=== PATIENT | female | born 1960 | race Caucasian/White ===

== ENCOUNTER 2020-10-13 15:15 | Outpatient (REF) | payer MEDICAID, SELFPAY | END 2020-10-13 15:16 | disposition home or self-care (01) | LOC: HO.LAB 15:15 | PROVIDERS: PCP Student in an Organized Health Care Education/Training Program; Visit Provider Internal Medicine | DX: Z20.828 Contact with and (suspected) exposure to other viral communicable diseases (principal) | CPT/HCPCS: C9803; U0003 ==

== ENCOUNTER → 2020-10-25 08:00 | Outpatient (BNV) | payer MEDICAID, SELFPAY | PROVIDERS: PCP Student in an Organized Health Care Education/Training Program; Visit Provider Internal Medicine Medical Oncology | DX: D05.12 Intraductal carcinoma in situ of left breast (principal); Z79.810 Long term (current) use of selective estrogen receptor modulators (SERMs) | CPT/HCPCS: 99213; 99214 ==

== ENCOUNTER 2020-12-20 11:02 | Outpatient (REF) | payer MEDICAID, SELFPAY | END 2020-12-20 11:03 | disposition home or self-care (01) | LOC: HO.LAB 11:02 | PROVIDERS: Visit Provider Internal Medicine | DX: Z20.822 Contact with and (suspected) exposure to COVID-19 (principal) | CPT/HCPCS: 36415; C9803; U0003; U0005 ==

== ENCOUNTER → 2020-12-21 12:39 | Outpatient (BNVA) | payer MEDICAID, SELFPAY | PROVIDERS: PCP Student in an Organized Health Care Education/Training Program; Visit Provider Surgery | DX: D05.12 Intraductal carcinoma in situ of left breast (principal) | CPT/HCPCS: 99212 ==

== ENCOUNTER 2020-12-23 11:20 | Outpatient (REF) | payer MEDICAID, SELFPAY ==
--- NOTE | ~2020-12-23 | MM_ITS ---
EXAMINATION: MM DIAGNOSTIC DIGITAL BREAST TOMOSYNTHESIS, BILATERAL CLINICAL INFORMATION: Status post left breast lumpectomy. COMPARISON: Mammography: 11/24/2019 and studies dating back to 11/20/2018. TECHNIQUE: Digital breast tomosynthesis is performed in both the craniocaudal and mediolateral oblique views along with computer-aided detection (CAD). Synthesized 2D images are generated from the tomosynthesis. Spot magnification views of the left breast in craniocaudal and 90 degree mediolateral view performed. FINDINGS: There are scattered areas of fibroglandular density (ACR BI-RADS breast composition Category b). There is a stable parenchymal pattern within the right breast without new abnormal dominant mass or suspicious grouping of microcalcifications. Within the left breast there is stable postsurgical change with no new abnormal dominant mass or suspicious grouping of microcalcifications. Results are provided to the patient at time of visit by the technologist. MM/MM tomosynthesis diagnostic BI IMPRESSION: There are no significant changes from prior study. ASSESSMENT: BI-RADS 2: Benign. RECOMMENDATION: Diagnostic mammography at time of next annual exam, due in 12 months. This patient's information was entered into a reminder system with a target due date for their next mammogram.
== END 2020-12-23 11:21 | disposition home or self-care (01) ==
LOC: HO.MAMMO 11:20
PROVIDERS: Visit Provider Student in an Organized Health Care Education/Training Program
DX: Z86.000 Personal history of in-situ neoplasm of breast (principal)
CPT/HCPCS: 77062; 77066

== ENCOUNTER 2021-01-17 14:25 | Outpatient (REF) | payer MEDICAID, SELFPAY | END 2021-01-17 14:26 | disposition home or self-care (01) | LOC: HO.LAB 14:25 | PROVIDERS: Visit Provider Internal Medicine | DX: Z20.822 Contact with and (suspected) exposure to COVID-19 (principal) | CPT/HCPCS: 36415; C9803; U0003; U0005 ==

== ENCOUNTER 2021-04-06 10:00 | Outpatient (REF) | payer MEDICAID, SELFPAY | END 2021-04-06 10:01 | disposition home or self-care (01) | LOC: HO.LAB 10:00 | PROVIDERS: Visit Provider Internal Medicine | DX: Z20.822 Contact with and (suspected) exposure to COVID-19 (principal) | CPT/HCPCS: C9803; U0003; U0005 ==

== ENCOUNTER → 2021-04-20 08:21 | Outpatient (BNVA) | payer MEDICAID, SELFPAY | PROVIDERS: PCP Student in an Organized Health Care Education/Training Program; Visit Provider Nurse Practitioner Family ==

== ENCOUNTER → 2021-09-15 10:03 | Outpatient (BNVA) | payer MEDICAID, SELFPAY | PROVIDERS: Visit Provider Surgery | DX: D05.12 Intraductal carcinoma in situ of left breast (principal) | CPT/HCPCS: 99212 ==

== ENCOUNTER 2021-09-23 07:32 | Outpatient (REF) | payer MEDICAID, SELFPAY ==
--- NOTE | ~2021-09-23 | XR_ITS ---
EXAMINATION: XR KNEE, RIGHT XR KNEE, LEFT XR KNEE BILATERAL STANDING CLINICAL INFORMATION: Bilateral knee pain COMPARISON: 05/28/2019 TECHNIQUE: AP standing view of both knees [place] and lateral views of the left knee [place] and lateral views of the right knee FINDINGS: AP standing view both knees Chronic osteochondritis of the medial and lateral tibiofemoral compartments of both knees. The joint degeneration is, overall, similar in appearance compared to 05/28/2019, although there appears to be slight worsening of joint space loss at the medial tibiofemoral compartment of the right knee. There is chronic zxgsulda-bd-hiuobs loss of the medial tibiofemoral joint space of the left knee. There is 2 degrees of genu varus deformity. Right knee: No fracture, subluxation or joint effusion. Patella is well-positioned in the trochlear groove. Moderate osteoarthritic deformity at the patellofemoral compartment. Left knee: No fracture, subluxation or joint effusion. The patella is well-positioned within the trochlear groove. Chronic moderate osteoarthritis of the patellofemoral compartment. XR/XR knee RT 2V IMPRESSION: Chronic tricompartmental osteoarthritis of knees. At the left knee, the joint space loss is worst ([id number]) at the medial tibiofemoral compartment and there is mild genu varus deformity. At the right knee, the tricompartmental osteochondritis is generally moderate at all compartments.
--- NOTE | ~2021-09-23 | XR_ITS ---
EXAMINATION: XR KNEE, RIGHT XR KNEE, LEFT XR KNEE BILATERAL STANDING CLINICAL INFORMATION: Bilateral knee pain COMPARISON: 05/28/2019 TECHNIQUE: AP standing view of both knees [place] and lateral views of the left knee [place] and lateral views of the right knee FINDINGS: AP standing view both knees Chronic osteochondritis of the medial and lateral tibiofemoral compartments of both knees. The joint degeneration is, overall, similar in appearance compared to 05/28/2019, although there appears to be slight worsening of joint space loss at the medial tibiofemoral compartment of the right knee. There is chronic nqckparq-ji-hldlet loss of the medial tibiofemoral joint space of the left knee. There is 2 degrees of genu varus deformity. Right knee: No fracture, subluxation or joint effusion. Patella is well-positioned in the trochlear groove. Moderate osteoarthritic deformity at the patellofemoral compartment. Left knee: No fracture, subluxation or joint effusion. The patella is well-positioned within the trochlear groove. Chronic moderate osteoarthritis of the patellofemoral compartment. XR/XR knee LT 2V IMPRESSION: Chronic tricompartmental osteoarthritis of knees. At the left knee, the joint space loss is worst (oytsnemr-he-yhgunb) at the medial tibiofemoral compartment and there is mild genu varus deformity. At the right knee, the tricompartmental osteochondritis is generally moderate at all compartments.
--- NOTE | ~2021-09-23 | XR_ITS ---
EXAMINATION: XR KNEE, RIGHT XR KNEE, LEFT XR KNEE BILATERAL STANDING CLINICAL INFORMATION: Bilateral knee pain COMPARISON: 05/28/2019 TECHNIQUE: AP standing view of both knees [place] and lateral views of the left knee [place] and lateral views of the right knee FINDINGS: AP standing view both knees Chronic osteochondritis of the medial and lateral tibiofemoral compartments of both knees. The joint degeneration is, overall, similar in appearance compared to 05/28/2019, although there appears to be slight worsening of joint space loss at the medial tibiofemoral compartment of the right knee. There is chronic opbqaiih-pv-nhrdgh loss of the medial tibiofemoral joint space of the left knee. There is 2 degrees of genu varus deformity. Right knee: No fracture, subluxation or joint effusion. Patella is well-positioned in the trochlear groove. Moderate osteoarthritic deformity at the patellofemoral compartment. Left knee: No fracture, subluxation or joint effusion. The patella is well-positioned within the trochlear groove. Chronic moderate osteoarthritis of the patellofemoral compartment. XR/XR knee standing BI IMPRESSION: Chronic tricompartmental osteoarthritis of knees. At the left knee, the joint space loss is worst (cskgzjzn-ya-hyammp) at the medial tibiofemoral compartment and there is mild genu varus deformity. At the right knee, the tricompartmental osteochondritis is generally moderate at all compartments.
== END 2021-09-23 07:33 | disposition home or self-care (01) ==
LOC: HO.HOSX 07:32
PROVIDERS: Visit Provider Physician Assistant
DX: M17.0 Bilateral primary osteoarthritis of knee (principal)
CPT/HCPCS: 73560; 73565; 99212

== ENCOUNTER → 2021-09-26 08:34 | Outpatient (BNVA) | payer MEDICAID, SELFPAY | PROVIDERS: Visit Provider Nurse Practitioner Family | DX: Z12.11 Encounter for screening for malignant neoplasm of colon (principal); K59.04 Chronic idiopathic constipation; K21.9 Gastro-esophageal reflux disease without esophagitis; M17.0 Bilateral primary osteoarthritis of knee | CPT/HCPCS: 99212 ==

== ENCOUNTER → 2021-09-27 14:08 | Outpatient (BNVA) | payer MEDICAID, SELFPAY | PROVIDERS: Visit Provider Dietitian, Registered ==

== ENCOUNTER 2021-12-24 09:40 | Outpatient (REF) | payer MEDICAID, SELFPAY | END 2021-12-24 09:41 | disposition home or self-care (01) | LOC: HO.MAMMO 09:40 | PROVIDERS: PCP Student in an Organized Health Care Education/Training Program; Visit Provider Student in an Organized Health Care Education/Training Program | DX: Z13.89 Encounter for screening for other disorder (principal) ==

== ENCOUNTER 2022-03-02 11:36 | Outpatient (REF) | payer MEDICAID, SELFPAY ==
--- NOTE | ~2022-03-02 | MM_ITS ---
EXAMINATION: MM DIAGNOSTIC DIGITAL BREAST TOMOSYNTHESIS, BILATERAL CLINICAL INFORMATION: Left lumpectomy for DCIS 02/19/2019. Radiation completed September,. Due for yearly. COMPARISON: Mammography: 12/23/2020, 11/24/2019, 02/19/2019, 01/03/2019, 11/29/2018, 11/20/2018 TECHNIQUE: Digital breast tomosynthesis is performed in both the craniocaudal and mediolateral oblique views along with computer-aided detection (CAD). Synthesized 2D images are generated from the tomosynthesis. FINDINGS: There are scattered areas of fibroglandular density (ACR BI-RADS breast composition Category b). Parenchymal pattern is similar to prior studies. There is no interval mass or architectural abnormality or abnormal calcifications. The axilla are unremarkable. Left breast post therapy changes are again seen with mild reduced breast size and scarring and surgical clips. There are no significant changes from prior studies. Results are provided to the patient at time of visit by the technologist. MM/MM tomosynthesis diagnostic BI IMPRESSION: No mammographic evidence of malignancy. Post therapy changes left breast. ASSESSMENT: BI-RADS 2: Benign RECOMMENDATION: Annual bilateral mammography. This patient's information was entered into a reminder system with a target due date for their next mammogram.
== END 2022-03-02 11:37 | disposition home or self-care (01) ==
LOC: HO.MAMMO 11:36
PROVIDERS: PCP Student in an Organized Health Care Education/Training Program; Visit Provider Student in an Organized Health Care Education/Training Program
DX: R92.2 Inconclusive mammogram (principal); Z85.3 Personal history of malignant neoplasm of breast
CPT/HCPCS: 77062; 77066

== ENCOUNTER 2022-03-14 11:01 | Outpatient (REF) | payer MEDICAID, SELFPAY ==
--- NOTE | ~2022-03-14 | XR_ITS ---
EXAMINATION: LEFT SHOULDER AND CERVICAL SPINE. CLINICAL INFORMATION: Left shoulder and cervical spine pain. No injury COMPARISON: None TECHNIQUE: Left shoulder 4 views. Cervical spine 6 views. FINDINGS: Left shoulder: There is mild loss of glenohumeral and AC joint space with periarticular spurring left glenohumeral joint.. No visible acute fracture, dislocation or subluxation seen. There are no loose bodies or joint effusion. XR/XR cervical spine min 6V IMPRESSION: Degenerative arthritic changes left AC and glenohumeral joint space with periapical spurring of the glenohumeral joint. No acute fracture or dislocation.
--- NOTE | ~2022-03-14 | XR_ITS ---
EXAMINATION: LEFT SHOULDER AND CERVICAL SPINE. CLINICAL INFORMATION: Left shoulder and cervical spine pain. No injury COMPARISON: None TECHNIQUE: Left shoulder 4 views. Cervical spine 6 views. FINDINGS: Left shoulder: There is mild loss of glenohumeral and AC joint space with periarticular spurring left glenohumeral joint.. No visible acute fracture, dislocation or subluxation seen. There are no loose bodies or joint effusion. XR/XR shoulder LT min 2V IMPRESSION: Degenerative arthritic changes left AC and glenohumeral joint space with periapical spurring of the glenohumeral joint. No acute fracture or dislocation.
== END 2022-03-14 11:02 | disposition home or self-care (01) ==
LOC: HO.XRAY 11:01
PROVIDERS: Absent Provider Student in an Organized Health Care Education/Training Program; PCP Student in an Organized Health Care Education/Training Program; Visit Provider Nurse Practitioner
DX: M25.512 Pain in left shoulder (principal); M54.2 Cervicalgia
CPT/HCPCS: 72052; 73030

== ENCOUNTER → 2022-03-21 10:22 | Outpatient (BNVA) | payer MEDICAID, SELFPAY | PROVIDERS: PCP Student in an Organized Health Care Education/Training Program; Visit Provider Surgery | DX: Z13.89 Encounter for screening for other disorder (principal) ==

== ENCOUNTER 2022-04-06 10:11 | Emergency (ER) | payer MEDICAID, SELFPAY ==
[2022-04-06 10:30] VITALS: BP 113/67; PULSE 73; RESP 18; TEMP 36.9; O2SAT 99; BMI 27.1
[2022-04-06 10:52] LABS: COVID-19 Test Positive (Negative); IDNOW Serial# 16C4AD1C
[2022-04-06 10:59] LABS: Strep A Nucleic Acid Positive (Negative)
[2022-04-06 11:02] LABS: IDNOW Serial# 08D9AD1C; Influenza A Negative (Negative); Influenza B2 Negative (Negative)
--- NOTE | 2022-04-06 11:48 | ED_ITS ---
HPI - URI/Sore Throat General Chief Complaint: Upper Respiratory Symptoms Stated Complaint: sore throat , ear ache, headache, fever Time Seen by Provider: 04/06/22 11:48 Source: patient Mode of arrival: ambulatory Limitations: no limitations History of Present Illness HPI Narrative: 62 y/o female with history of arthritis, constipation, GERD, breast cancer on tamoxifen who presents to the ER for evaluation of 3 days of sore throat, painful swallowing, left ear pain and headaches. She also reports fatigue abd body aches. She reports decreased PO intake with the sore throat. No fever, chills, cough, SOB or chest pain. No known sick contacts. She is vaccinated and boosted for COVID. MD elicited complaint: sore throat and other (ear pain) Onset (ago): day(s) (3) Severity: moderate Description of mucous: clear Able to tolerate fluids by mouth: Yes Exacerbating factors: swallowing Relieving factors: nothing Associated symptoms: myalgias, headache, nasal congestion, sore throat and ear pain Treatments prior to arrival: none Related Data Home Medications Medication Instructions Recorded Confirmed ibuprofen 800 mg tablet 800 mg PO Q8H 09/26/21 10/10/21 bisacodyl 5 mg tablet,delayed 10 mg PO ONCE PRN 10/10/21 10/10/21 release (Dulcolax (bisacodyl)) ferrous sulfate 325 mg (65 mg 1 tab PO DAILY 10/10/21 10/10/21 iron) tablet (FeroSul) naproxen 250 mg tablet 250 mg PO BID PRN 10/10/21 10/10/21 Previous Rx's Medication Instructions Recorded omeprazole 20 mg capsule,delayed 20 mg PO DAILY #30 cap 09/26/21 release sennosides 8.6 mg tablet (Natural 8.6 mg PO BEDTIME PRN #30 tab 09/27/21 Senna Laxative) diclofenac sodium 1 % topical gel 4 g TOPICAL QID 30 Days #100 g 10/10/21 miconazole nitrate 2 % vaginal 1 appful VAGINAL BEDTIME #7 g 10/10/21 cream (Monistat 7) tamoxifen 20 mg tablet 20 mg PO DAILY #90 tab 10/10/21 leg brace (Knee Support Brace) #1 ea 12/14/21 azithromycin 250 mg tablet See Rx Instructions .ROUTE 04/06/22 (Zithromax Z-Lamine) .COMPLEX #6 tab ibuprofen 600 mg tablet 600 mg PO Q8H PRN #20 tab 04/06/22 Allergies Allergy/AdvReac Type Severity Reaction Status Date / Time latex [LATEX] Allergy Intermediate RASH Verified 04/06/22 10:30 Review of Systems Review of Systems: Constitutional: No Fever, No Chills ENT/Mouth: + sore throat, No Rhinorrhea, + Swallowing Difficulty, +ear pain Eyes: No Eye Pain, No Swelling, No Redness Cardiovascular: No Chest Pain, No SOB Respiratory: No Cough, No Sputum, No Wheezing, No dyspnea Gastrointestinal: No Nausea, No Vomiting, No Diarrhea, No abdominal Pain Musculoskeletal: No joint pain, +Myalgias Skin: No Skin Lesions, No rash Heme/Lymph: No Bruising, No Lymphadenopathy PMFSH Past Medical History Medical History Ductal carcinoma in situ (DCIS) of left breast Heart murmur Hypoglycemia Surgical History History of left breast biopsy (12/2018) History of left knee surgery (2016) History of lumpectomy of left breast (02/19/19) History of tubal ligation (1999) Family History Family History Maternal Grandfather History of bone cancer Maternal Aunt History of uterine cancer Social History Social History Alcohol intake: former Patient Tobacco Use Status: Never used Tobacco Current occupation: rt handed Physical Exam Vital Signs: Vital Signs: Last Vital Signs Temp 98.5 F 04/06/22 10:30 Pulse 73 04/06/22 10:30 Resp 18 04/06/22 10:30 BP 113/67 04/06/22 10:30 Pulse Ox 99 04/06/22 10:30 BMI result Body Mass Index 27.1 Appearance: Alert. Oriented X3. No acute distress. Eyes: Pupils equal, round and reactive to light. ENT: Pharynx with bilateral tonsillar swelling, erythema and exudate. Normal TM's bilaterally. Neck: Normal inspection. Neck supple. CVS: Normal heart rate and rhythm. Pulses normal. Respiratory: No respiratory distress. Breath sounds normal. Skin: Skin warm and dry. Normal skin color. Normal skin turgor. No rashes. Extremities: No lower extremity edema. No calf tenderness Neuro: Oriented X 3. Grossly normal, nonfocal Course Course Course Narrative: 62-year-old female presents to the ER for evaluation of sore throat, left ear pain, body aches and fatigue for the last 3 days. She is fully vaccinated and boosted for COVID. VS are normal on arrival. Tonsils are swollen and red concerning for Strep. Will also check COVID and Flu swabs. Reevaluation(s) Reevaluation #1: patient found to be positive for strep throat and COVID-19. Will plan to prescribe azithromycin as this may have some benefit for COVID. She is fully vaccinated with minimal respiratory symptoms. At this time she is stable for discharge home with p.o. antibiotics, supportive care and outpatient follow-up. Patient agrees with plan. 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 MDM - URI/Sore Throat Lab Data Labs: Lab Results 04/06/22 04/06/22 04/06/22 Range/Units 10:35 10:35 10:35 COVID-19 (LINDSEY) Positive A (Negative) COVID-19 Clin Com See Note Influenza Type A (JOSÉ ANTONIO) Negative (Negative) Influenza Type B (JOSÉ ANTONIO) Negative (Negative) Influenza A & B Note See Note S. pyogenes GrpA JOSÉ ANTONIO Positive A (Negative) Critical Care Time Critical Care Time Critical Care Time: No Discharge Plan Discharge Clinical Impression: Acute streptococcal pharyngitis, COVID-19 Patient Disposition: Home, Self-Care Instructions: Covid-19 Viral Syndrome and Novel Coronavirus (ED) Hey/Ath, Strep Throat (DC) Additional Instructions: You were found to be COVID-19 POSITIVE today. You are also positive for Strep throat - take the prescribed antibiotics to treat this. Rest. Drink plenty of fluids. Do not go out in public while you are not feelign well. Recommend over the counter Cloraseptic spray or Cepacol lozenges for sore throat. Take over the counter cold/flu medications as needed for your symptoms. Take Tylenol and/or Motrin as needed for fevers and body aches. Follow up with your doctor this week. If you shortness of breath worsens , if you develop difficulty breathing or any other concerning symptom come back to the ER for further evaluation. Se encontr? que usted es COVID-19 POSITIVO hoy. Tambi?n es positivo para la faringitis estreptoc?cica: tome los antibi?ticos recetados para tratar esto. [place]. Beber mucho l?quido. No salga en p?blico mientras no se sienta stephenie. Recomiende el spray Cloraseptic de venta roberta o las pastillas Cepacol para el dolor de garganta. [place] medicamentos de venta roberta para el resfriado o la gripe seg?n sea necesario para nathan s?ntomas. [place] Tylenol y/o Motrin seg?n sea necesario para la fiebre y los bree corporales. Eleonora un seguimiento con isabel m?dico esta semana. Si isabel dificultad para respirar empeora, si desarrolla dificultad para respirar o cualquier otro s?ntoma preocupante, regrese a la randee de emergencias para annmarie evaluaci?n adicional. Prescriptions: New azithromycin [Zithromax Z-Lamine] 250 mg tablet See Rx Instructions .ROUTE .COMPLEX Qty: 6 0RF Rx Instructions: take 500 mg today (day 1), then 250 mg for 4 days (days 2-5) ibuprofen 600 mg tablet 600 mg PO Q8H PRN (Reason: fever or pain) Qty: 20 0RF No Action sennosides [Natural Senna Laxative] 8.6 mg tablet 8.6 mg PO BEDTIME PRN (Reason: constipation) Qty: 30 1RF Rx Instructions: Annmarie tableta cada noche diclofenac sodium 1 % gel 4 g topical QID 30 Days Qty: 100 6RF Rx Instructions: apply 4grams to affected area four times a day as needed (DME) Knee Support Brace Misc See Rx Instructions .MEDSUPPLY Qty: 1 0RF Rx Instructions: Patella Stabilizing knee brace naproxen 250 mg Tablet 250 mg PO BID PRN (Reason: Pain) 0RF ferrous sulfate [FeroSul] 325 mg (65 mg iron) tablet 1 tab PO DAILY 0RF bisacodyl [Dulcolax (bisacodyl)] 5 mg tablet,delayed release (DR/EC) 10 mg PO ONCE PRN (Reason: Constipation) 0RF Rx Instructions: take 2 tabs at noon the day before your colonoscopy miconazole nitrate [Monistat 7] 2 % Cream 1 appful VAGINAL BEDTIME Qty: 7 6RF tamoxifen 20 mg Tablet 20 mg PO DAILY Qty: 90 4RF omeprazole 20 mg capsule,delayed release(DR/EC) 20 mg PO DAILY Qty: 30 3RF Rx Instructions: stephani 1 comprimido media hora antes del desayuno Referrals: Teri Owens MD [Primary Care Provider] - (COVID & Strep follow up) Print Language: Vietnamese
[2022-04-06] MEDS: Ibuprofen 600 MG TABLET PO (12:21)
[2022-04-06] MEDS: Lidocaine HCl Viscous 2 % 15 ML SOLUTION MUCOUS MEM (12:21)
== END 2022-04-06 12:28 | disposition home or self-care (01) ==
LOC: HO.ED 12:15
PROVIDERS: Emergency Provider Emergency Medicine; PCP Student in an Organized Health Care Education/Training Program
DX: U07.1 COVID-19 (principal); J02.0 Streptococcal pharyngitis; D05.12 Intraductal carcinoma in situ of left breast
CPT/HCPCS: 87502; 87635; 87651; 99282; 99283

== ENCOUNTER → 2022-04-21 09:55 | Outpatient (BNVA) | payer MEDICAID, SELFPAY | PROVIDERS: PCP Student in an Organized Health Care Education/Training Program; Visit Provider Surgery | DX: Z86.000 Personal history of in-situ neoplasm of breast (principal) | CPT/HCPCS: 99212 ==

== ENCOUNTER 2022-06-01 16:26 | Outpatient (REF) | payer MEDICAID, SELFPAY ==
--- NOTE | ~2022-06-01 | XR_ITS ---
EXAMINATION: XR KNEE, RIGHT CLINICAL INFORMATION: Right knee pain COMPARISON: Right knee x-rays of 09/23/2021 TECHNIQUE: Four views of the right knee. FINDINGS: There is moderate to severe narrowing of the medial knee joint space and mild to moderate narrowing of the lateral knee joint space. Moderate joint space narrowing at the patellofemoral articulation. There is tricompartmental subarticular sclerosis with mild irregularity of the articular surfaces. Small marginal tricompartmental osteophytes are noted. No evidence of acute fracture or dislocation. Osseous mineralization is normal. No suprapatellar joint effusion. No dystrophic soft tissue calcifications. XR/XR knee RT 4V IMPRESSION: Tricompartmental osteoarthritic changes in the right knee. No acute osseous abnormality.
== END 2022-06-01 16:27 | disposition home or self-care (01) ==
LOC: HO.XRAY 16:26
PROVIDERS: PCP Student in an Organized Health Care Education/Training Program; Visit Provider Internal Medicine
DX: M25.561 Pain in right knee (principal)
CPT/HCPCS: 73564

== ENCOUNTER → 2022-06-07 08:51 | Outpatient (BNVA) | payer MEDICAID, SELFPAY | PROVIDERS: PCP Student in an Organized Health Care Education/Training Program; Visit Provider Physician Assistant | DX: M17.11 Unilateral primary osteoarthritis, right knee (principal) | CPT/HCPCS: 20610; 99212; J1040 ==

== ENCOUNTER 2022-06-26 13:22 | Emergency (ER) | payer MEDICAID, SELFPAY ==
--- NOTE | ~2022-06-26 | XR_ITS ---
EXAMINATION: XR KNEE, RIGHT CLINICAL INFORMATION: Pain COMPARISON: 06/01/2022 TECHNIQUE: 5 views of the right knee. FINDINGS: Moderate to severe medial compartment, mild to moderate lateral compartment arthritis with joint space loss, osteophytes. No acute fracture or dislocation is seen. Patellofemoral arthritis with marginal osteophytes seen. Small effusion. XR/XR knee RT 4V IMPRESSION: Tricompartment osteoarthritis right knee. No acute osseous abnormality seen. Small effusion.
[2022-06-26 13:37] VITALS: BP 121/69; PULSE 71; RESP 17; TEMP 36.6; O2SAT 98; BMI 27.1
--- NOTE | 2022-06-26 17:35 | ED_ITS ---
HPI - General Adult General Chief complaint: Extremity Injury, Lower Stated complaint: R knee swollen Time Seen by Provider: 06/26/22 17:31 History of Present Illness HPI narrative: Patient complains of right knee pain and swelling similar to prior arthritis flares She has seen orthopedist several times and had a steroid injection several weeks ago at [facility] She denies any injury, there is no fever Related Data Home Medications Medication Instructions Recorded Confirmed ibuprofen 800 mg tablet 800 mg PO Q8H 09/26/21 04/21/22 bisacodyl 5 mg tablet,delayed 10 mg PO ONCE PRN Constipation 10/10/21 04/21/22 release (Dulcolax (bisacodyl)) ferrous sulfate 325 mg (65 mg 1 tab PO DAILY 10/10/21 04/21/22 iron) tablet (FeroSul) naproxen 250 mg tablet 250 mg PO BID PRN Pain 10/10/21 04/21/22 Previous Rx's Medication Instructions Recorded omeprazole 20 mg capsule,delayed 20 mg PO DAILY #30 caps 09/26/21 release sennosides 8.6 mg tablet (Natural 8.6 mg PO BEDTIME PRN constipation 09/27/21 Senna Laxative) #30 tabs diclofenac sodium 1 % topical gel 4 g topical QID 30 days #100 grams 10/10/21 miconazole nitrate 2 % vaginal 1 appful vaginal BEDTIME #7 grams 10/10/21 cream (Monistat 7) tamoxifen 20 mg tablet 20 mg PO DAILY #90 tabs 10/10/21 leg brace (Knee Support Brace) #1 ea 12/14/21 ibuprofen 600 mg tablet 600 mg PO Q8H PRN fever or pain 04/06/22 #20 tabs cholecalciferol (vitamin D3) 50 50 mcg PO DAILY #90 tabs 04/21/22 mcg (2,000 unit) tablet (Vitamin D3) acetaminophen 500 mg tablet 1,000 mg PO QID PRN pain #30 tabs 06/26/22 oxycodone 5 mg tablet 5 mg PO Q6H PRN pain #20 tabs 06/26/22 walker #1 ea 06/26/22 Allergies Allergy/AdvReac Type Severity Reaction Status Date / Time latex [LATEX] Allergy Intermediate RASH Verified 04/21/22 10:45 Review of Systems Review of Systems: Positive for right knee pain and swelling Negatives are no fever no chills no dizziness weakness no headache no neck pain no back pain no redness no warmth, no skin rash Yes all other systems are r eviewed and are negative [facility] Past Medical History Source: nursing notes reviewed Medical History Ductal carcinoma in situ (DCIS) of left breast Heart murmur Hypoglycemia Surgical History History of left breast biopsy (12/2018) History of left knee surgery (2016) History of lumpectomy of left breast (02/19/19) History of tubal ligation (1999) Family History Family History Maternal Grandfather History of bone cancer Maternal Aunt History of uterine cancer Social History Social History Household Members: None Housing: Apartment Are you a primary primary care provider to a significant other at home: Yes Do you presently have visiting nurse or other home services: No Alcohol intake: former Patient Tobacco Use Status: Never used Tobacco Advance Directives: No Advance Directives Information Provided: No service: No Current occupational status: disabled Current occupation: rt handed Physical Exam ED Vital Signs: Vital Signs - 24 hr 06/26/22 13:37 Temperature 98 F Pulse Rate 71 Respiratory Rate 17 Blood Pressure 121/69 Pulse Oximetry 98 Oxygen Delivery Method Room Air BMI result Body Mass Index 27.1 General appearance no distress Head is normocephalic atraumatic Neck is supple Respiratory no distress Extremities the right knee is mildly swollen it flexes to about 90 extends to 180, it is not red or warm, patient can do a straight leg raise but uncomfortable, neurovascular intact distal Other extremities normal Skin no rash Course Course Course Narrative: X-ray today again shows arthritis in the knee with a small effusion On exam the patient extends to 180 flexes to 90 there is no redness or warmth no concern for septic arthritis Patient is given an Fer bandage and a prescription for a walker and pain medicine Discharge Plan Discharge Clinical Impression: Osteoarthritis of right knee Patient Disposition: Home, Self-Care Additional Instructions: X-ray showed arthritis in the knee, there is no sign of any infection As Motrin is not sufficient I added Tylenol and if needed narcotic oxycodone for pain medicine Follow closely with orthopedist for further evaluation Return any time if worse Prescriptions: New acetaminophen 500 mg tablet 1,000 mg PO QID PRN (Reason: pain) Qty: 30 0RF oxycodone 5 mg tablet 5 mg PO Q6H PRN (Reason: pain) Qty: 20 0RF Rx Instructions: Partial Fill upon patient request. Narcotic, no driving for 6 hours after taking (DME) walker Misc See Rx Instructions .Route Qty: 1 0RF Rx Instructions: As directed No Action sennosides [Natural Senna Laxative] 8.6 mg tablet 8.6 mg PO BEDTIME PRN (Reason: constipation) Qty: 30 1RF Rx Instructions: Jaimee tableta cada noche diclofenac sodium 1 % gel 4 g topical QID 30 Days Qty: 100 6RF Rx Instructions: apply 4grams to affected area four times a day as needed (DME) Knee Support Brace [facility] See Rx Instructions .MEDSUPPLY Qty: 1 0RF Rx Instructions: Patella Stabilizing knee brace naproxen 250 mg Tablet 250 mg PO BID PRN (Reason: Pain) ferrous sulfate [FeroSul] 325 mg (65 mg iron) tablet 1 tab PO DAILY bisacodyl [Dulcolax (bisacodyl)] 5 mg tablet,delayed release (DR/EC) 10 mg PO ONCE PRN (Reason: Constipation) Rx Instructions: take 2 tabs at noon the day before your colonoscopy miconazole nitrate [Monistat 7] 2 % Cream 1 appful VAGINAL BEDTIME Qty: 7 6RF tamoxifen 20 mg Tablet 20 mg PO DAILY Qty: 90 4RF cholecalciferol (vitamin D3) [Vitamin D3] 50 mcg (2,000 unit) Tablet 50 mcg PO DAILY Qty: 90 3RF ibuprofen 600 mg tablet 600 mg PO Q8H PRN (Reason: fever or pain) Qty: 20 0RF ibuprofen 800 mg tablet 800 mg PO Q8H omeprazole 20 mg capsule,delayed release(DR/EC) 20 mg PO DAILY Qty: 30 3RF Rx Instructions: stephani 1 comprimido media hora antes del desayuno
== END 2022-06-26 17:52 | disposition home or self-care (01) ==
PROVIDERS: Emergency Provider Emergency Medicine; PCP Student in an Organized Health Care Education/Training Program
DX: M17.11 Unilateral primary osteoarthritis, right knee (principal); M25.461 Effusion, right knee; M25.561 Pain in right knee
CPT/HCPCS: 73564; 99282; 99283

== ENCOUNTER → 2022-10-17 08:43 | Outpatient (BNVA) | payer MEDICAID, SELFPAY | PROVIDERS: PCP Student in an Organized Health Care Education/Training Program; Referring Provider Student in an Organized Health Care Education/Training Program; Visit Provider Surgery | DX: Z86.000 Personal history of in-situ neoplasm of breast (principal) | CPT/HCPCS: 99212 ==

== ENCOUNTER 2023-04-11 08:57 | Outpatient (REF) | payer MEDICAID, SELFPAY ==
--- NOTE | ~2023-04-11 | MM_ITS ---
EXAMINATION: MM SCREENING DIGITAL BREAST TOMOSYNTHESIS, BILATERAL CLINICAL INFORMATION: Screening. Asymptomatic. 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 Radiation completed 09/2019. COMPARISON: Prior mammography exams including most recent 03/02/2022. TECHNIQUE: Digital breast tomosynthesis is performed in both the craniocaudal and mediolateral oblique views along with computer-aided detection (CAD). Synthesized 2D images are generated from the tomosynthesis. Additional exaggerated left CC view is provided. FINDINGS: There are scattered areas of fibroglandular density (ACR BI-RADS breast composition Category b). There are post therapy changes left breast similar to prior exam with reduced breast size and mild scarring and surgical clips. Neither breast shows interval mass or architectural abnormality or abnormal calcifications. The axilla are unremarkable. No significant changes. MM/MM tomosynthesis screening BI IMPRESSION: -No mammographic evidence of malignancy. -Post therapy changes left breast. ASSESSMENT: BI-RADS 2: Benign RECOMMENDATION: Routine annual mammography screening. This patient's information was entered into a reminder system with a target due date for their next mammogram.
== END 2023-04-11 08:58 | disposition home or self-care (01) ==
LOC: HO.MAMMO 08:57
PROVIDERS: PCP Student in an Organized Health Care Education/Training Program; Visit Provider Student in an Organized Health Care Education/Training Program
DX: Z12.31 Encounter for screening mammogram for malignant neoplasm of breast (principal)
CPT/HCPCS: 77063; 77067; 99212

== ENCOUNTER → 2023-04-17 09:34 | Outpatient (BNVA) | payer MEDICAID, SELFPAY | PROVIDERS: PCP Student in an Organized Health Care Education/Training Program; Visit Provider Surgery | DX: Z86.000 Personal history of in-situ neoplasm of breast (principal) | CPT/HCPCS: 99212 ==

== ENCOUNTER 2023-10-16 09:39 | Outpatient (AMB) | payer MEDICAID, SELFPAY ==
--- NOTE | 2023-10-16 09:43 | A.OFFVIS_ITS ---
Intake Intake Visit Reasons: 6 month breast exam Intake Note: que is seen in office for 6 month follow up visit, breast exam. Patient c/o: no concerns regarding the breast mm: 04/11/23 Medicare Compliance Auditor Required: Yes Medicare Compliance Auditor Language: Sales Planning Analyst Name: Edna COPELAND Information Interpreted: non-clinical & clinical Fur Buyer: Fur Buyer Present Accompanied by: Self / Same As Patient Allergies latex [LATEX] Allergy (Intermediate, Verified 10/16/23 09:49) RASH Medication List - Last Reconciled 10/16/23 by Laz Hauser MD acetaminophen 1,000 mg (2 x 500 mg) PO QID PRN bisacodyl (Dulcolax (bisacodyl)) 10 mg PO ONCE PRN celecoxib (Celebrex) 200 mg PO BID 30 days cholecalciferol (vitamin D3) (Vitamin D3) 50 mcg PO DAILY diclofenac sodium 1% 4 grams topical QID 30 days ferrous sulfate (FeroSul) 1 tab PO DAILY ibuprofen 600 mg PO Q8H PRN ibuprofen 800 mg PO Q8H leg brace (Knee Support Brace) Patella Stabilizing knee brace naproxen 250 mg PO BID PRN omeprazole 20 mg PO DAILY oxycodone 5 mg PO Q6H PRN sennosides (Natural Senna Laxative) 8.6 mg PO BEDTIME PRN tamoxifen 20 mg PO DAILY walker As directed HPI HPI Comments 2 History of Present Illness0 Details 63-year-old female patient returning for a follow-up breast examination. She is a former patient of Dr. Max presenting with a previous history of a left breast ductal carcinoma in situ. She underwent a left breast needle localized lumpectomy on 02/19/2019. 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 She required 2 re-excisions to obtain clear margins on 04/02/2019 and 05/07/2019. She was evaluated at [facility] and underwent radiation therapy, completed on July 2019. She was subsequently started on tamoxifen 20 mg p[address] daily by Dr. Garner. She is generally tolerating this well but does report hair loss as result of the medication. Her latest mammogram dated 04/11/2023 revealed no mammographic evidence of malignancy with post therapy changes in the left breast. Annual screening is recommended (BI- RADS 2). She denies any new problems in either breast. [facility] Medical History History of COVID-19 Heart murmur Hypoglycemia Ductal carcinoma in situ (DCIS) of left breast Surgical History History of lumpectomy of left breast (02/19/19) History of left breast biopsy (12/2018) History of tubal ligation (1999) History of left knee surgery (2016) Family History Maternal Grandfather History of bone cancer Maternal Aunt History of uterine cancer Social History Household Members: None Housing: Apartment Are you a primary care transitions manager to a significant other at home: Yes Do you presently have visiting nurse or other home services: No Alcohol intake: former Patient Tobacco Use Status: Never used Tobacco service: No Current occupational status: disabled Current occupation: rt handed Review of Systems Const All systems reviewed & are unremarkable except as noted in HPI and below Denies body aches, Denies difficulty sleeping, Denies night sweats and Denies poor appetite Card Reports no additional complaints Resp Reports no additional complaints Denies nipple discharge Skin/Breast Denies breast skin changes, Denies breast pain, Denies breast mass, Denies change in breast shape, Denies new lesions, Denies nipple discharge and Denies rash Physical Exam Const General: cooperative, healthy appearing, comfortable, no acute distress and well developed Chest Other: Left breast: No skin change, no nipple retraction, no nipple discharge, no palpable mass, no enlarged lymph nodes. Breast tissue is much softer and the incisions have faded nicely. No suspicious masses appreciated. Mild tenderness noted in the chris-incisional region. Right breast: No skin change, no nipple retraction, no nipple discharge, no palpable mass, no enlarged lymph nodes Chest/axillae images: 2 1. Incision left breast periareolar Resp Effort & Inspection: normal respiratory effort, no audible wheezes, no cough and no respiratory distress GI Inspection: Yes normal to inspection Skin General skin exam: no rashes or lesions noted Extrem Other: No edema in the upper extremities General: Yes no clubbing, cyanosis or edema Assessment & Plan Assessment & Plan (1) Ductal carcinoma in situ (DCIS) of left breast: Code(s): D05.12 - Intraductal carcinoma in situ of left breast Plan: 63-year-old female patient returning for follow-up breast examination after left breast lumpectomy on for ductal carcinoma in-situ on 02/19/2019, 04/02/2019 and 05/07/2019. Examination today reveals no evidence of recurrence disease. Follow-up mammogram of 04/11/2023 revealed no evidence of malignancy, post therapy changes of the left breast (BI-RADS 2). Annual mammography is recommended in 1 year. She should return for follow-up breast examination in 6 months. She is welcome to call sooner for problems. Coding Level of Care Code Est Pt Level 3 (69033) Diagnoses Ductal carcinoma in situ (DCIS) of left breast D05.12
== END 2023-10-16 10:02 | disposition home or self-care (01) ==
PROVIDERS: PCP Student in an Organized Health Care Education/Training Program; Visit Provider Surgery
DX: D05.12 Intraductal carcinoma in situ of left breast (principal)
CPT/HCPCS: 99213

== ENCOUNTER → 2023-10-16 09:39 | Outpatient (BNVA) | payer MEDICAID, SELFPAY | PROVIDERS: PCP Student in an Organized Health Care Education/Training Program; Visit Provider Surgery | DX: D05.12 Intraductal carcinoma in situ of left breast (principal) | CPT/HCPCS: 99212 ==

== ENCOUNTER 2023-10-19 09:36 | Outpatient (AMB) | payer MEDICAID, SELFPAY ==
--- NOTE | 2023-10-19 09:40 | MHC.OFFVIS ---
Intake Vital Signs 10/19/23 09:42 Height 6 ft Weight 225 lb 4.999 oz BMI 30.6 BP 106/75 Blood Pressure Location Rt brachial Position Sitting Pulse 70 Pulse Source Pulse Oximeter Intake Visit Reasons: Constipation, Pt hasn't been seen in 2 years Intake Note: Pt presents to the office today for constipation. Pt states she is having constipations a few times a week. Pt states she gets stomach pain in the middle of her stomach. Pt denies any nausea or vomiting. Allergies latex [LATEX] Allergy (Intermediate, Verified 10/19/23 09:43) RASH HPI Constipation, Pt hasn't been seen in 2 years HPI Details LAST VISIT: GERD (gastroesophageal reflux disease) Occasional postprandial acid reflux. Patient was encouraged to avoid dietary triggers and late night snacking. I will have patient continue omeprazole. She will be sent for upper endoscopy to rule out gastritis, esophagitis or Casillas's. Constipation Patient reports that she has been moving her bowels better now that she is taking Senokot. Patient reports that she take Senokot every other day. She was encouraged to take it every night so she can move her bowels better. Screen for colon cancer Patient denies any cardiac or respiratory symptoms.? Symptoms of constipation treated with Senokot daily, acid reflux feeling better after starting omeprazole. Patient will go for upper endoscopy to rule out esophagitis, gastritis, Casillas's. Patient denies any issues with anesthesia in the past.? Denies any history of sleep apnea.? No history infectious diseases in the past or present.? Not on any anticoagulation therapy.? No family or personal history of colon cancer. ? Patient denies melena, hematochezia, unintentional weight loss or ribbon like stools.? Discussed at length the pre-procedure,? prep, diet & medications as well as what to expect prior, during and after the procedure.?? Stressed the importance of good bowel prep. ?Patient verbalizes understanding and agrees to plan of care.? She was given the opportunity to ask questions and all questions answered.? We will see her after the procedure Plan Medications New bisacodyl (Dulcolax (bisacodyl)) take 2 tabs at noon the day before your colonoscopy 10 mg (2 x 5 mg) PO ONCE 1 day 2 tabs 0RF Z12.11 polyethylene glycol 3350 (Miralax) As directed by gastroenterology department at [facility] 238 grams PO ONCE 238 grams 0RF Z12.11 Refilled omeprazole stephani 1 comprimido media hora antes del desayuno 20 mg PO DAILY 30 caps 3RF K21.9 sennosides (Natural Senna Laxative) Jaimee tableta cada noche 8.6 mg PO BEDTIME PRN 30 tabs 1RF constipation K59.00 TODAY'S VISIT Patient is here today for follow-up and to discuss going for colonoscopy and upper endoscopy. Patient was seen 2 years ago and has never gone for colonoscopy. Patient continues to feel constipated. Sometimes no bowel movements for 2-3 days. Needs to use [id number] medication and wants a refill. Her symptoms of acid reflux continues despite taking omeprazole. He feels like omeprazole is not working. Patient denies any melena, hematochezia, unintentional weight loss or ribbon like stools. Patient denies any dyspepsia, dysphagia or odynophagia. Denies any cardiac or respiratory symptoms. No trouble with anesthesia in the past. No history of sleep apnea. Not on any anticoagulation medication. [facility] Medical History History of COVID-19 Heart murmur Hypoglycemia Ductal carcinoma in situ (DCIS) of left breast Surgical History History of lumpectomy of left breast (02/19/19) History of left breast biopsy (12/2018) History of tubal ligation (1999) History of left knee surgery (2016) Family History Maternal Grandfather History of bone cancer Maternal Aunt History of uterine cancer Social History Household Members: None Housing: Apartment Are you a primary patient care technician to a significant other at home: Yes Do you presently have visiting nurse or other home services: No Alcohol intake: former Patient Tobacco Use Status: Never used Tobacco service: No Current occupational status: disabled Current occupation: rt handed Review of Systems Const Denies weight gain and Denies weight loss ENT Reports no additional complaints, Denies dysphagia and Denies odynophagia Card Reports no additional complaints Resp Reports no additional complaints GI Denies abdominal pain, Denies belching, Denies melena, Denies bloating, Denies change in bowel habits, Reports constipation, Denies dysphagia, Denies excessive flatus, Reports dyspepsia, Reports heartburn, Denies diarrhea, Denies loose stools, Denies nausea, Denies odynophagia and Denies vomiting Reports no additional complaints Musc Reports no additional complaints Neuro Reports no additional complaints Psych Reports no additional complaints Endo Reports no additional complaints Physical Exam Vital Signs: Last Vital Signs Pulse 70 10/19/23 09:42 BP 106/75 10/19/23 09:42 BMI result Body Mass Index 30.6 Const General: healthy appearing, no acute distress and well developed Nutritional Appearance: obese Orientation/consciousness: patient oriented x3 HEENT Head: Yes normal to inspection, Yes normocephalic and Yes atraumatic Face and sinus: Yes normal facial exam Mouth: Normal oral and palatal mucosa present Throat: Yes posterior oropharynx normal, Yes tonsils normal and Yes uvula midline Eyes General: appearance normal, both eyes and all related structures Neck Neck: Yes normal visual inspection, Yes full ROM and Yes trachea midline Thyroid: Thyroid normal Resp Effort & Inspection: normal respiratory effort, able to speak in complete sentences, no tracheal deviation and symmetric chest movement Auscultation: clear to auscultation bilaterally Cardio Rate: regular rate GI Inspection: Yes normal to inspection, No distended and Yes obesity Palpation (GI): Soft to palpation, not firm, nontender and No hepatosplenomegaly present Auscultation: normal bowel sounds General: Yes no CVA tenderness Back/Spine/Pelvis Back: no CVA tenderness Skin General skin exam: elasticity normal, turgor normal and dry skin Neuro General: patient oriented x3 Psych Appearance: grossly normal Mental Status: mental status grossly normal Affect: normal affect Assessment & Plan Assessment & Plan (1) GERD (gastroesophageal reflux disease): Code(s): K21.9 - Gastro-esophageal reflux disease without esophagitis Qualifiers: Esophagitis presence: esophagitis presence not specified Qualified Code(s): K21.9 - Gastro-esophageal reflux disease without esophagitis (2) Constipation: Code(s): K59.00 - Constipation, unspecified Qualifiers: Constipation type: slow transit constipation Qualified Code(s): K59.01 - Slow transit constipation (3) Screen for colon cancer: Code(s): Z12.11 - Encounter for screening for malignant neoplasm of colon Plan Will book upper endoscopy and colonoscopy for patient. Patient will start taking pantoprazole 40 mg half an hour before breakfast. Discussed with patient avoiding dietary triggers and late night snacking. Staying upright for minimum 3 hours after meals discussed with patient. Patient will go for upper endoscopy to rule out esophagitis, gastritis, duodenitis, peptic or gastric ulcers, Casillas's, H pylori. Patient will continue taking 1-2 Senokot every night to help her move her bowels better. Colonoscopy will be scheduled as well. What to expect before during and after the procedure discussed with patient. Discussed with patient the importance of good bowel prep as well as clear liquid diet day before the procedure. I will see her after the procedure, sooner on as needed basis. Patient is agreeable to plan of care and verbalizes understanding of instructions. She was given the opportunity to ask questions and all questions answered. Thank you for allowing me to participate in her care Medications: New pantoprazole take one tablet half an hour before breakfast 40 mg PO DAILY 90 tabs 2RF K21.9 - Gastro-esophageal reflux disease without esophagitis bisacodyl (Dulcolax (bisacodyl)) take 4 tabs at noon the day before your colonoscopy 20 mg (4 x 5 mg) PO ONCE 4 tabs 0RF 1 day Z12.11 - Encounter for screening for malignant neoplasm of colon polyethylene glycol 3350 (Miralax) As directed by gastroenterology department at [facility] 238 grams PO ONCE 238 grams 0RF Z12.11 - Encounter for screening for malignant neoplasm of colon Changed From sennosides Jaimee tableta cada noche 8.6 mg PO BEDTIME PRN 30 tabs 1RF constipation K59.00 - Constipation, unspecified To sennosides (Natural Senna Laxative) Jaimee tableta cada noche 8.6 mg PO BEDTIME 90 tabs 2RF constipation K59.00 - Constipation, unspecified Discontinued omeprazole stephani 1 comprimido media hora antes del desayuno Discontinued Reason: Doctor's Order 20 mg PO DAILY 30 caps 3RF K21.9 - Gastro-esophageal reflux disease without esophagitis Coding Level of Care Code Est Pt Level 3 (73499) Diagnoses Gastroesophageal reflux disease, unspecified whether esophagitis present K21.9 Esophagitis presence: esophagitis presence not specified Slow transit constipation K59.01 Constipation type: slow transit constipation Screen for colon cancer Z12.11 Time Spent (min) 35 Comment 25 minutes spent with patient and additional 10 minutes spent reviewing her records
[2023-10-19 09:42] VITALS: BP 106/75; PULSE 70; BMI 30.6
== END 2023-10-19 11:04 | disposition home or self-care (01) ==
PROVIDERS: PCP Student in an Organized Health Care Education/Training Program; Visit Provider Nurse Practitioner Family
DX: K21.9 Gastro-esophageal reflux disease without esophagitis (principal); K59.01 Slow transit constipation; Z12.11 Encounter for screening for malignant neoplasm of colon
CPT/HCPCS: 99213

== ENCOUNTER → 2023-10-19 09:36 | Outpatient (BNVA) | payer MEDICAID, SELFPAY | PROVIDERS: PCP Student in an Organized Health Care Education/Training Program; Visit Provider Nurse Practitioner Family | DX: Z12.11 Encounter for screening for malignant neoplasm of colon (principal); K21.9 Gastro-esophageal reflux disease without esophagitis; K59.01 Slow transit constipation | CPT/HCPCS: 99212 ==

== ENCOUNTER 2024-03-21 12:37 | Outpatient (AMB) | payer MEDICAID, SELFPAY ==
--- NOTE | 2024-03-21 12:45 | A.OFFVIS_ITS ---
Vital Signs 03/21/24 12:50 Height 6 ft Weight 225 lb BMI 30.5 Intake Visit Reasons: OV-B/L knee brace-fitting new braces Intake Note: Mary a 64 year old female who presents today for a follow up of bilateral knee. Patient reports last injection provided her with some relief for 3-4 months however she finds good relief with compound cream and celebrex. She is requesting a refill on medication as well as new braces due to previous braces falling down and not provided her with support. Allergies latex [LATEX] Allergy (Intermediate, Verified 03/21/24 12:59) RASH HPI HPI OV-B/L knee brace-fitting new braces: Details: 64-year-old female who returns to the office today for a follow-up of bilateral knee pain. She was fitted for a Genumed knee brace on 09/26/21 for bilateral knees however the brace has got loose. She reports her last injection provided her relief for 3-4 months. She finds good relief with compound cream and Celebrex. She is requesting a refill on medication as well as new braces due to previous braces falling down and not provided her with support. [facility] Medical History History of COVID-19 Heart murmur Hypoglycemia Ductal carcinoma in situ (DCIS) of left breast Surgical History (Updated 03/21/24 @ 12:49 by MIN Cordoba) History of ear surgery History of lumpectomy of left breast (02/19/19) History of left breast biopsy (12/2018) History of tubal ligation (1999) History of left knee surgery (2016) Family History Maternal Grandfather History of bone cancer Maternal Aunt History of uterine cancer Social History Household Members: None Housing: Apartment Are you a primary acute care clinical nurse specialist to a significant other at home: Yes Do you presently have visiting nurse or other home services: No Alcohol intake: former Patient Tobacco Use Status: Never used Tobacco service: No Current occupational status: disabled Current occupation: rt handed Review of Systems Const All systems reviewed & are unremarkable except as noted in HPI and below Physical Exam Vital Signs: BMI result Body Mass Index 30.5 Extrem Other: Bilat knee skin intact. Tenderness along the medial aspect of the joint and retropatellar tenderness laterally. She has full ROM with crepitus. Calf supple non tender. NVI. Assessment & Plan Assessment & Plan (1) Tricompartment osteoarthritis of both knees: Code(s): M17.0 - Bilateral primary osteoarthritis of knee Category: Medical Plan She fit for bilateral knee brace and prescription for Celebrex sent to pharmacy along with compound pain cream. She is content with this plan. Medications: Refilled celecoxib (Celebrex) 200 mg PO BID 60 caps 6RF 30 days Patient Instructions: Scribed for Bob Daniels PA-C, by Eliazar Soriano medical sociologist, on 03/21/2024 at 12:45 PM FLYNN. Bob Penaloza PA-C, have personally reviewed and agree with the information entered by the scribe. Coding Level of Care Code Est Pt Level 3 (72535) Diagnoses Tricompartment osteoarthritis of both knees M17.0
[2024-03-21 12:50] VITALS: BMI 30.5
== END 2024-03-21 13:55 | disposition home or self-care (01) ==
PROVIDERS: PCP Student in an Organized Health Care Education/Training Program; Visit Provider Physician Assistant
DX: M17.0 Bilateral primary osteoarthritis of knee (principal)
CPT/HCPCS: 99214

== ENCOUNTER → 2024-03-21 12:37 | Outpatient (BNVA) | payer MEDICAID, SELFPAY | PROVIDERS: PCP Student in an Organized Health Care Education/Training Program; Visit Provider Physician Assistant | DX: M17.0 Bilateral primary osteoarthritis of knee (principal) | CPT/HCPCS: 99212 ==

== ENCOUNTER 2024-04-16 08:58 | Outpatient (REF) | payer MEDICAID, SELFPAY ==
--- NOTE | ~2024-04-16 | MM_ITS ---
EXAMINATION: MM SCREENING DIGITAL BREAST TOMOSYNTHESIS, BILATERAL CLINICAL INFORMATION: Screening. Asymptomatic. The patient has a history of prior left breast surgery for DCIS in 2019. COMPARISON: Mammography: This study is compared with prior exams dating back to 2019. TECHNIQUE: Digital breast tomosynthesis is performed in both the craniocaudal and mediolateral oblique views along with computer-aided detection (CAD). Synthesized 2D images are generated from the tomosynthesis. FINDINGS: There are scattered areas of fibroglandular density (ACR BI-RADS breast composition Category b). There are no significant masses, abnormal calcifications, or other abnormalities. There are postsurgical changes in the upper outer quadrant of the left breast from prior breast cancer treatment. MM/MM tomosynthesis screening BI IMPRESSION: No mammographic evidence of malignancy. ASSESSMENT: BI-RADS BI-RADS 2 - Benign Findings RECOMMENDATION: Routine annual mammography screening. 1 year F/U This examination should not preclude the clinical evaluation of a suspicious palpable abnormality. This patient's information was entered into a reminder system with a target due date for their next mammogram.
--- NOTE | ~2024-04-16 | MM_ITS ---
EXAMINATION: BONE DENSITOMETRY CLINICAL INDICATION: Osteopenia. COMPARISON: Baseline BD dated 06/11/2019. TECHNIQUE: Using a [employer]nehta DXA System (software version: 13.1) manufactured by [facility], dual-energy x-ray absorptiometry was performed of the lumbar spine and left hip. The images are of good technical quality. Summary results are attached. FINDINGS: LEFT FEMUR, NECK: Current: BMD 0.969 g/cm2, Z-score 0.3, T-score -0.5, normal. Baseline: BMD 1.052 g/cm2. LEFT FEMUR, TOTAL: Current: BMD 0.940 g/cm2, Z-score -0.1, T-score -0.5, normal, 13.1% decrease from baseline (<5% change is not significant). Baseline: BMD 1.082 g/cm2. AP SPINE L1-L4: Current: BMD 1.288 g/cm2, Z-score 1.4, T-score 0.9, normal, 5.2% decrease from baseline (<5% change is not significant). Baseline: BMD 1.359 g/cm2. IDENTIFIED RISK FACTORS: Menopause, rheumatoid arthritis, parental hip fracture. HISTORY OF FRACTURE: None listed. MEDICATIONS: Vitamin D, ERT/SERMS. MM/XR DEXA axial skeleton IMPRESSION: 1. DIAGNOSIS: Normal bone density based on the lowest T-score value of -0.5 in the femoral neck and total femur applying World Health Organization criteria. 2. 10-YEAR FRACTURE RISK PREDICTION, FRAX: According to the guidelines, FRAX calculation should only be performed on patients in the osteopenia bone density category. Therefore, FRAX was not performed on this patient. 3. Treatment Recommendations: NOF guidelines recommend consideration for treatment in postmenopausal women and men age 50 and older presenting with the following: -A hip or vertebral (clinical or morphometric) fracture. -T-score less than or equal to -2.5 at the femoral neck or spine after appropriate evaluation to exclude secondary causes. -Low bone mass at the hip or spine and a 10-year fracture probability by FRAX of greater than or equal to 3% for hip fracture or greater than or equal to 20% for major osteoporotic fracture based on the [place] adapted WHO algorithm. 4. Other Recommendations: All treatment decisions require clinical judgment and consideration of individual patient factors, including patient preferences, comorbidities, previous drug use, risk factors not captured in the FRAX model (e.g. frailty, falls, vitamin D deficiency, increased bone turnover, interval significant decline in bone density) and possible under or overestimation of fracture risk by FRAX. FUTURE SCAN RECOMMENDATION: People with diagnosed cases of osteoporosis or at high risk for fracture should have regular bone mineral density tests. For patients eligible for Medicare, routine testing is allowed once every 2 years. The testing frequency can be increased to one year for patients who have rapidly progressing disease, those who are receiving or discontinuing medical therapy to restore bone mass, or have additional risk factors.
== END 2024-04-16 08:59 | disposition home or self-care (01) ==
LOC: HO.MAMMO 08:58
PROVIDERS: Absent Provider Surgery; PCP Student in an Organized Health Care Education/Training Program; Visit Provider Internal Medicine Medical Oncology
DX: Z12.31 Encounter for screening mammogram for malignant neoplasm of breast (principal); Z13.820 Encounter for screening for osteoporosis; Z78.0 Asymptomatic menopausal state; Z85.3 Personal history of malignant neoplasm of breast
CPT/HCPCS: 77063; 77067; 77080

== ENCOUNTER → 2024-04-16 09:45 | Outpatient (BNV) | payer MEDICAID, SELFPAY | PROVIDERS: Absent Provider Surgery; PCP Student in an Organized Health Care Education/Training Program; Visit Provider Radiology Diagnostic Radiology | DX: Z12.31 Encounter for screening mammogram for malignant neoplasm of breast (principal) | CPT/HCPCS: 77063; 77067 ==

== ENCOUNTER 2024-04-24 09:01 | Outpatient (AMB) | payer MEDICAID, SELFPAY ==
--- NOTE | 2024-04-24 09:17 | A.OFFVIS_ITS ---
Vital Signs 3 04/24/24 09:21 Height 6 ft Weight 228 lb BMI 30.9 BP 122/72 Blood Pressure Location Lt brachial Position Sitting Intake Visit Reasons: 6 month breast exam Intake Note: Patient is seen in office for 6 month follow up visit, breast exam. Pt c/o: denies any concerns at the time of visit Tailman Required: Yes Tailman Language: Cable Splicer Helper Name: Edna COPELAND Information Interpreted: non-clinical & clinical Cyber Transport Systems Specialist: Cyber Transport Systems Specialist Present Accompanied by: Self / Same As Patient Allergies latex [LATEX] Allergy (Intermediate, Verified 04/24/24 09:22) RASH Medication List - Last Reconciled 04/24/24 by Laz Hauser MD acetaminophen 1,000 mg (2 x 500 mg) PO QID PRN bisacodyl (Dulcolax (bisacodyl)) 20 mg (4 x 5 mg) PO ONCE 1 day celecoxib (Celebrex) 200 mg PO BID 30 days cholecalciferol (vitamin D3) (Vitamin D3) 50 mcg PO DAILY clotrimazole-betamethasone 1-0.05 % 1 appl topical BID diclofenac sodium 1% 4 grams topical QID 30 days ferrous sulfate (FeroSul) 1 tab PO DAILY ibuprofen 800 mg PO Q8H leg brace (Knee Support Brace) Patella Stabilizing knee brace pantoprazole 40 mg PO DAILY polyethylene glycol 3350 (Miralax) 238 grams PO ONCE sennosides (Natural Senna Laxative) 8.6 mg PO BEDTIME tamoxifen 20 mg PO DAILY walker As directed HPI Comments Details: 64-year-old female patient returning for a follow-up breast examination. She is a former patient of Dr. Max presenting with a previous history of a left breast ductal carcinoma in situ. She underwent a left breast needle localized lumpectomy on 02/19/2019. 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 She required 2 re-excisions to obtain clear margins on 04/02/2019 and 05/07/2019. She was evaluated at [facility] and underwent radiation therapy, completed on July 2019. She was subsequently started on tamoxifen 20 mg p[address] daily by Dr. Garner. She is generally tolerating this well but does report hair loss as result of the medication. Her latest mammogram dated 04/11/2023 revealed no mammographic evidence of malignancy with post therapy changes in the left breast. She underwent mammogram evaluation on 04/16/2024 although the results are not available to time of this dictation. She denies any new problems in either breast. [facility] Medical History History of COVID-19 Heart murmur Hypoglycemia Ductal carcinoma in situ (DCIS) of left breast Surgical History History of ear surgery History of lumpectomy of left breast (02/19/19) History of left breast biopsy (12/2018) History of tubal ligation (1999) History of left knee surgery (2016) Family History Maternal Grandfather History of bone cancer Maternal Aunt History of uterine cancer Social History Household Members: None Housing: Apartment Are you a primary date night caregiver to a significant other at home: Yes Do you presently have visiting nurse or other home services: No Alcohol intake: former Patient Tobacco Use Status: Never used Tobacco service: No Current occupational status: disabled Current occupation: rt handed Review of Systems Const All systems reviewed & are unremarkable except as noted in HPI and below Denies body aches, Denies difficulty sleeping, Denies night sweats and Denies poor appetite Card Reports no additional complaints Resp Reports no additional complaints Denies nipple discharge Skin/Breast Denies breast skin changes, Denies breast pain, Denies breast mass, Denies change in breast shape, Denies new lesions, Denies nipple discharge and Denies rash Physical Exam Const General: cooperative, healthy appearing, comfortable, no acute distress and well developed Chest Other: Left breast: No skin change, no nipple retraction, no nipple discharge, no palpable mass, no enlarged lymph nodes, no tenderness. Right breast: No skin change, no nipple retraction, no nipple discharge, no palpable mass, no enlarged lymph nodes, no tenderness. Chest/axillae images: 2 1. Incision upper outer quadrant left breast Resp Effort & Inspection: normal respiratory effort, no audible wheezes, no cough and no respiratory distress GI Inspection: Yes normal to inspection Skin General skin exam: no rashes or lesions noted Extrem Other: No edema in the upper extremities General: Yes no clubbing, cyanosis or edema Assessment & Plan Assessment & Plan (1) Ductal carcinoma in situ (DCIS) of left breast: Code(s): D05.12 - Intraductal carcinoma in situ of left breast Category: Medical Plan: 64-year-old female patient returning for follow-up breast examination after left breast lumpectomy on for ductal carcinoma in-situ on 02/19/2019, 04/02/2019 and 05/07/2019. Examination today reveals no evidence of recurrence disease. Follow-up mammogram of 04/11/2023 revealed no evidence of malignancy, post therapy changes of the left breast (BI-RADS 2). Annual mammography performed on 04/16/2024 has not been read at the time of this examination. Patient will return in 1 year for follow-up breast examination. Coding Level of Care Code Est Pt Level 3 (09815) Diagnoses Ductal carcinoma in situ (DCIS) of left breast D05.12
[2024-04-24 09:21] VITALS: BP 122/72; BMI 30.9
== END 2024-04-24 09:30 | disposition home or self-care (01) ==
PROVIDERS: PCP Student in an Organized Health Care Education/Training Program; Visit Provider Surgery
DX: D05.12 Intraductal carcinoma in situ of left breast (principal)
CPT/HCPCS: 99213

== ENCOUNTER → 2024-04-24 09:01 | Outpatient (BNVA) | payer MEDICAID, SELFPAY | PROVIDERS: PCP Student in an Organized Health Care Education/Training Program; Visit Provider Surgery | DX: D05.12 Intraductal carcinoma in situ of left breast (principal); Z17.0 Estrogen receptor positive status [ER+]; Z79.810 Long term (current) use of selective estrogen receptor modulators (SERMs) | CPT/HCPCS: 99212 ==

== ENCOUNTER 2024-05-22 07:51 | Emergency (ER) | payer MEDICAID, SELFPAY ==
--- NOTE | ~2024-05-22 | US_ITS ---
EXAMINATION: US ABDOMEN LIMITED CLINICAL INFORMATION: Right upper quadrant pain. COMPARISON: Ultrasound exam from 07/22/2019 TECHNIQUE: Real-time imaging of the right upper quadrant abdominal viscera. FINDINGS: PANCREAS: Normal. LIVER: Liver has normal size and contour. The majority of the liver is hyperechoic; findings consistent with steatosis. No sonographic evidence of liver mass or intrahepatic ductal dilatation. No perihepatic fluid. GALLBLADDER: The gallbladder contains multiple distally shadowing stones. No gallbladder wall edema or pericholecystic fluid. COMMON BILE DUCT: Normal in caliber measuring 0.3 cm in diameter. RIGHT KIDNEY: Normal. No hydronephrosis. No renal calculi or focal parenchymal lesions. The kidney measures 11.8 cm in maximum dimension. FREE FLUID: None. US/US abdomen limited IMPRESSION: * Cholelithiasis without evidence of acute cholecystitis or biliary tract obstruction. * Hepatic steatosis.
[2024-05-22 08:02] VITALS: BP 202/84; PULSE 76; RESP 16; TEMP 36.2; O2SAT 98; BMI 28.5
[2024-05-22 08:14] VITALS: BP 142/81; PULSE 94; RESP 22; TEMP 36.7; O2SAT 96
--- OUTSIDE RECORDS SUMMARY | 2024-05-22 08:27 | XMS_ITS | Continuity of Care Document ---
Author Organization [facility] Address [address] [place] [id number]- Care Team Providers Care Case Investigator Name Role Phone Teri Owens MD Primary Care Physician [phone] Encounter [facility] Date(s): 01/30/23 - 03/01/[address] [address]- Attending Physician: AdmBrody vidales Admitting Physician: Admtr, Ar8 Referring Physician: Admtr, Ar8 Allergies, Adverse Reactions, Alerts No Known Allergies Medications omeprazole 20 mg oral enteric coated capsule 1 capsule = 20 mg, By Mouth, Daily, take 1 cap daily while on Dexamethasone, # 30 capsule, 1 Refills, Maintenance, 11/27/19 16:22:00 EST, CR Capsule, [facility] #[id number], 183, cm, 09/24/19 13:32:00 EST, Height, 96.8, kg, 09/24/19 13:32:00 EST,... Start Date: 11/27/19 Status: Ordered tamoxifen 20 mg oral tablet 1 tablet = 20 mg, By Mouth, Daily, # 30 tablet, 0 Refills, Maintenance, 06/17/19 13:36:02 EDT, Tablet Start Date: 06/17/19 Status: Ordered Social History Social History Type Response Smoking Status Never (less than 100 in lifetime) entered on: 12/18/19 Sex Patient Care team information Care Team Personnel Name: Teri Owens MD Position: S Outreach Member Role: PCP Address: Address: [address] [place] [address]- Care Team Related Persons Name: KLAUS BRASWELL Address: home [address] [place] [id number]
--- OUTSIDE RECORDS SUMMARY | 2024-05-22 08:27 | XMS_ITS | Continuity of Care Document ---
Author Organization [facility] Address [address] [place] [address]- Care Team Providers Care Button Puncher Name Role Phone Teri Owens MD Primary Care Physician [id number] Date(s): 11/27/19 - 12/07/19 [facility] [address] [place] [address]- [facility] Attending Physician: Admtr, [id number] Admitting Physician: Admtr, Gabriel8 Referring Physician: Admtr, Ar8 Allergies, Adverse Reactions, Alerts Substance Reaction Severity Status NKA Active Medications dexamethasone 4 mg oral tablet 1 tablet = 4 mg, By Mouth, 2 times a day, for 21 days, with food, # 42 tablet, 0 Refills, Acute 12/18/19 16:21:00 EST, 11/27/19 16:21:00 EST, Tablet, [facility] #[id number], 183, cm, 09/24/19 13:32:00 EST, Height, 96.8, kg, 09/24/19 13:32:00 EST,... Start Date: 11/27/19 Stop Date: 12/18/19 Status: Ordered omeprazole 20 mg oral enteric coated capsule 1 capsule = 20 mg, By Mouth, Daily, take 1 cap daily while on Dexamethasone, # 30 capsule, 1 Refills, Maintenance, 11/27/19 16:22:00 EST, CR Capsule, [facility] #[id number], 183, cm, 09/24/19 13:32:00 EST, Height, 96.8, kg, 09/24/19 13:32:00 EST,... Start Date: 11/27/19 Status: Ordered tamoxifen 20 mg oral tablet 1 tablet = 20 mg, By Mouth, Daily, # 30 tablet, 0 Refills, Maintenance, 06/17/19 13:36:02 EDT, Tablet Start Date: 06/17/19 Status: Ordered
--- OUTSIDE RECORDS SUMMARY | 2024-05-22 08:27 | XMS_ITS | Continuity of Care Document ---
Author Organization [facility] Address [address] [place] [phone]- Care Team Providers Care Certified Flex Endoscope Reprocessor Name Role Phone Teri Owens MD Primary Care Physician [phone] [id number] Date(s): 11/27/19 - 02/17/20 [facility] [address] [place] [address]- [facility] Discharge Disposition: A-D/C Home Attending Physician: Andra Corbett MD Admitting Physician: Andra Corbett MD Referring Physician: Teri Owens MD Allergies, Adverse Reactions, Alerts Substance Reaction Severity Status NKA Active Medications omeprazole 20 mg oral enteric coated capsule 1 capsule = 20 mg, By Mouth, Daily, take 1 cap daily while on Dexamethasone, # 30 capsule, 1 Refills, Maintenance, 11/27/19 16:22:00 EST, CR Capsule, [facility] #[id number], 183, cm, 09/24/19 13:32:00 EST, Height, 96.8, kg, 09/24/19 13:32:00 EST,... Start Date: 11/27/19 Status: Ordered tamoxifen 20 mg oral tablet 1 tablet = 20 mg, By Mouth, Daily, # 30 tablet, 0 Refills, Maintenance, 06/17/19 13:36:02 EDT, Tablet Start Date: 06/17/19 Status: Ordered Vital Signs Most recent to oldest [Reference Range]: 1 Height 183 cm (12/18/19 3:12 PM) Weight 94.8 kg (12/18/19 3:12 PM) Pulse Rate [55-90 bpm] 70 bpm (12/18/19 3:12 PM) Body Mass Index [18.5-24.99] 28.31 *H* (12/18/19 3:12 PM) Blood Pressure [90-138/55-84 mm Hg] 124/ 62mm Hg (12/18/19 3:12 PM) Temperature [96.8-100.4 DegF] 98.8 DegF (12/18/19 3:12 PM) Blood pressure sites Arm, left (12/18/19 3:12 PM) Temperature Route Tympanic (12/18/19 3:12 PM) Dry Weight 94.8 kg (12/18/19 3:12 PM) Weight Obtained Via Standing scale (12/18/19 3:12 PM) Dry Weight Obtained Via Standing scale (12/18/19 3:12 PM) Social History Social History Type Response Smoking Status Never (less than 100 in lifetime) entered on: 12/18/19 Sex
--- OUTSIDE RECORDS SUMMARY | 2024-05-22 08:27 | XMS_ITS | Continuity of Care Document ---
Author Organization [facility] Address [address] [place] [address]- Care Team Providers Care Filter Bed Placer Name Role Phone Teri Owens MD Primary Care Physician Encounter [facility] Date(s): 05/21/19 - 11/24/19 [facility] [address] [place] [address]- [facility] Discharge Disposition: A-D/C Home Attending Physician: Andra Corbett MD Admitting Physician: Andra Corbett MD Referring Physician: Mariam Max MD Allergies, Adverse Reactions, Alerts Substance Reaction Severity Status NKA Active Medications tamoxifen 20 mg oral tablet 1 tablet = 20 mg, By Mouth, Daily, # 30 tablet, 0 Refills, Maintenance, 06/17/19 13:36:02 EDT, Tablet Start Date: 06/17/19 Status: Ordered Vital Signs Most recent to oldest [Reference Range]: 1 2 Height 183 cm (09/24/19 1:32 PM) 183 cm (06/17/19 1:34 PM) Weight 96.8 kg (09/24/19 1:32 PM) 94.3 kg (06/17/19 1:34 PM) Pulse Rate [55-90 bpm] 75 bpm (09/24/19 1:32 PM) 82 bpm (06/17/19 1:34 PM) Body Mass Index [18.5-24.99] 28.91 *H* (09/24/19 1:32 PM) 28.16 *H* (06/17/19 1:34 PM) Blood Pressure [90-138/55-84 mm Hg] 117/ 67mm Hg (09/24/19 1:32 PM) 125/76mm Hg (06/17/19 1:34 PM) Temperature [96.8-100.4 DegF] 98.1 DegF (09/24/19 1:32 PM) 97.8 DegF (06/17/19 1:34 PM) Blood pressure sites Arm, right (09/24/19 1:32 PM) Arm, right (06/17/19 1:34 PM) Temperature Route Temporal (09/24/19 1:32 PM) Oral (06/17/19 1:34 PM) Dry Weight 96.8 kg (09/24/19 1:32 PM) 94.3 kg (06/17/19 1:34 PM) Weight Obtained Via Standing scale (09/24/19 1:32 PM) Standing scale (06/17/19 1:34 PM) Dry Weight Obtained Via Standing scale (09/24/19 1:32 PM) Standing scale (06/17/19 1:34 PM)
[2024-05-22 08:31] LABS: MANUAL DIFF FLAG NO
[2024-05-22 08:32] LABS: Appearance Urine Clear; Color Urine Yellow; Glucose Urine UA Negative (Negative); Leukocyte Esterase Urine Trace (Negative); Nitrite Urine Negative (Negative); PH 6.5 (5.0-9.0); Specific Gravity - Urine 1.025 (1.005-1.025); UMIC TRIGGER UACC YES; Urine Blood Trace (Negative); Urine Ketones Negative (Negative); Urine Protein Trace mg/dL (Neg-Trace)
[2024-05-22 08:33] LABS: Basophils Absolute Auto 0.1 X10*3/uL (0.0-0.2); Basophils Percent Auto 0.7 % (0-2); Eosinophils Absolute Auto 0.1 X10*3/uL (0.0-0.4); Eosinophils Percent Auto 0.8 % (0-4); Hematocrit 39.3 % (37.0-47.0); Imm Gran Abs Auto 0.04 X10*3/uL (0.00-0.03); Imm Gran Pct Auto 0.3 % (0.0-0.4); Lymphocytes Absolute Auto 1.5 X10*3/uL (1.2-4.9); Lymphocytes Percent Auto 12.6 % (20-40); Mean Corpuscular HGB Conc 33.1 g/dl (31.0-35.0); Mean Corpuscular Hemoglobin 27.7 pg (27.0-33.0); Mean Corpuscular Volume 83.8 fL (80.0-98.0); Monocytes Absolute Auto 0.6 X10*3/uL (0.1-1.2); Monocytes Percent Auto 4.7 % (2-11); Neutrophils Absolute Auto 9.4 x10*3/uL (2.0-8.3); Neutrophils Percent Auto 80.9 % (45-73); Platelet Count 191 X10*3/uL (160-400); Red Blood Count 4.69 X10*6/uL (4.20-5.50); Red Cell Distribution Width 13.1 % (11.0-16.0); White Blood Count 11.6 X10*3/uL (4.8-10.8)
[2024-05-22 08:35] LABS: Bacteria Urine None Seen (None Seen); Hyaline Casts Urine 0-2 /LPF (0-2); WBC Urine 0-5 /HPF (0-5)
[2024-05-22 08:49] LABS: Alanine Aminotransferase 18 U/L (0-31); Alkaline Phosphatase 84 U/L (39-117); Anion Gap 13 (12-20); Aspartate Amino Transferase 16 U/L (5-31); Bilirubin Direct 0.1 mg/dL (0.0-0.5); Bilirubin Total 0.4 mg/dL (0.0-1.0); Blood Urea Nitrogen 11 mg/dL (9-16); Calcium 9.3 mg/dL (8.4-10.2); Carbon Dioxide 23 mmol/L (22-29); Chloride 106 mmol/L (96-108); Estimated Glomerular Filt Rate > 60; Glucose Random 97 mg/dL (60-115); Potassium 4.2 mmol/L (3.3-5.1); Sodium 138 mmol/L (135-145); Total Protein 7.6 g/dL (6.5-8.0)
[2024-05-22] MEDS: 0.9 % Sodium Chloride 1,000 ML 999 ML IV (08:58)
[2024-05-22 08:59] VITALS: RESP 16
[2024-05-22] MEDS: Morphine Sulfate 4 MG/ML CARTRIDGE IVPUSH (08:59)
[2024-05-22] MEDS: ondansetron HCL 4 MG/2 ML VIAL IVPUSH (09:00)
--- NOTE | 2024-05-22 09:08 | ED_ITS ---
HPI - Abdominal Pain General Chief Complaint: Abdominal Pain Stated Complaint: r side pain and vomiting Time Seen by Provider: 05/22/24 08:23 Source: patient and old records reviewed Mode of arrival: ambulatory Limitations: no limitations History of Present Illness ED Provider: DIANN HERMOSILLO narrative: 64 yo female with hx of DCIS doing well on Tamoxifen, arthritis, anemia here with c/o having RUQ pain starting last night then developing n/v no fevers. Denies prior abdominal surgeries. Has not tolerated PO this AM MD elicited complaint: abdominal pain Pertinent past history: none Onset (ago): day(s) (last night) Pain Consistency: constant Location: RUQ Severity: severe Quality: stabbing Radiation: none Exacerbating factors: eating and movement Relieving factors: nothing Associated symptoms: nausea and vomiting Related Data Home Medications ?Medication ?Instructions ?Recorded ?Confirmed ibuprofen 800 mg tablet 800 mg PO Q8H 09/26/21 04/15/24 ferrous sulfate 325 mg (65 mg 1 tab PO DAILY 10/10/21 04/15/24 iron) tablet (FeroSul) Previous Rx's ?Medication ?Instructions ?Recorded leg brace (Knee Support Brace) #1 ea 12/14/21 acetaminophen 500 mg tablet 1,000 mg (2 x 500 mg) PO QID PRN 06/26/22 pain #30 tabs walker #1 ea 06/26/22 diclofenac sodium 1 % topical gel 4 g topical QID 30 days #100 grams 04/11/23 tamoxifen 20 mg tablet 20 mg PO DAILY #90 tabs 10/15/23 bisacodyl 5 mg tablet,delayed 20 mg (4 x 5 mg) PO ONCE 1 day #4 10/19/23 release (Dulcolax (bisacodyl)) tabs polyethylene glycol 3350 17 238 g PO ONCE #238 grams 10/19/23 gram/dose oral powder (Miralax) sennosides 8.6 mg tablet (Natural 8.6 mg PO BEDTIME constipation #90 10/19/23 Senna Laxative) tabs pantoprazole 40 mg tablet,delayed 40 mg PO DAILY #90 tabs 02/26/24 release celecoxib 200 mg capsule (Celebrex) 200 mg PO BID 30 days #60 caps 03/21/24 cholecalciferol (vitamin D3) 50 50 mcg PO DAILY #90 tabs 04/15/24 mcg (2,000 unit) tablet (Vitamin D3) clotrimazole-betamethasone 1 1 appl topical BID #45 grams 04/15/24 %-0.05 % topical cream hydrocodone 5 mg-acetaminophen 325 1 tab PO Q6H PRN pain #10 tabs 05/22/24 mg tablet ondansetron 4 mg disintegrating 4 mg PO Q8H PRN nausea and 05/22/24 tablet vomiting #20 tabs Allergies Allergy/AdvReac Type Severity Reaction Status Date / Time latex [LATEX] Allergy Intermediate RASH Verified 05/22/24 08:06 Review of Systems Review of Systems Constitutional : No Weight loss, No Fever, No Chills ENT/Mouth : No sore throat, No Rhinorrhea Eyes: No Swelling, No Redness Cardiovascular : No Chest Pain, No SOB, NoEdema Respiratory : No Cough, No Sputum, No Wheezing Gastrointestinal : Positive Nausea, Positive Vomiting, no Diarrhea, positive abdominal Pain, No Hematochezia, No Melena Genitourinary : No Dysuria, No Urinary Frequency, No Hematuria, No Urgency Musculoskeletal : No joint pain, No Myalgias, No Joint Swelling Skin : No Skin Lesions, No rash Neuro : No Weakness, No Numbness, No Dizziness, No Headache Psych : No Anxiety/Panic, No Depression All other systems reviewed and are negative. [facility] Past Medical History Attestation statement: The following information was validated with the patient. Source: old records reviewed Medical History History of COVID-19 Heart murmur Hypoglycemia Ductal carcinoma in situ (DCIS) of left breast Surgical History History of ear surgery History of lumpectomy of left breast (02/19/19) History of left breast biopsy (12/2018) History of tubal ligation (1999) History of left knee surgery (2016) Family History Family History Maternal Grandfather History of bone cancer Maternal Aunt History of uterine cancer Social History Social History Household Members: None Housing: Apartment Are you a primary patient care representative to a significant other at home: Yes Do you presently have visiting nurse or other home services: No Alcohol intake: former Patient Tobacco Use Status: Never used Tobacco service: No Current occupational status: disabled Current occupation: rt handed Physical Exam ED Vital Signs: Vital Signs - 24 hr 05/22/24 08:02 05/22/24 08:14 05/22/24 08:59 Temperature 97.1 F 98.1 F Pulse Rate 76 94 Respiratory Rate 16 22 H 16 Blood Pressure 202/84 H 142/81 H Pulse Oximetry 98 96 Oxygen Delivery Method Room Air Room Air 05/22/24 11:22 05/22/24 12:20 05/22/24 12:24 Temperature 97.9 F 97.9 F Pulse Rate 95 67 67 Respiratory Rate 20 16 16 Blood Pressure 131/70 135/65 135/65 Pulse Oximetry 99 98 98 Oxygen Delivery Method Room Air Room Air Room Air BMI result Body Mass Index 28.5 Appearance: Alert. Oriented X3. No acute distress. Eyes: Pupils equal, round and reactive to light. ENT: Pharynx normal. Neck: Normal inspection. Neck supple. CVS: Normal heart rate and rhythm. Pulses normal. Respiratory: No respiratory distress. Breath sounds normal. Abdomen: Soft and moderate RUQ pain with + bass's sign no rebound Skin: Skin warm and dry. Normal skin color. Normal skin turgor. Extremities: No lower extremity edema. No calf ttp Neuro: Oriented X 3. No motor deficit. No sensory deficit. Medical Decision Making Medical Decision Making [facility] Narrative: 64 yo female with hx of DCIS doing well on Tamoxifen, arthritis, anemia here with c/o RUQ pain n/v at this time + bass's sign as well will obtain labs, IV morphine for pain, US for biliary pathology Differential Diagnosis Differential Diagnoses: The differential diagnosis associated with the presentation includes pancreatitis, biliary colic, PUD Admission/Observation Consideration of admission/observation: Escalation of care including admission/observation considered labs reassuring pain improved no cholecystitis stable for DC Lab Data [facility] Lab Attestation statement: I reviewed the patient's lab results. 05/22/24 08:24 05/22/24 08:24 Labs: Lab Results 05/22/24 Range/Units 08:24 WBC 11.6 H (4.8-10.8) X10*3/uL RBC 4.69 (4.20-5.50) X10*6/uL Hgb 13.0 (12.0-16.0) g/dl Hct 39.3 (37.0-47.0) % MCV 83.8 (80.0-98.0) fL MCH 27.7 (27.0-33.0) pg MCHC 33.1 (31.0-35.0) g/dl RDW 13.1 (11.0-16.0) % Plt Count 191 (160-400) X10*3/uL MPV 12.0 (9.4-12.3) fL Immature Gran % (Auto) 0.3 (0.0-0.4) % Neut % (Auto) 80.9 H (45-73) % Lymph % (Auto) 12.6 L (20-40) % [place] % (Auto) 4.7 (2-11) % Eos % (Auto) 0.8 (0-4) % Baso % (Auto) 0.7 (0-2) % Lymph # (Auto) 1.5 (1.2-4.9) X10*3/uL [place] # (Auto) 0.6 (0.1-1.2) X10*3/uL Eos # (Auto) 0.1 (0.0-0.4) X10*3/uL Baso # (Auto) 0.1 (0.0-0.2) X10*3/uL Abs Immat Gran (auto) 0.04 H (0.00-0.03) X10*3/uL Absolute Neuts (auto) 9.4 H (2.0-8.3) x10*3/uL Absolute Nucleated RBC 0.000 (0.0-0.012) X10*3/uL Nucleated RBC % (auto) 0.0 (0.0-0.2) /100WBC Sodium 138 (135-145) mmol/L Potassium 4.2 (3.3-5.1) mmol/L Chloride 106 (96-108) mmol/L Carbon Dioxide 23 (22-29) mmol/L Anion Gap 13 (12-20) BUN 11 (9-16) mg/dL Creatinine 0.75 (0.5-1.4) mg/dL Estim Creat Clear Calc 98.0 Estimated GFR > 60 Random Glucose 97 (60-115) mg/dL Calcium 9.3 (8.4-10.2) mg/dL Total Bilirubin 0.4 (0.0-1.0) mg/dL Direct Bilirubin 0.1 (0.0-0.5) mg/dL AST 16 (5-31) U/L ALT 18 (0-31) U/L Alkaline Phosphatase 84 (39-117) U/L Total Protein 7.6 (6.5-8.0) g/dL Albumin 4.0 (3.5-5.0) g/dL Lipase 17 (8-78) U/L Urine Color Yellow Urine Appearance Clear Urine pH 6.5 (5.0-9.0) Ur Specific [place] 1.025 (1.005-1.025) Urine Protein Trace (Neg-Trace) mg/dL Urine Glucose (UA) Negative (Negative) mg/dL Urine Ketones Negative (Negative) mg/dL Urine Blood Trace H (Negative) Urine Nitrite Negative (Negative) Ur Leukocyte Esterase Trace H (Negative) Urine RBC 3-5 H (0-2) /HPF Urine WBC 0-5 (0-5) /HPF Ur Squamous Epith Cells 3-5 (0-2) /HPF Urine Bacteria None Seen (None Seen) Hyaline Casts 0-2 (0-2) /LPF Independent Interpretation I performed an independent interpretation of an: Ultrasound (biliary colic) Radiology Impression Discussion of test interpretation with radiology: I have reviewed the radiologist's reading. Independent Historian Clinical information obtained from an independent historian. History obtained from or confirmed by: Other (daughter) External Record Review External record reviewed: Inpatient record and Office record Prescription Management I considered prescription management with: Pain Medication and Other Medications Administered Discontinued Medications Generic Name Dose Route Start Last Admin Trade Name Freq PRN Reason Stop Dose Admin Sodium Chloride 1,000 mls @ 999 mls/hr 05/22/24 08:40 05/22/24 10:38 Ns IV 05/22/24 09:40 Infused .Q1H1M ONE Infusion Morphine Sulfate 4 mg 05/22/24 08:40 05/22/24 08:59 Morphine Sulfate 4 Mg/Ml Cartridge IVPUSH 05/22/24 08:41 4 mg ONCE ONE Administration Protocol Ondansetron HCl 4 mg 05/22/24 08:40 05/22/24 09:00 Ondansetron Hcl 4 Mg/2 Ml Vial IVPUSH 05/22/24 08:41 4 mg ONCE ONE Administration Critical Care Time Critical Care Time Critical Care Time: Yes Total Critical Care Time: 35 Attestation: review of records, discussion with family and medical insurance coder, pain improved with IV morphine. I attest to this time spent taking care of the patient Discharge Plan Discharge Clinical Impression: Biliary colic Patient Disposition: Home, Self-Care Instructions: Biliary Colic (ED), Low Fat Diet (ED) Additional Instructions: low fat diet return for fevers, pain, vomiting or any other concerns follow up with surgeon Prescriptions: New hydrocodone-acetaminophen 5-325 mg tablet 1 tab PO Q6H PRN (Reason: pain) Qty: 10 0RF Rx Instructions: partial fill okay; Partial Fill upon patient request. ondansetron 4 mg tablet,disintegrating 4 mg PO Q8H PRN (Reason: nausea and vomiting) Qty: 20 0RF No Action (DME) Knee Support Brace Misc See Rx Instructions .MEDSUPPLY Qty: 1 0RF Rx Instructions: Patella Stabilizing knee brace pantoprazole 40 mg tablet,delayed release (DR/EC) 40 mg PO DAILY Qty: 90 2RF Rx Instructions: take one tablet half an hour before breakfast ferrous sulfate [FeroSul] 325 mg (65 mg iron) tablet 1 tab PO DAILY tamoxifen 20 mg Tablet 20 mg PO DAILY Qty: 90 4RF clotrimazole-betamethasone 1-0.05 % Cream 1 appl TOPICAL BID Qty: 45 3RF cholecalciferol (vitamin D3) [Vitamin D3] 50 mcg (2,000 unit) Tablet 50 mcg PO DAILY Qty: 90 3RF acetaminophen 500 mg tablet 1,000 mg PO QID PRN (Reason: pain) Qty: 30 0RF (DME) walker Misc See Rx Instructions .Route Qty: 1 0RF Rx Instructions: As directed ibuprofen 800 mg tablet 800 mg PO Q8H diclofenac sodium 1 % gel 4 g topical QID 30 Days Qty: 100 6RF Rx Instructions: apply 4grams to affected area four times a day as needed bisacodyl [Dulcolax (bisacodyl)] 5 mg tablet,delayed release (DR/EC) 20 mg PO ONCE 1 Days Qty: 4 0RF Rx Instructions: take 4 tabs at noon the day before your colonoscopy polyethylene glycol 3350 [Miralax] 17 gram/dose powder 238 g PO ONCE Qty: 238 0RF Rx Instructions: As directed by gastroenterology department at [facility] sennosides [Natural Senna Laxative] 8.6 mg tablet 8.6 mg PO BEDTIME Qty: 90 2RF Rx Instructions: Jaimee tableta cada noche celecoxib [Celebrex] 200 mg capsule 200 mg PO BID 30 Days Qty: 60 6RF Referrals: Laz Hauser MD [Physician] - Interventions: ED Discharge Assessment Last Done: 05/22/24 12:24 Discharge Date/Time: 05/22/24 12:25 Print Language: Congolese
[2024-05-22 09:16] LABS: Lipase 17 U/L (8-78)
[2024-05-22 11:22] VITALS: BP 131/70; PULSE 95; RESP 20; TEMP 36.6; O2SAT 99
[2024-05-22 12:20] VITALS: BP 135/65; PULSE 67; RESP 16; O2SAT 98
[2024-05-22 12:24] VITALS: BP 135/65; PULSE 67; RESP 16; TEMP 36.6; O2SAT 98
== END 2024-05-22 12:25 | disposition home or self-care (01) ==
PROVIDERS: Emergency Provider Emergency Medicine; PCP Student in an Organized Health Care Education/Training Program
DX: K80.50 Calculus of bile duct without cholangitis or cholecystitis without obstruction (principal); R11.2 Nausea with vomiting, unspecified; Z79.899 Other long term (current) drug therapy
CPT/HCPCS: 36415; 76705; 80048; 80076; 81001; 83690; 85025; 96361; 96374; 96375; 99284; J2270; J2405

== ENCOUNTER 2024-06-03 11:00 | Outpatient (AMB) | payer MEDICAID, SELFPAY ==
--- NOTE | 2024-06-03 11:12 | MHC.OFFVIS ---
Vital Signs 06/03/24 11:29 Height 6 ft Weight 232 lb BMI 31.5 BP 146/65 H Blood Pressure Location Lt brachial Position Sitting Pulse 62 Intake Visit Reasons: e/r follow up biliary colic Intake Note: Patient is seen in office for ER follow up visit, following biliary colic. 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 Present Accompanied by: Self / Same As Patient Allergies latex [LATEX] Allergy (Intermediate, Verified 06/03/24 11:29) RASH Medication List - Last Reconciled 06/03/24 by Laz Hauser MD acetaminophen 1,000 mg (2 x 500 mg) PO QID PRN bisacodyl (Dulcolax (bisacodyl)) 20 mg (4 x 5 mg) PO ONCE 1 day celecoxib (Celebrex) 200 mg PO BID 30 days cholecalciferol (vitamin D3) (Vitamin D3) 50 mcg PO DAILY clotrimazole-betamethasone 1-0.05 % 1 appl topical BID diclofenac sodium 1% 4 grams topical QID 30 days ferrous sulfate (FeroSul) 1 tab PO DAILY hydrocodone-acetaminophen 5-325 mg 1 tab PO Q6H PRN ibuprofen 800 mg PO Q8H leg brace (Knee Support Brace) Patella Stabilizing knee brace ondansetron 4 mg PO Q8H PRN pantoprazole 40 mg PO DAILY polyethylene glycol 3350 (Miralax) 238 grams PO ONCE sennosides (Natural Senna Laxative) 8.6 mg PO BEDTIME tamoxifen 20 mg PO DAILY walker As directed HPI Comments Details: 64-year-old female patient returning to the office with complaints of abdominal pain in the right upper quadrant associated with nausea and vomiting. This is been progressing over the past several weeks and becoming more severe. An ultrasound of the abdomen performed on 05/22/2024 revealed multiple gallstones within the gallbladder but with no wall thickening or pericholecystic fluid. Patient continues to report abdominal pain today with fatty food intolerance. She denies fever or chills. She presents today to discuss further management of the gallstones. 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 Do you presently have visiting nurse or other home services: No Alcohol intake: former Patient Tobacco Use Status: Never used Tobacco service: No Current occupational status: disabled Current occupation: rt handed Review of Systems Const All systems reviewed & are unremarkable except as noted in HPI and below GI Reports abdominal pain, Reports heartburn, Reports nausea and Reports vomiting Physical Exam Const General: cooperative and no acute distress Nutritional Appearance: well nourished Orientation/consciousness: patient oriented x3 Limitations: no limitations HEENT Head: Yes normocephalic and Yes atraumatic Ears: hearing grossly normal bilaterally Resp Effort & Inspection: normal respiratory effort, no audible wheezes, no cough and no respiratory distress Cardio Jugular venous distension: no JVD GI Inspection: Yes normal to inspection Palpation (GI): Soft to palpation, Tenderness to palpation present (GI) in the RUQ and Potts's sign positive, no guarding and not rigid Percussion: Yes normal to percussion Auscultation: normal bowel sounds Rectal Exam - Female: deferred Skin Other: Warm, dry, no rash Neuro General: patient oriented x3 Extrem General: Yes no clubbing, cyanosis or edema Assessment & Plan Assessment & Plan (1) Recurrent biliary colic: Code(s): K80.50 - Calculus of bile duct without cholangitis or cholecystitis without obstruction Category: Medical Plan 64-year-old female patient presenting with complaints of recurrent right upper quadrant abdominal pain associated with nausea and vomiting consistent with biliary colic. We discussed laparoscopic or possible open cholecystectomy as an option and after discussion of the procedure, risks, and alternatives, she consents to the procedure. She will be scheduled as a short-stay surgery. Coding Level of Care Code Est Pt Level 4 (84618) Diagnoses Recurrent biliary colic K80.50
[2024-06-03 11:29] VITALS: BP 146/65; PULSE 62; BMI 31.5
== END 2024-06-03 11:58 | disposition home or self-care (01) ==
PROVIDERS: PCP Student in an Organized Health Care Education/Training Program; Visit Provider Surgery
DX: K80.50 Calculus of bile duct without cholangitis or cholecystitis without obstruction (principal)
CPT/HCPCS: 99214

== ENCOUNTER → 2024-06-03 11:00 | Outpatient (BNVA) | payer MEDICAID, SELFPAY | PROVIDERS: PCP Student in an Organized Health Care Education/Training Program; Visit Provider Surgery | DX: K80.50 Calculus of bile duct without cholangitis or cholecystitis without obstruction (principal) | CPT/HCPCS: 99212 ==

== ENCOUNTER → 2024-06-18 10:16 | Outpatient (BNV) | payer MEDICAID, SELFPAY | PROVIDERS: PCP Student in an Organized Health Care Education/Training Program; Visit Provider Internal Medicine Cardiovascular Disease | DX: R94.31 Abnormal electrocardiogram [ECG] [EKG] (principal) | CPT/HCPCS: 93010 ==

== ENCOUNTER 2024-06-20 10:04 | Outpatient (REF) | payer MEDICAID, SELFPAY ==
[2024-06-20 14:00] LABS: MANUAL DIFF FLAG NO
[2024-06-20 14:02] LABS: Appearance Urine Clear; Color Urine Yellow; Glucose Urine UA Negative (Negative); Leukocyte Esterase Urine Moderate (2+) (Negative); Nitrite Urine Negative (Negative); PH 5.5 (5.0-9.0); UMIC TRIGGER UACC YES; Urine Blood Negative (Negative); Urine Ketones Negative (Negative); Urine Protein Negative (Neg-Trace)
[2024-06-20 14:05] LABS: Bacteria Urine Trace (None Seen); Hyaline Casts Urine 0-2 /LPF (0-2); RBC Urine 0-2 /HPF (0-2); UACC Culture Trigger YES
[2024-06-20 14:07] LABS: Basophils Absolute Auto 0.1 X10*3/uL (0.0-0.2); Basophils Percent Auto 0.9 % (0-2); Eosinophils Absolute Auto 0.1 X10*3/uL (0.0-0.4); Eosinophils Percent Auto 1.4 % (0-4); Hematocrit 39.1 % (37.0-47.0); Hemoglobin 12.4 g/dl (12.0-16.0); Imm Gran Abs Auto 0.03 X10*3/uL (0.00-0.03); Imm Gran Pct Auto 0.4 % (0.0-0.4); Lymphocytes Absolute Auto 1.4 X10*3/uL (1.2-4.9); Lymphocytes Percent Auto 20.4 % (20-40); Mean Corpuscular HGB Conc 31.7 g/dl (31.0-35.0); Mean Corpuscular Hemoglobin 27.3 pg (27.0-33.0); Mean Corpuscular Volume 85.9 fL (80.0-98.0); Mean Platelet Volume 13.2 fL (9.4-12.3); Monocytes Absolute Auto 0.6 X10*3/uL (0.1-1.2); Monocytes Percent Auto 8.1 % (2-11); Neutrophils Absolute Auto 4.9 x10*3/uL (2.0-8.3); Neutrophils Percent Auto 68.8 % (45-73); Platelet Count 178 X10*3/uL (160-400); Red Blood Count 4.55 X10*6/uL (4.20-5.50); Red Cell Distribution Width 13.4 % (11.0-16.0); White Blood Count 7.1 X10*3/uL (4.8-10.8)
[2024-06-20 14:22] LABS: Alanine Aminotransferase 20 U/L (0-31); Albumin Level 4.1 g/dL (3.5-5.0); Alkaline Phosphatase 83 U/L (39-117); Anion Gap 9 (12-20); Aspartate Amino Transferase 18 U/L (5-31); Bilirubin Direct 0.1 mg/dL (0.0-0.5); Bilirubin Total 0.5 mg/dL (0.0-1.0); Blood Urea Nitrogen 11 mg/dL (9-16); Calcium 9.4 mg/dL (8.4-10.2); Carbon Dioxide 27 mmol/L (22-29); Chloride 108 mmol/L (96-108); Estimated Glomerular Filt Rate > 60; Glucose Random 72 mg/dL (60-115); Potassium 4.1 mmol/L (3.3-5.1); Sodium 140 mmol/L (135-145); Total Protein 7.7 g/dL (6.5-8.0)
[2024-06-20 14:23] LABS: INTERNATIONAL NORM RATIO 0.9 (0.9-1.1); Prothrombin Time 11.5 SEC (11.1-13.3)
== END 2024-06-20 10:05 | disposition home or self-care (01) ==
LOC: HO.CHCLDS 10:04
PROVIDERS: Visit Provider Pediatrics
DX: Z01.818 Encounter for other preprocedural examination (principal)
CPT/HCPCS: 36415; 80048; 80076; 81001; 81003; 85025; 85610; 87086

== ENCOUNTER → 2024-07-07 08:38 | Day surgery (SDC) | payer MEDICAID, SELFPAY ==
--- NOTE | 2024-06-18 | ECG_ITS ---
Test Reason : pre op Blood Pressure : / mmHG Vent. Rate : 063 BPM Atrial Rate : 063 BPM P-R Int : 170 ms QRS Dur : 106 ms QT Int : 394 ms P-R-T Axes : 013 -40 021 degrees QTc Int : 403 ms Normal sinus rhythm Left axis deviation Moderate voltage criteria for LVH, may be normal variant ( R in aVL , [place] product ) Abnormal ECG No previous ECGs available Referred By: Mckenna Cordova Electronically Signed By:CRISSY RAMÍREZ MD
[2024-06-18 09:26] VITALS: BMI 30.9
[2024-06-18 09:40] VITALS: BP 113/76; PULSE 72; RESP 16; O2SAT 99
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
== END ==
LOC: HO.SSS 08:38
PROVIDERS: PCP Student in an Organized Health Care Education/Training Program; Visit Provider Surgery
DX: K80.50 Calculus of bile duct without cholangitis or cholecystitis without obstruction (principal); Z53.20 Procedure and treatment not carried out because of patient's decision for unspecified reasons
CPT/HCPCS: 93005

== ENCOUNTER 2024-07-15 07:21 | Day surgery (SDC) | payer MEDICAID, SELFPAY ==
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
[2024-07-15] VITALS (12 sets, daily range): BP systolic 121–182; BP diastolic 68–91; PULSE 61–71; RESP 16–18; TEMP 36.4–37.1; O2SAT 97–100; BMI 30.5
[2024-07-15] MEDS: Lactated Ringers 1,000 ML 100 ML IVCONT (09:28)
--- NOTE | 2024-07-15 09:50 | MHC.SHP ---
Pre-Procedural Eval Section A - 24 Hr Update-Section A only Date of Service: 07/15/24 Section B - Complete if H&P > 30 days Chief Complaint: Calculus of bile duct without cholangitis or valorie Details of Present Illness: Reports only mild discomfort in the abdomen especially in the right upper quadrant Relevant Family History (Specify if Yes): No Relevant Social History: None Present Medications: see Short Stay Collaborative assessment Medical History: No relevant PMH History of Previous Operations: No relevant previous surgery Allergies: Allergies Allergy/AdvReac Type Severity Reaction Status Date / Time latex [LATEX] Allergy Intermediate RASH Verified 07/15/24 08:47 Review of Systems Sugical H&P ROS: Negative: Constitution and Respiratory and Yes, Specify: Gastrointestinal (Abdominal discomfort) Exam Surgical H&P Exam: Normal: Extremities and Normal: Abdomen Plan Diagnosis/Plan: Unchanged I have reviewed the history and physical and performed a pertinent physical examination on my patient. No changes have occurred unless specified. Time Spent With Patient Time: Total time managing care of this patient today ____ minutes.
--- NOTE | 2024-07-15 11:22 | W.PM.OPN ---
Operative Note Operative Note Date of Service: 07/15/24 Narrative: Preoperative diagnosis: Biliary colic Postoperative diagnosis: Same Procedure: Laparoscopic cholecystectomy Surgeon: Laz Hauser MD Walnut Dehydrator Operator: RUPAL Celis Anesthesia: General endotracheal Indications for procedure: 64-year-old female patient presenting with complaints of abdominal pain in the right upper quadrant intermittently found to have multiple gallstones within her gallbladder. She presents today for an elective laparoscopic cholecystectomy. Operative findings: Dense adhesions to the undersurface of the liver from the omentum covering the gallbladder, with evidence of chronic cholecystitis and multiple small gallstones within the gallbladder. Specimen: gallbladder Estimated blood loss: 5 mL Complications: None Procedure details: Patient was brought to the OR and placed in a supine position. After administering general anesthesia the patient's abdomen was prepped with ChloraPrep and draped in a sterile fashion. A surgical time-out was called the consent confirmed. Patient received preoperative antibiotics and Venodyne boots were in place. Local anesthesia consisting of 0.5% Sensorcaine without epinephrine was infiltrated in a periumbilical region. A 5 mm incision was made above the umbilicus in a transverse fashion. The Veress needle was then inserted while elevating abdominal cavity with towel clips. After positive drop test the abdomen was insufflated to a pressure of 15 mm of mercury. The Veress needle was then removed and a 5 mm trocar inserted. The camera was inserted in the abdomen explored. A 12 mm trocar was then placed in the epigastrium. Two 5 mm trocars placed in the right upper quadrant by the sales assistant displays. The patient was placed in reverse Trendelenburg positioning and rotated to the left. Dense adhesions were noted to the undersurface of the liver and gallbladder from the omentum. These were divided using the LigaSure. The adhesions to the gallbladder were dissected using a [place] and [place] dissector. The gallbladder was grasped with the fundus and retracted cephalad by the sales assistant displays. The infundibulum was then grasped and retracted away from the liver bed, also by the sales assistant displays. The Dolphin dissector was then used by the surgeon to dissect the peritoneum off the infundibulum to reveal the junction with the cystic duct. Cystic artery was noted slightly medial and posterior to the cystic duct. After obtaining a critical view the cystic duct was doubly clipped and divided. The cystic artery was then doubly clipped and divided. The gallbladder was then dissected off the liver bed using electrocautery with an L hook. Hemostasis was assured all times using the electrocautery. When the gallbladder is completely dissected off the liver bed it was then placed in an Endo-Catch bag and brought out through the epigastric incision. The gallbladder was sent to pathology for further examination. The abdomen was then re-examined. The liver bed was irrigated and suctioned dry. No bleeding or bile leak could be identified. CO2 was then evacuated and all trocars removed. Fascia was closed at the epigastric incision using a [id number] 0 Polysorb suture. Skin was closed in all incisions using a subcuticular 4 0 Polysorb suture by both the surgeon and sales assistant displays. Sterile dressings consisting of Steri-Strips, 2 x 2 gauze, and Tegaderm were then applied. The patient tolerated the procedure well. Sponge instrument and needle counts reported as correct. The patient was transferred to PACU in stable condition.
[2024-07-15] MEDS: ondansetron HCL 4 MG/2 ML VIAL IVPUSH (12:10)
[2024-07-15] MEDS: HYDROmorphone HCl 0.5 MG/0.5 ML SYRINGE 0.25 MG IVPUSH ×2 (12:10→12:19)
== END 2024-07-15 13:49 | disposition home or self-care (01) ==
PROVIDERS: PCP Student in an Organized Health Care Education/Training Program; Visit Provider Surgery
PROC: 0FT44ZZ Resection of Gallbladder, Percutaneous Endoscopic Approach (ICD-10-PCS; CPT 47562; principal; 2024-07-15 10:00)
DX: K80.10 Calculus of gallbladder with chronic cholecystitis without obstruction (principal); K82.8 Other specified diseases of gallbladder; E16.2 Hypoglycemia, unspecified; D05.12 Intraductal carcinoma in situ of left breast; Z79.810 Long term (current) use of selective estrogen receptor modulators (SERMs); Z79.899 Other long term (current) drug therapy; Z79.1 Long term (current) use of non-steroidal anti-inflammatories (NSAID); Z91.040 Latex allergy status; Z98.890 Other specified postprocedural states
CPT/HCPCS: 47562; 88304; J1100; J1170; J2250; J2405; J2704; J2795; J3010

== ENCOUNTER → 2024-07-15 07:21 | Outpatient (BNV) | payer MEDICAID, SELFPAY | PROVIDERS: PCP Student in an Organized Health Care Education/Training Program; Visit Provider Surgery | DX: K80.50 Calculus of bile duct without cholangitis or cholecystitis without obstruction (principal) | CPT/HCPCS: 47562 ==

== ENCOUNTER 2024-07-28 12:07 | Outpatient (AMB) | payer MEDICAID, SELFPAY ==
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
== END 2024-07-28 13:09 | disposition home or self-care (01) ==
PROVIDERS: PCP Student in an Organized Health Care Education/Training Program; Visit Provider Surgery
DX: Z90.49 Acquired absence of other specified parts of digestive tract (principal)
CPT/HCPCS: 99024

== ENCOUNTER → 2024-07-28 12:07 | Outpatient (BNVA) | payer MEDICAID, SELFPAY | PROVIDERS: PCP Student in an Organized Health Care Education/Training Program; Visit Provider Surgery | DX: Z90.49 Acquired absence of other specified parts of digestive tract (principal) | CPT/HCPCS: 99212 ==

== ENCOUNTER 2024-12-10 11:51 | Outpatient (REF) | payer MEDICAID, SELFPAY ==
--- OUTSIDE RECORDS SUMMARY | 2024-12-10 14:19 | XMS_ITS | Encounter Summary ---
Author Organization [facility] Address [address] 7t [place] [address] Care Team Providers Care Store Assistant Name Role Phone Teri Owens MD Primary Care Provider [phone] Reason for Visit * Reason Onset Date Comments PT1 01/17/2023 Encounter Details Date Type Department Care Team ([facility] Contact Info) Description 01/17/2023 Telephone [facility]S [address] [place] [address] Teri Owens MD [address] [place] [address] PT1 Social History Tobacco Use Types Packs/Day Years Used Date Smoking Tobacco: Never Smokeless Tobacco: Never Alcohol Use Standard Drinks/Week Comments Never 0 (1 standard drink = 0.6 oz pur e alcohol) Comments Unknown Sex and Gender Information Value Date Recorded Sex Assigned at Female 09/11/2022 10:34 AM EDT Legal Sex Female 10:34 AM EDT Gender Identity Choose not to disclose 10:34 AM EDT Sexual Orientation Choose not to disclose 2021 10:34 AM EDT COVID-19 Exposure Response Date Recorded In the last 10 days, have chico youssef been in contact with someone who was confirmed or suspected to have Coronavirus/COVID-19? No / Unsure 12/29/2022 1:31 PM EST documented as of this encounter Miscellaneous Notes * Telephone Encounter - Teri Owens MD - 01/19/2023 9:34 AM EST Yes please * Telephone Encounter - Teri Owens MD - 01/18/2023 11:49 AM EST Ok to send PT1 * Telephone Encounter - Luisito Holliday - 01/17/2023 12:46 PM EST Tc from [facility] with M requesting a PT1 for pt PT1 Name of facility: [facility]. Integration Assistant Specialty: Feet or foot Location: [address] [place] [address] Date: 01/24/2023 Time: 9:30 am fax: n/a Phone: n/a wheelchair: n/a Mixer Operator Tablets: n/a documented in this encounter Plan of Treatment Upcoming Encounters Date Type Department Care Team (Late st Contact Info) Description 01/08/2025 10:30 AM EST Procedure Visit [facility] MED & PEDS [address] [place] [address] Teressa Gomez CNM [address] [place] [address] documented as of this encounter Visit Diagnoses Diagnosis Constipation, unspecified constipation type documented in this encounter Care Teams Store Assistant Relationship Specialty Start Date End Date Teri Owens MD [address] [place] [address] PCP - General Family Medicine 10/21/18 Dolores Danielle Automotive Airconditioning MechanicMajor Donor Coordinator 09/27/23 documented as of this encounter
--- OUTSIDE RECORDS SUMMARY | 2024-12-10 14:19 | XMS_ITS | Encounter Summary ---
Author Organization [facility] Address [address] 7t [place] [address] Care Team Providers Care Orthopedic Cast Specialist Name Role Phone Teri Owens MD Primary Care Provider [phone] Reason for Visit * Reason Onset Date Comments Med Refill 11/27/2024 Encounter Details Date Type Department Care Team (Late st Contact Info) Description 11/27/2024 Refill [facility] MEDICINE [address] [place] [address] Teri Owens MD [address] [place] [address] Social History Tobacco Use Types Packs/Day Years Used Date Smoking Tobacco: Never Passive Smoke Exposure: Never Smokeless Tobacco: Never Alcohol Use Standard Drinks/Week Comments Never 0 (1 standard drink = 0.6 oz pur e alcohol) Housing Stability Answer Date Recorded What is your housing situation today? I have mundomikael ordoñez 10/02/[address] you li ve. Do you have problems with any of the following? None of the above 10/02/2024 Food Insecurity Answer Date Recorded Within the past 12 months, y ou worried that your food would run out before you got money to buy more: Never True 10/02/2024 Within the past 12 months,th e food you bought just didn't last and you didn't have enough money to get more: Never True Transportation Answer Date Recorded In the past 12 months, has l ack of transportation kept you from medical appts, meetings, work or from getting things needed for daily living? No 10/02/2024 Utilities Answer Date Recorded In the past 12 months, has t he electric, gas, oil or water company threatened to shut off services in your home? No 10/02/2024 Internet Access Answer Date Recorded Internet Access Q1 Yes 10/02/2024 Internet Access Q2 Not on file 10/02/2024 Comments Unknown Sex and Gender Information Value Date Recorded Sex Assigned at Female 09/11/2022 10:34 AM EDT Legal Sex Female 10:34 AM EDT Gender Identity Choose not to disclose 10:34 AM EDT Sexual Orientation Choose not to disclose 2021 10:34 AM EDT documented as of this encounter Miscellaneous Notes * Telephone Encounter - Juan Carlos Cuevas - 11/27/2024 3:44 PM EST TC from pt requesting medication refill. Medications needing refill : ibuprofen 800 MG tablet To be sent to: [id number] [place], [place] - [address] [facility] [address] [facility] [facility] [address] documented in this encounter Plan of Treatment Upcoming Encounters Date Type Department Care Team (Late st Contact Info) Description 01/08/2025 10:30 AM EST Procedure Visit [facility] MED & PEDS [address] [place] [address] Teressa Gomez CNM [address] [place] [address] documented as of this encounter Visit Diagnoses Not on filedocumented in this encounter Care Teams Orthopedic Cast Specialist Relationship Specialty Start Date End Date eTri Owens MD [address] [place] [address] PCP - General Family Medicine 10/21/18 Dolores Danielle Java J2Ee Technical LeadStarter Mechanic 09/27/23 documented as of this encounter
--- OUTSIDE RECORDS SUMMARY | 2024-12-10 14:19 | XMS_ITS | Encounter Summary ---
Author Organization [facility] Address [address] 7t [place] [address] Care Team Providers Care Reservationist Name Role Phone Teri Owens MD Primary Care Provider [phone] Reason for Visit * Reason Onset Date Comments Med Refill 02/15/2024 Encounter Details Date Type Department Care Team ([facility] Contact Info) Description 02/15/2024 Telephone [facility] MEDICINE [address] [place] [address] Teri Owens MD [address] [place] [address] Med Refill Social History Tobacco Use Types Packs/Day Years [...] t he electric, gas, oil or water [employer] threatened to shut off services in your [...] encounter Miscellaneous Notes * Telephone Encounter - Sesar Ríos - 02/15/2024 2:43 PM EDT Tc from pt requesting a refill for omeprazole (PriLOSEC) [address] capsule documented in this encounter Plan of Treatment Upcoming Encounters Date Type Department Care Team (Late st Contact Info) Description 01/08/2025 10:30 AM EST Procedure Visit [facility] MED & PEDS [address] [place] [address] Teressa Gomez CNM [address] [place] [address] documented as of this encounter Visit Diagnoses Not on filedocumented in this encounter Care Teams Reservationist Relationship Specialty Start Date End Date Teri Owens MD [address] [place] [address] PCP - General Family Medicine 10/21/18 Dolores Danielle Men'S Golf CoachForensic Psychiatrist 09/27/23 documented as of this encounter
--- OUTSIDE RECORDS SUMMARY | 2024-12-10 14:19 | XMS_ITS | Encounter Summary ---
Author Organization [facility] Address [address] 7t [place] [address] Care Team Providers Care Welding Machine Operator Helper Arc Name Role Phone Teri Owens MD Primary Care Provider [phone] Reason for Visit * Reason Comments Med Refill Encounter Details Date Type Department Care Team ([facility] st Contact Info) Description 11/19/2024 Refill [facility] MED & PEDS [address] [place] [address] Teri Owens MD [address] [place] [address] Muscle spasms of neck Social History Tobacco Use Types Packs/Day Years [...] AM EDT documented as of this encounter Plan of Treatment Upcoming Encounters Date Type Department Care Team (Late st Contact Info) Description 01/08/2025 10:30 AM EST Procedure Visit [facility] MED & PEDS [address] [place] [address] Teressa Gomez CNM [address] [place] [address] documented as of this encounter Visit Diagnoses Diagnosis Muscle spasms of neck documented in this encounter Care Teams Welding Machine Operator Helper Arc Relationship Specialty Start Date End Date Teri Owens MD [address] [place] [address] PCP - General Family Medicine 10/21/18 Dolores Danielle Learning And Development SpecialistElectrician Constructor Supervisor 09/27/23 documented as of this encounter
--- OUTSIDE RECORDS SUMMARY | 2024-12-10 14:19 | XMS_ITS | Encounter Summary ---
Author Organization [facility] Address [address] 7t [place] [address] Care Team Providers Care Regional Sales Executive Name Role Phone Teri Owens MD Primary Care Provider Reason for Visit * Reason Onset Date Comments Nurse Triage 11/14/2024 Encounter Details Date Type Department Care Team ([facility] st Contact Info) Description 11/14/2024 Telephone [facility] MEDICINE [address] [place] [address] Teri Owens MD [address] [place] [address] Nurse Triage Social History Tobacco Use Types Packs/Day Years [...] t he electric, gas, oil or water [employer] threatened to shut off services in your [...] encounter Miscellaneous Notes * Telephone Encounter - Tamy García RN - 11/14/2024 2:52 PM EST Called pt. Via [employer] branch operations specialist [phone] [address]. Pt. States that she has been having stomach pain, diarrhea, and nausea. Pain is above belly button. Pt. Has been drinking sprite and Angélica water. Yesterday pt. Had fever but not today. Pt. Does have a sore throat and pain when speaking. Pt. Is looking for someone to prescribe her medicine. I advised that I cannot prescribe medications but, she can come to [facility] walk in tomorrow am on 11/15/24 between 9am-12pm to get checked and throat checked. I advised that pt. Can buy some OTC imodium to see if that helps her diarrhea and she states she already purchased that with no relief and water is coming out instead of poop . Pt. States I am not going anywhere and hung up phone. Protocol Used: Diarrhea (Adult) Protocol-Based Disposition: See in Office or Video Visit Today Video visit not offered Positive Triage Questions: * Moderate diarrhea (e.g., 4-6 times / day more than normal) and present > 48 hours (2 days) * Abdominal pain (Exceptions: Pain clears completely with each passage of diarrhea stool, or symptoms similar to previously diagnosed irritable bowel syndrome.) * All higher-acuity triage questions were negative * Telephone Encounter - Arash Iggy - 11/14/2024 1:01 PM EST Symptom: Diarrhea Outcome: Schedule an urgent appointment (within 1 hour) or talk to a nurse or provider soon Reason: Vomiting The caller accepted this outcome. documented in this encounter Plan of Treatment Upcoming Encounters Date Type Department Care Team ([facility] st Contact Info) Description 01/08/2025 10:30 AM EST Procedure Visit [facility] MED & PEDS [address] [place] [address] Teressa Gomez CNM [address] [place] [address] documented as of this encounter Visit Diagnoses Not on filedocumented in this encounter Care Teams Regional Sales Executive Relationship Specialty Start Date End Date Teri Owens MD [address] [place] [address] PCP - General Family Medicine 10/21/18 Dolores Danielle Printed Forms ProofreaderNovelty Printing Machine Operator 09/27/23 documented as of this encounter
--- OUTSIDE RECORDS SUMMARY | 2024-12-10 14:19 | XMS_ITS | Encounter Summary ---
Author Organization [employer] Address [address] 7t [place] [address] Care Team Providers Care Field Servicer Name Role Phone Teri Owens MD Primary Care Provider [phone] Reason for Visit * Reason Comments Med Refill Encounter Details Date Type Department Care Team ([facility] st Contact Info) Description 11/11/2024 Refill [facility] MEDICINE [address] [place] [address] Teri Owens MD [address] [place], [place] [id number] Social History Tobacco Use Types Packs/Day Years [...] t he electric, gas, oil or water [employer] threatened to shut off services in your [...] Description 01/08/2025 10:30 AM EST Procedure Visit [facility] MED & PEDS [address] [place] [address] Teressa Gomez CNM [address] [place] [address] documented as of this encounter Visit Diagnoses Not on filedocumented in this encounter Care Teams Field Servicer Relationship Specialty Start Date End Date Teri Owens MD [address] [place] [address] PCP - General Family Medicine 10/21/18 Dolores Danielle Barrel DrainerSleeve Setter Lockstitch 09/27/23 documented as of this encounter
--- OUTSIDE RECORDS SUMMARY | 2024-12-10 14:19 | XMS_ITS | Encounter Summary ---
Author Organization [facility] Address [address] 7t [place] [address] Care Team Providers Care Software Intern Name Role Phone Teri Owens MD Primary Care Provider [phone] Reason for Visit * Reason Onset Date Comments Med Refill 01/17/2023 Encounter Details Date Type Department Care Team ([facility] st Contact Info) Description 01/17/[address] [facility] MEDICINE [address] [place] [address] Teri Owens MD [address] [place] [address] Med Refill Social History Tobacco Use Types [...] encounter Miscellaneous Notes * Telephone Encounter - Epifanio Jesus - 01/17/2023 12:45 PM EST Tc from pt requesting med refill Docusate sodium Diclofenac gel Lidoderm 5 % patch documented in this encounter Plan of Treatment Upcoming Encounters Date Type Department Care Team (Late st Contact Info) Description 01/08/2025 10:30 AM EST Procedure Visit [facility] MED & PEDS [address] [place] [address] Teressa Gomez CNM [address] [place], [place] [id number] documented as of this encounter Visit Diagnoses Not on filedocumented in this encounter Care Teams Software Intern Relationship Specialty Start Date End Date Teri Owens MD [address] [place], [place] [id number] PCP - General Family Medicine 10/21/18 Dolores Danielle CertifierAutomobile Detailer 09/27/23 documented as of this encounter
--- OUTSIDE RECORDS SUMMARY | 2024-12-10 14:19 | XMS_ITS | Encounter Summary ---
Author Organization [facility] Address [address] [place] [address] 7t [place] [address] Care Team Providers Care Director Of Optimization Name Role Phone Teri Owens MD Primary Care Provider [phone] Encounter Details Date Type Department Care Team ([facility] Contact Info) Description 03/12/2024 Orders Only [facility] MED & PEDS [address] [place] [address] Teri Owens MD [address] [place] [address] Social History Tobacco Use Types Packs/Day Years [...] Encounters Date Type Department Care Team (Late Contact Info) Description 01/08/2025 10:30 AM EST Procedure Visit [facility] MED & PEDS [address] [place], [place] [id number] Teressa Gomez CNM [address] [place] [address] documented as of this encounter Visit Diagnoses Not on filedocumented in this encounter Care Teams Director Of Optimization Relationship Specialty Start Date End Date Teri Owens MD [address] [place] [address] PCP - General Family Medicine 10/21/18 Dolores Danielle Car AttendantAerospace Physiological Technician 09/27/23 documented as of this encounter
--- OUTSIDE RECORDS SUMMARY | 2024-12-10 14:19 | XMS_ITS | Encounter Summary ---
Author Organization [employer] Address [address] [place] [address] 7t [place] [address] Care Team Providers Care Silhouette Artist Name Role Phone Teri Owens MD Primary Care Provider [phone] Reason for Visit * Reason Onset Date Comments Durable Medical Equipment 03/07/2024 Encounter Details Date Type Department Care Team ([facility] st Contact Info) Description 03/07/2024 Telephone [facility] MED & PEDS [address] [place] [address] Teri Owens MD [address] [place] [address] Durable Medical Equipment Social History Tobacco Use Types Packs/Day Years [...] Telephone Encounter - Teri Owens MD - 03/13/2024 11:26 AM EDT Pt has not been seen more than 6months.Pt needs appt before script * Telephone Encounter - Leah Pearce - 03/07/2024 9:46 AM EDT Tc from pt requesting a knee brace. Please contact pt at [phone] (Swedish) documented in this encounter Plan of Treatment Upcoming Encounters Date Type Department Care Team ([facility] st Contact Info) Description 01/08/2025 10:30 AM EST Procedure Visit [facility] MED & PEDS [address] [place], [place] [phone] Teressa Gomez CNM [address] [place] [address] documented as of this encounter Visit Diagnoses Not on filedocumented in this encounter Care Teams Silhouette Artist Relationship Specialty Start Date End Date Teri Owens MD [address] [place] [address] PCP - General Family Medicine 10/21/18 Dolores Danielle Hydro Sprayer OperatorBunch Breaker 09/27/23 documented as of this encounter
--- OUTSIDE RECORDS SUMMARY | 2024-12-10 14:19 | XMS_ITS | Encounter Summary ---
Author Organization [employer] [facility] Address [address] [place] [address] Care Team Providers Care Durable Medical Equipment Repairer Name Role Phone Teri Owens MD Primary Care Provider [phone] Encounter Details Date Type Department Care Team (Latest Contact Info) Description 12/05/2024 Travel Social History Tobacco Use Types Packs/Day Years [...] Access Q2 Not on file 10/02/2024 Comments No Sex and Gender Information Value Date Recorded [...] Description 01/08/2025 10:30 AM EST Procedure Visit [facility] MED & PEDS [address] [place] [address] Teressa Gomez, JAYDEN [address] [place] [address] documented as of this encounter Visit Diagnoses Not on filedocumented in this encounter Care Teams Durable Medical Equipment Repairer Relationship Specialty Start Date End Date Teri Owens MD [address] [place] [address] PCP - General Family Medicine 10/21/18 Dolores Danielle Blanker OperatorWeed Science Research Technician 09/27/23 documented as of this encounter
--- OUTSIDE RECORDS SUMMARY | 2024-12-10 14:19 | XMS_ITS | Encounter Summary ---
Author Organization [employer] Address [address] [place] [address] Care Team Providers Care Senior Portfolio Manager Name Role Phone Teri Owens MD Primary Care Provider [phone] Reason for Visit * Reason Comments Med Refill Encounter Details Date Type Department Care Team ([facility] st Contact Info) Description 11/18/2024 Refill [facility] MEDICINE [address] [place] [address] Teri Owens MD [address] [place], [place] [id number] Social History Tobacco Use Types Packs/Day Years [...] t he electric, gas, oil or water [employer] threatened to shut off services in your [...] Description 01/08/2025 10:30 AM EST Procedure Visit [facility] MED & PEDS [address] [place] [address] Teressa Gomez CNM [address] [place] [address] documented as of this encounter Visit Diagnoses Not on filedocumented in this encounter Care Teams Senior Portfolio Manager Relationship Specialty Start Date End Date Teri Owens MD [address] [place] [address] PCP - General Family Medicine 10/21/18 Dolores Danielle Spent Grain DryerHealth Assessment And Treatment Teacher 09/27/23 documented as of this encounter
--- OUTSIDE RECORDS SUMMARY | 2024-12-10 14:19 | XMS_ITS | Encounter Summary ---
Author Organization [facility] [facility] Address [address] 7t [place] [address] Care Team Providers Care Property Clerk Name Role Phone Teri Owens MD Primary Care Provider [phone] Reason for Visit * Reason Onset Date Comments Pre-op Visit 06/18/2024 Encounter Details Date Type Department Care Team (Late st Contact Info) Description 06/18/2024 Telephone [facility] MEDICINE [address] [place] [address] Teri Owens MD [address] [place] [address] Pre-op Visit Social History Tobacco Use Types Packs/Day Years [...] encounter Miscellaneous Notes * Telephone Encounter - Elly Hare - 06/18/2024 3:33 PM EDT Pt agreed to come in on 06/20/24 at 9:15AM with Braulio * Telephone Encounter - Arpita Patrick - 06/18/2024 2:50 PM EDT Date of Surgery: 06/25 Surgical procedure being done: Gallbladder Type of anesthesia: General Lab needed: Yes EKG: Yes Surgeon's name: Dr Laz Hauser Facility name: [facility] Surgeon's office number: [phone] Surgeon's office fax number: [phone] Contact name; Micky Last office note from surgeon requested: Yes documented in this encounter Plan of Treatment Upcoming Encounters Date Type Department Care Team (Late st Contact Info) Description 01/08/2025 10:30 AM EST Procedure Visit [facility] MED & PEDS [address] [place] [address] Teressa Gmoez CNM [address] [place] [address] documented as of this encounter Visit Diagnoses Not on filedocumented in this encounter Care Teams Property Clerk Relationship Specialty Start Date End Date Teri Owens MD [address] [place], [place] [phone] PCP - General Family Medicine 10/21/18 Dolores Danielle Line TesterBuilding Tech 09/27/23 documented as of this encounter
--- OUTSIDE RECORDS SUMMARY | 2024-12-10 14:19 | XMS_ITS | Encounter Summary ---
Author Organization [facility] Address [address] [place] [address] Care Team Providers Care Bag Loader Machine Operator Name Role Phone Teri Owens MD Primary Care Provider [phone] Encounter Details Date Type Department Care Team ([facility] st Contact Info) Description 12/10/2024 Telephone [facility] MED & PEDS [address] [place] [address] Teri Owens MD [address] [place] [address] Social History Tobacco Use Types Packs/Day Years [...] encounter Miscellaneous Notes * Telephone Encounter - Alaina Cross RN - 12/10/2024 11:02 AM EST Pt walked in requesting refill on Pantoprazole. Pt states this was discussed during last visit but no refill was sent. Pt informed that it was placed as a historical med and PCP will not be in officeuntil next week. Pt informed message will be sent to PCP and will be informed of PCP response when PCP returns. Pt agrees with plan. documented in this encounter Plan of Treatment Upcoming Encounters Date Type Department Care Team (Late st Contact Info) Description 01/08/2025 10:30 AM EST Procedure Visit [facility] MED [facility] PEDS [address] [place] [address] Teressa Gomez, JAYDEN [address] [place] [address] documented as of this encounter Visit Diagnoses Not on filedocumented in this encounter Care Teams Bag Loader Machine Operator Relationship Specialty Start Date End Date Teri Owens MD [address] [place] [address] PCP - General Family Medicine 10/21/18 Dolores Danielle Loading Machine OperatorBase Engineer 09/27/23 documented as of this encounter
--- OUTSIDE RECORDS SUMMARY | 2024-12-10 14:19 | XMS_ITS | Encounter Summary ---
Author Organization [facility] Address [address] [place] [address] [address] [place] [address] Care Team Providers Care Medical Driver Name Role Phone Teri Owens MD Primary Care Provider [phone] Encounter Details Date Type Department Care Team ([facility] Contact Info) Description 06/23/2024 Orders Only [facility] MED & PEDS [address] [place] [address] Provider, MD Porsche Social History Tobacco Use Types Packs/Day Years [...] 10:30 AM EST Procedure Visit [facility] [address] [place], [place] [phone] Teressa Gomez CNM [address] [place] [address] documented as of this encounter Procedures Procedure Name Priority Date/Time Associated Diagnosis Comments ECG 12-LEAD Routine 06/18/2024 10:23 AM EDT documented in this encounter Results * ECG 12 lead (06/18/2024 10:23 AM EDT) us Historical Provider ECG ORDERABLES Final Res ult documented in this encounter Visit Diagnoses Not on filedocumented in this encounter Care Teams Medical Driver Relationship Specialty Start Date End Date Teri Owens MD [address] [place] [address] PCP - General Family Medicine 10/21/18 Dolores Danielle Clay Pigeon LoaderCardiology Nurse 09/27/23 documented as of this encounter
--- OUTSIDE RECORDS SUMMARY | 2024-12-10 14:19 | XMS_ITS | Encounter Summary ---
Author Organization [employer] [facility] Address [address] [place] [address] Care Team Providers Care Brick Baker Name Role Phone Teri Owens MD Primary Care Provider [phone] Encounter Details Date Type Department Care Team ([facility] Contact Info) Description 10/27/2022 Orders Only [facility] MEDICINE [address] [place], [place] [phone] Teri Owens MD [address] [place], [place] [phone] GERD without esophagitis (Primary Dx) Social History Tobacco Use Types Packs/Day Years Used Date Smoking Tobacco: Never Smokeless Tobacco: Never Alcohol Use Standard Drinks/Week Comments Never 0 (1 standard drink = 0.6 oz pur e alcohol) Comments Unknown Sex and Gender Information Value Date Recorded Sex Assigned at Female 09/11/2022 10:34 AM EDT Legal Sex Female 10:34 AM EDT Gender Identity Choose not to disclose 2 10:34 AM EDT Sexual Orientation Choose not to disclose 2021 10:34 AM EDT COVID-19 Exposure Response Date Recorded In the last 10 days, have chico youssef been in contact with someone who was confirmed or suspected to have Coronavirus/COVID-19? No / Unsure 10/27/2022 10:25 AM EST documented as of this encounter Plan of Treatment Upcoming Encounters Date Type Department Care Team ([facility] Contact Info) Description 01/08/2025 10:30 AM EST Procedure Visit [facility] MED & PEDS [address] [place], [place] [phone] Teressa Gomez CNM [address] [place] [address] documented as of this encounter Visit Diagnoses Diagnosis GERD without esophagitis- Primary Esophageal reflux documented in this encounter Care Teams Brick Baker Relationship Specialty Start Date End Date Teri Owens MD [address] [place] [address] PCP - General Family Medicine 10/21/18 Dolores Danielle International Student CounselorShort Story Writer 09/27/23 documented as of this encounter
--- OUTSIDE RECORDS SUMMARY | 2024-12-10 14:19 | XMS_ITS | Encounter Summary ---
Author Organization [facility] Address [address] [place] [address] [address] [place] [address] Care Team Providers Care Infrastructure Engineer Name Role Phone Teri Owens MD Primary Care Provider [phone] Encounter Details Date Type Department Care Team (Latest Contact Info) Description 09/14/2021 Abstract [facility] CONVERSIONS Dental, Provider, DDS Social History Tobacco Use Types Packs/Day Years Used Date Smoking Tobacco: Never Assessed Comments Unknown Sex and Gender Information Value [...] Description 01/08/2025 10:30 AM EST Procedure Visit [facility] MED & PEDS [address] [place] [address] Teressa Gomez CNM [address] [place] [address] documented as of this encounter Visit Diagnoses Not on filedocumented in this encounter Care Teams Infrastructure Engineer Relationship Specialty Start Date End Date Teri Owens MD [address] [place] [address] PCP - General Family Medicine 10/21/18 Dolores Danielle Domestic Violence CounselorNursing Technician 09/27/23 documented as of this encounter
--- OUTSIDE RECORDS SUMMARY | 2024-12-10 14:19 | XMS_ITS | Clinical Summary ---
Author Organization [facility] Address [address] [place] [address] [address] [place] [address] Care Team Providers Care Cellophaner Name Role Phone Teri Owens MD Primary Care Provider [phone] Allergies Active Allergy Reactions Criticality Noted Date Comments Latex 09/14/2021 Medications * This document contains information received from the source organization and may not represent a complete record from that organization. Acetaminophen Extra Strength 500 MG tablet Take 2 tablets by mouth if needed in the morning, at noon, in the evening, and at bedtime. 022 Active acetaminophen (Tylenol Extra Strength) 500 MG tabletIndications: Viral gastroenteritis Take 1-2 tablets every 8 hours as needed for pain or fever 100 tablet 1 023 Active docusate sodium (Colace) 100 MG capsuleIndications :Constipation, unspecified constipation type Take 1 capsule (100 mg) by mouth 2 times daily. 180 capsule 1 023 Active cholecalciferol (Vitamin D-3) 50 MCG (1999) tabletIndications: Type 2 diabetes mellitus without complication, without long-term current use of insulin ([facility]) TAKE 1 TABLET BY MOUTH IN THE MORNING 90 tablet 3 024 Active cetirizine (ZyrTEC) 10 MG tabletIndications: Viral upper respiratory tract infection Take 1 tablet (10 mg) by mouth Once per day. 90 tablet 3 024 2024 Active traZODone (Desyrel) 100 MG tablet TAKE 1 TABLET(100 MG) BY MOUTH AT BEDTIME 90 tablet 3 024 Active sucralfate (Carafate) 1 g tabletIndications: Chronic GERD TAKE 1 TABLET(1 GRAM) BY MOUTH EVERY 12 HOURS 180 tablet 024 Active miconazole (Micotin) 2 % cream APPLY 1 APPILICATION VAGINALLY AT BEDTIME 45 g 1 024 Active Diclofenac Sodium 1 % gelIndications:Mus monica spasms of neck APPLY 2 GRAMS TOPICALLY TO THE AFFECTED AREA IN THE MORNING AND AT BEDTIME NEEDED FOR MUSCLE PAIN 100 g 3 025 Active fluticasone (Flonase Allergy Relief) 50 MCG/ACT nasal sprayIndications:T ype 2 diabetes mellitus without complication, without long-term current use of insulin ([facility]) SPRAY 2 SPRAYS INTO EACH NOSTRIL TWICE A DAY 48 g Active ibuprofen 800 MG tablet TAKE 1 TABLET BY MOUTH THREE TIMES DAILY 90 tablet 2 Active pantoprazole (ProtoNix) 20 MG EC tablet Take 20 mg by mouth before breakfast. Do not crush, chew, or split. Active celecoxib (CeleBREX) 200 MG capsule Take 1 capsule (200 mg) by mouth 2 times daily. 60 capsule 3 Active cetirizine (ZyrTEC) 10 MG tablet Take 1 tablet (10 mg) by mouth Once per day. 30 tablet 5 025 2024 Active zolpidem (Ambien) 5 MG tablet Take 5 mg by mouth if needed at bedtime for sleep. Prescribed by psych Active melatonin 5 MG tablet Take 5 mg by mouth at bedtime. Prescribed by psych Active escitalopram (Lexapro) 20 MG tablet Take 20 mg by mouth Once per day. Prescribed by psych Active busPIRone (Buspar) 15 MG tablet Take 15 mg by mouth 2 times daily. Prescribed by psych Active omeprazole OTC (PriLOSEC OTC) 20 MG EC tabletIndications: GERD without esophagitis Take 1 tablet (20 mg) by mouth before breakfast. Do not crush, chew, or split. 30 tablet 11 022 2024 Discontinued ketotifen (Zaditor) 0.025 % ophthalmic solution Administer 1 drop into affected eye(s) every 12 (twelve) hours. 022 2024 Discontinued tamoxifen (Nolvadex) 10 MG chemo tablet Take 1 tablet by mouth every 12 (twelve) hours. 2024 Discontinued hydrocortisone 1 % creamIndications:R eligio Apply topically in the morning and at bedtime. 56 g 022 2024 Discontinued lidocaine-prilocai ne (Emla) 2.5-2.5 % creamIndications:P aresthesias APPLY TOPICALLY TO THE AFFECTED AREA 1 TIME FOR 1 DOSE 30 g 023 2024 Discontinued triamcinolone (Nasacort) 55 MCG/ACT nasal inhaler SPRAY 2 SPRAYS INTO EACH NOSTRIL TWICE A DAY 16.5 g 1 023 2024 Discontinued diclofenac (Cataflam) 50 MG tablet TAKE 1 TABLET BY MOUTH TWICE DAILY NEEDED 30 tablet 023 2024 Discontinued ibuprofen 800 MG tablet TAKE 1 TABLET BY MOUTH THREE TIMES DAILY 90 tablet 11 023 2024 Discontinued Diclofenac Sodium (Voltaren) 1 % gelIndications:Mus monica spasms of neck Apply 2 g topically if needed in the morning and at bedtime (muscle pain). 100 g 3 024 2024 Discontinued cyclobenzaprine (Flexeril) 10 MG tablet TAKE 1 TABLET(10 MG) BY MOUTH THREE TIMES DAILY FOR 10 DAYS 30 tablet 024 2024 Discontinued lidocaine (Lidoderm) 5 % patchIndications:T ype 2 diabetes mellitus without complication, without long-term current use of insulin (CMS/HCC) APPLY 1 PATCH TOPICALLY TO THE SKIN EVERY DAY. MAY WEAR UP TO 12 HOURS 30 patch 3 024 2024 Discontinued omeprazole (PriLOSEC) [address] capsuleIndications :GERD without esophagitis Take 1 capsule by mouth every day before a meal 90 capsule 3 024 2024 Discontinued loratadine (Claritin) 10 MG tablet Take 1 tablet (10 mg) by mouth in the morning. 30 tablet 024 2024 Discontinued fluticasone (Flonase) 50 MCG/ACT nasal sprayIndications:T ype 2 diabetes mellitus without complication, without long-term current use of insulin (CMS/HCC) SHAKE LIQUID AND USE 2 SPRAYS IN EACH NOSTRIL TWICE DAILY 16 g 3 024 2024 Discontinued(D uplicate order (will not trigger notification to Pharmacy)) FreeStyle lancetsIndications :Type 2 diabetes mellitus without complication, without long-term current use of insulin ([facility]) 1 each by Other route 2 times daily. 100 each 11 024 2024 Discontinued glucose blood (FREESTYLE LITE) test stripIndications:T ype 2 diabetes mellitus without complication, without long-term current use of insulin ([facility]) 1 each by Other route every 12 (twelve) hours. 100 each 11 024 2024 Discontinued fluticasone (Flonase) 50 MCG/ACT nasal sprayIndications:V iral gastroenteritis INSTILL 1 TO 2 SPRAYS IN EACH NOSTRIL IN THE MORNING.SHAKE GENTLY.BEFORE FIRST USE,PRIME PUMP 48 g 1 024 2024 Discontinued(D uplicate order (will not trigger notification to Pharmacy)) baclofen (Lioresal) 10 MG tabletIndications: Muscle spasm Take 1 tablet (10 mg) by mouth 3 times daily. 90 tablet 024 2024 Discontinued lidocaine (Xylocaine) 5 % ointment APPLY TOPICALLY IF NEEDED FOR MILD PAIN 35.44 g 3 024 2024 Discontinued senna (Senokot) 8.6 MG tabletIndications: Constipation, unspecified constipation type Take 1 tablet (8.6 mg) by mouth every 12 (twelve) hours. 180 tablet 024 2024 Discontinued Blood Glucose Monitoring Suppl (FreeStyle [place] Lite) w/Device kit Check sugars BID 1 kit 1 024 2024 Discontinued celecoxib (CeleBREX) 200 MG capsule Take 1 capsule (200 mg) by mouth 2 times daily. 60 capsule 3 024 2024 Discontinued(R eorder (will not trigger notification to Pharmacy)) fluticasone (Flonase Allergy Relief) 50 MCG/ACT nasal sprayIndications:T ype 2 diabetes mellitus without complication, without long-term current use of insulin ([facility]) SPRAY 2 SPRAYS INTO EACH NOSTRIL TWICE A DAY 48 g 024 2024 Discontinued(R eorder (will not trigger notification to Pharmacy)) naproxen (Naprosyn) 500 MG tablet Take 1 tablet (500 mg) by mouth 2 times daily. 60 tablet 024 2023 Discontinued naproxen (Naprosyn) 500 MG tablet TAKE 1 TABLET(500 MG) BY MOUTH TWICE DAILY 60 tablet 024 2024 Discontinued ibuprofen 800 MG tablet TAKE 1 TABLET BY MOUTH THREE TIMES DAILY 90 tablet 2 025 2024 Discontinued(R eorder (will not trigger notification to Pharmacy)) cyclobenzaprine (Flexeril) 10 MG tablet TAKE 1 TABLET(10 MG) BY MOUTH THREE TIMES DAILY FOR 10 DAYS 30 tablet 025 2024 Discontinued Active Problems Problem Noted Date Diagnosed Date Ductal carcinoma in situ (DCIS) of left breast 0 06/20/2024 Acute pain of right knee 10/27/2022 Encounters Date Type Department Care Team Description 12/10/2024 Telephone [facility] [address] [place] [address] Teri Owens MD 12/08/2024 Telephone [facility] [address] [place] [address] Teri Owens MD Prior Authorization 12/05/2024 9:15 AM EST Office Visit [facility] [address] [place] [address] Teri Owens MD Ductal carcinoma in situ (DCIS) of left breast (Primary Dx); Type 2 diabetes mellitus without complication, without long-term current use of insulin ([facility]); Unsteady gait; Encounter for immunization 12/05/2024 Telephone [facility] [address] [place] [address] Teri Owens MD Medication Question 12/05/2024 Telephone [facility] [address] [place] [id number] Teri Owens MD FYI 12/05/2024 Travel 11/29/2024 Refill [facility] [address] [facility] [place] [address] Teri Owens MD 11/27/2024 Refill [facility] [address] [facility] [place] [address] Teri Owens MD 11/21/2024 Refill [facility] [address] [facility] [place] [address] Teri Owens MD Type 2 diabetes mellitus without complication, without long-term current use of insulin ([facility]) 11/19/2024 Refill [facility] [address] [place] [address] Teri Owens MD Muscle spasms of neck 11/18/2024 Refill [facility] [address] [facility] [place] [address] Teri Owens MD 11/14/2024 Telephone [facility] [place] [address] Teri Owens MD Nurse Triage 11/11/2024 Refill [facility] [address] [facility] [place] [address] Teri Owens MD 10/14/2024 Refill [facility] [address] [facility] [place] [address] Teri Owens MD Type 2 diabetes mellitus without complication, without long-term current use of insulin ([facility]) 10/02/2024 Patient Outreach [facility] [address] [place] [address] Teri Owens MD Pre-visit Planning (SDOH negative, Tobacco screening negative. ) 09/13/2024 Refill [facility] [address] [facility] [place] [address] Teri Owens MD from Last 3 Months Immunizations Name Administration Dates Next Due Influenza injectable quadriv alent preservative free 08/09/2023,09/01/2021,10/21/2018 Influenza, seasonal, injecta ble, preservative free 12/05/2024 Moderna Covid-19 Vaccine 12+ 04/21/2022,05/02/20 21,04/06/2021 Moderna Covid-19 Vaccine 6+ Bivalent 10/24/2022 Tdap 07/18/2019 Zoster, Recombinant 05/23/2022,03/13/2022 Social History Tobacco Use Types Packs/Day Years Used Date Smoking Tobacco: Never Passive Smoke Exposure: Never Smokeless Tobacco: Never Tobacco Cessation:Counseling Given: Not Answered Alcohol Use Standard Drinks/Week Comments Never 0 [...] not to disclose 2021 10:34 AM EDT Last Filed Vital Signs Vital Sign Reading Time Taken Comments Blood Pressure 127/82 12/05/2024 9:24 AM EST Pulse 81 12/05/2024 9:24 AM EST Temperature 36.7 ??C (98 ??F) 12/05/2024 9:24 AM EST Respiratory Rate 20 12/05/2024 9:24 AM EST Oxygen Saturation 99% 05/26/2024 2:27 PM EDT Inhaled Oxygen Concentration - - Weight 100 kg (221 lb) 12/05/2024 9:24 AM EST Height 182.9 cm (6') 12/05/2024 9:24 AM EST Body Mass Index 29.97 12/05/2024 9:24 AM EST Plan of Treatment Upcoming Encounters Date Type Department Care Team (Late st Contact Info) Description 01/08/2025 10:30 AM EST Procedure Visit [facility] [address] [place] [address] Teressa Gomez, JAYDEN [address] [place] [address] Health Maintenance Due Date Last Done Comments CT Colonography 1960 Colonoscopy 1960 Colorectal Cancer Screening 1960 Depression Screening 1960 FIT DNA/Cologuard 1960 FIT 1960 FOBT 1960 HIV Screening 1960 Sigmoidoscopy 1960 Diabetes: Foot Exam 01/30/1970 Eye Exam 01/30/1970 Alcohol/Substance Use Screening 1972 Hepatitis C Screening 01/30/1978 Diabetes: Urine Protein Screening 01/30/1979 Pneumococcal Vaccine: 50+ Years (1 of 2 - PCV) 01/30/1979 Pap Smear 01/30/1981 Cervical Cancer Screening 01/30/1990 HPV/Cotest 01/30/1990 Dental Oral Exam 03/15/2022 09/14/2021, 04/29/2019 Dental X-Ray: Full Mouth 04/30/2022 04/29/2019 Dental Prophylaxis 08/27/2022 02/24/2022, 1 11/14/2020, 12/08/2019, Additional history exists Dental X-Ray: Bitewings 09/15/2022 09/14/2021, 04/29 Lipid Panel 04/04/2023 04/04/2022 Diabetes: Hemoglobin A1C 07/02/2023 01/02/2023, 03/13 COVID-19 Vaccine ( season) 2024 10/24/2022, 04/21/2022, 05/02/2021, Additional history exists Mammogram 04/16/2025 04/16/2024, 03/14, 03/02/2022, Additional history exists SDOH Screening 10/02/2025 10/02/2024 Tobacco Screening 12/05/2025 12/05/2024 DTaP/Tdap/Td Vaccines (2 - Td or Tdap) 07/18/2029 07/18/2019 RSV Patients and Patients Aged 60 years or older (1 - 1-dose 75+ series) 01/30/2035 Zoster Vaccines Completed 05/23/2022, 03/13/2022 Influenza Vaccine Completed 12/05/2024, , 09/01/2021, Additional history exists HIB Vaccines Aged Out No longer eligi ble based on patient's age to complete this topic HPV Vaccines Aged Out No longer eligi ble based on patient's age to complete this topic Hepatitis A Vaccines Aged Out No long er eligible based on patient's age to complete this topic Hepatitis B Vaccines Aged Out No long er eligible based on patient's age to complete this topic IPV Vaccines Aged Out No longer eligi ble based on patient's age to complete this topic Meningococcal Vaccine Aged Out No mouna elham eligible based on patient's age to complete this topic RSV under 20 months Aged Out No longe r eligible based on patient's age to complete this topic Rotavirus Vaccines Aged Out No longer eligible based on patient's age to complete this topic Procedures Procedure Name Priority Date/Time Associated Diagnosis Comments BI MAMMOGRAM SCREENING TOMOSYNTHESIS BILATERAL Routine 04/16/2024 9:25 AM EDT HEMOGLOBIN A1C Routine 01/02/2023 9:22 AM EST Paresthesias LIPID PANEL, STANDARD Routine 04/04/2022 9:49 AM EDT PROPHYLAXIS - ADULT Routine 02/24/2022 1 2:00 AM EDT BITEWINGS - 4 RADIOGRAPHIC IMAGES Routine 09/14/2021 12:00 AM EDT PERIODIC ORAL EVALUATION - ESTABLISHED PATIENT Routine 09/14/2021 12:00 AM EDT DIAGNOSTIC - DIAGNOSTIC IMAGING - INTRAORAL - COMPREHENSIVE SERIES OF RADIOGRAPHIC IMAGES Routine 04/29/2019 12:00 AM EDT from Last 3 Months or Most Recently Relevant to Health Maintenance Results * BI Mammogram Screening Tomosynthesis Bilateral (04/16/2024 9:25 AM EDT) Anatomical Region Laterality Modality Breast Bilateral Mammography 04/16/2024 9:25 AM EDT Narrative 05/13/2024 8:10 AM EDT ? [facility] ? [address] ?[place] [address] ? Mammography Report ? Signed ? Patient: Jose Johnston,Mary ?MR#: ?? [id number] ? : 1960 ?Acct:[id number] ? Age/Sex: 64 / F ?ADM Date: 04/16/24 ? Loc: HO.MAMMO ? Attending Dr: Nichol Garner MD ? Ordering Physician: Nichol Garner MD ?Results: 2Benig ?? n Findings ? Date of Service: 04/16/24 ?Follow Up: 1 Year From Orig ?? inal Mammogram ? Procedure(s): MM tomosynthesis screening BI ?? Accession Number(s): [id number] ? cc: Nichol Garner MD; Laz Hauser MD; Teri Owens MD ? EXAMINATION: ?? MM SCREENING DIGITAL BREAST TOMOSYNTHESIS, BILATERAL ? CLINICAL INFORMATION: ? Screening. Asymptomatic. ? The patient has a history of prior left breast surgery for DCIS in ?? 2019. ? COMPARISON: ?? Mammography: This study is compared with prior exams dating back to ?? 2019. ? TECHNIQUE: ?? Digital breast tomosynthesis is performed in both the craniocaudal and ?? mediolateral oblique views along with computer-aided detection (CAD). ?? Synthesized 2D images are generated from the tomosynthesis. ? FINDINGS: ?? There are scattered areas of fibroglandular density (ACR BI-RADS breast ?? composition Category b). ? There are no significant masses, abnormal calcifications, or other ?? abnormalities. ? There are postsurgical changes in the upper outer quadrant of the left ?? breast from prior breast cancer treatment. ? MM/MM tomosynthesis screening BI ?? IMPRESSION: ?? No mammographic evidence of malignancy. ? ASSESSMENT: ? BI-RADS BI-RADS 2 - Benign Findings ? RECOMMENDATION: ?? Routine annual mammography screening. ? 1 year F/U ? This examination should not preclude the clinical evaluation of a ?? suspicious palpable abnormality. ? This patient's information was entered into a reminder system with a ?? target due date for their next mammogram. ? Dictated By: ?Sary Limon MD ? Signed By: ?<Electronically signed by Sary Limon MD in OV> ? 05/13/24 0806 ? DD/ 09 ? TD/TT: ? Gas [employer]: ? Procedure Note Donolesyaestefanypepe, Image - 05/13/2024 [facility] [address] [place] [address] Mammography Report Signed Patient: Chandler June#: [id number] : 1960Acct:[id number] Age/Sex: 64 / FADM Date: 04/16/24 Loc: HO.MAMMO Attending Dr: Nichol Garner MD Ordering Physician: Nichol Garneresults: 2Benig n Findings Date of Service: 04/16/24Follow Up: 1 Year From Orig inal Mammogram Procedure(s): MM tomosynthesis screening BI Accession Number(s): [id number] cc: Nichol Garenr MD; Laz Hauser MD; Teri Owens MD EXAMINATION: MM SCREENING DIGITAL BREAST TOMOSYNTHESIS, BILATERAL CLINICAL INFORMATION: Screening. Asymptomatic. The patient has a history of prior left breast surgery for DCIS in 2019. COMPARISON: Mammography: This study is compared with prior exams dating back to 2019. TECHNIQUE: Digital breast tomosynthesis is performed in both the craniocaudal and mediolateral oblique views along with computer-aided detection (CAD). Synthesized 2D images are generated from the tomosynthesis. FINDINGS: There are scattered areas of fibroglandular density (ACR BI-RADS breast composition Category b). There are no significant masses, abnormal calcifications, or other abnormalities. There are postsurgical changes in the upper outer quadrant of the left breast from prior breast cancer treatment. MM/MM tomosynthesis screening BI IMPRESSION: No mammographic evidence of malignancy. ASSESSMENT: BI-RADS BI-RADS 2 - Benign Findings RECOMMENDATION: Routine annual mammography screening. 1 year F/U This examination should not preclude the clinical evaluation of a suspicious palpable abnormality. This patient's information was entered into a reminder system with a target due date for their next mammogram. Dictated By: Sary Limon MD Signed By: <Electronically signed by Sary Limon MD in OV> 05/13/24805 DD/ 4 TD/TT: [employer]: [facility] External Provider IMG BI PROCEDURES Edited Result - Final * Hemoglobin A1c (01/02/2023 9:22 AM EST) Hemoglobin A1c 5.3 <5.7 % of total Hgb [facility] Comment: For the purpose of screening for the presence of diabetes: <5.7% ? Consistent with the absence of diabetes 5.7-6.4% ?Consistent with increased risk for diabetes ?(prediabetes) > or =6.5% ??Consistent with diabetes This assay result is consistent with a decreased risk of diabetes. Currently, no consensus exists regarding use of hemoglobin A1c for diagnosis of diabetes in children. According to [place] Diabetes Association (ADA) guidelines, hemoglobin A1c <7.0% represents optimal control in non- diabetic patients. Different metrics may apply to specific patient populations. Standards of Medical Care in Diabetes(ADA). ?? Blood Venous blood specimen / Unknown 01/02/2023 9:22 AM EST 01/02/2023 9:23 AM EST us Yared Wells MD LAB BLOOD ORDERABLES Final Result [employer] [address] [facility], [facility], [place] [address] [facility] [address] [facility], ([address]) [place] [address] * (ABNORMAL) LIPID PANEL, STANDARD (04/04/2022 9:49 AM EDT) Chol/HDLC Ratio 3.9 <5.0 (calc) [facility] Cholesterol, Total 215(H) <200 mg/dL [facility] HDL Cholesterol 55 > OR = 50 mg/dL [facility] LDL Cholesterol 139(H) mg/dL (calc) [facility] Comment: Reference range: <100 ?? Desirable range <100 mg/dL for primary prevention; ?? <70 mg/dL for patients with CHD or diabetic patients ?? with > or = 2 CHD risk factors. ?? LDL-C is now calculated using the Garry ?? calculation, which is a validated novel method providing ?? better accuracy than the Friedewald equation in the ?? estimation of LDL-C. ?? Abe CALLAHAN et al. COLLEEN. 2013;310(19): 9580-7704 ?? (http://education.ooma/faq/RNW411) Non-HDL Cholesterol 160(H) <130 mg/dL (calc) [facility] Comment: For patients with diabetes plus 1 major ASCVD risk ?? factor, treating to a non-HDL-C goal of <100 mg/dL ?? (LDL-C of <70 mg/dL) is considered a therapeutic ?? option. Triglycerides 97 <150 mg/dL [facility] 04/04/2022 9:49 AM EDT us Teri Owens MD LAB BLOOD ORDERABLES Final Resul t [facility] [address] from Last 3 Months or Most Recently Relevant to Health Maintenance Insurance [facility] C3 DENTAL-[facility] MEDICAID STAND ADULT Care Teams Cellophaner Relationship Specialty Start Date End Date Teri Owens MD [address] [place] [id number] PCP - General Family Medicine 10/21/18 Dolores Danielle Cat Scan TechnologistFranchise Broker 09/27/23
--- OUTSIDE RECORDS SUMMARY | 2024-12-10 14:19 | XMS_ITS | Clinical Summary ---
Author Organization [facility] ity Address [address] [place] [address] Care Team Providers Care Light Cleaner Name Role Phone Unavailable Primary Care Provider Unavailabl e Social History Tobacco Use Types Packs/Day Years Used Date Smoking Tobacco: Never Assessed Sex and Gender Information Value Date Recorded Sex Assigned at Not on file Gender Identity Not on file Sexual Orientation Not on file Plan of Treatment Health Maintenance Due Date Last Done Comments Breast Cancer Screening 1960 DTaP,Tdap,and Td Vaccines (1 - Tdap) 01/30/1979 Cervical Cancer Screening: P ap Smear 01/30/1981 Zoster Vaccines (1 of 2) 01/30/2010 COVID-19 Vaccine ( - 2023-2 5 season) 2024 Influenza Vaccine (#1) 2024 RSV Immunization Patients 60 + Years Old (1 - 1-dose 75+ series) 01/30/2035 HIB Vaccines Aged Out No longer eligi [...] on patient's age to complete this topic MMR Vaccines Aged Out No longer eligi ble based on patient's age to complete this topic Meningococcal ACWY Vaccine Aged Out N o longer eligible based on patient's age to complete this topic Pneumococcal Vaccine: Pediat rics (0 to 5 Years) and At-Risk Patients (6 to 64 Years) Aged Out No longer eligible b ased on patient's age to complete this topic RSV Immunization Patients Un carina 20 months Aged Out No longer eligible b ased on patient's age to complete this topic Varicella Vaccines Aged Out No longer eligible based on patient's age to complete this topic
--- OUTSIDE RECORDS SUMMARY | 2024-12-10 14:19 | XMS_ITS | Encounter Summary ---
Author Organization [employer] Address [address] [facility] 7t [place] [address] Care Team Providers Care Registered Dietetic Technician Name Role Phone Teri Owens MD Primary Care Provider [phone] Reason for Visit * Reason Comments chronic conditions Encounter Details Date Type Department Care Team ([facility] Contact Info) Description 12/05/2024 9:15 AM EST Office Visit [facility] MED & PEDS [address] [place] [address] Teri Owens MD [address] [place] [address] Ductal carcinoma in situ (DCIS) of left breast (Primary Dx); Type 2 diabetes mellitus without complication, without long-term current use of insulin (CMS/HCC); Unsteady gait; Encounter for immunization Social History Tobacco Use Types Packs/Day Years [...] AM EDT documented as of this encounter Last Filed Vital Signs Vital Sign Reading Time Taken Comments Blood Pressure 127/82 12/05/2024 9:24 AM EST Pulse 81 12/05/2024 9:24 AM EST Temperature 36.7 ??C (98 ??F) 12/05/2024 9:24 AM EST Respiratory Rate 20 12/05/2024 9:24 AM EST Oxygen Saturation - - Inhaled Oxygen Concentration - - Weight 100 kg (221 lb) 12/05/2024 9:24 AM EST Height 182.9 cm (6') 12/05/2024 9:24 AM EST Body Mass Index 29.97 12/05/2024 9:24 AM EST documented in this encounter Progress Notes * Teri Owens MD - 12/05/2024 9:15 AM EST Subjective Patient ID: Mary Johnston is a 64 y.o. adult who presents for chronic conditions. Knee Pain The pain is present in the left knee and right knee. The pain is at a severity of 5/10. The pain ismoderate. The pain has been Constant since onset. Associated symptoms include an inability to bear weight. The symptoms are aggravated by movement and weight bearing. Mary has tried rest and acetaminophen for the symptoms. The treatment provided mild relief. Review of Systems Constitutional: Negative. Respiratory: Negative. Negative for shortness of breath. Cardiovascular: Negative for chest pain and palpitations. Gastrointestinal: Negative. Genitourinary: Negative. Musculoskeletal: Negative for neck pain. Neurological: Negative for headaches. Objective Physical Exam Constitutional: Appearance: Normal appearance. Cardiovascular: Rate and Rhythm: Normal rate and regular rhythm. Pulses: Normal pulses. Heart sounds: Normal heart sounds. Pulmonary: Effort: Pulmonary effort is normal. Abdominal: General: Abdomen is flat. Neurological: Mental Status: Mary is alert. Assessment/Plan Diagnoses and all orders for this visit: Ductal carcinoma in situ (DCIS) of left breast Comments: Follows closely with [facility] Awaiting next Chemo Type 2 diabetes mellitus without complication, without long-term current use of insulin (CMS/HCC) Comments: Diet controlled Labs ordered today Advised Low sugar and Low carb diet. Counseled regarding self-monitoring of blood glucose. Counseled re: potential co-morbidities including cardiovascular disease. Counseled re: potential co-morbidities include neuropathy and retinopathy. Counseled re: potential co-morbidities include nephropathy. Orders: - Hemoglobin A1c; Future - Basic Metabolic Panel; Future - Lipid Panel, Standard; Future - Hepatic Function Panel; Future Unsteady gait Comments: Script for walker with seat to be seant pt will benefit from walker with seat for better ADLS and avoid falls Encounter for immunization - FLU VACCINE TRIVALENT (Fluarix) 6 mo + Other orders - celecoxib (CeleBREX) 200 MG capsule; Take 1 capsule (200 mg) by mouth 2 times daily. - cetirizine (ZyrTEC) 10 MG tablet; Take 1 tablet (10 mg) by mouth Once per day. documented in this encounter Plan of Treatment Upcoming Encounters Date Type Department Care Team (Late st Contact Info) Description 01/08/2025 10:30 AM EST Procedure Visit [facility] MED & PEDS [address] [place] [address] Teressa Gomez CNM [address] [place] [address] Scheduled Orders Name Type Priority Associated Diagnoses Orde r Schedule Hemoglobin A1c Lab Routine Type 2 diabetes mellitus without complication, without long-term current use of insulin (CMS/HCC) Expected: 12/05/2024 (Approximate), Expires: 12/05/2025 Basic Metabolic Panel Lab Routine Type 2 diabetes mellitus without complication, without long-term current use of insulin (CMS/HCC) Expected: 12/05/2024 (Approximate), Expires: 12/05/2025 Lipid Panel, Standard Lab Routine Type 2 diabetes mellitus without complication, without long-term current use of insulin (CMS/HCC) Expected: 12/05/2024 (Approximate), Expires: 12/05/2025 Hepatic Function Panel Lab Routine Type 2 diabetes mellitus without complication, without long-term current use of insulin (CMS/HCC) Expected: 12/05/2024 (Approximate), Expires: 12/05/2025 documented as of this encounter Visit Diagnoses Diagnosis Ductal carcinoma in situ (DCIS) of left breast- Primary Type 2 diabetes mellitus without complication, without long-term current use of insulin (CMS/HCC) Unsteady gait Abnormality of gait Encounter for immunization documented in this encounter Care Teams Registered Dietetic Technician Relationship Specialty Start Date End Date Teri Owens MD [address] [place] [address] PCP - General Family Medicine 10/21/18 Dolores Danielle SoubretteCommercial Real Estate Underwriter 09/27/23 documented as of this encounter
--- OUTSIDE RECORDS SUMMARY | 2024-12-10 14:19 | XMS_ITS | Encounter Summary ---
Author Organization [employer] Address [address] [facility] [address] [place] [address] Care Team Providers Care Diesel Engine Operator Name Role Phone Teri Owens MD Primary Care Provider [phone] Reason for Visit * Reason Comments Med Refill Encounter Details Date Type Department Care Team ([facility] st Contact Info) Description 11/29/2024 Refill [facility] [address] [place] [address] Teri Owens MD [address] [place], [place] [phone] Social History Tobacco Use Types Packs/Day Years Used Date Smoking Tobacco: Never Passive Smoke Exposure: Never Smokeless Tobacco: Never Alcohol Use Standard Drinks/Week Comments Never 0 (1 standard drink = 0.6 oz pur e alcohol) Housing Stability Answer Date Recorded What is your housing situation today? I have mundo ordoñez 10/02/[address] you [...] 01/08/2025 10:30 AM EST Procedure Visit [facility] MED & PEDS [address] [place] [address] Teressa Gomez CNM [address] [place] [address] documented as of this encounter Visit Diagnoses Not on filedocumented in this encounter Care Teams Diesel Engine Operator Relationship Specialty Start Date End Date Teri Owens MD [address] [place], [place] [phone] PCP - General Family Medicine 10/21/18 Dolores Danielle Bakery DecoratorHead Golf Coach 09/27/23 documented as of this encounter
--- OUTSIDE RECORDS SUMMARY | 2024-12-10 14:19 | XMS_ITS | Encounter Summary ---
Author Organization [employer] Address [address] [facility] 7t [place] [address] Care Team Providers Care Field Pipelines Supervisor Name Role Phone Teri Owens MD Primary Care Provider [phone] Reason for Visit * Reason Onset Date Comments Referral 12/11/2023 Encounter Details Date Type Department Care Team (Late st Contact Info) Description 12/11/2023 Telephone [facility] MEDICINE [address] [place] [address] Teri Owens MD [address] [place] [address] Referral Social History Tobacco Use Types Packs/Day Years [...] * Telephone Encounter - Sesar Ríos - 12/20/2023 12:32 PM EST Tc from pt requesting status on referral for podiatry, Printing Sales Representative sees current status shows pending. Please contact at [phone] Citizen Of [place] * Telephone Encounter - Leslie Alonzo RN - 12/11/2023 11:51 AM EST Call to Mary Johnston, reports having pain and itching of right great bit toe. Per pt has been seen by manager statistics in past for fungus on toe nails. Per pt denies any redness of skin or pus under nail or cuticle. Pt looking for referral to Dr. Jhony Patten at [facility] [place], [place] [phone] Will send to team nurses to follow up on Referral for patient. Protocol Used: Toenail - Ingrown (Adult) Protocol-Based Disposition: See in Office or Video Visit within 2 Weeks Override (Final) Disposition: Refer to Specialist Override Reason: Desired specific provider Video visit offer not recorded Positive Triage Question: * Thickened, ugly-appearing toenail * All higher-acuity triage questions were negative Care Advice Discussed: * Nail Trimming * Wear Shoes That Fit * Reasons To Call Back - You have more questions * Telephone Encounter - Arpita Patrick - 12/11/2023 10:39 AM EST Symptom: Toenail Symptoms Outcome: Schedule an urgent appointment (within 1 hour) or talk to a nurse or provider soon Reason: Severe pain now The caller accepted this outcome Pt is requesting a referral for manager statistics. Citizen Of [place] speaker documented in this encounter Plan of Treatment Upcoming Encounters Date Type Department Care Team (Late st Contact Info) Description 01/08/2025 10:30 AM EST Procedure Visit [facility] MED & PEDS [address] [place] [address] Teressa Gomez CNM [address] [place], [place] [phone] documented as of this encounter Visit Diagnoses Not on filedocumented in this encounter Care Teams Field Pipelines Supervisor Relationship Specialty Start Date End Date Teri Owens MD [address] [place], [place] [phone] PCP - General Family Medicine 10/21/18 Dolores Danielle ScalderDance Studio Manager 09/27/23 documented as of this encounter
--- OUTSIDE RECORDS SUMMARY | 2024-12-10 14:19 | XMS_ITS | Encounter Summary ---
Author Organization [facility] Address [address] [place] [address] 7t [place] [address] Care Team Providers Care Metal Sash Setter Name Role Phone Teri Owens MD Primary Care Provider [phone] Encounter Details Date Type Department Care Team (Latest Contact Info) Description 06/10/2019 Abstract [facility] CONVERSIONS Dental, Provider, DDS Social History Tobacco [...] Description 01/08/2025 10:30 AM EST Procedure Visit [facility] MED & PEDS [address] [place] [address] Teressa Gomez CNM [address] [place] [address] documented as of this encounter Visit Diagnoses Not on filedocumented in this encounter Care Teams Metal Sash Setter Relationship Specialty Start Date End Date Teri Owens MD [address] [place] [address] PCP - General Family Medicine 10/21/18 Dolores Danielle Plan NurseWire Straightener 09/27/23 documented as of this encounter
--- OUTSIDE RECORDS SUMMARY | 2024-12-10 14:19 | XMS_ITS | Encounter Summary ---
Author Organization [facility] Address [address] [facility] 7t [place] [address] Care Team Providers Care Caramel Cutter Hand Name Role Phone Teri Owens MD Primary Care Provider [phone] Reason for Visit * Reason Onset Date Comments Medication Question 12/05/2024 Encounter Details Date Type Department Care Team ([facility] Contact Info) Description 12/05/2024 Telephone [facility] MED & PEDS [address] [place] [address] Teri Owens MD [address] [place] [address] Medication Question Social History Tobacco Use Types Packs/Day Years [...] encounter Miscellaneous Notes * Telephone Encounter - Jana Weiner RN - 12/05/2024 1:36 PM EST TC to patient regarding clarification of medication reaction. Left message via spanish moss picker. * Telephone Encounter - Gabriela Napier - 12/05/2024 12:45 PM EST Tc from pt calling to inform had a reaction to medication cetirizine (ZyrTEC) 10 MG tablet last time it was prescribe. Pt would like to know if pcp can send a different medication. documented in this encounter Plan of Treatment Upcoming Encounters Date Type Department Care Team (Late st Contact Info) Description 01/08/2025 10:30 AM EST Procedure Visit [facility] MED & PEDS [address] [place] [address] Teressa Gomez CNM [address] [place] [address] documented as of this encounter Visit Diagnoses Not on filedocumented in this encounter Care Teams Caramel Cutter Hand Relationship Specialty Start Date End Date Teri Owens MD [address] [place] [address] PCP - General Family Medicine 10/21/18 Dolores Danielle Bridge WelderOcular Care Aide 09/27/23 documented as of this encounter
--- OUTSIDE RECORDS SUMMARY | 2024-12-10 14:19 | XMS_ITS | Encounter Summary ---
Author Organization [employer] [facility] Address [address] [place] [address] 7t [place] [address] Care Team Providers Care Cocoa Roaster Name Role Phone Teri Owens MD Primary Care Provider [phone] Reason for Visit * Reason Comments Med Refill Encounter Details Date Type Department Care Team ([facility] Contact Info) Description 04/11/2024 Refill [facility] MED & PEDS [address] [place] [address] Teri Owens MD [address] [place] [address] GERD without esophagitis Social History Tobacco Use Types Packs/Day Years [...] Description 01/08/2025 10:30 AM EST Procedure Visit [facility] MED & PEDS [address] [place] [address] Teressa Gomez, JAYDEN [address] [place] [address] documented as of this encounter Visit Diagnoses Diagnosis GERD without esophagitis Esophageal reflux documented in this encounter Care Teams Cocoa Roaster Relationship Specialty Start Date End Date Teri Owens MD [address] [place] [address] PCP - General Family Medicine 10/21/18 Dolores Danielle Bolt CutterBail Agent 09/27/23 documented as of this encounter
--- OUTSIDE RECORDS SUMMARY | 2024-12-10 14:19 | XMS_ITS | Encounter Summary ---
Author Organization [employer] [facility] Address [address] [facility] [address] 7t [place] [address] Care Team Providers Care Electric Pile Driver Operator Name Role Phone Teri Owens MD Primary Care Provider [phone] Reason for Visit * Reason Onset Date Comments FYI 12/05/2024 Encounter Details Date Type Department Care Team ([facility] st Contact Info) Description 12/05/2024 Telephone [facility] MEDICINE [address] [place] [address] Teri Owens MD [address] [place] [address] FYI Social History Tobacco Use Types Packs/Day Years [...] encounter Miscellaneous Notes * Telephone Encounter - Beverly Vasquez RN - 12/05/2024 1:43 PM EST Updated med list * Telephone Encounter - Stacey Johnston - 12/05/2024 12:44 PM EST Tc from pt to report nurses medications prescribed by Psychiatrist. - Zolpidem 5MG - Melatonin 5MG - Escitalopram 20MG - Buspirone 15 MG documented in this encounter Plan of Treatment Upcoming Encounters Date Type Department Care Team (Late st Contact Info) Description 01/08/2025 10:30 AM EST Procedure Visit [facility] MED & PEDS [address] [place] [address] Teressa Gomez CNM [address] [place] [address] documented as of this encounter Visit Diagnoses Not on filedocumented in this encounter Care Teams Electric Pile Driver Operator Relationship Specialty Start Date End Date Teri Owens MD [address] [place] [address] PCP - General Family Medicine 10/21/18 Dolores Danielle Door To Door SalesmanBath Steward 09/27/23 documented as of this encounter
--- OUTSIDE RECORDS SUMMARY | 2024-12-10 14:19 | XMS_ITS | Encounter Summary ---
Author Organization [employer] Address [address] [facility] 7t [place] [address] Care Team Providers Care Licensed Psychologist Manager Name Role Phone Teri Owens MD Primary Care Provider [phone] Reason for Visit * Reason Onset Date Comments Prior Authorization 12/08/2024 Encounter Details Date Type Department Care Team ([facility] Contact Info) Description 12/08/2024 Telephone [facility] CH[facility] MED & PEDS [address] [place] [address] Teri Owens MD [address] [place] [address] Prior Authorization Social History Tobacco Use Types Packs/Day Years [...] encounter Miscellaneous Notes * Telephone Encounter - Majo Manzanares LPN - 12/08/2024 9:59 AM EST Rx generated and faxed to [facility] ----- Message from Teri Owens MD sent at 12/05/2024 9:39 AM EST ----- Needs walker with seat * Telephone Encounter - Majo Manzanares LPN - 12/08/2024 9:59 AM EST ----- Message from Teri Owens MD sent at 12/05/2024 9:39 AM EST ----- Needs walker with seat documented in this encounter Plan of Treatment Upcoming Encounters Date Type Department Care Team (Late st Contact Info) Description 01/08/2025 10:30 AM EST Procedure Visit [facility] MED & PEDS [address] [place] [address] Teressa Gomez CNM [address] [place] [address] documented as of this encounter Visit Diagnoses Not on filedocumented in this encounter Care Teams Licensed Psychologist Manager Relationship Specialty Start Date End Date Teri Owens MD 230 [place] [address] PCP - General Family Medicine 10/21/18 Dolores Danielle Professional Development DirectorRepair Clerk 09/27/23 documented as of this encounter
--- OUTSIDE RECORDS SUMMARY | 2024-12-10 14:19 | XMS_ITS | Encounter Summary ---
Author Organization [employer] [facility] Address [address] [facility] 7t [place] [address] Care Team Providers Care Firestopper Installer Name Role Phone Teri Owens MD Primary Care Provider [phone] Encounter Details Date Type Department Care Team ([facility] Contact Info) Description 08/23/2023 Orders Only [facility] MED & PEDS [address] [place] [address] Teri Owens MD [address] [place] [address] Social History Tobacco Use Types Packs/Day Years [...] Description 01/08/2025 10:30 AM EST Procedure Visit [facility] MED & PEDS [address] [place], [place] [phone] Teressa Gomez CNM [address] [place] [address] documented as of this encounter Visit Diagnoses Not on filedocumented in this encounter Care Teams Firestopper Installer Relationship Specialty Start Date End Date Teri Owens MD [address] [place] [address] PCP - General Family Medicine 10/21/18 Dolores Danielle Manager Massage DepartmentAirline Counter Agent 09/27/23 documented as of this encounter
--- OUTSIDE RECORDS SUMMARY | 2024-12-10 14:19 | XMS_ITS | Encounter Summary ---
Author Organization [employer] Address [address] [facility] 7t [place] [address] Care Team Providers Care Restrictive Preparation Operator Name Role Phone Teri Owens MD Primary Care Provider [phone] Reason for Visit * Reason Onset Date Comments Med Refill 11/21/2024 Encounter Details Date Type Department Care Team (Late st Contact Info) Description 11/21/2024 Refill [facility] MEDICINE [address] [place] [address] Teri Owens MD [address] [place] [address] Type 2 diabetes mellitus without complication, without long-term current use of insulin ([facility]) Social History Tobacco Use Types Packs/Day Years [...] encounter Miscellaneous Notes * Telephone Encounter - Stacey Johnston - 11/21/2024 10:56 AM EST TC from pt requesting medication refill. Medications needing refill : fluticasone (Flonase) 50 MCG/ACT nasal spray To be sent to: [id number] - [place], [place] - [address] [facility] [address] [facility] [address] documented in this encounter Plan of Treatment Upcoming Encounters Date Type Department Care Team (Late st Contact Info) Description 01/08/2025 10:30 AM EST Procedure Visit [facility] MED & PEDS [address] [place] [address] Teressa Gomez CNM [address] [place] [address] documented as of this encounter Visit Diagnoses Diagnosis Type 2 diabetes mellitus without complication, without long-term current use of insulin ([facility]) documented in this encounter Care Teams Restrictive Preparation Operator Relationship Specialty Start Date End Date Teri Owens MD [address] [place], [place] [phone] PCP - General Family Medicine 10/21/18 Dolores Danielle Casino Floor SupervisorOn Awake Counselor 09/27/23 documented as of this encounter
[2024-12-10 15:05] LABS: Estimated Average Glucose 108 mg/dL; Hemoglobin A1C 128.5523 umol/L; Hemoglobin A1c % 5.4 % (<6.0); Total Hemoglobin (HGBA1C) 3590.6523 umol/L
[2024-12-10 15:09] LABS: Alanine Aminotransferase 25 U/L (0-31); Albumin Level 4.2 g/dL (3.5-5.0); Alkaline Phosphatase 120 U/L (39-117); Anion Gap 9 (12-20); Aspartate Amino Transferase 26 U/L (5-31); Bilirubin Direct 0.2 mg/dL (0.0-0.5); Bilirubin Total 0.5 mg/dL (0.0-1.0); Blood Urea Nitrogen 9 mg/dL (9-16); Calcium 9.4 mg/dL (8.4-10.2); Carbon Dioxide 26 mmol/L (22-29); Chloride 105 mmol/L (96-108); Cholesterol 249 mg/dL (<200); Estimated Glomerular Filt Rate > 60; Glucose Random 88 mg/dL (60-115); HDL Cholesterol 53 mg/dL (>40); LDL Cholesterol Calculated 177 mg/dL (<100); Potassium 4.2 mmol/L (3.3-5.1); Sodium 136 mmol/L (135-145); Total Protein 8.4 g/dL (6.5-8.0); Triglycerides 96 mg/dL (<150)
== END 2024-12-10 11:52 | disposition home or self-care (01) ==
LOC: HO.CHCLDS 11:51
PROVIDERS: Visit Provider Student in an Organized Health Care Education/Training Program
DX: E11.9 Type 2 diabetes mellitus without complications (principal)
CPT/HCPCS: 36415; 80048; 80061; 80076; 83036

== ENCOUNTER 2025-01-13 16:46 | Outpatient (REF) | payer MEDICARE, MEDICAID, SELFPAY ==
--- OUTSIDE RECORDS SUMMARY | 2025-01-13 20:21 | XMS_ITS | Encounter Summary ---
Author Organization [employer] Address [address] [facility] 7t [place] [address] Care Team Providers Care Parquetry Layer Name Role Phone Teri Owens MD Primary Care Provider [phone] Reason for Visit * Reason Onset Date Comments Referral 12/11/2023 Encounter Details Date Type Department Care Team (Late st Contact Info) Description 12/11/2023 Telephone [facility] MEDICINE [address] [place] [address] Teri Owens MD [address] [place] [address] Referral Social History Tobacco Use Types Packs/Day [...] pt requesting status on referral for podiatry, Activity Therapy Specialist sees current status shows pending. Please contact at [phone] Albanian * Telephone Encounter - Leslie Alonzo RN - 12/11/2023 11:51 AM EST Call to Mary Johnston, reports having pain and itching of right great bit toe. Per pt has been seen by cane cutter in past for fungus on toe nails. Per pt denies any redness of skin or pus under nail or cuticle. Pt looking for referral to Dr. Jhony Patten at [facility] [place], [place] [phone] Will send to team nurses to follow [...] outcome Pt is requesting a referral for cane cutter. Albanian speaker documented in this encounter Plan of Treatment Upcoming Encounters Date Type Department Care Team (Late st Contact Info) Description 04/07/2025 11:00 AM EDT Office Visit [facility]C MED & PEDS [address] [place] [address] Teri Owens MD [address] [place] [address] documented as of this encounter Visit Diagnoses Not on filedocumented in this encounter Care Teams Parquetry Layer Relationship Specialty Start Date End Date Teri Owens MD [address] [place] [address] PCP - General Family Medicine 10/21/18 Dolores Danielle Draw String KnotterCaseworker Protective Services 09/27/23 documented as of this encounter
--- OUTSIDE RECORDS SUMMARY | 2025-01-13 20:21 | XMS_ITS | Encounter Summary ---
Author Organization [employer] Address [address] 7t [place] [address] Care Team Providers Care Dipper Fish Name Role Phone Teri Owens MD Primary Care Provider [phone] Reason for Visit * Reason Onset Date Comments Durable Medical Equipment 12/24/2024 Encounter Details Date Type Department Care Team ([facility] Contact Info) Description 12/24/2024 Telephone [facility] MEDICINE [address] [place] [address] Teri Owens MD [address] [place] [address] Durable Medical Equipment Social History Tobacco Use [...] t he electric, gas, oil or water [employer] threatened to shut off services in your [...] * Telephone Encounter - Stacey Johnston - 01/02/2025 9:53 AM EST Tc from pt returning phone call. Kyrgyz * Telephone Encounter - Kizzy Bergman RN - 12/25/2024 10:17 AM EST Nurse placed called to L&C to clarify what the pt will qualify for later this year. judicial reporter States that in June of 2025 pt will be able to obtain wheelchair with wheels. TC to pt via BLS toinform pt of this information. No answer, LVM to return call to office and ask for nurses. * Telephone Encounter - Majo Manzanares LPN - 12/24/2024 11:31 AM EST Lap Cutter spoke with L&C regarding message L&C stated pt received a walk without wheels back in 2021 with will be able to receive an upgrade in jun of this year 2024 check writer call pt however no answer Lvm. Tc from pt stating that she received a call from L&C stating that Pt insurance can Cover a Electric Scooter but Not the walker. IF any questions contact pt at [phone] * Telephone Encounter - Juan Carlos Cuevas - 12/24/2024 10:51 AM EST Tc from pt stating that she received a call from L&C stating that Pt insurance can Cover a Electric Scooter but Not the walker. IF any questions contact pt at [phone] documented in this encounter Plan of Treatment Upcoming Encounters Date Type Department Care Team (Late st Contact Info) Description 04/07/2025 11:00 AM EDT Office Visit [facility] MED & PEDS [address] [place], [place] [phone] Teri Owens MD [address] [place] [address] documented as of this encounter Visit Diagnoses Not on filedocumented in this encounter Care Teams Dipper Fish Relationship Specialty Start Date End Date Teri Owens MD [address] [place] [address] PCP - General Family Medicine 10/21/18 Dolores Danielle Feed AdviserPassenger Solicitor 09/27/23 documented as of this encounter
--- OUTSIDE RECORDS SUMMARY | 2025-01-13 20:21 | XMS_ITS | Encounter Summary ---
Author Organization [facility] Address [address] [place] [address] 7t [place] [address] Care Team Providers Care Boat Hoist Operator Name Role Phone Teri Owens MD Primary Care Provider [phone] Encounter Details Date Type Department Care Team ([facility] Contact Info) Description 08/23/2023 Orders Only [facility] MED & PEDS [address] [place] [address] Teri Owens MD [address] [place] [address] Social History Tobacco Use Types Packs/Day Years [...] Department Care Team (Late Contact Info) Description 04/07/2025 11:00 AM EDT Office Visit [facility] MED & PEDS [address] [place] [address] Teri Owens MD [address] [place] [address] documented as of this encounter Visit Diagnoses Not on filedocumented in this encounter Care Teams Boat Hoist Operator Relationship Specialty Start Date End Date Teri Owens MD [address] [place] [address] PCP - General Family Medicine 10/21/18 Dolores Danielle Casting Machine Service OperatorSenior Information Systems Architect 09/27/23 documented as of this encounter
--- OUTSIDE RECORDS SUMMARY | 2025-01-13 20:21 | XMS_ITS | Encounter Summary ---
Author Organization [facility] Address [address] 7t [place] [address] Care Team Providers Care Wheat Cleaner Name Role Phone Teri Owens MD Primary Care Provider [phone] Encounter Details Date Type Department Care Team (Latest Contact Info) Description 01/06/2025 Travel Social History Tobacco Use Types Packs/Day Years Used Date Smoking Tobacco: Never Passive Smoke Exposure: Never Smokeless Tobacco: Never Alcohol Use Standard Drinks/Week Comments Never 0 (1 standard drink = 0.6 oz pur e alcohol) Depression Answer Date Recorded Patient Health Questionnaire-9 Score 0 01/06/2025 Patient Health Questionnaire-9 Score 0 01/06/2025 Last PHQ-9: Questionnaire Data Not on file 0 01/06/2025 Housing Stability Answer Date Recorded What is [...] off services in your home? No 10/02/2024 Depression Answer Date Recorded Patient Health Questionnaire-2 Score 0 01/06/2025 Internet Access Answer Date Recorded Internet Access [...] Upcoming Encounters Date Type Department Care Team ([facility] st Contact Info) Description 04/07/2025 11:00 AM EDT Office Visit [facility] CHC MED & PEDS [address] [place] [address] Teri Owens MD [address] [place] [address] documented as of this encounter Visit Diagnoses Not on filedocumented in this encounter Additional Health Concerns Assessment Noted Time PHQ-9 Depression Total Score: 0 01/06/20 25 9:22 AM EST documented as of this encounter Care Teams Wheat Cleaner Relationship Specialty Start Date End Date Teri Owens MD [address] [place] [address] PCP - General Family Medicine 10/21/18 Dolores Danielle Patent LawyerSynthetic Filament Extruder 09/27/23 documented as of this encounter
--- OUTSIDE RECORDS SUMMARY | 2025-01-13 20:21 | XMS_ITS | Encounter Summary ---
Author Organization [facility] Address [address] 7t [place] [address] Care Team Providers Care Group Exercise Manager Name Role Phone Teri Owens MD Primary Care Provider [phone] Reason for Visit * Reason Onset Date Comments Pre-op Visit 06/18/2024 Encounter Details Date Type Department Care Team (Late st Contact Info) Description 06/18/2024 Telephone [facility] MEDICINE [address] [place] [address] Teri Owens MD [address] [place] [address] Pre-op Visit Social History Tobacco Use Types [...] Surgeon's name: Dr Laz Hauser Facility name: [facility] Surgeon's office number: [phone] Surgeon's office fax number: [phone] Contact name; Micky Last office note from surgeon requested: Yes documented in this encounter Plan of Treatment Upcoming Encounters Date Type Department Care Team (Late st Contact Info) Description 04/07/2025 11:00 AM EDT Office Visit [facility] MED & PEDS [address] [place], [place] [phone] Teri Owens MD [address] [place] [address] documented as of this encounter Visit Diagnoses Not on filedocumented in this encounter Care Teams Group Exercise Manager Relationship Specialty Start Date End Date Teri Owens MD [address] [place] [address] PCP - General Family Medicine 10/21/18 Dolores Danielle Chemical Process OperatorChemistry Quality Control Analyst 09/27/23 documented as of this encounter
--- OUTSIDE RECORDS SUMMARY | 2025-01-13 20:21 | XMS_ITS | Encounter Summary ---
Author Organization [employer] [facility] Address [address] [facility] 7t [place] [address] Care Team Providers Care Director Medical Writing Name Role Phone Teri Owens MD Primary Care Provider Reason for Referral * Consultation (Urgent) - Pending Review Specialty Diagnoses / Procedures Referred By Kolton frankel Referred To Contact Pain Medicine Diagnoses TMJ (temporomandibular joint syndrome) Teri Owens MD [address] [place] [address] Phone: tel: fax: [facility] [address] [place] [address] Phone: tel: fax: Referral ID Status Reason Start Date Expiration Date Visits Requested Visits Authorized [id number] Pending Review Specialty Services Required 01/06/2025 01/06/2026 1 1 Encounter Details Date Type Department Care Team ([facility] st Contact Info) Description 01/06/2025 9:15 AM EST Office Visit [facility] CHC MED & PEDS [address] [place] [address] Teri Owens MD [address] [place] [address] TMJ (temporomandibular joint syndrome) (Primary Dx); Arthropathy; Hypercholesteremia Social History Tobacco Use Types Packs/Day Years [...] Sign Reading Time Taken Comments Blood Pressure 130/72 01/06/2025 9:21 AM EST Pulse 82 01/06/2025 9:21 AM EST Temperature 36.1 ??C (97 ??F) 01/06/2025 9:21 AM EST Respiratory Rate 20 01/06/2025 9:21 AM EST Oxygen Saturation 98% 01/06/2025 9:21 AM EST Inhaled Oxygen Concentration - - Weight 103 kg (226 lb 6.4 oz) 01/06/2025 9:21 AM EST Height 175.3 cm (5' 9 ) 01/06/2025 9:21 AM EST Body Mass Index 33.43 01/06/2025 9:21 AM EST documented in this encounter Progress Notes * Teri Owens MD - 01/06/2025 9:15 AM EST Subjective Patient ID: Mary Johnston is a 64 y.o. adult who presents for No chief complaint on file.. Arthritis Presents for follow-up visit. Mary complains of pain and stiffness. The symptoms have been worsening. Affected location: multiple joints and TMJ. Mary's pain is at a severity of 6/10. Associated symptoms include pain while resting. Review of Systems Constitutional: Negative. Respiratory: Negative. Cardiovascular: Negative. Gastrointestinal: Negative. Genitourinary: Negative. Musculoskeletal: Positive for arthralgias, arthritis, myalgias and stiffness. Objective Physical Exam Constitutional: Appearance: Normal appearance. Cardiovascular: Rate and Rhythm: Normal rate and regular rhythm. Pulses: Normal pulses. Heart sounds: Normal heart sounds. Pulmonary: Effort: Pulmonary effort is normal. Abdominal: General: Abdomen is flat. Neurological: Mental Status: Mary is alert. Assessment/Plan Diagnoses and all orders for this visit: TMJ (temporomandibular joint syndrome) Comments: Advised to do facial exercise Referred to Pain management She is awaiting appt with oral surgeon Orders: - Referral to Pain Medicine; Future Arthropathy Comments: D/C celebrex Started on Meloxicam BID Hypercholesteremia Comments: D//c statin due to side effects Pt to take Fish oil BID Orders: - Lipid Panel, Standard; Future - Hepatic Function Panel; Future - Basic Metabolic Panel; Future Other orders - meloxicam (Mobic) 7.5 MG tablet; Take 1 tablet (7.5 mg) by mouth 2 times daily. documented in this encounter Plan of Treatment Upcoming Encounters Date Type Department Care Team (Late st Contact Info) Description 04/07/2025 11:00 AM EDT Office Visit [facility] MED & PEDS [address] [place] [address] Teri Owens MD [address] [place] [address] Scheduled Orders Name Type Priority Associated Diagnoses Orde r Schedule Lipid Panel, Standard Lab Routine Hypercholesteremia Expected: 01/06/2025 (Approximate), Expires: 01/06/2026 Hepatic Function Panel Lab Routine Hypercholesteremia Expected: 01/06/2025 (Approximate), Expires: 01/06/2026 Basic Metabolic Panel Lab Routine Hypercholesteremia Expected: 01/06/2025 (Approximate), Expires: 01/06/2026 Scheduled Referrals Name Type Priority Associated Diagnoses Orde r Schedule Referral to Pain Medicine Outpatient Referral Urgent TMJ (temporomandibular joint syndrome) Expected: 01/06/2025 (Approximate), Expires: 01/06/2026 documented as of this encounter Visit Diagnoses Diagnosis TMJ (temporomandibular joint syndrome)- Primary Unspecified temporomandibular joint disorders Arthropathy Unspecified arthropathy, site unspecified Hypercholesteremia Pure hypercholesterolemia documented in this encounter Additional Health Concerns Assessment Noted Time PHQ-9 Depression Total Score: 0 01/06/20 25 9:22 AM EST documented as of this encounter Care Teams Director Medical Writing Relationship Specialty Start Date End Date Teri Owens MD [address] [place] [address] PCP - General Family Medicine 10/21/18 Dolores Danielle Teletypesetter OperatorRhythmic Gymnastics Coach 09/27/23 documented as of this encounter
--- OUTSIDE RECORDS SUMMARY | 2025-01-13 20:21 | XMS_ITS | Clinical Summary ---
Author Organization [employer] [employer] [facility] Address [address] [place] [address] Care Team Providers Care Director Geophysical Laboratory Name Role Phone Unavailable Primary Care Provider Unavailabl e Social History Tobacco Use Types Packs/Day Years Used Date Smoking Tobacco: Never Assessed Comments Unknown Sex and Gender Information Value Date Recorded Sex Assigned at Not on file Legal Sex Female 5:02 AM EST Gender Identity Not on file Sexual Orientation Not on file Plan of Treatment Health Maintenance Due Date Last Done Comments Breast Cancer Screening 1960 DTaP,Tdap,and Td Vaccines (1 - Tdap) 01/30/1979 Cervical Cancer Screening: P ap Smear 01/30/1981 Pneumococcal Vaccine: 50+ Ye ars (1 of 1 - PCV) 01/30/2010 Zoster Vaccines (1 of 2) 01/30/2010 COVID-19 [...] patient's age to complete this topic Meningococcal B Vacine Aged Out No lo nger eligible based on patient's age to complete [...]
--- OUTSIDE RECORDS SUMMARY | 2025-01-13 20:21 | XMS_ITS | Encounter Summary ---
Author Organization [employer] [facility] Address [address] [place] [address] 7t [place] [address] Care Team Providers Care Business Leader Name Role Phone Teri Owens MD Primary Care Provider [phone] Encounter Details Date Type Department Care Team ([facility] Contact Info) Description 03/12/2024 Orders Only [facility] MED & PEDS [address] [place] [address] Teri Owens MD [address] [place] [address] Social History Tobacco Use Types Packs/Day Years [...] Description 04/07/2025 11:00 AM EDT Office Visit [facility] MED & PEDS [address] [place] [address] Teri Owens MD [address] [place] [address] documented as of this encounter Visit Diagnoses Not on filedocumented in this encounter Care Teams Business Leader Relationship Specialty Start Date End Date Teri Owens MD [address] [place] [address] PCP - General Family Medicine 10/21/18 Dolores Danielle Sausage GrinderPublic Works Manager 09/27/23 documented as of this encounter
--- OUTSIDE RECORDS SUMMARY | 2025-01-13 20:21 | XMS_ITS | Encounter Summary ---
Author Organization [employer] Address [address] [facility] 7t [place] [address] Care Team Providers Care Bottom Turning Lathe Turner Name Role Phone Teri Owens MD Primary Care Provider [phone] Reason for Visit * Reason Onset Date Comments No Show 01/08/2025 Encounter Details Date Type Department Care Team ([facility] st Contact Info) Description 01/08/2025 Telephone [facility] MED & PEDS [address] [place] [address] Teressa Gomez, CN [address] [place] [address] No Show Social History Tobacco Use Types Packs/Day Years [...] encounter Miscellaneous Notes * Telephone Encounter - Anayeli Cross - 01/08/2025 12:51 PM EST No Show 01/08/25 for pap documented in this encounter Plan of Treatment Upcoming Encounters Date Type Department Care Team (Late st Contact Info) Description 04/07/2025 11:00 AM EDT Office Visit [facility] MED & PEDS [address] [place] [address] Teri Owens MD [address] [place] [address] documented as of this encounter Visit Diagnoses Not on filedocumented in this encounter Additional Health Concerns Assessment Noted Time PHQ-9 Depression Total Score: 0 01/06/20 25 9:22 AM EST documented as of this encounter Care Teams Bottom Turning Lathe Turner Relationship Specialty Start Date End Date Teri Owens MD [address] [place] [address] PCP - General Family Medicine 10/21/18 Dolores Danielle Senior Director Of Global Commercial Technology SolutionsStrip Feeder 09/27/23 documented as of this encounter
--- OUTSIDE RECORDS SUMMARY | 2025-01-13 20:21 | XMS_ITS | Encounter Summary ---
Author Organization [facility] Address [address] [facility] 7t [place] [address] Care Team Providers Care Human Resources Generalist Name Role Phone Teri Owens MD Primary Care Provider [phone] Reason for Visit * Reason Comments yeast distiller Encounter Details Date Type Department Care Team (Latest Contact Info) Description 01/13/2025 11:15 AM EST Procedure Visit [facility] MEDICINE [address] [place], [place] [phone] Teressa Gomez CNM [address] [place] [address] Cervical cancer screening (Primary Dx); Tinea cruris Social History Tobacco Use Types Packs/Day Years [...] Sign Reading Time Taken Comments Blood Pressure 127/72 01/13/2025 11:05 AM EST Pulse 72 01/13/2025 11:05 AM EST Temperature 36.5 ??C (97.7 ??F) 01/13/2025 11:[address] Respiratory Rate 16 01/13/2025 11:05 AM EST Oxygen Saturation 98% 01/13/2025 11:05 AM EST Inhaled Oxygen Concentration - - Weight 105 kg (230 lb 6.4 oz) 01/13/2025 11:05 A M EST Height 182.9 cm (6') 01/13/2025 11:05 AM EST Body Mass Index 31.25 01/13/2025 11:05 AM EST documented in this encounter Progress Notes * Teressa Gomez CNM - 01/13/2025 11:15 AM EST Subjective Patient ID: Mary Johnston is a 64 y.o. adult who presents for pap Last pap around 3y ago, no prior abnormal. Penitentiary AMAB partner in [place], no safety concerns. Menopausal in late 50s, no bleeding since then. Notes itchy rash on inner thighs, no other vaginal/urinary symptoms. Mild vasomotor symptoms, manageable. No personal fracture, no parental hip fracture. Normal BMD 04/2024. Mammogram BIRADS 2, cat b, normal BMD 04/2024. 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 Follow[address] Dr Hauser and Dr Garner. Review of Systems Genitourinary: Negative for dyspareunia, dysuria, frequency, genital sores, hematuria, menstrual problem, pelvic pain, urgency, vaginal bleeding, vaginal discharge and vaginal pain. No abnormal pap, no abnormal bleeding, no breast pain, no breast mass, no nipple discharge Skin: Positive for rash. Objective BP 127/72 (BP Location: Left arm, Patient Position: Sitting, BP Cuff Size: Large adult long) Pulse 72 Temp 97.7 ??F (36.5 ??C) (Temporal) Resp 16 Ht 6' (1.829 m) Wt 230 lb 6.4 oz (105 kg) SpO2 98% BMI 31.25 kg/m?? Physical Exam Constitutional: Appearance: Normal appearance. Chest: Breasts: Right: Normal. No swelling, bleeding, inverted nipple, mass, nipple discharge, skin change or tenderness. Left: Normal. No swelling, bleeding, inverted nipple, mass, nipple discharge, skin change or tenderness. Comments: Well healed periareolar scar left breast. Radiation tattoo between breasts Genitourinary: General: Normal vulva. Labia: Right: No rash, tenderness, lesion or injury. Left: No rash, tenderness, lesion or injury. Vagina: Normal. No signs of injury and foreign body. No vaginal discharge, erythema, tenderness, bleeding or lesions. Cervix: No cervical motion tenderness, discharge, friability, lesion, erythema, cervical bleeding or eversion. Uterus: Normal. Not enlarged and not tender. Adnexa: Right adnexa normal and left adnexa normal. Right: No mass, tenderness or fullness. Left: No mass, tenderness or fullness. Comments: Faint scaly rash bilateral inner thighs, c/w tinea Lymphadenopathy: Upper Body: Right upper body: No supraclavicular or axillary adenopathy. Left upper body: No supraclavicular or axillary adenopathy. Neurological: Mental Status: Mary is alert. Psychiatric: Mood and Affect: Mood normal. Behavior: Behavior normal. Assessment/Plan Diagnoses and all orders for this visit: Cervical cancer screening - Pap Smear Cotest 5 years if normal. Will contact with results. Mammogram 04/2025. Report bleeding. Normal BMD 04/2024, followed by oncology. Tinea cruris For Lotrimin as prescribed. Report if symptoms persist after 4 weeks. Other orders - clotrimazole (Lotrimin) 1 % cream; Apply twice daily x 14 days, continue for a total of 28 d if improved but not resolved. documented in this encounter Plan of Treatment Upcoming Encounters Date Type Department Care Team (Late st Contact Info) Description 04/07/2025 11:00 AM EDT Office Visit [facility] MED & PEDS [address] [place] [address] Teri Owens MD [address] [place] [address] Scheduled Orders Name Type Priority Associated Diagnoses Orde r Schedule Pap Smear Pathology and Cytology Routine Cervical cancer screening Ordered: 01/13/2025 documented as of this encounter Visit Diagnoses Diagnosis Cervical cancer screening- Primary Screening for malignant neoplasm of the cervix Tinea cruris Dermatophytosis of groin and perianal area documented in this encounter Additional Health Concerns Assessment Noted Time PHQ-9 Depression Total Score: 0 01/06/20 25 9:22 AM EST documented as of this encounter Care Teams Human Resources Generalist Relationship Specialty Start Date End Date Teri Owens MD [address] [place] [address] PCP - General Family Medicine 10/21/18 Dolores Danielle Coding Support SpecialistRadio Station Audio Engineer 09/27/23 documented as of this encounter
--- OUTSIDE RECORDS SUMMARY | 2025-01-13 20:21 | XMS_ITS | Encounter Summary ---
Author Organization [facility] Address [address] [place] [address] 7t [place] [address] Care Team Providers Care Retail Banker Name Role Phone Teri Owens MD Primary Care Provider [phone] Reason for Visit * Reason Comments Med Refill Encounter Details Date Type Department Care Team ([facility] Contact Info) Description 04/11/2024 Refill [facility] MED & PEDS [address] [place] [address] Teri Owens MD [address] [place] [address] GERD without esophagitis Social History Tobacco Use [...] Upcoming Encounters Date Type Department Care Team ([facility] Contact Info) Description 04/07/2025 11:00 AM EDT Office Visit [facility] MED & PEDS [address] [place] [address] Teri Owens MD [address] [place] [address] documented as of this encounter Visit Diagnoses Diagnosis GERD without esophagitis Esophageal reflux documented in this encounter Care Teams Retail Banker Relationship Specialty Start Date End Date Teri Owens MD [address] [place] [address] PCP - General Family Medicine 10/21/18 Dolores Danielle Bead Machine OperatorBridal Consultant 09/27/23 documented as of this encounter
--- OUTSIDE RECORDS SUMMARY | 2025-01-13 20:21 | XMS_ITS | Encounter Summary ---
Author Organization [facility] Address [address] [place] [address] [address]t [place] [address] Care Team Providers Care Apple Thinner Name Role Phone Teri Owens MD Primary Care Provider [phone] Encounter Details Date Type Department Care Team (Latest Contact Info) Description 06/10/2019 Abstract [facility] CONVERSIONS Dental, Provider, DDS Social History Tobacco [...] Description 04/07/2025 11:00 AM EDT Office Visit [facility] MED & PEDS [address] [place] [address] Teri Owens MD [address] [place] [address] documented as of this encounter Visit Diagnoses Not on filedocumented in this encounter Care Teams Apple Thinner Relationship Specialty Start Date End Date Teri Owens MD [address] [place] [address] PCP - General Family Medicine 10/21/18 Dolores Danielle Documentation EngineerLaundry Tub Maker 09/27/23 documented as of this encounter
--- OUTSIDE RECORDS SUMMARY | 2025-01-13 20:21 | XMS_ITS | Encounter Summary ---
Author Organization [employer] Address [address] [place] [address] 7t [place] [address] Care Team Providers Care Reel Worker Name Role Phone Teri Owens MD Primary Care Provider [phone] Reason for Visit * Reason Onset Date Comments Durable Medical Equipment 03/07/2024 Encounter Details Date Type Department Care Team ([facility] st Contact Info) Description 03/07/2024 Telephone [facility] [address] [place] [address] Teri Owens MD [address] [place] [address] Durable Medical Equipment Social History Tobacco Use [...] a knee brace. Please contact pt at [phone] (Malay) documented in this encounter Plan of Treatment Upcoming Encounters Date Type Department Care Team ([facility] st Contact Info) Description 04/07/2025 11:00 AM EDT Office Visit [facility] MED & PEDS [address] [place] [address] Teri Owens MD [address] [place] [address] documented as of this encounter Visit Diagnoses Not on filedocumented in this encounter Care Teams Reel Worker Relationship Specialty Start Date End Date Teri Owens MD [address] [place] [id number] PCP - General Family Medicine 10/21/18 Dolores Danielle Retail Marketing SpecialistPhysicist [employer] 09/27/23 documented as of this encounter
--- OUTSIDE RECORDS SUMMARY | 2025-01-13 20:21 | XMS_ITS | Encounter Summary ---
Author Organization [employer] [facility] Address [address] [facility] 7t [place] [address] Care Team Providers Care Stone Setter Name Role Phone Teri Owens MD Primary Care Provider Reason for Visit * Reason Onset Date Comments Med Refill 01/17/2023 Encounter Details Date Type Department Care Team ([facility] st Contact Info) Description 01/17/2023 Telephone [facility] MEDICINE [address] [place] [address] Teri Owens MD [address] [place] [address] Med Refill Social History Tobacco Use Types [...] Description 04/07/2025 11:00 AM EDT Office Visit [facility] MED & PEDS [address] [place] [address] Teri Owens MD [address] [place] [address] documented as of this encounter Visit Diagnoses Not on filedocumented in this encounter Care Teams Stone Setter Relationship Specialty Start Date End Date Teri Owens MD [address] [place] [address] PCP - General Family Medicine 10/21/18 Dolores Danielle Gum Rolling Machine OperatorIndependent Driver 09/27/23 documented as of this encounter
--- OUTSIDE RECORDS SUMMARY | 2025-01-13 20:21 | XMS_ITS | Encounter Summary ---
Author Organization [email or web address] [facility] Address [address] [facility] 7t [place] [address] Care Team Providers Care Clinical Resource Manager Name Role Phone Teri Owens MD Primary Care Provider [phone] Reason for Visit * Reason Onset Date Comments PT1 01/17/2023 Encounter Details Date Type Department Care Team ([facility] Contact Info) Description 01/17/2023 Telephone [facility] [address] [place] [address] Teri Owens MD [address] [place] [address] PT1 Social History Tobacco Use Types Packs/Day [...] - 01/17/2023 12:46 PM EST Tc from [facility] with [facility] requesting a PT1 for pt PT1 Name of facility: [facility]. Fibre Composite Technician Specialty: Feet or foot Location: [address] [place] [address] Date: 01/24/2023 Time: 9:30 am fax: n/a Phone: n/a wheelchair: n/a Pole Inspector: n/a documented in this encounter Plan of Treatment Upcoming Encounters Date Type Department Care Team (Late st Contact Info) Description 04/07/2025 11:00 AM EDT Office Visit [facility] MED & PEDS [address] [place] [address] Teri Owens MD [address] [place] [address] documented as of this encounter Visit Diagnoses Diagnosis Constipation, unspecified constipation type documented in this encounter Care Teams Clinical Resource Manager Relationship Specialty Start Date End Date Teri Owens MD [address] [place] [address] PCP - General Family Medicine 10/21/18 Dolores Danielle Sample CollectorDirector Of Audiology 09/27/23 documented as of this encounter
--- OUTSIDE RECORDS SUMMARY | 2025-01-13 20:21 | XMS_ITS | Encounter Summary ---
Author Organization [employer] Address [address] 7t [place] [address] Care Team Providers Care Reptile Keeper Name Role Phone Teri Owens MD Primary Care Provider [phone] Reason for Visit * Reason Comments Med Refill Encounter Details Date Type Department Care Team ([facility] st Contact Info) Description 12/24/2024 Refill [facility] MEDICINE [address] [place] [address] Teri Owens MD [address] [place], [place] [phone] Social History Tobacco Use Types Packs/Day Years [...] t he electric, gas, oil or water [employer] threatened to shut off services in your [...] AM EDT Office Visit [facility] MED & PEDS [address] [place], [place] [phone] Teri Owens MD [address] [place] [address] documented as of this encounter Visit Diagnoses Not on filedocumented in this encounter Care Teams Reptile Keeper Relationship Specialty Start Date End Date Teri Owens MD [address] [place] [address] PCP - General Family Medicine 10/21/18 Dolores Danielle Apparatus Repair MechanicGraining Press Operator 09/27/23 documented as of this encounter
--- OUTSIDE RECORDS SUMMARY | 2025-01-13 20:21 | XMS_ITS | Encounter Summary ---
Author Organization [employer] [facility] Address [address] [facility] 7t [place] [address] Care Team Providers Care Structural Biologist Name Role Phone Teri Owens MD Primary Care Provider [phone] Encounter Details Date Type Department Care Team (Latest Contact Info) Description 01/13/2025 Travel Social History Tobacco Use Types Packs/Day [...] Upcoming Encounters Date Type Department Care Team ([facility] st Contact Info) Description 04/07/2025 11:00 AM EDT Office Visit [facility] MED & PEDS [address] [place] [address] Teri Owens MD [address] [place] [address] documented as of this encounter Visit Diagnoses Not on filedocumented in this encounter Additional Health Concerns Assessment Noted Time PHQ-9 Depression Total Score: 0 01/06/20 25 9:22 AM EST documented as of this encounter Care Teams Structural Biologist Relationship Specialty Start Date End Date Teri Owens MD [address] [place] [address] PCP - General Family Medicine 10/21/18 Dolores Danielle Regulator AssemblerLube Worker 09/27/23 documented as of this encounter
--- OUTSIDE RECORDS SUMMARY | 2025-01-13 20:21 | XMS_ITS | Encounter Summary ---
Author Organization [employer] [facility] Address [address] [place] [address] 7t [place] [address] Care Team Providers Care Skip Tender Name Role Phone Teri Owens MD Primary Care Provider [phone] Encounter Details Date Type Department Care Team (Latest Contact Info) Description 09/14/2021 Abstract [facility] CONVERSIONS Dental, Provider, DDS Social History [...] Description 04/07/2025 11:00 AM EDT Office Visit [facility] MED & PEDS [address] [place] [address] Teri Owens MD [address] [place] [address] documented as of this encounter Visit Diagnoses Not on filedocumented in this encounter Care Teams Skip Tender Relationship Specialty Start Date End Date Teri Owens MD [address] [place] [address] PCP - General Family Medicine 10/21/18 Dolores Danielle Photo Checker And AssemblerCooker Sulfite 09/27/23 documented as of this encounter
--- OUTSIDE RECORDS SUMMARY | 2025-01-13 20:21 | XMS_ITS | Encounter Summary ---
Author Organization [employer] [facility] Address [address] [place] [address] [address] [place] [address] Care Team Providers Care Printing Estimator Name Role Phone Teri Owens MD Primary Care Provider [phone] Encounter Details Date Type Department Care Team ([facility] Contact Info) Description 06/23/2024 Orders Only [facility] MED & PEDS [address] [place] [address] ProviderPorsche MD Social History Tobacco Use Types Packs/Day Years [...] Description 04/07/2025 11:00 AM EDT Office Visit [facility] MED & PEDS [address] [place] [address] Teri Owens MD [address] [place] [address] documented as of this encounter Procedures Procedure Name Priority Date/Time Associated Diagnosis Comments ECG 12-LEAD Routine 06/18/2024 10:23 AM EDT documented in this encounter Results * ECG 12 lead (06/18/2024 10:23 AM EDT) us Historical Provider ECG ORDERABLES Final Res ult documented in this encounter Visit Diagnoses Not on filedocumented in this encounter Care Teams Printing Estimator Relationship Specialty Start Date End Date Teri Owens MD [address] [place] [address] PCP - General Family Medicine 10/21/18 Dolores Danielle Glaze SprayerRailroad Dining Car Stewardess 09/27/23 documented as of this encounter
--- OUTSIDE RECORDS SUMMARY | 2025-01-13 20:21 | XMS_ITS | Continuity of Care Document ---
Author Organization [facility] - [facility], [facility] Address [address] [place] [address] Care Team Providers Care Magnetic Healer Name Role Phone HANSA MILLER Primary Care Provider [phone] Assessment Encounter Date Assessment Date Assessment LastModified by Organization Details LastModified Time 12/22/2024 12/22/2024 Left ear remains well-healed following two-stage surgery of cholesteatoma . No signs of recurrent or persistent disease. No sign of tympanic membrane retraction. At this point, there is very low likelihood that she will develop recurrent cholesteatoma . She may follow-up as needed. [email or web address] Not available 12/22/2024 10:56:28 Plan of Treatment Reminders Order Date Submit Date Provider Last Modified By Organization Details Last Modified Time Details Appointments None record ed. Lab None record ed. Referral None record ed. Procedures None record ed. Surgeries None record ed. Imaging None record ed. Medication Orders None record ed. Patient TargetsNo targets recorded. Patient InstructionsNo instructions recorded. Reason for Referral None Reported. Results Created Date Observation Date Name Description Value Unit Range Abnormal Flag Note LastModifiedBy Organization Detail LastModifiedTime 12/22/19 25 audio gram No observ ation record ed. BARCODE Not Available 2024 18:19:21 Result Notes None recorded. Problems Name Problem SNOMED Code Status Onset Date Resolution Date Notes Provider Name and Address Organization Details Recorded Time Disorder of left external ear 59769355982 58100 Active 2021 Other specifie d disorder s of left external ear; Note: Date Diagnose d: 2 1:15 PM (H61.892 ) Not Available [facility] 4 03:13:57 Mixed conducti ve and sensorin eural hearing loss, bilatera l 480391070 Active 2022 Mixed conducti ve and sensorin eural hearing loss, bilatera l; Note: Date Diagnose d: 3 9:30 AM (H90.6) Not Available [facility] 4 03:13:56 Pain of left temporom andibula r joint 35945227345 846876 Active 2022 Arthralg ia of left temporom andibula r joint; Note: Date Diagnose d: 3 8:42 AM (M26.622 ) Not Available [facility] 4 03:13:57 Follow-u p visit Active 2021 Medical surveill ance followin g complete d treatmen t; Note: Date Diagnose d: 2 3:00 PM (Z09) Not Available [facility] 4 03:13:56 Mixed conducti ve and sensorin eural hearing loss of left ear 12407282110 107 Active 2021 Mixed conducti ve and sensorin eural hearing loss, unilater al, left ear with restrict ed hearing on the contrala teral side; Note: Date Diagnose d: 2 11:27 AM (H90.A32 ) Not Available [facility] 4 03:13:56 Otalgia of left ear 1406603931 Active 2022 Otalgia, left ear; Note: Date Diagnose d: 3 8:42 AM (H92.02) Not Available [facility] 4 03:13:57 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 55025697721 91350 Completed 202106/13/2024 Choleste atoma of attic, left ear; Note: Date Diagnose d: 2 1:15 PM (H71.02) Not Available [facility] 4 03:13:57 Sensorin eural hearing loss in right ear 18843068587 100 Active 2021 Sensorin eural hearing loss, unilater al, right ear, with restrict ed hearing on the contrala teral side; Note: Date Diagnose d: 2 11:27 AM (H90.A21 ) Not Available [facility] 4 03:13:58 Partial loss of ear ossicles 19779849 Active 2021 Partial loss of ear ossicles , left ear; Note: Date Diagnose d: 2 1:15 PM (H74.322 ) Not Available [facility] 4 03:13:57 Referred otalgia of left ear 59028432008 52102 Active 2024 CHEYENNE COTA MD [address] [place] [address], [place], [address] , [facility] 5 10:00:21 Problem Notes None recorded. Procedures Surgical History Date Name Laterality Status Provider Name and Address Organization Details Recorded Time 12/22/2024 Comp Audio with Tymps (36986 & 03762) completed MYRIAM BATES [address] [address], [place], [address], [facility] 12/22/2024 10:21:25 Imaging Results None recorded. Procedure Notes None recorded. Medical Equipment None Reported. Allergies Allergen ID Allergen Name Allergen Category Reaction Reaction Severity Criticality Documentation Date Start Date Code Code System Note Provider Name and Address Organization Details Recorded Time 39719 latex environme nt,medica tion other Not available Not available 03/25/2024 09565 91 RxNorm React ion: other react ion, Unkno wn; Not Available [facility] 4 00:48:24 Medications Name Sig Start Date Stop Date Status Note LastModified by Organization Details LastModified Time celecoxib 200 mg capsule TAKE 1 CAPSULE BY MOUTH TWICE DAILY active Not Available Not Available No t Available cyclobenza [place] 10 mg tablet active Not Available Not Available No t Available cetirizine 10 mg tablet TAKE 1 TABLET BY MOUTH DAILY active Not Available Not Available No t Available ibuprofen 800 mg tablet TAKE 1 TABLET BY MOUTH THREE TIMES DAILY active Not Available Not Available No t Available fluconazol e 150 mg tablet TAKE 1 TABLET BY MOUTH EVERY 3 DAYS active Not Available Not Available No t Available hydrocodon e 5 mg-acetami nophen 325 mg tablet TAKE 1 TABLET BY MOUTH EVERY 6 HOURS NEEDED FOR PAIN active Not Available Not Available No t Available senna 8.6 mg tablet TAKE 1 TABLET BY MOUTH EVERY 12 HOURS active Not Available Not Available No t Available sucralfate 1 gram tablet active Medicatio n ID: [id number] Br and Name: sucralfat e Send Method: E-Prescri bed Subs Allowed: subs OK Specia l Instructi on: TAKE 1 TABLET BY MOUTH TWICE DAILY 1 HOUR BEFORE MEALS AND AT BEDTIME ON AN EMPTY STOMACH M edication GenericNa me: sucralfat e Not Available Not Available Not Available FreeStyle Lancets 28 gauge USE DIRECTED TWICE DAILY active Not Available Not Available No t Available simvastati n 10 mg tablet active Not Available Not Available Not Available miconazole nitrate 2 % vaginal cream INSERT ONE APPLICATO RFUL VAGINALLY AT BEDTIME active Not Available Not Available No t Available Ciloxan 0.3 % eye drops 2021 active Medicatio n ID: [id number] Du ration Value: 14 Prescrib ed By Name: RUSLAN Jones Name: Ciloxan S end Method: E-Prescri bed Subs Allowed: subs OK Specia l Instructi on: 4 drops into LEFT ear BID X 14 days Medi cationGen ericName: Ciloxan Not Available Not Available Not Available ondansetro n 8 mg disintegra ting tablet active Not Available Not Available Not Available pantoprazo le 20 mg tablet,del ayed release active Not Available Not Available Not Available ofloxacin 0.3 % ear drops Instill 4 drop into left ear twice a day 2022 active Medicatio n ID: [id number] Du ration Value: 14 Brand Name: ofloxacin Send Method: E-Prescri bed Subs Allowed: subs OK Specia l Instructi on: x 14 days Medi cationGen ericName: ofloxacin Not Available Not Available Not Available trazodone 100 mg tablet active Not Available Not Available Not Available baclofen 10 mg tablet active Not Available Not Available Not Available pantoprazo le 40 mg tablet,del ayed release active Not Available Not Available Not Available clotrimazo le-betamet hasone 1 %-0.05 % topical cream APPLY TOPICALLY TO THE AFFECTED AREA TWICE DAILY active Not Available Not Available No t Available lidocaine 5 % topical patch APPLY 1 PATCH TOPICALLY TO THE SKIN EVERY DAY. MAY WEAR UP TO 12 HOURS active Not Available Not Available No t Available docusate sodium 100 mg capsule active Not Available Not Available N ot Available omeprazole 20 mg capsule,de layed release TAKE 1 CAPSULE BY MOUTH EVERY DAY BEFORE A MEAL active Not Available Not Available No t Available ammonium lactate 12 % topical cream APPLY TOPICALLY IN THIN LAYER TO FEET TWICE DAILY active Not Available Not Available No t Available bisacodyl 5 mg tablet,del ayed release TAKE 4 TABLETS BY MOUTH ONCE AT NOON DAY BEFORE COLONOSCO PY active Not Available Not Available No t Available polyethyle ne glycol 3350 17 gram/dose oral powder TAKE 1 BOTTLE BY MOUTH ONCE DAY BEFORE PROCEDURE DIRECTED active Not Available Not Available No t Available ondansetro n 4 mg disintegra ting tablet DISSOLVE 1 TABLET ON THE TONGUE EVERY 8 HOURS NEEDED FOR NAUSEA OR VOMITING active Not Available Not Available No t Available fluticason e propionate 50 mcg/actuat ion nasal spray,susp ension SHAKE LIQUID AND USE 2 SPRAYS IN EACH NOSTRIL TWICE DAILY active Not Available Not Available No t Available tamoxifen 20 mg tablet TAKE 1 TABLET BY MOUTH DAILY active Not Available Not Available No t Available loratadine 10 mg tablet active Medicatio n ID: [id number] Br and Name: loratadin e Send Method: E-Prescri bed Subs Allowed: subs OK Specia l Instructi on: TAKE 1 TABLET BY MOUTH EVERY DAY Medic ationGene ricName: loratadin e Not Available Not Available Not Available naproxen 500 mg tablet active Not Available Not Available Not Available amoxicilli n 875 mg-potassi um clavulanat e 125 mg tablet by mouth 2021 active Medicatio n ID: [id number] Du ration Value: 10 Prescrib ed By Name: RUSLAN Romeo Name: Augmentin Send Method: E-Prescri bed Subs Allowed: subs OK Specia l Instructi on: 1 po bid for 10 days Medi cationGen ericName: Augmentin Not Available Not Available Not Available oxycodone 5 mg tablet TAKE 1 TABLET BY MOUTH EVERY 6 HOURS NEEDED FOR PAIN active Not Available Not Available No t Available chlorhexid ine gluconate 0.12 % mouthwash SWISH AND EXPECTORA TE 15 ML BY MOUTH TWICE DAILY FOR 30 SECONDS AFTER BRUSHING TEETH. DO NOT RINSE WITH WATER active Not Available Not Available No t Available FreeStyle Lite Strips USE DIRECTED EVERY 12 HOURS active Not Available Not Available No t Available FreeStyle [place] Lite kit TEST BLOOD SUGAR TWICE DAILY active Not Available Not Available No t Available diclofenac 1 % topical gel APPLY 4 GRAMS TO THE AFFECTED AREA THREE TIMES DAILY NEEDED active Not Available Not Available No t Available cholecalci ferol (vitamin D3) 50 mcg (2,000 unit) tablet TAKE 1 TABLET BY MOUTH DAILY active Not Available Not Available No t Available lidocaine 5 % topical ointment APPLY TOPICALLY IF NEEDED FOR MILD PAIN active Not Available Not Available No t Available Vitals Date Recorded Body weight Body mass index (BMI) Body height Provider Name and Address Organization Details Last Updated DateTime 12/22/2024 94042.81 g 28.3 kg/m2 182.88 cm Kasey Izaguirre [place] - [facility] 12/22/2024 09:50:32 Social History None recorded. Functional Status None recorded. Mental Status None recorded. Family History Nothing Reported. Medical History No medical history recorded. Gynecological HistoryNo gynecological history recorded. Obstetrics History GPAL:G 0 P 0 0 0 0 Past Encounters Encounter ID Performer Location Encounter Start Date Encounter Closed Date Diagnosis/Indication Diagnosis SNOMED-CT Code Diagnosis ICD10 Code Diagnosis Note [id number] CHEYENNE COTA MD [facility] [address] [address] 12/22/2024 08:38:39 12/22/2024 10:59:12 Disorder of left external ear 0736364815 359158 H61.892 Partial lo ss of ear ossicles 85857161 H74.322 Referred o talgia of left ear 4500640705 878883 H92.02 M26.622 M79.11 The patient complains of {{intermit tent* swift tender elian}} {{right-si ded left-s ided* bila teral}} periauricu lar {{discomfo rt* pressu re sensation} }. Physical exam reveals no identifiab le source of these symptoms involving the auricle, external auditory canal, or tympanic membrane. Audiometri c testing and tympanomet ry are similarly unrevealin g. Furthermor e, examinatio n was positive for crepitus and tenderness of the {{right le ft* bilate ral}} jaw joint and chris-TMJ musculatur e. The patient's periauricu lar {{discomfo rt pressur e sensation* }} is most likely consistent with intermitte nt inflammati on of the jaw joint or spasm of the surroundin g musculatur e. This is likely exacerbate d by {{the missing teeth* den kirstie clenching and grinding g um chewing}}. I recommende d the patient use light massage, warm compresses and anti-infla mmatories for symptomati c management . Stressed chewing evenly on both sides of the mouth to keep from overworkin g the jaw joint. Use soft food diet as needed. Jaw Joint Program informatio n sheet was shared. If this treatment plan is ineffectiv e, recommend follow up with their dentist. Referral to physical therapist who specialize s in TMJ disorders {{could also be considered * was provided}} . Mixed cond uctive and sensorineural hearing loss, bilateral 250938793 H90.6 Audiologic al evaluation results:Ri ght ear:{{Norm al sloping Mi ld Moderat e* Moderat olya-severe Severe Pr ofound Nor mal auditory thresholds }} to {{mild mod erate mode rately-sev ere* sever e profound with}} {{sensorin eural hearing loss with condu ctive hearing loss with mixed hearing loss with*}} {{excellen t* good fa ir poor no t measurable }} word recognitio n.Left ear:{{Norm al sloping Mi ld* Modera te Moderat olya-severe Severe Pr ofound Nor mal auditory thresholds }} to {{mild mod erate mode rately-sev ere severe * profound with}} {{sensorin eural hearing loss with condu ctive hearing loss with mixed hearing loss with*}} {{excellen t* good fa ir poor no t measurable }} word recognitio n.Tympanom etry:Right Ear:{{Type A Type As Type Ad Type C Type C, shallow & rounded* T ype B Type B with large volume Cou ld not maintain a hermetic seal}}Left Ear:{{Type A Type As Type Ad Type C Type C, shallow & rounded Ty pe B* Type B with large volume Cou ld not maintain a hermetic seal}} Audiometri c testing reviewed with patient. She remains an excellent candidate for binaural amplificat ion. I have given her a copy of her audiogram and medical clearance to return to her audiologis t at [facility] audiology to ensure that her hearing aids are adjusted to match her current level of hearing loss. Health Concerns Section Related Observation LastModified by Organization Detai ls LastModified Time None Recorded Concern Status LastModified by Organization Details LastModified Time None Recorded Payers Encounter Date Sequence Insurance Name Policy Number Policy Almaraz Covered Member ID Almaraz Member ID Guarantor Name 12/22/2024 1 [place] [facility] Mary Johnston [id number] Marykenna Arnettiago Notes Date Note Type Note Provider Name and Address Organization Details Recorded Time 12/22/2024 text/html Patient with history of left sided cholesteatoma status post two-stage surgery in 2021 and 2022, last procedure in January 2023. No residual cholesteatoma noted and patient is undergoing posttreatment surveillance. It has been about 1 year since her last follow-up visit. Last audiogram March 2023. Patient has bilateral hearing aids dispensed from [facility] audiology, but has not been using them lately because she has not been able to get batteries. Patient noticing some left periauricular discomfort which refers down into her left jawline. CHEYENNE COTA MD [address] [place] [address], [place], [address], [facility] - [facility] 12/22/2024 10:57:03 OBGyn Episode No OBEpisode recorded.
--- OUTSIDE RECORDS SUMMARY | 2025-01-13 20:21 | XMS_ITS | Encounter Summary ---
Author Organization [facility] Address [address] [place] [address] Care Team Providers Care Returned Case Inspector Name Role Phone Teri Owens MD Primary Care Provider [phone] Reason for Visit * Reason Onset Date Comments Medication Question 01/02/2025 Encounter Details Date Type Department Care Team ([facility] st Contact Info) Description 01/02/2025 Telephone [facility] [address] [place] [address] Teri Owens MD [address] [place] [address] Medication Question Social History Tobacco Use Types [...] t he electric, gas, oil or water [employer] threatened to shut off services in your [...] encounter Miscellaneous Notes * Telephone Encounter - Isabelle Chavez, COMMUNITY SERVICES MANAGER - 01/02/2025 11:59 AM EST Triage call returned with BLS # [id number] Adriana. Unable to connect to 787 area code. Call placed with Prop[facility] # [id number] Marino. Patient reports increased arthritis symptoms in hands shoulders arms and into mandible. Patient denies chest pain or pressure no nausea. 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 Patient is taking celebrex 200mg po BID as previously ordered but feels that pain is worsening with different areas involved. No redness or swelling noted in affected areas. Disposition reviewed and patient in agreement with plan. ASK/ Angelica01/06 @915am. Reviewed with patient home care recommendations, reasons to call back and symptoms that require immediate evaluation in UC or ER. Patient verbalized understanding and agrees. Multiple (2) protocols were used on this call. Disposition for Call: See in Office or Video Visit within 3 Days Protocol Used: Hand Pain (Adult) Protocol-Based Disposition: See in Office or Video Visit within 3 Days Positive Triage Question: * Moderate pain (e.g., interferes with normal activities) and present > 3 days * All higher-acuity triage questions were negative Care Advice Discussed: * Pain Medicines * Reasons To Call Back - You become worse Protocol Used: Face Pain (Adult) Protocol-Based Disposition: See in Office or Video Visit within 2 Weeks Video visit not offered Positive Triage Question: * Face pain is a chronic symptom (recurrent or ongoing AND present > 4 weeks) * All higher-acuity triage questions were negative Care Advice Discussed: * Pain Medicines * Reasons To Call Back - You become worse * Telephone Encounter - Stacey Johnston - 01/02/2025 9:48 AM EST Tc from pt stating needs arthritis new medication. [phone] welsh documented in this encounter Plan of Treatment Upcoming Encounters Date Type Department Care Team ([facility] st Contact Info) Description 04/07/2025 11:00 AM EDT Office Visit [facility] & PEDS [address] [place] [address] Teri Owens MD [address] [place] [address] documented as of this encounter Visit Diagnoses Not on filedocumented in this encounter Care Teams Returned Case Inspector Relationship Specialty Start Date End Date Teri Owens MD [address] [place] [address] PCP - General Family Medicine 10/21/18 Dolores Danielle Poultry HusbandmanPad Cutter 09/27/23 documented as of this encounter
--- OUTSIDE RECORDS SUMMARY | 2025-01-13 20:21 | XMS_ITS | Encounter Summary ---
Author Organization [facility] Address [address] [place] [address] Care Team Providers Care Lithographic Photographer Apprentice Name Role Phone Teri Owens MD Primary Care Provider Encounter Details Date Type Department Care Team ([facility] Contact Info) Description 10/27/2022 Orders Only [facility] [address] [place] [address] Teri Owens MD [address] [place], [place] [phone] GERD without esophagitis (Primary Dx) Social History [...] Upcoming Encounters Date Type Department Care Team ([facility] Contact Info) Description 04/07/2025 11:00 AM EDT Office Visit [facility]EDS [address] [place], [place] [phone] Teri Owens MD [address] [place] [address] documented as of this encounter Visit Diagnoses Diagnosis GERD without esophagitis- Primary Esophageal reflux documented in this encounter Care Teams Lithographic Photographer Apprentice Relationship Specialty Start Date End Date Teri Owens MD [address] [place] [address] PCP - General Family Medicine 10/21/18 Dolores Danielle Photographic Reproduction TechnicianLine Driver 09/27/23 documented as of this encounter
--- OUTSIDE RECORDS SUMMARY | 2025-01-13 20:21 | XMS_ITS | Encounter Summary ---
Author Organization [employer] [facility] Address [address] [place] [address] Care Team Providers Care Inspector Returned Materials Name Role Phone Teri Owens MD Primary Care Provider [phone] Reason for Visit * Reason Onset Date Comments Medication Question 12/24/2024 Encounter Details Date Type Department Care Team ([facility] st Contact Info) Description 12/24/2024 Telephone [facility] [address] [place] [address] Teri Owens MD [address] [place] [address] Medication Question Social History Tobacco Use Types [...] t he electric, gas, oil or water e|[employer] threatened to shut off services in your [...] encounter Miscellaneous Notes * Telephone Encounter - Kizzy Bergman RN - 12/25/2024 10:01 AM [place] [id number] to inform her that she should discontinue statin and start fish oil as analternative. Pt agrees to plan. * Telephone Encounter - Teri Owens MD - 12/25/2024 9:54 AM EST discontinue Statin .Start fish oil instead * Telephone Encounter - Yael Culver RN - 12/24/2024 11:03 AM EST TC placed to pt in regards to concerns and side effects experienced after starting the cholesterol medication Simvastatin (Zocor) 10 MG tablet on 12/11/2024. Pt endorses that she has been experiencingleg cramps and some facial numbness (pt states it is primarily around the lips but did not give much more detail). Pt confirms that these symptoms started around the time of the medication starting back on 12/11. The pt was also told by the pharmacy that this medication like so many come with commonside effects and these may be some. Pt would like to see if there is an alternative lipid lowering agent she could use. Pt informed that this information will be sent to PCP for review and advisement. * Telephone Encounter - Juan Carlos Cuevas - 12/24/2024 10:49 AM EST tC from pt requesting a call back regarding med simvastatin (Zocor) 10 MG tablet due to Pt having some reactions to the medication. Contact pt at [phone] documented in this encounter Plan of Treatment Upcoming Encounters Date Type Department Care Team (Late st Contact Info) Description 04/07/2025 11:00 AM EDT Office Visit [facility] & PEDS [address] [place] [address] Teri Owens MD [address] [place] [address] documented as of this encounter Visit Diagnoses Not on filedocumented in this encounter Care Teams Inspector Returned Materials Relationship Specialty Start Date End Date Teri Owens MD [address] [place] [address] PCP - General Family Medicine 10/21/18 Dolores Danielle Wax EngraverClaim Analyst 09/27/23 documented as of this encounter"
--- OUTSIDE RECORDS SUMMARY | 2025-01-13 20:21 | XMS_ITS | Clinical Summary ---
Author Organization [employer] Address [address] [place] [address] [address] [place] [address] Care Team Providers Care Bulk Materials Handling Plant Operator Name Role Phone Teri Owens MD Primary Care Provider [phone] Allergies Active Allergy Reactions Criticality Noted Date [...] complication, without long-term current use of insulin ([facility]) TAKE 1 TABLET BY MOUTH IN THE [...] BY MOUTH EVERY 12 HOURS 180 tablet Active miconazole (Micotin) 2 % cream APPLY 1 APPILICATION VAGINALLY AT BEDTIME 45 g 1 Active Diclofenac Sodium 1 % gelIndications:Mus monica spasms of neck APPLY 2 GRAMS TOPICALLY TO THE AFFECTED AREA IN THE MORNING AND AT BEDTIME NEEDED FOR MUSCLE PAIN 100 g 3 Active fluticasone (Flonase Allergy Relief) 50 MCG/ACT nasal sprayIndications:T ype 2 diabetes mellitus without complication, without long-term current use of insulin ([facility]) SPRAY 2 SPRAYS INTO EACH NOSTRIL TWICE A DAY 48 g Active ibuprofen 800 MG tablet TAKE 1 TABLET BY MOUTH THREE TIMES DAILY 90 tablet 2 Active cetirizine (ZyrTEC) 10 MG tablet Take [...] 2 times daily. Prescribed by psych Active pantoprazole (ProtoNix) 20 MG EC tablet Take 1 tablet (20 mg) by mouth before breakfast. Do not crush, chew, or split. 30 tablet 025 2025 Active meloxicam (Mobic) 7.5 MG tablet Take 1 tablet (7.5 mg) by mouth 2 times daily. 60 tablet 11 025 2025 Active clotrimazole (Lotrimin) 1 % cream Apply twice daily x 14 days, continue for a total of 28 d if improved but not resolved. 30 g 1 Active tamoxifen (Nolvadex) 20 MG chemo tablet Take 1 tablet by mouth Once per day. 019 Active celecoxib (CeleBREX) 200 MG capsule Take 1 capsule (200 mg) by mouth 2 times daily. 60 capsule 3 025 2024 Discontinued simvastatin (Zocor) 10 MG tablet Take 1 tablet (10 mg) by mouth at bedtime. 30 tablet 11 025 2024 Discontinued Active Problems Problem Noted Date Diagnosed Date Persistent depressive disorder 01/06/2025 Ductal carcinoma in situ (DCIS) of left breast 0 06/20/2024 Acute pain of right knee 10/27/2022 Encounters Date Type Department Care Team Description 01/13/2025 11:15 AM EST Procedure Visit [address] [address] Teressa Gomez CNM Cervical cancer screening (Primary Dx); Tinea cruris 01/13/2025 Travel 01/08/2025 Telephone [facility] [address] [place] [address] Teressa Gomez CNM No Show 01/06/2025 9:15 AM EST Office Visit [facility] [address] [place] [address] Teri Owens MD TMJ (temporomandibular joint syndrome) (Primary Dx); Arthropathy; Hypercholesteremia 01/06/2025 Travel 01/02/[address] [address] Teri Owens MD Medication Question 12/24/[address] [address] Teri Owens MD 12/24/[address] [address] Teri Owens MD Durable Medical Equipment 12/24/[address] [address] Teri Owens MD Medication Question 12/11/2024 Orders Only [facility] [address] [place] [address] Teri Owens MD 12/11/2024 Orders Only [facility] [address] [place] [address] Teri Singh MD 12/10/2024 Telephone [facility] [address] [place] [address] Teri Owens MD 12/08/2024 Telephone [facility] [address] [place] [address] Teri Owens MD Prior Authorization 12/05/2024 9:15 AM EST Office Visit [facility] [address] [place] [address] Teri Owens MD Ductal carcinoma in situ (DCIS) of left breast (Primary Dx); Type 2 diabetes mellitus without complication, without long-term current use of insulin (CMS/HCC); Unsteady gait; Encounter for immunization 12/05/2024 Telephone [facility] [address] [place] [address] Teri Owens MD Medication Question 12/05/2024 Telephone [facility] [address] [place] [address] Teri Owens MD FYI 12/05/2024 Travel 11/29/2024 Refill [facility] [address] [place] [address] Teri Owens MD 11/27/2024 Refill [facility] [address] [place] [address] Teri Owens MD 11/21/2024 Refill [facility] [address] [place] [address] Teri Owens MD Type 2 diabetes mellitus without complication, without long-term current use of insulin (CMS/HCC) 11/19/2024 Refill [facility] [address] [place] [address] Teri Owens MD Muscle spasms of neck 11/18/2024 Refill [facility] [address] [place] [address] Teri Owens MD 11/14/2024 Telephone [facility] [address] [place] [address] Teri Owens MD Nurse Triage 11/11/2024 Refill [facility] [address] [place] [address] Teri Owens MD from Last 3 Months Immunizations Name Administration Dates Next Due Influenza injectable quadriv alent preservative free 08/09/2023,09/01/2021,10/21/2018 Influenza, seasonal, injecta ble, preservative free 12/05/2024 Moderna Covid-19 Vaccine 12+ 04/21/2022,05/02/20,04/06/2021 Moderna Covid-19 Vaccine 6+ Bivalent 10/24/2022 Tdap [...] Mass Index 31.25 01/13/2025 11:05 AM EST Plan of Treatment Upcoming Encounters Date Type Department Care Team (Late st Contact Info) Description 04/07/2025 11:00 AM EDT Office Visit [facility] [address] [place] [address] Teri Owens MD [address] [place] [address] Health Maintenance Due Date Last Done Comments CT Colonography 1960 Colonoscopy 1960 Colorectal Cancer Screening 1960 FIT DNA/Cologuard 1960 FIT 1960 FOBT 1960 HIV Screening 1960 Sigmoidoscopy 1960 Diabetes: Foot Exam 01/30/1970 Eye Exam 01/30/1970 Hepatitis C Screening 01/30/1978 Diabetes: Urine Protein Screening 01/30/1979 Hepatitis A Vaccines (1 of 2 - Risk 2-dose series) 01/30/1979 Pneumococcal Vaccine: 50+ Years (1 of 2 - PCV) 01/30/1979 Pap Smear 01/30/1981 Cervical Cancer Screening 01/30/1990 HPV/Cotest 01/30/1990 Hepatitis B Vaccines (1 of 3 - Risk 3-dose series) 2020 Dental Oral Exam 03/15/2022 09/14/2021, 04/29/2019 Dental X-Ray: Full Mouth 04/30/2022 04/29/2019 Dental Prophylaxis 08/27/2022 02/24/2022, 1 11/14/2020, 12/08/2019, Additional history exists Dental X-Ray: Bitewings 09/15/2022 09/14/2021, 04/29 COVID-19 Vaccine ( season) 2024 10/24/2022, 04/21/2022, 05/02/2021, Additional history exists Mammogram 04/16/2025 04/16/2024, 03/14, 03/02/2022, Additional history exists Diabetes: Hemoglobin A1C 06/09/2025 025, 01/02/2023, 04/04/2022 SDOH Screening 10/02/2025 10/02/2024 Lipid Panel 12/10/2025 12/10/2024, 04/04/2022 Alcohol/Substance Use Screening 01/06/2026 01/06/2025 Depression Screening 01/06/2026 01/06/2025, 01/06/20 Tobacco Screening 01/13/2026 01/13/2025 DTaP/Tdap/Td Vaccines (2 - Td or Tdap) [...] Procedure Name Priority Date/Time Associated Diagnosis Comments HEPATIC FUNCTION PANEL Routine 11:52 AM EST Type 2 diabetes mellitus without complication, without long-term current use of insulin (CMS/HCC) LIPID PANEL, STANDARD Routine 12/10/2024 11:52 AM EST Type 2 diabetes mellitus without complication, without long-term current use of insulin (CMS/HCC) BASIC METABOLIC PANEL Routine 12/10/2024 11:52 AM EST Type 2 diabetes mellitus without complication, without long-term current use of insulin (CMS/HCC) HEMOGLOBIN A1C Routine 12/10/2024 11:52 AM EST Type 2 diabetes mellitus without complication, without long-term current use of insulin (CMS/HCC) BI MAMMOGRAM SCREENING TOMOSYNTHESIS BILATERAL Routine 04/16/2024 9:25 AM EDT PROPHYLAXIS - ADULT Routine 02/24/2022 1 2:00 AM EDT BITEWINGS - 4 RADIOGRAPHIC IMAGES Routine 09/14/2021 12:00 AM EDT PERIODIC ORAL EVALUATION - ESTABLISHED PATIENT Routine 09/14/2021 12:00 AM EDT INTRAORAL - COMPLETE SERIES OF RADIOGRAPHIC IMAGES Routine 04/29/2019 12:00 AM EDT from Last 3 Months or Most Recently Relevant to Health Maintenance Results * Hemoglobin A1c (12/10/2024 11:52 AM EST) Hemoglobin A1c 5.4 <6.0 % [facility] Comment:Hemoglobin A1C Refer ence Range Adults: 4.8 - 6.0 % Non diabetic: < 6.0 % Goal: < 7.0 %Additional Action Suggested: > 8.0 %Note: Hemoglobin A1c results are invalid for patients with abnormal amounts of HbF. Blood transfusions may impact the HbA1c concentration in the patient sample. Estimated Average Glucose 108 mg/dL [facility] Comment:eAG = Estimated ave rage glucose which is %A1C expressed asaverage glucose, using the formula of the A3T-AxbudvdGpgngym Glucose study (ADAG), Diabetes Care, Vol.31,#8,2007 Blood Venous blood specimen / Unknown 12/10/2024 11:52 AM EST 12/10/2024 2:48 PM EST Teri Owens MD LAB BLOOD ORDERABLES Final Resul t Performing Organization Address [facility] Co de Phone Number [facility] [address] [place] [phone] * (ABNORMAL) Hepatic Function Panel (12/10/2024 11:52 AM EST) Bilirubin, Total 0.5 0.0 - 1.0 mg/dL [facility] Bilirubin, Direct 0.2 0.0 - 0.5 mg/dL [facility] Aspartate Amino Transferase 26 5 - 31 U/L [facility] Alanine Aminotransferase 25 0 - 31 U/L [facility] Total Protein 8.4(H) 6.5 - 8.0 g/dL [facility] Albumin Level 4.2 3.5 - 5.0 g/dL [facility] Alkaline Phosphatase 120(H) 39 - 117 U/L [facility] Blood Venous blood specimen / Unknown 12/10/2024 11:52 AM EST 12/10/2024 2:48 PM EST Teri Owens MD LAB BLOOD ORDERABLES Final Resul t Performing Organization Address City/[facility]/ZIP Co de Phone Number [facility] [address] [place] [phone] * (ABNORMAL) Lipid Panel, Standard (12/10/2024 11:52 AM EST) Triglycerides 96 <150 mg/dL [facility] Comment:Desirable Triglyceri de: less than 150 mg/dLBorderline High Triglyceride 150-199 mg/dLHigh Triglyceride: 200-499 mg/dLVery High Triglyceride: greater than or equal to 5OO mg/dL Cholesterol 249(H) <200 mg/dL [facility] Comment:Desirable Cholestero l: less than 200 mg/dLBorderline High Cholesterol: 200-239 mg/dLHigh Cholesterol: greater than 239 mg/dL LDL Cholesterol Calculated 177(H) <100 mg/dL [facility] Comment:Desirable LDL: less than 100 mg/dLNear Optimal/Above Optimal LDL: 110- 129 mg/dLBorderline High LDL: 130-159 mg/dLHigh LDL: 160-189 mg/dLVery High LDL: greater than or equal to 190 mg/dL HDL Cholesterol 53 >40 mg/dL [facility] Comment:Desirable HDL: great er than 40 mg/dL Note: This HDL assay may give artificially low results in patients with liver disease. Blood Venous blood specimen / Unknown 12/10/2024 11:52 AM EST 12/10/2024 2:48 PM EST us Teri Owens MD LAB BLOOD ORDERABLES Final Resul t [facility] [address] [place] [phone] * (ABNORMAL) Basic Metabolic Panel (12/10/2024 11:52 AM EST) Sodium 136 135 - 145 mmol/L [facility] Potassium 4.2 3.3 - 5.1 mmol/L [facility] Chloride 105 96 - 108 mmol/L [facility] Carbon Dioxide 26 22 - 29 mmol/L [facility] Anion Gap 9(L) 12 - 20 [facility] Urea Nitrogen (BUN) 9 9 - 16 mg/dL [facility] Creatinine, Serum 0.71 0.5 - 1.4 mg/dL [facility] Estimated Glomerular Filt Rate >60 [facility] Comment:Chronic Kidney Disea se: Estimated GFR < 60 mL/min/1.25g2[place] Kidney Disease: Estimated GFR < 15 mL/min/1.73m2 Glucose 88 60 - 115 mg/dL [facility] Calcium 9.4 8.4 - 10.2 mg/dL [facility] Blood Venous blood specimen / Unknown 12/10/2024 11:52 AM EST 12/10/2024 2:48 PM EST us Teri Owens MD LAB BLOOD ORDERABLES Final Resul t [facility] [address] [facility] [place] [phone] * BI Mammogram Screening Tomosynthesis Bilateral (04/16/2024 9:25 AM EDT) Anatomical Region Laterality Modality Breast Bilateral Mammography 04/16/2024 9:25 AM EDT Narrative 05/13/2024 8:10 AM EDT ? [facility] ? [address] ?[place] [address] ? Mammography Report ? Signed ? Patient: Mary June ?MR#: ?? [id number] ? : 1960 ?Acct:[id number] ? Age/Sex: 64 / F ?ADM Date: 04/16/24 ? Loc: HO.MAMMO ? Attending Dr: Nichol Garner MD ? Ordering Physician: Nichol Garner MD ?Results: 2Benig ?? n Findings ? Date of Service: 04/16/24 ?Follow Up: 1 Year From Orig ?? inal Mammogram ? Procedure(s): MM tomosynthesis screening BI ?? Accession Number(s): [id number] ? cc: Nichol Garner MD; Laz Hauser [...] for their next mammogram. ? Dictated By: ?Moskos,Sary MD ? Signed By: ?<Electronically signed by Sary Limon MD in OV> ? 05/13/24 08 ? DD/ 4 ? TD/TT: ? Associate Doctor: ? Procedure Note Juan Jose Urrutia - 05/13/2024 [facility] [address] [place], [place] [address] Mammography Report Signed Patient: Chandler June#: [id number] : 1960Acct:[id number] Age/Sex: 64 / FADM Date: 04/16/24 Loc: HO.MAMMO Attending Dr: Nichol Garner MD Ordering Physician: Nichol Garner MDResults: 2Benig n Findings Date of Service: 04/16/24Follow Up: 1 Year From [facility] Mammogram Procedure(s): MM tomosynthesis screening BI Accession Number(s): [id number] cc: Nichol Garner MD; Laz Hauser MD; [...] MD in OV> 05/13/[address] DD/ 4 TD/TT: Associate Doctor: [facility] External Provider IMG BI PROCEDURES Edited Result - Final from Last 3 Months or Most Recently Relevant to Health Maintenance Insurance [facility] STANDARD MEDICARE DENTAL-[facility] MEDICAID STAND ADULT Care Teams Bulk Materials Handling Plant Operator Relationship Specialty Start Date End Date Teri Owens MD [address] [place] [phone] PCP - General Family Medicine 10/21/18 Dolores Danielle Scheme TechnicianSoil Conservation Technician 09/27/23
--- OUTSIDE RECORDS SUMMARY | 2025-01-13 20:21 | XMS_ITS | Data Portability ---
Author Organization [place] - [facility], Allergy Address [address] [place] [phone] Care Team Providers Care Aviation Manager Name Role Phone HANSA MILLER Primary Care Provider Assessment Encounter Date Assessment Date Assessment LastModified by Organization Details LastModified Time 12/22/2024 12/22/2024 Left ear remains well-healed following two-stage surgery of cholesteatoma . No signs of recurrent or persistent disease. No sign of tympanic membrane retraction. At this point, there is very low likelihood that she will develop recurrent cholesteatoma . She may follow-up as needed. [email or web address] Not available 12/22/2024 10:56:28 Plan of Treatment [...] Recorded Time Disorder of left external ear 28099361517 10427 Active 2021 Other specifie d disorder s of left external ear; Note: Date Diagnose d: 2 1:15 PM (H61.892 ) Not Available [facility] 4 03:13:57 Mixed conducti ve and sensorin eural hearing loss, bilatera l 625560708 Active 2022 Mixed conducti ve and sensorin eural hearing loss, bilatera l; Note: Date Diagnose d: 3 9:30 AM (H90.6) Not Available [facility] 4 03:13:56 Pain of left temporom andibula r joint 34932901885 778109 Active 2022 Arthralg ia of left temporom andibula r joint; Note: Date Diagnose d: 3 8:42 AM (M26.622 ) Not Available [facility] 4 03:13:57 Follow-u p visit Active 2021 Medical surveill ance followin g complete d treatmen t; Note: Date Diagnose d: 2 3:00 PM (Z09) Not Available [facility] 4 03:13:56 Mixed conducti ve and sensorin eural hearing loss of left ear 00726087449 107 Active 2021 Mixed conducti ve and sensorin eural hearing loss, unilater al, left ear with restrict ed hearing on the contrala teral side; Note: Date Diagnose d: 2 11:27 AM (H90.A32 ) Not Available [facility] 4 03:13:56 Otalgia of left ear 4597724054 Active 2022 Otalgia, left ear; Note: Date Diagnose d: 3 8:42 AM (H92.02) Not Available [facility] 4 03:13:57 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 36802898081 49201 Completed 202106/13/2024 Choleste atoma of attic, left ear; Note: Date Diagnose d: 2 1:15 PM (H71.02) Not Available [facility] 4 03:13:57 Sensorin eural hearing loss in right ear 24710167788 100 Active 2021 Sensorin eural hearing loss, unilater al, right ear, with restrict ed hearing on the contrala teral side; Note: Date Diagnose d: 2 11:27 AM (H90.A21 ) Not Available [facility] 4 03:13:58 Partial loss of ear ossicles 58535090 Active 2021 Partial loss of ear ossicles , left ear; Note: Date Diagnose d: 2 1:15 PM (H74.322 ) Not Available [facility] 4 03:13:57 Referred otalgia of left ear 11817543774 39532 Active 2024 CHEYENNE COTA MD [address] [facility],[place] [address], [place], [address] , [facility] 5 10:00:21 Problem Notes None recorded. Procedures Surgical History Date Name Laterality Status Provider Name and Address Organization Details Recorded Time 12/22/2024 Comp Audio with Tymps (75149 & 73241) completed MYRIAM BATES [address] [facility],[place] [address], [place], [phone], [facility] - [facility] 12/22/2024 10:21:25 Imaging Results Imaging Date Name Status LastModified by Organiz ation Details LastModified Time 12/22/2024 audiogram completed [facility] Information no t available 12/22/2024 18:19:21 Procedure Notes None recorded. Medical Equipment None Reported. Allergies Allergen ID Allergen Name Allergen Category Reaction Reaction Severity Criticality Documentation Date Start Date Code Code System Note Provider Name and Address Organization Details Recorded Time 58110 latex environme nt,medica tion other Not available Not available 03/25/2024 76436 91 RxNorm React ion: other react ion, Unkno wn; Not Available [facility] 4 00:48:24 Medications Name Sig Start Date [...] 1 gram tablet active Medicatio n ID: [id number] Br and Name: sucralfat e Send Method: [...] eye drops 2021 active Medicatio n ID: [id number] Du ration Value: 14 Prescrib ed By [...] a day 2022 active Medicatio n ID: [id number] Du ration Value: 14 Brand Name: ofloxacin [...] 10 mg tablet active Medicatio n ID: [id number] Br and Name: loratadin e Send Method: E-Prescri bed Subs Allowed: subs OK Specia l Instructi on: TAKE 1 TABLET BY MOUTH EVERY DAY Medic ationGene ricName: loratadin e Not Available Not Available Not Available naproxen 500 mg tablet active Not Available Not Available Not Available amoxicilli n 875 mg-potassi um clavulanat e 125 mg tablet by mouth 2021 active Medicatio n ID: [id number] Du ration Value: 10 Prescrib ed By [...] Available Not Available No t Available [employer] [place] Lite kit TEST BLOOD SUGAR TWICE DAILY [...] Address Organization Details Last Updated DateTime 12/22/2024 73228.81 g 28.3 kg/m2 182.88 cm Kasey Izaguirre [place] - [facility] 12/22/2024 09:50:32 Social History None recorded. Functional Status None recorded. Mental Status None recorded. Family History Nothing Reported. Medical History No medical history recorded. Gynecological HistoryNo gynecological history recorded. Obstetrics History GPAL:G 0 P 0 0 0 0 Past Encounters Encounter ID Performer Location Encounter Start Date Encounter Closed Date Diagnosis/Indication Diagnosis SNOMED-CT Code Diagnosis ICD10 Code Diagnosis Note [id number] CHEYENNE COTA MD [facility] [address] [address] 12/22/2024 08:38:39 12/22/2024 10:59:12 Disorder of left external ear [id number] 312785 H61.892 Partial lo ss of ear ossicles 31890214 H74.322 Referred o talgia of left ear 3659257919 368681 H92.02 M26.622 M79.11 The patient complains of {{intermit tent* testing and regulating chief elian}} {{right-si ded left-s ided* bila teral}} [...] cond uctive and sensorineural hearing loss, bilateral 399246210 H90.6 Audiologic al evaluation results:Ri ght ear:{{Norm [...] to return to her audiologis t at [facility] audiology to ensure that her hearing aids are adjusted to match her current level of hearing loss. Health Concerns Section Related Observation LastModified by Organization Detai ls LastModified Time None Recorded Concern Status LastModified by Organization Details LastModified Time None Recorded Advance Directives Directive None Recorded Payers Encounter Date Sequence Insurance Name Policy Number Policy Almaraz Covered Member ID Almaraz Member ID Guarantor Name 12/22/2024 1 [place] [facility] Mary Jose Johnston [id number] Mary Johnston Notes Date Note Type Note Provider Name [...] Patient has bilateral hearing aids dispensed from [facility] audiology, but has not been using them lately because she has not been able to get batteries. Patient noticing some left periauricular discomfort which refers down into her left jawline. CHEYENNE COTA MD [address] [place] [address], [place], [phone], [facility] - [facility] 12/22/2024 10:57:03 OBGyn Episode No OBEpisode recorded.
[2025-01-16 14:58] LABS: HPV Genotype 16 Negative (Negative); HPV Genotype 18 Negative (Negative); HPV High Risk Negative (Negative)
== END 2025-01-13 16:47 | disposition home or self-care (01) ==
LOC: HO.HHCLNP 16:46
PROVIDERS: Visit Provider Advanced Practice Midwife
DX: Z12.4 Encounter for screening for malignant neoplasm of cervix (principal); Z11.51 Encounter for screening for human papillomavirus (HPV)
CPT/HCPCS: 87626; 88175

== ENCOUNTER 2025-01-14 13:07 | Outpatient (AMB) | payer MEDICARE, MEDICAID, SELFPAY ==
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
[2025-01-14 13:12] VITALS: BP 128/60; PULSE 70; O2SAT 97; BMI 31.0
--- OUTSIDE RECORDS SUMMARY | 2025-01-14 15:34 | XMS_ITS | Encounter Summary ---
Author Organization [employer] [facility] Address [address] [facility] 7t [place] [address] Care Team Providers Care Rope Silica Machine Operator Name Role Phone Teri Owens MD Primary Care Provider [phone] Reason for Visit * Reason Onset Date Comments PT1 01/17/2023 Encounter Details Date Type Department Care Team ([facility] Contact Info) Description 01/17/2023 Telephone [facility]S [address] [place] [address] Teri Owens MD [address] [place] [address] PT1 Social History Tobacco Use Types Packs/Day [...] - 01/17/2023 12:46 PM EST Tc from [facility] with [facility] requesting a PT1 for pt PT1 Name of facility: [facility]. Head Of Design Specialty: Feet or foot Location: [address] [place] [address] Date: 01/24/2023 Time: 9:30 am fax: n/a Phone: n/a wheelchair: n/a Ict Teacher: n/a documented in this encounter Plan of Treatment Upcoming Encounters Date Type Department Care Team (Late st Contact Info) Description 04/07/2025 11:00 AM EDT Office Visit [facility] MED & PEDS [address] [place] [address] Teri Owens MD [address] [place] [address] documented as of this encounter Visit Diagnoses Diagnosis Constipation, unspecified constipation type documented in this encounter Care Teams Rope Silica Machine Operator Relationship Specialty Start Date End Date Teri Owens MD [address] [place] [address] PCP - General Family Medicine 10/21/18 Dolores Danielle Hot Stone SetterCotton Picker 09/27/23 documented as of this encounter
--- OUTSIDE RECORDS SUMMARY | 2025-01-14 15:34 | XMS_ITS | Clinical Summary ---
Author Organization [employer] [facility] Address [address] [place] [address] Care Team Providers Care Assistant Floor Covering Printer Name Role Phone Unavailable Primary Care Provider [...]
--- OUTSIDE RECORDS SUMMARY | 2025-01-14 15:35 | XMS_ITS | Encounter Summary ---
Author Organization [employer] Address [address] [facility] 7t [place] [address] Care Team Providers Care Ranger Aide Name Role Phone Teri Owens MD Primary Care Provider [phone] Reason for Visit * Reason Onset Date Comments No Show 01/08/2025 Encounter Details Date Type Department Care Team ([facility] st Contact Info) Description 01/08/2025 Telephone [facility]S [address] [place] [address] Teressa Gomez, CN [address] [place] [address] No Show Social History Tobacco Use Types [...] 11:00 AM EDT Office Visit [facility] MED & PEDS [address] [place] [address] Teri Owens MD 505 [place] [address] documented as of this encounter Visit Diagnoses Not on filedocumented in this encounter Additional Health Concerns Assessment Noted Time PHQ-9 Depression Total Score: 0 01/06/20 25 9:22 AM EST documented as of this encounter Care Teams Ranger Aide Relationship Specialty Start Date End Date Teri Owens MD [address] [place] [address] PCP - General Family Medicine 10/21/18 Dolores Danielle Generator RepairerContact Acid Plant Operator 09/27/23 documented as of this encounter
--- OUTSIDE RECORDS SUMMARY | 2025-01-14 15:35 | XMS_ITS | Encounter Summary ---
Author Organization [employer] Address [address] [place] [facility] 7t [place] [address] Care Team Providers Care Cloth Piecer Name Role Phone Teri Owens MD Primary Care Provider [phone] Reason for Visit * Reason Onset Date Comments Referral 12/11/2023 Encounter Details Date Type Department Care Team (Late st Contact Info) Description 12/11/2023 Telephone [facility] MEDICINE [address] [place] [address] Teri Owens MD [address] [place] [address] Referral Social History Tobacco Use Types Packs/Day [...] pt requesting status on referral for podiatry, Pvc Monitor sees current status shows pending. Please contact at [phone] Filipino * Telephone Encounter - Leslie Alonzo RN - 12/11/2023 11:51 AM EST Call to Mary Johnston, reports having pain and itching of right great bit toe. Per pt has been seen by radiosonde operator in past for fungus on toe nails. Per pt denies any redness of skin or pus under nail or cuticle. Pt looking for referral to Dr. Jhony Patten at [facility] [place], [place] [id number] Will send to team nurses to follow [...] outcome Pt is requesting a referral for radiosonde operator. Filipino speaker documented in this encounter Plan of Treatment Upcoming Encounters Date Type Department Care Team (Late st Contact Info) Description 04/07/2025 11:00 AM EDT Office Visit [facility] MED & PEDS [address] [place] [address] Teri Owens MD [address] [place] [address] documented as of this encounter Visit Diagnoses Not on filedocumented in this encounter Care Teams Cloth Piecer Relationship Specialty Start Date End Date Teri Owens MD [address] [place] [address] PCP - General Family Medicine 10/21/18 Dolores Danielle Client Business ManagerCommercial Fisherman 09/27/23 documented as of this encounter
--- OUTSIDE RECORDS SUMMARY | 2025-01-14 15:35 | XMS_ITS | Encounter Summary ---
Author Organization [employer] [facility] Address [address] [place] [address] 7t [place] [address] Care Team Providers Care Roller Stitcher Name Role Phone Teri Owens MD Primary Care Provider [phone] Reason for Visit * Reason Comments Med Refill Encounter Details Date Type Department Care Team ([facility] Contact Info) Description 04/11/2024 Refill [facility] MED & PEDS [address] [place] [address] Teri Owens MD [address] [place] [address] GERD without esophagitis Social History Tobacco Use [...] Team ([facility] Contact Info) Description 04/07/2025 11:00 AM EDT Office Visit [facility] MED & PEDS [address] [place] [address] Teri Owens MD [address] [place] [address] documented as of this encounter Visit Diagnoses Diagnosis GERD without esophagitis Esophageal reflux documented in this encounter Care Teams Roller Stitcher Relationship Specialty Start Date End Date Teri Owens MD [address] [place] [address] PCP - General Family Medicine 10/21/18 Dolores Danielle Audit Clerks SupervisorRecycling Assistant 09/27/23 documented as of this encounter
--- OUTSIDE RECORDS SUMMARY | 2025-01-14 15:35 | XMS_ITS | Encounter Summary ---
Author Organization [employer] [facility] Address [address] [place] [address] 7t [place] [address] Care Team Providers Care Agate Setter Name Role Phone Teri Owens MD Primary Care Provider [phone] Encounter Details Date Type Department Care Team ([facility] Contact Info) Description 06/23/2024 Orders Only [facility] MED & PEDS [address] [place] [address] ProviderPorsche MD Social History Tobacco Use Types [...] Description 04/07/2025 11:00 AM EDT Office Visit [facility] MED & PEDS [address] [place] [address] Teri Owens MD 505 [place] [address] documented as of this encounter Procedures Procedure Name Priority Date/Time Associated Diagnosis Comments ECG 12-LEAD Routine 06/18/2024 10:23 AM EDT documented in this encounter Results * ECG 12 lead (06/18/2024 10:23 AM EDT) us Historical Provider ECG ORDERABLES Final Res ult documented in this encounter Visit Diagnoses Not on filedocumented in this encounter Care Teams Agate Setter Relationship Specialty Start Date End Date Teri Owens MD [address] [place] [address] PCP - General Family Medicine 10/21/18 Dolores Danielle Sanding Machine OperatorNews Videotape Editor 09/27/23 documented as of this encounter
--- OUTSIDE RECORDS SUMMARY | 2025-01-14 15:35 | XMS_ITS | Encounter Summary ---
Author Organization [employer] [facility] Address [address] [facility] 7t [place] [address] Care Team Providers Care Computer Applications Developer Name Role Phone Teri Owens MD Primary Care Provider Reason for Visit * Reason Onset Date Comments Med Refill 01/17/2023 Encounter Details Date Type Department Care Team ([facility] st Contact Info) Description 01/17/2023 Telephone [facility] MEDICINE [address] [place] [address] Teri Owens MD [address] [place] [address] Med Refill Social History Tobacco Use Types [...] Description 04/07/2025 11:00 AM EDT Office Visit [facility] MED & PEDS [address] [place] [address] Teri Owens MD 505 [place] [address] documented as of this encounter Visit Diagnoses Not on filedocumented in this encounter Care Teams Computer Applications Developer Relationship Specialty Start Date End Date Teri Owens MD [address] [place] [address] PCP - General Family Medicine 10/21/18 Dolores Danielle Project Structural EngineerShot Peening Operator 09/27/23 documented as of this encounter
--- OUTSIDE RECORDS SUMMARY | 2025-01-14 15:35 | XMS_ITS | Encounter Summary ---
Author Organization [employer] [facility] Address [address] [facility] 7t [place] [address] Care Team Providers Care Siding Coreboard Inspector Name Role Phone Teri Owens MD Primary Care Provider [phone] Reason for Referral * Consultation (Urgent) - Pending Review Specialty Diagnoses / Procedures Referred By Kolton frankel Referred To Contact Pain Medicine Diagnoses TMJ (temporomandibular joint syndrome) Teri Owens MD [address] [place] [address] Phone: tel: fax: [facility] Management [address] [facility] [address] [place] [address] Phone: tel: fax: Referral ID Status Reason Start Date Expiration Date Visits Requested Visits Authorized [id number] Pending Review Specialty Services Required 01/06/2025 01/06/2026 1 1 Encounter Details Date Type Department Care Team ([facility] st Contact Info) Description 01/06/2025 9:15 AM EST Office Visit [facility] MED & PEDS [address] [place] [address] Teri Owens MD [address] [place] [address] TMJ (temporomandibular joint syndrome) (Primary Dx); Arthropathy; [...] 11:00 AM EDT Office Visit [facility] MED & PEDS [address] [place] [address] Teri Owens MD [address] [place] [address] Scheduled Orders Name Type Priority Associated Diagnoses [...] documented as of this encounter Care Teams Siding Coreboard Inspector Relationship Specialty Start Date End Date Teri Owens MD [address] [place] [address] PCP - General Family Medicine 10/21/18 Dolores Danielle Buggy Ladle TenderAuto Apprentice Mechanic 09/27/23 documented as of this encounter
--- OUTSIDE RECORDS SUMMARY | 2025-01-14 15:35 | XMS_ITS | Encounter Summary ---
Author Organization [facility] Address [address] [place] [address] 7t [place] [address] Care Team Providers Care Certified Ski Patroller Name Role Phone Teri Owens MD Primary Care Provider [phone] Encounter Details Date Type Department Care Team ([facility] Contact Info) Description 08/23/2023 Orders Only [facility] MED & PEDS [address] [place] [address] Teri Owens MD [address] [place] [address] Social History Tobacco Use Types Packs/Day Years [...] Description 04/07/2025 11:00 AM EDT Office Visit [facility] MED & PEDS [address] [place] [address] Teri Owens MD [address] [place] [address] documented as of this encounter Visit Diagnoses Not on filedocumented in this encounter Care Teams Certified Ski Patroller Relationship Specialty Start Date End Date Teri Owens MD [address] [place] [address] PCP - General Family Medicine 10/21/18 Dolores Danielle Rn Clinical TrialsAssistant To The Ceo 09/27/23 documented as of this encounter
--- OUTSIDE RECORDS SUMMARY | 2025-01-14 15:35 | XMS_ITS | Encounter Summary ---
Author Organization [employer] [facility] Address [address] [place] [address] Care Team Providers Care Tire Cord Weaver Name Role Phone Teri Owens MD Primary Care Provider [phone] Reason for Visit * Reason Onset Date Comments Medication Question 12/24/2024 Encounter Details Date Type Department Care Team ([facility] st Contact Info) Description 12/24/2024 Telephone [facility] MEDICINE [address] [place] [address] Teri Owens MD [address] [place] [address] Medication Question Social History Tobacco Use Types [...] t he electric, gas, oil or water [employer] threatened to shut off services in your [...] EST TC [place] [id number] to inform her that she should discontinue [...] reactions to the medication. Contact pt at [phone] documented in this encounter Plan of Treatment Upcoming Encounters Date Type Department Care Team (Late st Contact Info) Description 04/07/2025 11:00 AM EDT Office Visit [facility] MED & PEDS [address] [place] [address] Teri Owens MD [address] [place] [address] documented as of this encounter Visit Diagnoses Not on filedocumented in this encounter Care Teams Tire Cord Weaver Relationship Specialty Start Date End Date Teri Owens MD [address] [place] [address] PCP - General Family Medicine 10/21/18 Dolores Danielle Parish NurseAutomobile Wrecker 09/27/23 documented as of this encounter
--- OUTSIDE RECORDS SUMMARY | 2025-01-14 15:35 | XMS_ITS | Data Portability ---
Author Organization [place] - [facility], Allergy Address [address] [place] [phone] Care Team Providers Care Pyrotechnics Press Tender Name Role Phone HANSA MILLER Primary Care [...] cholesteatoma . She may follow-up as needed. [email or web address] Not available 12/22/2024 10:56:28 Plan of Treatment [...] Recorded Time Disorder of left external ear [id number] 61207 Active 2021 Other specifie d disorder s of left external ear; Note: Date Diagnose d: 2 1:15 PM (H61.892 ) Not Available [facility] 4 03:13:57 Mixed conducti ve and sensorin eural hearing loss, bilatera l 490080488 Active 2022 Mixed conducti ve and sensorin eural hearing loss, bilatera l; Note: Date Diagnose d: 3 9:30 AM (H90.6) Not Available [facility] 4 03:13:56 Pain of left temporom andibula r joint 65705620599 736271 Active 2022 Arthralg ia of left temporom andibula r joint; Note: Date Diagnose d: 3 8:42 AM (M26.622 ) Not Available [facility] 4 03:13:57 Follow-u p visit Active 2021 Medical surveill ance followin g complete d treatmen t; Note: Date Diagnose d: 2 3:00 PM (Z09) Not Available [facility] 4 03:13:56 Mixed conducti ve and sensorin eural hearing loss of left ear 12648980382 107 Active 2021 Mixed conducti ve and sensorin eural hearing loss, unilater al, left ear with restrict ed hearing on the contrala teral side; Note: Date Diagnose d: 2 11:27 AM (H90.A32 ) Not Available [facility] 4 03:13:56 Otalgia of left ear 6722261164 Active 2022 Otalgia, left ear; Note: Date Diagnose d: 3 8:42 AM (H92.02) Not Available 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 4 03:13:57 Sensorin eural hearing loss in right ear 93671542269 100 Active 2021 Sensorin eural hearing loss, unilater al, right ear, with restrict ed hearing on the contrala teral side; Note: Date Diagnose d: 2 11:27 AM (H90.A21 ) Not Available [facility] 4 03:13:58 Partial loss of ear ossicles 52264595 Active 2021 Partial loss of ear ossicles , left ear; Note: Date Diagnose d: 2 1:15 PM (H74.322 ) Not Available [facility] 4 03:13:57 Referred otalgia of left ear 26718538959 61082 Active 2024 CHEYENNE COTA MD [address] [facility] [address], [place], [address] , [facility] 5 10:00:21 Problem Notes None recorded. Procedures Surgical History Date Name Laterality Status Provider Name and Address Organization Details Recorded Time 12/22/2024 Comp Audio with Tymps (66593 & 52494) completed MYRIAM BATES [address] [facility],[place] [address], [place], [phone], [facility] - [facility] 12/22/2024 10:21:25 Imaging Results Imaging Date Name Status LastModified by Organiz ation Details LastModified Time 12/22/2024 audiogram completed [facility] Information no t available 12/22/2024 18:19:21 Procedure Notes None recorded. Medical Equipment None Reported. Allergies Allergen ID Allergen Name Allergen Category Reaction Reaction Severity Criticality Documentation Date Start Date Code Code System Note Provider Name and Address Organization Details Recorded Time 88967 latex environme nt,medica tion other Not available Not available 03/25/2024 52295 91 RxNorm React ion: other react ion, Unkno wn; Not Available [facility] 4 00:48:24 Medications Name Sig Start Date [...] 1 gram tablet active Medicatio n ID: [id number] Br and Name: sucralfat e Send Method: [...] eye drops 2021 active Medicatio n ID: [id number] Du ration Value: 14 Prescrib ed By [...] a day 2022 active Medicatio n ID: [id number] Du ration Value: 14 Brand Name: ofloxacin [...] 10 mg tablet active Medicatio n ID: [id number] Br and Name: loratadin e Send Method: E-Prescri bed Subs Allowed: subs OK Specia l Instructi on: TAKE 1 TABLET BY MOUTH EVERY DAY Medic ationGene ricName: loratadin e Not Available Not Available Not Available naproxen 500 mg tablet active Not Available Not Available Not Available amoxicilli n 875 mg-potassi um clavulanat e 125 mg tablet by mouth 2021 active Medicatio n ID: [id number] Du ration Value: 10 Prescrib ed By [...] Available Not Available No t Available FreeStyle Piseco Lite kit TEST BLOOD SUGAR TWICE DAILY [...] Address Organization Details Last Updated DateTime 12/22/2024 82573.81 g 28.3 kg/m2 182.88 cm Kasey Izaguirre [place] - [facility] 12/22/2024 09:50:32 Social History None recorded. Functional Status None recorded. Mental Status None recorded. Family History Nothing Reported. Medical History No medical history recorded. Gynecological HistoryNo gynecological history recorded. Obstetrics History GPAL:G 0 P 0 0 0 0 Past Encounters Encounter ID Performer Location Encounter Start Date Encounter Closed Date Diagnosis/Indication Diagnosis SNOMED-CT Code Diagnosis ICD10 Code Diagnosis Note [id number] CHEYENNE COTA MD [facility] [address] [address] 12/22/2024 08:38:39 12/22/2024 10:59:12 Disorder of left external ear [id number] 738890 H61.892 Partial lo ss of ear ossicles 36653988 H74.322 Referred o talgia of left ear 1505187159 781830 H92.02 M26.622 M79.11 The patient complains of {{intermit tent* metal template maker elian}} {{right-si ded left-s ided* bila teral}} [...] cond uctive and sensorineural hearing loss, bilateral 659758771 H90.6 Audiologic al evaluation results:Ri ght ear:{{Norm [...] to return to her audiologis t at [facility] audiology to ensure that her hearing aids [...] Almaraz Member ID Guarantor Name 12/22/2024 1 MED[place]ID-[place]: [facility] Mary Jose Johnston [id number] Mary Johnston Notes Date Note Type Note [...] Patient has bilateral hearing aids dispensed from [facility] audiology, but has not been using them lately because she has not been able to get batteries. Patient noticing some left periauricular discomfort which refers down into her left jawline. CHEYENNE COTA MD [address] [place] [address], [place], [address], [facility] - [facility] 12/22/2024 10:57:03 OBGyn Episode No OBEpisode recorded.
--- OUTSIDE RECORDS SUMMARY | 2025-01-14 15:35 | XMS_ITS | Encounter Summary ---
Author Organization [facility] Address [address] [facility] 7t [place] [address] Care Team Providers Care Health Promotion Coordinator Name Role Phone Teri Owens MD Primary Care Provider [phone] Reason for Visit * Reason Comments lotus notes administrator Encounter Details Date Type Department Care Team (Latest Contact Info) Description 01/13/2025 11:15 AM EST Procedure Visit [facility] [address] [place], [place] [phone] Teressa Gomez CNM [address] [place] [address] Cervical cancer screening (Primary Dx); Tinea cruris [...] no prior abnormal. Penitentiary AMAB partner in [place], no safety concerns. Menopausal in late 50s, [...] 11:00 AM EDT Office Visit [facility] [address] [place] [address] Teri Owens MD 505 [place] [address] Scheduled Orders Name Type Priority Associated Diagnoses [...] documented as of this encounter Care Teams Health Promotion Coordinator Relationship Specialty Start Date End Date Teri Owens MD [address] [place] [address] PCP - General Family Medicine 10/21/18 Dolores Danielle Manager [employer]Warehouse Order Selector 09/27/23 documented as of this encounter
--- OUTSIDE RECORDS SUMMARY | 2025-01-14 15:35 | XMS_ITS | Encounter Summary ---
Author Organization [facility] Address [address] [facility] 7t [place] [address] Care Team Providers Care Computational Theory Scientist Name Role Phone Teri Owens MD Primary Care Provider [phone] Encounter Details Date Type Department Care Team [...] Upcoming Encounters Date Type Department Care Team ([facility] st Contact Info) Description 04/07/2025 11:00 AM EDT Office Visit [facility]S [address] [place] [address] Teri Owens MD 505 [place] [address] documented as of this encounter Visit Diagnoses Not on filedocumented in this encounter Additional Health Concerns Assessment Noted Time PHQ-9 Depression Total Score: 0 01/06/20 25 9:22 AM EST documented as of this encounter Care Teams Computational Theory Scientist Relationship Specialty Start Date End Date Teri Owens MD [address] [place] [address] PCP - General Family Medicine 10/21/18 Dolores Danielle Finisher PlateCalibrator Barometers 09/27/23 documented as of this encounter
--- OUTSIDE RECORDS SUMMARY | 2025-01-14 15:35 | XMS_ITS | Encounter Summary ---
Author Organization [facility] Address [address] [facility] 7t [place] [address] Care Team Providers Care Technical Laboratory Asst Name Role Phone Teri Owens MD Primary Care Provider [phone] Encounter Details Date Type Department Care Team [...] Upcoming Encounters Date Type Department Care Team ([facility] st Contact Info) Description 04/07/2025 11:00 AM EDT Office Visit [facility] MED & PEDS [address] [place] [address] Teri Owens MD 505 [place] [address] documented as of this encounter Visit Diagnoses Not on filedocumented in this encounter Additional Health Concerns Assessment Noted Time PHQ-9 Depression Total Score: 0 01/06/20 25 9:22 AM EST documented as of this encounter Care Teams Technical Laboratory Asst Relationship Specialty Start Date End Date Teri Owens MD [address] [place] [address] PCP - General Family Medicine 10/21/18 Dolores Danielle Automobile Accessories SalespersonEfficiency Engineer 09/27/23 documented as of this encounter
--- OUTSIDE RECORDS SUMMARY | 2025-01-14 15:35 | XMS_ITS | Encounter Summary ---
Author Organization [employer] Address [address] [facility] [address] 7t [place] [address] Care Team Providers Care Diversional Therapist'S Assistant Name Role Phone Teri Owens MD Primary Care Provider [phone] Reason for Visit * Reason Comments Med Refill Encounter Details Date Type Department Care Team ([facility] st Contact Info) Description 12/24/2024 Refill [facility] [address] [place] [address] Teri Owens MD [address] [place], [place] [phone] Social History Tobacco Use Types Packs/Day Years [...] t he electric, gas, oil or water [employer] threatened to shut off services in your [...] Description 04/07/2025 11:00 AM EDT Office Visit [facility] MED [facility] PEDS [address] [place], [place] [phone] Teri Owens MD 505 [place] [address] documented as of this encounter Visit Diagnoses Not on filedocumented in this encounter Care Teams Diversional Therapist'S Assistant Relationship Specialty Start Date End Date Teri Owens MD [address] [place] [address] PCP - General Family Medicine 10/21/18 Dolores Danielle Shipping Services Sales RepresentativeScheduling Assistant 09/27/23 documented as of this encounter
--- OUTSIDE RECORDS SUMMARY | 2025-01-14 15:35 | XMS_ITS | Clinical Summary ---
Author Organization [employer] Address [address] [place] [address] 7t [place] [address] Care Team Providers Care Lead Applier Name Role Phone Teri Owens MD Primary Care Provider [phone] Allergies Active Allergy Reactions Criticality Noted Date [...] complication, without long-term current use of insulin ([facility]) TAKE 1 TABLET BY MOUTH IN [...] complication, without long-term current use of insulin ([facility]) SPRAY 2 SPRAYS INTO EACH NOSTRIL [...] Description 01/13/2025 11:15 AM EST Procedure Visit [address] [address] Teressa Gomez CNM Cervical cancer screening (Primary Dx); Tinea cruris 01/13/2025 Travel 01/08/2025 Telephone [facility] [address] [place] [address] Teressa Gomez CNM No Show 01/06/2025 9:15 AM EST Office Visit [facility] [address] [place] [address] Teri Owens MD TMJ (temporomandibular joint syndrome) (Primary Dx); Arthropathy; Hypercholesteremia 01/06/2025 Travel 01/02/[address] [address] Teri Owens MD Medication Question 12/24/[address] [address] Teri Owens MD 12/24/[address] [address] Teri Owens MD Durable Medical Equipment 12/24/[address] [address] Teri Owens MD Medication Question 12/11/2024 Orders Only [facility] [address] [place] [address] Teri Owens MD 12/11/2024 Orders Only [facility] [address] [place] [address] Teri Singh MD 12/10/2024 Telephone [facility] [address] [place] [address] Teri Owens MD 12/08/2024 Telephone [facility] [address] [place] [address] Teri Owens MD Prior Authorization 12/05/2024 9:15 AM EST Office Visit [facility] [address] [place] [address] Teri Owens MD Ductal carcinoma in situ (DCIS) of left breast (Primary Dx); Type 2 diabetes mellitus without complication, without long-term current use of insulin (CMS/HCC); Unsteady gait; Encounter for immunization 12/05/2024 Telephone [facility] [address] [place] [address] Teri Owens MD Medication Question 12/05/2024 Telephone [facility] [address] [place] [address] Teri Owens MD FYI 12/05/2024 Travel 11/29/2024 Refill [facility] [address] [place] [address] Teri Owens MD 11/27/2024 Refill [facility] [address] [place] [address] Teri Owens MD 11/21/2024 Refill [facility] [address] [place] [address] Teri Owens MD Type 2 diabetes mellitus without complication, without long-term current use of insulin (CMS/HCC) 11/19/2024 Refill [facility] [address] [place] [address] Teri Owens MD Muscle spasms of neck 11/18/2024 Refill [facility] [address] [place] [address] Teri Owens MD 11/14/2024 Telephone [facility] [address] [place] [address] Teri Owens MD Nurse Triage 11/11/2024 Refill [facility] [address] [place] [address] Teri Owesn MD from Last 3 Months Immunizations Name [...] Description 04/07/2025 11:00 AM EDT Office Visit [facility] [address] [place] [address] Teri Owens MD [address] [place] [address] Health Maintenance Due Date Last Done Comments [...] AM EST) Hemoglobin A1c 5.4 <6.0 % [facility] Comment:Hemoglobin A1C Refer ence Range Adults: 4.8 - 6.0 % Non diabetic: < 6.0 % Goal: < 7.0 %Additional Action Suggested: > 8.0 %Note: Hemoglobin A1c results are invalid for patients with abnormal amounts of HbF. Blood transfusions may impact the HbA1c concentration in the patient sample. Estimated Average Glucose 108 mg/dL [facility] Comment:eAG = Estimated ave rage glucose which is %A1C expressed asaverage glucose, using the formula of the K9C-OierzkvFwvasqo Glucose study (ADAG), Diabetes Care, Vol.31,#8,2007 Blood Venous blood specimen / Unknown 12/10/2024 11:52 AM EST 12/10/2024 2:48 PM EST Teri Owens MD LAB BLOOD ORDERABLES Final Resul t Performing Organization Address [facility] [[email or web address]] Co de Phone Number [facility] [address] [place] [phone] * (ABNORMAL) Hepatic Function Panel (12/10/2024 11:52 AM EST) Bilirubin, Total 0.5 0.0 - 1.0 mg/dL [facility] Bilirubin, Direct 0.2 0.0 - 0.5 mg/dL [facility] Aspartate Amino Transferase 26 5 - 31 U/L [facility] Alanine Aminotransferase 25 0 - 31 U/L [facility] Total Protein 8.4(H) 6.5 - 8.0 g/dL [facility] Albumin Level 4.2 3.5 - 5.0 g/dL [facility] Alkaline Phosphatase 120(H) 39 - 117 U/L [facility] Blood Venous blood specimen / Unknown 12/10/2024 11:52 AM EST 12/10/2024 2:48 PM EST Teri Owens MD LAB BLOOD ORDERABLES Final Resul t Performing Organization Address City/[facility]/ZIP Co de Phone Number [facility] [address] [place] [phone] * (ABNORMAL) Lipid Panel, Standard (12/10/2024 11:52 AM EST) Triglycerides 96 <150 mg/dL [facility] Comment:Desirable Triglyceri de: less than 150 mg/dLBorderline High Triglyceride 150-199 mg/dLHigh Triglyceride: 200-499 mg/dLVery High Triglyceride: greater than or equal to 5OO mg/dL Cholesterol 249(H) <200 mg/dL [facility] Comment:Desirable Cholestero l: less than 200 mg/dLBorderline High Cholesterol: 200-239 mg/dLHigh Cholesterol: greater than 239 mg/dL LDL Cholesterol Calculated 177(H) <100 mg/dL [facility] Comment:Desirable LDL: less than 100 mg/dLNear Optimal/Above Optimal LDL: 110- 129 mg/dLBorderline High LDL: 130-159 mg/dLHigh LDL: 160-189 mg/dLVery High LDL: greater than or equal to 190 mg/dL HDL Cholesterol 53 >40 mg/dL [facility] Comment:Desirable HDL: great er than 40 mg/dL Note: This HDL assay may give artificially low results in patients with liver disease. Blood Venous blood specimen / Unknown 12/10/2024 11:52 AM EST 12/10/2024 2:48 PM EST us Teri Owens MD LAB BLOOD ORDERABLES Final Resul t [facility] [address] [place] [phone] * (ABNORMAL) Basic Metabolic Panel (12/10/2024 11:52 AM EST) Sodium 136 135 - 145 mmol/L [facility] Potassium 4.2 3.3 - 5.1 mmol/L [facility] Chloride 105 96 - 108 mmol/L [facility] Carbon Dioxide 26 22 - 29 mmol/L [facility] Anion Gap 9(L) 12 - 20 [facility] Urea Nitrogen (BUN) 9 9 - 16 mg/dL [facility] Creatinine, Serum 0.71 0.5 - 1.4 mg/dL [facility] Estimated Glomerular Filt Rate >60 [facility] Comment:Chronic Kidney Disea se: Estimated GFR < 60 mL/min/1.86x0Mpgcqw Kidney Disease: Estimated GFR < 15 mL/min/1.73m2 Glucose 88 60 - 115 mg/dL [facility] Calcium 9.4 8.4 - 10.2 mg/dL [facility] Blood Venous blood specimen / Unknown 12/10/2024 11:52 AM EST 12/10/2024 2:48 PM EST us Teri Owens MD LAB BLOOD ORDERABLES Final Resul t [facility] [address] [facility] [place] [address] [phone] * BI Mammogram Screening Tomosynthesis Bilateral (04/16/2024 9:25 AM EDT) Anatomical Region Laterality Modality Breast Bilateral Mammography 04/16/2024 9:25 AM EDT Narrative 05/13/2024 8:10 AM EDT ? [facility] ? [address] ?[place] [address] ? Mammography Report ? Signed ? Patient: Mary June ?MR#: ?? [id number] ? : 1960 ?Acct:[id number] ? Age/Sex: 64 / F ?ADM Date: 04/16/24 ? Loc: HO.MAMMO ? Attending Dr: Nichol Garner MD ? Ordering Physician: Nichol Garner MD ?Results: 2Benig ?? n Findings ? Date of Service: 04/16/24 ?Follow Up: 1 Year From Orig ?? inal Mammogram ? Procedure(s): MM tomosynthesis screening BI ?? Accession Number(s): [id number] ? cc: Nichol Garner MD; Laz Hauser [...] 08 ? DD/ 4 ? TD/TT: ? Habilitation Specialist: ? Procedure Note Juan Jose Urrutia - 05/13/2024 [facility] [address] [place], [place] [address] Mammography Report Signed Patient: Chandler June#: [id number] : 1960Acct:[id number] Age/Sex: 64 / FADM Date: 04/16/24 Loc: HO.MAMMO Attending Dr: Nichol Garner MD Ordering Physician: Nichol Garner MDResults: 2Benig n Findings Date of Service: 04/16/24Follow Up: 1 Year From [facility] Mammogram Procedure(s): MM tomosynthesis screening BI Accession Number(s): [id number] cc: Nichol Garner MD; Laz Hauser MD; [...] MD in OV> 05/13/24805 DD/ 4 TD/TT: Habilitation Specialist: [facility] External Provider IMG BI PROCEDURES Edited Result - Final from Last 3 Months or Most Recently Relevant to Health Maintenance Insurance [facility] STANDARD MEDICARE D[facility]AL-[facility] MEDICAID STAND ADULT Care Teams Lead Applier Relationship Specialty Start Date End Date Teri Owens MD [address] [place] [address] PCP - General Family Medicine 10/21/18 Dolores Danielle Press PullerFilter Press Tender 09/27/23
--- OUTSIDE RECORDS SUMMARY | 2025-01-14 15:35 | XMS_ITS | Encounter Summary ---
Author Organization [facility] Address [address] 7t [place] [address] Care Team Providers Care Farm Forest[employer] Garden Workers Name Role Phone Teri Owens MD Primary Care Provider [phone] Reason for Visit * Reason Onset Date Comments Medication Question 01/02/2025 Encounter Details Date Type Department Care Team ([facility] st Contact Info) Description 01/02/2025 Telephone [facility] [address] [place] [address] Teri Owens MD [address] [place] [address] Medication Question Social History Tobacco Use Types [...] t he electric, gas, oil or water [employer] threatened to shut off services in your [...] Notes * Telephone Encounter - Isabelle Chavez, MUSEUM REGISTRAR - 01/02/2025 11:59 AM EST Triage call returned with BLS # [id number] Adriana. Unable to connect to 787 area code. Call placed with [facility] # [id number] Marino. Patient reports increased arthritis symptoms in [...] from pt stating needs arthritis new medication. [phone] malay documented in this encounter Plan of Treatment Upcoming Encounters Date Type Department Care Team ([facility] st Contact Info) Description 04/07/2025 11:00 AM EDT Office Visit [facility] [address] [place] [address] Teri Owens MD [address] [place] [address] documented as of this encounter Visit Diagnoses Not on filedocumented in this encounter Care Teams [employer] Workers Relationship Specialty Start Date End Date Teri Owens MD [address] [place] [address] PCP - General Family Medicine 10/21/18 Dolores Danielle Rn ImagingMedical Lab Specialist 09/27/23 documented as of this encounter
--- OUTSIDE RECORDS SUMMARY | 2025-01-14 15:35 | XMS_ITS | Encounter Summary ---
Author Organization [employer] [facility] Address [address] 7t [place] [address] Care Team Providers Care Mingler Operator Name Role Phone Teri Owens MD Primary Care Provider [phone] Reason for Visit * Reason Onset Date Comments Pre-op Visit 06/18/2024 Encounter Details Date Type Department Care Team (Late st Contact Info) Description 06/18/2024 Telephone [facility] MEDICINE [address] [place] [address] Teri Owens MD [address] [place] [address] Pre-op Visit Social History Tobacco Use Types [...] Surgeon's name: Dr Laz Hauser Facility name: [facility] [place] Surgeon's office number: [phone] Surgeon's office fax number: [phone] Contact name; Micky Last office note from surgeon requested: Yes documented in this encounter Plan of Treatment Upcoming Encounters Date Type Department Care Team (Late st Contact Info) Description 04/07/2025 11:00 AM EDT Office Visit [facility] MED & PEDS [address] [place], [place] [phone] Teri Owens MD [address] [place] [address] documented as of this encounter Visit Diagnoses Not on filedocumented in this encounter Care Teams Mingler Operator Relationship Specialty Start Date End Date Teri Owens MD [address] [place] [address] PCP - General Family Medicine 10/21/18 Dolores Danielle Poultry EvisceratorLandscape Horticulture Instructor 09/27/23 documented as of this encounter
--- OUTSIDE RECORDS SUMMARY | 2025-01-14 15:35 | XMS_ITS | Encounter Summary ---
Author Organization [employer] Address [address] 7[address] [place] [address] Care Team Providers Care Customer Greeter Name Role Phone Teri Owens MD Primary Care Provider [phone] Reason for Visit * Reason Onset Date Comments Durable Medical Equipment 12/24/2024 Encounter Details Date Type Department Care Team ([facility] Contact Info) Description 12/24/2024 Telephone [facility] MEDICINE [address] [place] [address] Teri Owens MD [address] [place] [address] Durable Medical Equipment Social History Tobacco Use [...] t he electric, gas, oil or water [employer] threatened to shut off services in your [...] EST Tc from pt returning phone call. Telugu * Telephone Encounter - Kizzy Bergman RN - 12/25/2024 10:17 AM EST Nurse placed called to L&C to clarify what the pt will qualify for later this year. pinball machine repairer States that in June of 2025 pt will be able to obtain wheelchair with wheels. TC to pt via BLS toinform pt of this information. No answer, LVM to return call to office and ask for nurses. * Telephone Encounter - Majo Manzanraes LPN - 12/24/2024 11:31 AM EST Clinic Mgr spoke with L&C regarding message L&C stated pt received a walk without wheels back in 2021 with will be able to receive an upgrade in jun of this year 2024 specifications writer call pt however no answer Lvm. Tc from pt stating that she received a call from L&C stating that Pt insurance can Cover a Electric Scooter but Not the walker. IF any questions contact pt at [phone] * Telephone Encounter - Juan Carlos Cuevas - 12/24/2024 10:51 AM EST Tc from pt stating that she received a call from L&C stating that Pt insurance can Cover a Electric Scooter but Not the walker. IF any questions contact pt at [phone] documented in this encounter Plan of Treatment Upcoming Encounters Date Type Department Care Team (Late st Contact Info) Description 04/07/2025 11:00 AM EDT Office Visit [facility] MED & PEDS [address] [place], [place] [phone] Teri Owens MD [address] [place] [address] documented as of this encounter Visit Diagnoses Not on filedocumented in this encounter Care Teams Customer Greeter Relationship Specialty Start Date End Date Teri Owens MD [address] [place] [address] PCP - General Family Medicine 10/21/18 Dolores Danielle Supervisor Slitting And ShippingPetroleum Plant Operator 09/27/23 documented as of this encounter
--- OUTSIDE RECORDS SUMMARY | 2025-01-14 15:36 | XMS_ITS | Encounter Summary ---
Author Organization [employer] [facility] Address [address] [place] [address] 7t [place] [address] Care Team Providers Care Machine Operator Transplanter Name Role Phone Teri Owens MD Primary Care Provider [phone] Encounter Details Date Type Department Care Team (Latest Contact Info) Description 06/10/2019 Abstract [facility] CONVERSIONS Dental, Provider, DDS Social History [...] Description 04/07/2025 11:00 AM EDT Office Visit [facility] MED & PEDS [address] [place] [address] Teri Owens MD [address] [place] [address] documented as of this encounter Visit Diagnoses Not on filedocumented in this encounter Care Teams Machine Operator Transplanter Relationship Specialty Start Date End Date Teri Owens MD [address] [place] [address] PCP - General Family Medicine 10/21/18 Dolores Danielle Director Of Academic SupportMuck Boss 09/27/23 documented as of this encounter
--- OUTSIDE RECORDS SUMMARY | 2025-01-14 15:36 | XMS_ITS | Encounter Summary ---
Author Organization [employer] [facility] Address [address]t [place] [address] Care Team Providers Care Fishing Boat Mate Name Role Phone Teri Owens MD Primary Care Provider [phone] Encounter Details Date Type Department Care Team ([facility] Contact Info) Description 10/27/2022 Orders Only [facility] MEDICINE [address] [place] [address] Teri Owens MD [address] [place], [place] [phone] GERD without esophagitis (Primary Dx) Social History [...] Upcoming Encounters Date Type Department Care Team ([facility] Contact Info) Description 04/07/2025 11:00 AM EDT Office Visit [facility] MED & PEDS [address] [place], [place] [phone] Teri Owens MD [address] [place] [address] documented as of this encounter Visit Diagnoses Diagnosis GERD without esophagitis- Primary Esophageal reflux documented in this encounter Care Teams Fishing Boat Mate Relationship Specialty Start Date End Date Teri Owens MD [address] [place] [address] PCP - General Family Medicine 10/21/18 Dolores Danielle Candy Wrapping Machine OperatorCore Composer Machine Tender 09/27/23 documented as of this encounter
--- OUTSIDE RECORDS SUMMARY | 2025-01-14 15:36 | XMS_ITS | Encounter Summary ---
Author Organization [employer] Address [address] [place] [address] [address] [place] [address] Care Team Providers Care Boilermaker Fitter Name Role Phone Teri Owens MD Primary Care Provider [phone] Reason for Visit * Reason Onset Date Comments Durable Medical Equipment 03/07/2024 Encounter Details Date Type Department Care Team ([facility] st Contact Info) Description 03/07/2024 Telephone [facility] MED & PEDS [address] [place] [address] Teri Owens MD [address] [place] [address] Durable Medical Equipment Social History Tobacco Use [...] a knee brace. Please contact pt at [phone] (Sinhala) documented in this encounter Plan of Treatment Upcoming Encounters Date Type Department Care Team ([facility] st Contact Info) Description 04/07/2025 11:00 AM EDT Office Visit [facility] MED & PEDS [address] [place] [address] Teri Owens MD [address] [place] [address] documented as of this encounter Visit Diagnoses Not on filedocumented in this encounter Care Teams Boilermaker Fitter Relationship Specialty Start Date End Date Teri Owens MD [address] [place] [address] PCP - General Family Medicine 10/21/18 Dolores Danielle Still OperatorLiberal Arts And Humanities Chair 09/27/23 documented as of this encounter
--- OUTSIDE RECORDS SUMMARY | 2025-01-14 15:36 | XMS_ITS | Encounter Summary ---
Author Organization [employer] [facility] Address [address] [place] [address] 7t [place] [address] Care Team Providers Care Buckle Sewer Machine Name Role Phone Teri Owens MD Primary Care Provider [phone] Encounter Details Date Type Department Care Team ([facility] Contact Info) Description 03/12/2024 Orders Only [facility] MED [facility]EDS [address] [place] [address] Teri Owens MD [address] [place] [address] Social History Tobacco Use Types Packs/Day Years [...] [facility] MED & PEDS [address] [place] [address] Teri Owens MD [address] [place] [address] documented as of this encounter Visit Diagnoses Not on filedocumented in this encounter Care Teams Buckle Sewer Machine Relationship Specialty Start Date End Date Teri Owens MD [address] [place] [address] PCP - General Family Medicine 10/21/18 Dolores Danielle Network Engineering AdvisorSoaker Hides 09/27/23 documented as of this encounter
--- OUTSIDE RECORDS SUMMARY | 2025-01-14 15:36 | XMS_ITS | Encounter Summary ---
Author Organization [employer] [facility] Address [address] [place] [address] [address] [place] [address] Care Team Providers Care Eyelet Maker Name Role Phone Teri Owens MD Primary Care Provider [phone] Encounter Details Date Type Department Care Team (Latest Contact Info) Description 09/14/[address] [facility] CONVERSIONS Dental, Provider, DDS Social [...] Description 04/07/2025 11:00 AM EDT Office Visit [facility] MED & PEDS [address] [place] [address] Teri Owens MD [address] [place] [address] documented as of this encounter Visit Diagnoses Not on filedocumented in this encounter Care Teams Eyelet Maker Relationship Specialty Start Date End Date Teri Owens MD [address] [place] [address] PCP - General Family Medicine 10/21/18 Dolores Danielle Brim RounderJunior Qa Analyst 09/27/23 documented as of this encounter
== END 2025-01-14 16:56 | disposition home or self-care (01) ==
PROVIDERS: PCP Student in an Organized Health Care Education/Training Program; Visit Provider Nurse Practitioner Family
DX: K59.01 Slow transit constipation (principal); K21.9 Gastro-esophageal reflux disease without esophagitis; Z12.11 Encounter for screening for malignant neoplasm of colon; R74.01 Elevation of levels of liver transaminase levels
CPT/HCPCS: 99214; G2211

== ENCOUNTER → 2025-01-14 13:07 | Outpatient (BNVA) | payer MEDICARE, MEDICAID, SELFPAY | PROVIDERS: PCP Student in an Organized Health Care Education/Training Program; Visit Provider Nurse Practitioner Family | DX: Z01.818 Encounter for other preprocedural examination (principal); K59.01 Slow transit constipation; K21.9 Gastro-esophageal reflux disease without esophagitis; R10.13 Epigastric pain; R74.01 Elevation of levels of liver transaminase levels | CPT/HCPCS: 99212 ==

== ENCOUNTER 2025-02-25 13:56 | Outpatient (REF) | payer MEDICARE, MEDICAID, SELFPAY ==
--- NOTE | 2025-02-25 13:59 | EMG_ITS ---
Chief complaint: Bilateral hand numbness Reason for referral: Evaluate for Carpal Tunnel Syndrome Referred by: Abel SIMPSON Precautions and/or limitations: Patient unable to tolerate nerve conduction studies. Was only able to test right median motor nerve, which was within normal. Rest of test aborted. Nerve Conduction Studies Motor Summary Table ?Stim Site NR Onset (ms) Norm Onset (ms) O-P Amp (mV) Norm O-P Amp iAmp (mV) Amp (1st) (%) Site1 Site2 Delta-0 (ms) Dist (cm) Dejan (m/s) Norm Dejan (m/s) Right Median Motor (Abd Poll Brev) Wrist ? 3.4 <3.9 11.5 >4.5 13.5 100.0 Elbow Wrist 4.0 22.5 56 >45 Elbow ? 7.4 10.1 12.0 87.8 Thank you for your kind referral. Eliana Cuenca MD, SHAUNA Board Certified, [place] Board of Physical Medicine and Rehabilitation (ABPMR) Board Certified, [place] Board of Electrodiagnostic Medicine (ABEM) [facility]
--- OUTSIDE RECORDS SUMMARY | 2025-02-25 16:39 | XMS_ITS | Clinical Summary ---
Author Organization [employer] [facility] Address [address] [place] [address] 7t [place] [address] Care Team Providers Care Brick And Tile Making Machine Operator Name Role Phone Teri Owens MD Primary Care Provider [phone] Allergies Active Allergy Reactions Criticality Noted Date [...] or fever 100 tablet 1 023 Active cholecalciferol (Vitamin D-3) 50 MCG (1999) tabletIndications: Type 2 diabetes mellitus without complication, without long-term current use of insulin ([facility]) TAKE 1 TABLET BY MOUTH IN THE [...] EVERY 12 HOURS 180 tablet 024 Active Diclofenac Sodium 1 % gelIndications:Mus monica spasms of neck APPLY 2 GRAMS TOPICALLY TO THE AFFECTED AREA IN THE MORNING AND AT BEDTIME NEEDED FOR MUSCLE PAIN 100 g 3 025 Active cetirizine (ZyrTEC) 10 MG tablet Take [...] not crush, chew, or split. 30 tablet 2025 Active meloxicam (Mobic) 7.5 MG tablet Take 1 tablet (7.5 mg) by mouth 2 times daily. 60 tablet 025 2025 Active clotrimazole (Lotrimin) 1 % cream Apply twice daily x 14 days, continue for a total of 28 d if improved but not resolved. 30 g 1 025 Active tamoxifen (Nolvadex) 20 MG chemo tablet Take 1 tablet by mouth Once per day. 019 Active docusate sodium (Colace) 100 MG capsuleIndications :Constipation, unspecified constipation type Take 1 capsule (100 mg) by mouth 2 times daily. 180 capsule 1 025 Active miconazole (Micotin) 2 % cream APPLY 1 APPILICATION VAGINALLY AT BEDTIME 45 g 025 Active ibuprofen 800 MG tablet TAKE 1 TABLET BY MOUTH THREE TIMES DAILY 90 tablet 2 025 Active fluticasone (Flonase) 50 MCG/ACT nasal sprayIndications:T ype 2 diabetes mellitus without complication, without long-term current use of insulin ([facility]) SHAKE LIQUID AND USE 2 SPRAYS IN EACH NOSTRIL TWICE DAILY 48 g 025 Active fluticasone (Flonase Allergy Relief) 50 MCG/ACT nasal sprayIndications:T ype 2 diabetes mellitus without complication, without long-term current use of insulin ([facility]) SPRAY 2 SPRAYS INTO EACH NOSTRIL TWICE A DAY 48 g 025 2024 Discontinued ibuprofen 800 MG tablet TAKE 1 TABLET BY MOUTH THREE TIMES DAILY 90 tablet 2 025 2024 Discontinued Active Problems Problem Noted Date Diagnosed Date Persistent depressive disorder 01/06/2025 Ductal carcinoma in situ (DCIS) of left breast 0 06/20/2024 Acute pain of right knee 10/27/2022 Encounters Date Type Department Care Team Description 02/20/2025 Telephone [facility] [address] [place], [place] [phone] Teri Owens MD Referral 02/16/2025 Refill [facility] [address] [facility] [address] Teri Owens MD Type 2 diabetes mellitus without complication, without long-term current use of insulin ([facility]) 01/26/2025 Refill [facility] [address] [facility] [address] Teri Owens MD 01/23/2025 Population Health Risk Score [facility] ([facility]) Department [address] [place] [phone] Provider, Population Health Generic 01/15/2025 Refill [facility] [address] [facility] [place] [address] Teri Owens MD Constipation, unspecified constipation type 01/13/2025 11:15 AM EST Procedure Visit [facility] [address] [facility] [place] [address] Jigna Dorsey CNM Cervical cancer screening (Primary Dx); Jocelyne mixon 01/13/2025 Orders Only [facility] [address] [facility] [place] [address] Jigna Dorsey CNM 01/13/2025 Travel 01/08/2025 Telephone [facility] [address] [place] [address] Jigna Dorsey CNM No Show 01/06/2025 9:15 AM EST Office Visit [facility] [address] [place] [address] Teri Owens MD TMJ (temporomandibular joint syndrome) (Primary Dx); Arthropathy; Hypercholesteremia 01/06/2025 Travel 01/02/[address] [address] Teri Owens MD Medication Question 12/24/[address] [address] Teri Owens MD 12/24/[address] [address] Teri Owens MD Durable Medical Equipment 12/24/[address] [address] Teri Owens MD Medication Question 12/11/2024 Orders Only [facility] [address] [place] [address] Teri Owens MD 12/11/2024 Orders Only [facility] [address] [place] [address] Teri Owens MD 12/10/2024 Telephone [facility] [address] [place] [address] Teri Owens MD 12/08/2024 Telephone [facility] [address] [place] [address] Teri Owens MD Prior Authorization 12/05/2024 9:15 AM EST Office Visit [facility] [address] [place] [address] Teri Owens MD Ductal carcinoma in situ (DCIS) of left breast (Primary Dx); Type 2 diabetes mellitus without complication, without long-term current use of insulin ([facility]); Unsteady gait; Encounter for immunization 12/05/2024 Telephone [facility] [address] [place] [address] Teri Owens MD Medication Question 12/05/[address] [address] Teri Owens MD FYI 12/05/2024 Travel 11/29/2024 Refill [facility] [address] [place] [phone] Teri Owens MD 11/27/2024 Refill [facility] [address] [place] [address] Teri Owens MD from Last 3 Months [...] [facility] [address] [place] [address] Teri Owens MD [address] [place] [address] Health Maintenance Due Date Last Done Comments CT Colonography 1960 Colonoscopy 1960 Colorectal Cancer Screening 1960 FIT DNA/Cologuard 1960 FIT 1960 FOBT 1960 Sigmoidoscopy 1960 Diabetes: Foot Exam 01/30/1970 Eye Exam 01/30/1970 Hepatitis C Screening 01/30/1978 Diabetes: Urine Protein Screening 01/30/1979 Hepatitis A Vaccines (1 of 2 - Risk 2-dose series) 01/30/1979 Pneumococcal Vaccine: 50+ Years (1 of 2 - PCV) 01/30/1979 Hepatitis B Vaccines (1 of 3 - [...] (2 - Td or Tdap) 07/18/2029 07/18/2019 Cervical Cancer Screening 01/13/2030 HPV/Cotest 01/13/2030 01/13/2025 Pap Smear 01/13/2030 01/13/2025 RSV Patients and Patients Aged 60 years [...] Procedure Name Priority Date/Time Associated Diagnosis Comments PAP SMEAR Routine 01/13/2025 11:19 AM EST Cervical cancer screening HPV DNA, LOW/HIGH RISK Routine 11:19 AM EST HEPATIC FUNCTION PANEL Routine 11:52 AM EST [...] Recently Relevant to Health Maintenance Results * HPV DNA, Low/High Risk (01/13/2025 11:19 AM EST) HPV High Risk Negative Negative [facility] HPV Genotype 16 Negative Negative [facility] HPV Genotype 18 Negative Negative [facility] Comment:HPV testing performe d at [facility] (CLIA#[id number]), [address] [place] [id number].Testing for HPV was performed using the Kyler PILAR 6800system. The presence of HPV in the female genital tract isassociated with a number of diseases, including cervicalcarcinoma. The HPV DNA high risk pool tests for HPV 31, 33,35, 39, 45, 51, 52, 56, 58, 59, 66 and 68. The testing forHPV 16 and 18 genotypes has also been performed. A positiveresult indicates detection of nucleic acid sequences fromone or more subtypes, whereas a negative result indicatessuch sequences were not detected. 01/13/2025 11:1 9 AM EST 01/14/2025 6:50 AM EST us Jigna Dorsey [facility] BLOOD ORDERABLES Yoselin l Result [facility] [address] [place] [phone] * Pap Smear (01/13/2025 11:19 AM EST) Swab Cervix uteri structure / Unknown 01/13/2025 11:19 AM EST 01/14/2025 6:50 AM EST Narrative [facility] - 01/16/2025 8:18 AM EST ----- ------- Name: Mary June ? Age/Sex: 64/F ? : 1960 Unit#: [id number] ?? Attend Dr: JIGNA DORSEY CNM ?Re01/13/25 ?Status: DEP REF ? Location: HO.HHCLNP ? Disch: ? ----- ------- SPEC : [id number] ? RECD: 01/14/25 ? STATUS: ??SOUT ? REQ NUM: [id number] ? PURA: 01/13/25 ? SUBM DR: JIGNA DORSEY CNM ? ENTERED: ??01/14/25 ?SP TYPE: Pap Smr ?OTHR DR: ? ORDERED: ??Pap Smear ? Interpretation ?? Satisfactory for evaluation. ?? Negative for intraepithelial lesion or malignancy. ?? No endocervical cells seen. ? HPV High Risk: ??Negative ? HPV Genotyping 16: ??Negative ?? HPV Genotyping 18: ??Negative ?Clinical Information LMP: Post menopausal Previous PAP test: Unknown date/findings ? Material Received ?? Cervix ----- ------- Signed (signature on file) BETI Queen (ASCP) 01/16/25817 ? ----- ------- ? END OF REPORT ? us Jigna Dorsey [facility] CYTOLOGY ORDERABLES F inal Result [facility] [address] [place] [address] [phone] * Hemoglobin A1c (12/10/2024 11:52 AM EST) Hemoglobin A1c 5.4 <6.0 % [facility] Comment:Hemoglobin A1C Refer ence Range Adults: 4.8 - 6.0 % Non diabetic: < 6.0 % Goal: < 7.0 %Additional Action Suggested: > 8.0 %Note: Hemoglobin A1c results are invalid for patients with abnormal amounts of HbF. Blood transfusions may impact the HbA1c concentration in the patient sample. Estimated Average Glucose 108 mg/dL [facility] Comment:eAG = Estimated ave rage glucose which is %A1C expressed asaverage glucose, using the formula of the W8N-JdpfeaeLfsroit Glucose study (ADAG), Diabetes Care, Vol.31,#8,Jun. 2007 Blood Venous blood specimen / Unknown 12/10/2024 11:52 AM EST 12/10/2024 2:48 PM EST Teri Owens MD LAB BLOOD ORDERABLES Final Resul t Performing Organization Address [facility] Co de Phone Number [facility] [address] [place] [address] [phone] * (ABNORMAL) Hepatic Function Panel (12/10/2024 11:52 AM EST) Bilirubin, Total 0.5 0.0 - 1.0 mg/dL [facility] Bilirubin, Direct 0.2 0.0 - 0.5 mg/dL [facility] Aspartate Amino Transferase 26 5 - 31 U/L [facility] Alanine Aminotransferase 25 0 - 31 U/L [facility] Total Protein 8.4(H) 6.5 - 8.0 g/dL [facility] Albumin Level 4.2 3.5 - 5.0 g/dL [facility] Alkaline Phosphatase 120(H) 39 - 117 U/L [facility] Blood Venous blood specimen / Unknown 12/10/2024 11:52 AM EST 12/10/2024 2:48 PM EST Teri Owens MD LAB BLOOD ORDERABLES Final Resul t Performing Organization Address [facility] Co de Phone Number [facility] [address] [place] [phone] * (ABNORMAL) Lipid Panel, Standard (12/10/2024 11:52 AM EST) Triglycerides 96 <150 mg/dL [facility] Comment:Desirable Triglyceri de: less than 150 mg/dLBorderline High Triglyceride 150-199 mg/dLHigh Triglyceride: 200-499 mg/dLVery High Triglyceride: greater than or equal to 5OO mg/dL Cholesterol 249(H) <200 mg/dL [facility] Comment:Desirable Cholestero l: less than 200 mg/dLBorderline High Cholesterol: 200-239 mg/dLHigh Cholesterol: greater than 239 mg/dL LDL Cholesterol Calculated 177(H) <100 mg/dL [facility] Comment:Desirable LDL: less than 100 mg/dLNear Optimal/Above Optimal LDL: 110- 129 mg/dLBorderline High LDL: 130-159 mg/dLHigh LDL: 160-189 mg/dLVery High LDL: greater than or equal to 190 mg/dL HDL Cholesterol 53 >40 mg/dL [facility] Comment:Desirable HDL: great er than 40 mg/dL Note: This HDL assay may give artificially low results in patients with liver disease. Blood Venous blood specimen / Unknown 12/10/2024 11:52 AM EST 12/10/2024 2:48 PM EST us Teri Owens MD LAB BLOOD ORDERABLES Final Resul t [facility] [address] [place] [phone] * (ABNORMAL) Basic Metabolic Panel (12/10/2024 11:52 AM EST) Sodium 136 135 - 145 mmol/L [facility] Potassium 4.2 3.3 - 5.1 mmol/L [facility] Chloride 105 96 - 108 mmol/L [facility] Carbon Dioxide 26 22 - 29 mmol/L [facility] Anion Gap 9(L) 12 - 20 [facility] Urea Nitrogen (BUN) 9 9 - 16 mg/dL [facility] Creatinine, Serum 0.71 0.5 - 1.4 mg/dL [facility] Estimated Glomerular Filt Rate >60 [facility] Comment:Chronic Kidney Disea se: Estimated GFR < 60 mL/min/1.94z4Bpdmif Kidney Disease: Estimated GFR < 15 mL/min/1.73m2 Glucose 88 60 - 115 mg/dL [facility] Calcium 9.4 8.4 - 10.2 mg/dL [facility] Blood Venous blood specimen / Unknown 12/10/2024 11:52 AM EST 12/10/2024 2:48 PM EST us Teri Owens MD LAB BLOOD ORDERABLES Final Resul t [facility] [address] [place] [place] [address] [phone] * BI Mammogram Screening Tomosynthesis Bilateral (04/16/2024 9:25 AM EDT) Anatomical Region Laterality Modality Breast Bilateral Mammography 04/16/2024 9:25 AM EDT Narrative 05/13/2024 8:10 AM EDT ? [facility] [place] ? [address] ?[place] [address] ? Mammography Report ? Signed ? Patient: Jose Johnston,Mary ?MR#: ?? [id number] ? : 1960 ?Acct:[id number] ? Age/Sex: 64 / F ?ADM Date: 04/16/ ? Loc: HO.MAMMO ? Attending Dr: Nichol Garner MD ? Ordering Physician: Nichol Garner MD ?Results: 2Benig ?? n Findings ? Date of Service: 04/16/ ?Follow Up: 1 Year From Orig ?? inal Mammogram ? Procedure(s): MM tomosynthesis screening BI ?? Accession Number(s): [id number] ? cc: Nichol Garner MD; Laz Hauser [...] in OV> ? 05/13/24 0806 ? DD/ 4 ? TD/TT: ? Material Controller: ? Procedure Note Ghada, Image - 05/13/2024 [facility] [address] [place], [place] [address] Mammography Report Signed Patient: Chandler June#: [id number] : 1960Acct:[id number] Age/Sex: 64 / FADM Date: 04/16/24 Loc: HO.MAMMO Attending Dr: Nichol Garner MD Ordering Physician: Nichol Garner MDResults: 2Benig n Findings Date of Service: 04/16/24Follow Up: 1 Year From Orig inal Mammogram Procedure(s): MM tomosynthesis screening BI Accession Number(s): [id number] cc: Nichol Garner MD; Laz Hauser MD; [...] signed by Sary Limon MD in OV> 05/13/24 0806 DD/ 4 TD/TT: Material Controller: [facility] External Provider IMG BI PROCEDURES Edited Result - Final from Last 3 Months or Most Recently Relevant to Health Maintenance Insurance [facility] STANDARD MEDICARE DENTAL-[facility] MEDICAID STAND ADULT Care Teams Brick And Tile Making Machine Operator Relationship Specialty Start Date End Date Teri Owens MD [address] [place] [address] PCP - General Family Medicine 10/21/18 Dolores Danielle Electrician ResearchLogistics Tech 09/27/23
--- OUTSIDE RECORDS SUMMARY | 2025-02-25 16:39 | XMS_ITS | Encounter Summary ---
Author Organization [employer] [facility] Address [address] [place] [address] 7t [place] [address] Care Team Providers Care Brick Siding Applicator Name Role Phone Teri Owens MD Primary Care Provider [phone] Encounter Details Date Type Department Care Team ([facility] Contact Info) Description 06/23/2024 Orders Only [facility] PEDS [address] [place] [address] ProviderPorsche MD Social History Tobacco Use Types [...] Description 04/07/2025 11:00 AM EDT Office Visit [facility] [address] [place] [address] Teri Owens MD [address] [place] [address] documented as of this encounter Procedures Procedure Name Priority Date/Time Associated Diagnosis Comments ECG 12-LEAD Routine 06/18/2024 10:23 AM EDT documented in this encounter Results * ECG 12 lead (06/18/2024 10:23 AM EDT) us Historical Provider ECG ORDERABLES Final Res ult documented in this encounter Visit Diagnoses Not on filedocumented in this encounter Care Teams Brick Siding Applicator Relationship Specialty Start Date End Date Teri Owens MD [address] [place] [address] PCP - General Family Medicine 10/21/18 Dolores Danielle Environmental Project ManagerDrilling Inspector 09/27/23 documented as of this encounter
--- OUTSIDE RECORDS SUMMARY | 2025-02-25 16:39 | XMS_ITS | Encounter Summary ---
Author Organization [employer] Address [address] [place] [address] 7t [place] [address] Care Team Providers Care Tool Smith Name Role Phone Teri Owens MD Primary Care Provider [phone] Reason for Visit * Reason Onset Date Comments Durable Medical Equipment 03/07/2024 Encounter Details Date Type Department Care Team ([facility] st Contact Info) Description 03/07/2024 Telephone [facility] [address] [place] [address] Teri Owens MD [address] [place] [address] Durable Medical Equipment Social History Tobacco Use [...] a knee brace. Please contact pt at [phone] (Slovenian) documented in this encounter Plan of Treatment Upcoming Encounters Date Type Department Care Team ([facility] st Contact Info) Description 04/07/2025 11:00 AM EDT Office Visit [facility] [address] [place] [address] Teri Owens MD [address] [place] [address] documented as of this encounter Visit Diagnoses Not on filedocumented in this encounter Care Teams Tool Smith Relationship Specialty Start Date End Date Teri Owens MD [address] [place] [address] PCP - General Family Medicine 10/21/18 Dolores Danielle Covering And Lining SupervisorGlobal Sales Executive 09/27/23 documented as of this encounter
--- OUTSIDE RECORDS SUMMARY | 2025-02-25 16:39 | XMS_ITS | Encounter Summary ---
Author Organization [employer] [facility] Address [address] [facility] 7t [place] [address] Care Team Providers Care Wheel Worker Name Role Phone Teri Owens MD Primary Care Provider [phone] Reason for Visit * Reason Onset Date Comments Med Refill 01/17/2023 Encounter Details Date Type Department Care Team ([facility] st Contact Info) Description 01/17/2023 Telephone [facility] MEDICINE [address] [place] [address] Teri Owens MD [address] [place] [address] Med Refill Social History Tobacco Use Types [...] [facility] [address] [place] [address] Teri Owens MD [address] [place] [address] documented as of this encounter Visit Diagnoses Not on filedocumented in this encounter Care Teams Wheel Worker Relationship Specialty Start Date End Date Teri Owens MD [address] [place] [address] PCP - General Family Medicine 10/21/18 Dolores Danielle Upper Lining CementerSpanish Medical Interpreter 09/27/23 documented as of this encounter
--- OUTSIDE RECORDS SUMMARY | 2025-02-25 16:39 | XMS_ITS | Encounter Summary ---
Author Organization [employer] [facility] Address [address] [place] [address] 7t [place] [address] Care Team Providers Care Bindery Cutter Operator Name Role Phone Teri Owens MD Primary Care Provider [phone] Encounter Details Date Type Department Care Team ([facility] Contact Info) Description 08/23/2023 Orders Only [facility] MED & PEDS [address] [place] [address] Teri Owens MD [address] [place] [address] Social History Tobacco Use Types Packs/Day Years [...] 11:00 AM EDT Office Visit [facility] MED & PEDS [address] [place] [address] Teri Owens MD [address] [place] [address] documented as of this encounter Visit Diagnoses Not on filedocumented in this encounter Care Teams Bindery Cutter Operator Relationship Specialty Start Date End Date Teri Owens MD [address] [place] [address] PCP - General Family Medicine 10/21/18 Dolores Danielle Commercial SubcontractorBlood Bank Manager 09/27/23 documented as of this encounter
--- OUTSIDE RECORDS SUMMARY | 2025-02-25 16:39 | XMS_ITS | Encounter Summary ---
Author Organization [employer] [facility] Address [address] [facility] 7t [place] [address] Care Team Providers Care Echocardiographer Name Role Phone Teri Owens MD Primary Care Provider [phone] Reason for Visit * Reason Onset Date Comments Referral 02/20/2025 Encounter Details Date Type Department Care Team ([facility] Contact Info) Description 02/20/2025 Telephone C [facility] [address] [place] [address] Teri Owens MD [address] [place] [address] Referral Social History Tobacco Use Types Packs/Day [...] encounter Miscellaneous Notes * Telephone Encounter - Laisha Gonzalez RN - 02/20/2025 12:36 PM EDT TC to pt x2. No answer voicemail left. underliner used. * Telephone Encounter - Gabriela Napier - 02/20/2025 10:35 AM EDT Tc from pt calling in regarding referral for pain management. States does not want to start injections until further evaluation is done. Pt informs dental provider gave her a referral to [facility] and was advised before being scheduled with them 6 monthof physical therapy has to be done and a 6 month with a tool lathe operator . I informed pt to call dental r egarding tool lathe operator and that I would forward message for physical therapy. documented in this encounter Plan of Treatment Upcoming Encounters Date Type Department Care Team (Late st Contact Info) Description 04/07/2025 11:00 AM EDT Office Visit [facility] MED & PEDS [address] [place], [place] [phone] Teri Owens MD [address] [place] [address] documented as of this encounter Visit Diagnoses Not on filedocumented in this encounter Additional Health Concerns Assessment Noted Time PHQ-9 Depression Total Score: 0 01/06/20 25 9:22 AM EST documented as of this encounter Care Teams Echocardiographer Relationship Specialty Start Date End Date Teri Owens MD [address] [place] [phone] PCP - General Family Medicine 10/21/18 Dolores Danielle Behavioral ScientistSocial Services Aide 09/27/23 documented as of this encounter
--- OUTSIDE RECORDS SUMMARY | 2025-02-25 16:39 | XMS_ITS | Encounter Summary ---
Author Organization [facility] Address [address] [place] [address] 7t [place] [address] Care Team Providers Care Tactical Air Defense Controller Name Role Phone Teri Owens MD Primary Care Provider [phone] Encounter Details Date Type Department Care Team (Latest Contact Info) Description 09/14/2021 Abstract [facility] CONVERSIONS Dental, Provider, DDS Social History [...] Description 04/07/2025 11:00 AM EDT Office Visit [facility] MED [facility] PEDS [address] [place] [address] Teri Owens MD [address] [place] [address] documented as of this encounter Visit Diagnoses Not on filedocumented in this encounter Care Teams Tactical Air Defense Controller Relationship Specialty Start Date End Date Teri Owens MD [address] [place] [address] PCP - General Family Medicine 10/21/18 Dolores Danielle Return To Service InspectorSenior Applications Engineer 09/27/23 documented as of this encounter
--- OUTSIDE RECORDS SUMMARY | 2025-02-25 16:39 | XMS_ITS | Encounter Summary ---
Author Organization [facility] Address [address] [facility] 7t [place] [address] Care Team Providers Care Water Pipe Installer Name Role Phone Teri Owens MD Primary Care Provider [phone] Encounter Details Date Type Department Care Team ([facility] Contact Info) Description 10/27/2022 Orders Only [facility] MEDICINE [address] [place] [address] Teri Owens MD 505 [place], [place] [phone] GERD without esophagitis (Primary Dx) Social History [...] Upcoming Encounters Date Type Department Care Team ([facility] Contact Info) Description 04/07/2025 11:00 AM EDT Office Visit [facility] MED & PEDS [address] [place], [place] [phone] Teri Owens MD [address] [place] [address] documented as of this encounter Visit Diagnoses Diagnosis GERD without esophagitis- Primary Esophageal reflux documented in this encounter Care Teams Water Pipe Installer Relationship Specialty Start Date End Date Teri Owens MD [address] [place] [address] PCP - General Family Medicine 10/21/18 Dolores Danielle SlasherVolleyball Commentator 09/27/23 documented as of this encounter
--- OUTSIDE RECORDS SUMMARY | 2025-02-25 16:39 | XMS_ITS | Encounter Summary ---
Author Organization [employer] Address [address] 7t [place] [address] Care Team Providers Care Filament Coil Winder Name Role Phone Teri Owens MD Primary Care Provider [phone] Reason for Visit * Reason Comments Med Refill Encounter Details Date Type Department Care Team ([facility] st Contact Info) Description 12/24/2024 Refill [facility] MEDICINE 230 [place] [address] Teri Owens MD [address] [place], [place] [phone] Social History Tobacco Use Types Packs/Day Years [...] t he electric, gas, oil or water [employer] threatened to shut off services in your [...] Description 04/07/2025 11:00 AM EDT Office Visit [facility] MED & PEDS 505 [place], [place] [phone] Teri Owens MD 505 [place] [address] documented as of this encounter Visit Diagnoses Not on filedocumented in this encounter Care Teams Filament Coil Winder Relationship Specialty Start Date End Date Teri Owens MD [address] [place] [address] PCP - General Family Medicine 10/21/18 Dolores Danielle Nursing Service DirectorBrickmason Helper 09/27/23 documented as of this encounter
--- OUTSIDE RECORDS SUMMARY | 2025-02-25 16:39 | XMS_ITS | Encounter Summary ---
Author Organization [facility] [facility] Address [address] [place] [address] 7t [place] [address] Care Team Providers Care Board Mixer Tender Name Role Phone Teri Owens MD Primary Care Provider [phone] Encounter Details Date Type Department Care Team ([facility] Contact Info) Description 03/12/2024 Orders Only [facility] MED & PEDS 505 [place] [address] Teri Owens MD 505 [place] [address] Social History Tobacco Use Types Packs/Day Years [...] Description 04/07/2025 11:00 AM EDT Office Visit [facility] CHC MED & PEDS [address] [place] [address] Teri Owens MD 505 [place] [address] documented as of this encounter Visit Diagnoses Not on filedocumented in this encounter Care Teams Board Mixer Tender Relationship Specialty Start Date End Date Teri Owens MD [address] [place] [address] PCP - General Family Medicine 10/21/18 Dolores Danielle Laboratory SupervisorApplication Penetration Tester 09/27/23 documented as of this encounter
--- OUTSIDE RECORDS SUMMARY | 2025-02-25 16:39 | XMS_ITS | Encounter Summary ---
Author Organization [employer] Address [address] [facility] 7t [place] [address] Care Team Providers Care Small Engine Specialist Name Role Phone Teri Owens MD Primary Care Provider [phone] Reason for Visit * Reason Onset Date Comments Referral 12/11/2023 Encounter Details Date Type Department Care Team (Late st Contact Info) Description 12/11/2023 Telephone [facility] MEDICINE 230 [place] [address] Teri Owens MD [address] [place] [address] Referral Social History Tobacco Use Types Packs/Day [...] pt requesting status on referral for podiatry, [facility] sees current status shows pending. Please contact at [phone] Nigerian * Telephone Encounter - Leslie Alonzo RN - 12/11/2023 11:51 AM EST Call to Mary Johnston, reports having pain and itching of right great bit toe. Per pt has been seen by manager java in past for fungus on toe nails. Per pt denies any redness of skin or pus under nail or cuticle. Pt looking for referral to Dr. Jhony Patten at [facility] [place], [place] [phone] Will send to team nurses to follow [...] Pt is requesting a referral for manager java. Nigerian speaker documented in this encounter Plan of Treatment Upcoming Encounters Date Type Department Care Team (Late st Contact Info) Description 04/07/2025 11:00 AM EDT Office Visit [facility] MED & PEDS 505 [place] [address] Teri Owens MD 505 [place] [address] documented as of this encounter Visit Diagnoses Not on filedocumented in this encounter Care Teams Small Engine Specialist Relationship Specialty Start Date End Date Teri Owens MD [address] [place] [address] PCP - General Family Medicine 10/21/18 Dolores Danielle Shuttle FixerProfessional Programmer Analyst 09/27/23 documented as of this encounter
--- OUTSIDE RECORDS SUMMARY | 2025-02-25 16:39 | XMS_ITS | Encounter Summary ---
Author Organization [facility] Address [address] [facility] 7t [place] [address] Care Team Providers Care Coat Operator Insulator Name Role Phone Teri Owens MD Primary Care Provider [phone] Reason for Visit * Reason Onset Date Comments PT1 01/17/2023 Encounter Details Date Type Department Care Team ([facility] Contact Info) Description 01/17/2023 Telephone [facility] MED & PEDS 505 [place] [address] Teri Owens MD 505 [place] [address] PT1 Social History Tobacco Use Types Packs/Day [...] - 01/17/2023 12:46 PM EST Tc from [facility] with [facility] requesting a PT1 for pt PT1 Name of facility: [facility]. Storage Administrator Specialty: Feet or foot Location: [address] [place] [address] Date: 01/24/2023 Time: 9:30 am fax: n/a Phone: n/a wheelchair: n/a Sponge Hooker: n/a documented in this encounter Plan of Treatment Upcoming Encounters Date Type Department Care Team (Late st Contact Info) Description 04/07/2025 11:00 AM EDT Office Visit [facility] MED & PEDS [address] [place] [address] Teri Owens MD 505 [place] [address] documented as of this encounter Visit Diagnoses Diagnosis Constipation, unspecified constipation type documented in this encounter Care Teams Coat Operator Insulator Relationship Specialty Start Date End Date Teri Owens MD [address] [place] [address] PCP - General Family Medicine 10/21/18 Dolores Danielle Mobile Product ManagerRecycling Program Manager 09/27/23 documented as of this encounter
--- OUTSIDE RECORDS SUMMARY | 2025-02-25 16:39 | XMS_ITS | Data Portability ---
Author Organization [place] [facility] Address [address] [place] [address] Care Team Providers Care Ore Puncher Name Role Phone HANSA MILLER Primary Care Provider [phone] Assessment Encounter Date Assessment Date Assessment LastModified by Organization Details LastModified Time 12/22/2024 12/22/2024 Left ear remains well-healed following two-stage surgery of cholesteatoma . No signs of recurrent or persistent disease. No sign of tympanic membrane retraction. At this point, there is very low likelihood that she will develop recurrent cholesteatoma . She may follow-up as needed. [email or web address] Not available 12/22/2024 10:56:28 Plan of Treatment [...] Recorded Time Disorder of left external ear 30295179101 52510 Active 2021 Other specifie d disorder s of left external ear; Note: Date Diagnose d: 2 1:15 PM (H61.892 ) Not Available [facility] 4 03:13:57 Mixed conducti ve and sensorin eural hearing loss, bilatera l 215396355 Active 2022 Mixed conducti ve and sensorin eural hearing loss, bilatera l; Note: Date Diagnose d: 3 9:30 AM (H90.6) Not Available [facility] 4 03:13:56 Pain of left temporom andibula r joint 73582651723 531956 Active 2022 Arthralg ia of left temporom andibula r joint; Note: Date Diagnose d: 3 8:42 AM (M26.622 ) Not Available [facility] 4 03:13:57 Follow-u p visit Active 2021 Medical surveill ance followin g complete d treatmen t; Note: Date Diagnose d: 2 3:00 PM (Z09) Not Available [facility] 4 03:13:56 Mixed conducti ve and sensorin eural hearing loss of left ear 17517342661 107 Active 2021 Mixed conducti ve and sensorin eural hearing loss, unilater al, left ear with restrict ed hearing on the contrala teral side; Note: Date Diagnose d: 2 11:27 AM (H90.A32 ) Not Available [facility] 4 03:13:56 Otalgia of left ear 7819109433 Active 2022 Otalgia, left ear; Note: Date Diagnose d: 3 8:42 AM (H92.02) Not Available [facility] 4 03:13:57 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 64832287216 55088 Completed 202106/13/2024 Choleste atoma of attic, left ear; Note: Date Diagnose d: 2 1:15 PM (H71.02) Not Available [facility] 4 03:13:57 Sensorin eural hearing loss in right ear 85923804781 100 Active 2021 Sensorin eural hearing loss, unilater al, right ear, with restrict ed hearing on the contrala teral side; Note: Date Diagnose d: 2 11:27 AM (H90.A21 ) Not Available [facility] 4 03:13:58 Partial loss of ear ossicles 02888602 Active 2021 Partial loss of ear ossicles , left ear; Note: Date Diagnose d: 2 1:15 PM (H74.322 ) Not Available [facility] 4 03:13:57 Referred otalgia of left ear 28751235550 68585 Active 2024 CHEYENNE COTA MD [address] [facility],[place] [address], [place], [address] , [facility] 5 10:00:21 Problem Notes None recorded. Procedures Surgical History Date Name Laterality Status Provider Name and Address Organization Details Recorded Time 12/22/2024 Comp Audio with Tymps (86601 & 78146) completed MYRIAM BATES [address] [facility],[place] [address], [place], [address], [facility] - [facility] 12/22/2024 10:21:25 Imaging Results Imaging Date Name Status LastModified by Organiz ation Details LastModified Time 12/22/2024 audiogram completed [facility] Information no t available 12/22/2024 18:19:21 Procedure Notes None recorded. Medical Equipment None Reported. Allergies Allergen ID Allergen Name Allergen Category Reaction Reaction Severity Criticality Documentation Date Start Date Code Code System Note Provider Name and Address Organization Details Recorded Time 23564 latex environme nt,medica tion other Not available Not available 03/25/2024 81103 91 RxNorm React ion: other react ion, Unkno wn; Not Available [facility] 4 00:48:24 Medications Name Sig Start Date [...] 1 gram tablet active Medicatio n ID: [id number] Br and Name: sucralfat e Send Method: [...] eye drops 2021 active Medicatio n ID: [id number] Du ration Value: 14 Prescrib ed By [...] a day 2022 active Medicatio n ID: [id number] Du ration Value: 14 Brand Name: ofloxacin [...] 10 mg tablet active Medicatio n ID: 533772 Br and Name: loratadin e Send Method: E-Prescri bed Subs Allowed: subs OK Specia l Instructi on: TAKE 1 TABLET BY MOUTH EVERY DAY Medic ationGene ricName: loratadin e Not Available Not Available Not Available naproxen 500 mg tablet active Not Available Not Available Not Available amoxicilli n 875 mg-potassi um clavulanat e 125 mg tablet by mouth 2021 active Medicatio n ID: [id number] Du ration Value: 10 Prescrib ed By [...] Available Not Available No t Available [employer] [place] Lite kit TEST BLOOD SUGAR TWICE DAILY [...] Address Organization Details Last Updated DateTime 12/22/2024 07160.81 g 28.3 kg/m2 182.88 cm Kasey Izaguirre [place] - [facility] 12/22/2024 09:50:32 Social History None recorded. Functional Status None recorded. Mental Status None recorded. Family History Nothing Reported. Medical History No medical history recorded. Gynecological HistoryNo gynecological history recorded. Obstetrics History GPAL:G 0 P 0 0 0 0 Past Encounters Encounter ID Performer Location Encounter Start Date Encounter Closed Date Diagnosis/Indication Diagnosis SNOMED-CT Code Diagnosis ICD10 Code Diagnosis Note [id number] CHEYENNE COTA MD [facility] [address] [address] 12/22/2024 08:38:39 12/22/2024 10:59:12 Disorder of left external ear 9643023868 107555 H61.892 Partial lo ss of ear ossicles 53118615 H74.322 Referred o talgia of left ear 5896647397 149824 H92.02 M26.622 M79.11 The patient complains of {{intermit tent* family practice medical doctor elian}} {{right-si ded left-s ided* bila teral}} [...] cond uctive and sensorineural hearing loss, bilateral 890116834 H90.6 Audiologic al evaluation results:Ri ght ear:{{Norm [...] to return to her audiologis t at [facility] to ensure that her hearing aids [...] Almaraz Member ID Guarantor Name 12/22/2024 1 [place] [facility] Mary Johnston [id number] Mary Johnston Notes Date Note Type Note [...] Patient has bilateral hearing aids dispensed from [facility], but has not been using them lately because she has not been able to get batteries. Patient noticing some left periauricular discomfort which refers down into her left jawline. CHEYENNE COTA MD [address] [place] [address], [place], [address], [facility] - [facility] 12/22/2024 10:57:03 OBGyn Episode No OBEpisode recorded.
--- OUTSIDE RECORDS SUMMARY | 2025-02-25 16:39 | XMS_ITS | Encounter Summary ---
Author Organization [employer] [facility] Address [address] [facility] 7t [place] [address] Care Team Providers Care Parts Department Supervisor Name Role Phone Teri Owens MD Primary Care Provider Reason for Visit * Reason Onset Date Comments Pre-op Visit 06/18/2024 Encounter Details Date Type Department Care Team (Late st Contact Info) Description 06/18/2024 Telephone [facility] MEDICINE 230 [place] [address] Teri Owens MD [address] [place] [address] Pre-op Visit Social History Tobacco Use Types [...] 9:15AM with Braulio * Telephone Encounter - Arpiat Patrick - 06/18/2024 2:50 PM EDT Date of Surgery: 06/25 Surgical procedure being done: Gallbladder Type of anesthesia: General Lab needed: Yes EKG: Yes Surgeon's name: Dr Laz Hauser Facility name: [facility] Surgeon's office number: [phone] Surgeon's office fax number: [phone] Contact name; Micky Last office note from surgeon requested: Yes documented in this encounter Plan of Treatment Upcoming Encounters Date Type Department Care Team (Late st Contact Info) Description 04/07/2025 11:00 AM EDT Office Visit [facility] MED & PEDS 505 [place], [place] [phone] Teri Owens MD 505 [place] [address] documented as of this encounter Visit Diagnoses Not on filedocumented in this encounter Care Teams Parts Department Supervisor Relationship Specialty Start Date End Date Teri Owens MD [address] [place] [address] PCP - General Family Medicine 10/21/[address] Mixer OperatorC T Tech 09/27/23 documented as of this encounter
--- OUTSIDE RECORDS SUMMARY | 2025-02-25 16:39 | XMS_ITS | Encounter Summary ---
Author Organization [employer] [facility] Address [address] [place] [address] 7t [place] [address] Care Team Providers Care Cartography/Mapping Technician Name Role Phone Teri Owens MD Primary Care Provider [phone] Reason for Visit * Reason Comments Med Refill Encounter Details Date Type Department Care Team ([facility] Contact Info) Description 04/11/2024 Refill [facility] MED & PEDS 505 [place] [address] Teri Owens MD 505 [place] [address] GERD without esophagitis Social History Tobacco Use [...] Upcoming Encounters Date Type Department Care Team ([facility] Contact Info) Description 04/07/2025 11:00 AM EDT Office Visit [facility] MED & PEDS [address] [place] [address] Teri Owens MD 505 [place] [address] documented as of this encounter Visit Diagnoses Diagnosis GERD without esophagitis Esophageal reflux documented in this encounter Care Teams Cartography/Mapping Technician Relationship Specialty Start Date End Date Teri Owens MD [address] [place] [address] PCP - General Family Medicine 10/21/18 Dolores Danielle Industrial Gas ServicerEngraver Seals 09/27/23 documented as of this encounter
--- OUTSIDE RECORDS SUMMARY | 2025-02-25 16:39 | XMS_ITS | Clinical Summary ---
Author Organization [facility] ity Address [address] [place] [address] Care Team Providers Care Backrest Assembler Name Role Phone Unavailable Primary Care Provider [...] - 2023-2 5 season) 2024 Influenza Vaccine (Season Ended) 2025 RSV Immunization Adult Patie nts (1 - 1-dose 75+ series) 01/30/2035 HIB [...] age to complete this topic Meningococcal B Vaccine Aged Out No l onger eligible based on patient's age to complete [...]
--- OUTSIDE RECORDS SUMMARY | 2025-02-25 16:40 | XMS_ITS | Encounter Summary ---
Author Organization [facility] Address [address] [place] [address] 7[place] [address] Care Team Providers Care Performance Improvement Specialist Name Role Phone Teri Owens MD Primary Care Provider [phone] Encounter Details Date Type Department Care Team (Latest Contact Info) Description 06/10/2019 Abstract [facility] CONVERSIONS Dental, Provider, DDS Social History Tobacco [...] [facility]EDS [address] [place] [address] Teri Owens MD [address] [place] [address] documented as of this encounter Visit Diagnoses Not on filedocumented in this encounter Care Teams Performance Improvement Specialist Relationship Specialty Start Date End Date Teri Owens MD [address] [place] [address] PCP - General Family Medicine 10/21/18 Dolores Danielle Central Office MechanicCore Java Engineer 09/27/23 documented as of this encounter
== END 2025-02-25 13:57 | disposition home or self-care (01) ==
LOC: HO.NEURO 13:56
PROVIDERS: PCP Student in an Organized Health Care Education/Training Program
DX: Z13.89 Encounter for screening for other disorder (principal)

== ENCOUNTER → 2025-02-25 13:59 | Outpatient (BNV) | payer MEDICARE, MEDICAID, SELFPAY | PROVIDERS: PCP Student in an Organized Health Care Education/Training Program; Visit Provider Physical Medicine & Rehabilitation | DX: R20.0 Anesthesia of skin (principal); R20.2 Paresthesia of skin | CPT/HCPCS: 95907 ==

== ENCOUNTER 2025-04-08 09:45 | Outpatient (REF) | payer OTHER, SELFPAY ==
--- OUTSIDE RECORDS SUMMARY | 2025-04-08 10:29 | XMS_ITS | Clinical Summary ---
Author Organization [facility] ity Address [address] [place] [address] Care Team Providers Care Manager Quantitative Name Role Phone Unavailable Primary Care Provider [...]
[2025-04-08 14:43] LABS: Alanine Aminotransferase 21 U/L (0-31); Alkaline Phosphatase 112 U/L (39-117); Anion Gap 10 (12-20); Aspartate Amino Transferase 24 U/L (5-31); Bilirubin Direct 0.2 mg/dL (0.0-0.5); Bilirubin Total 0.5 mg/dL (0.0-1.0); Blood Urea Nitrogen 9 mg/dL (9-16); Carbon Dioxide 28 mmol/L (22-29); Chloride 108 mmol/L (96-108); Cholesterol 227 mg/dL (<200); Estimated Glomerular Filt Rate > 60; Glucose Random 83 mg/dL (60-115); HDL Cholesterol 57 mg/dL (>40); LDL Cholesterol Calculated 149 mg/dL (<100); Potassium 4.3 mmol/L (3.3-5.1); Sodium 142 mmol/L (135-145); Total Protein 7.3 g/dL (6.5-8.0); Triglycerides 106 mg/dL (<150)
== END 2025-04-08 09:46 | disposition home or self-care (01) ==
LOC: HO.CHCLDS 09:45
PROVIDERS: Visit Provider Student in an Organized Health Care Education/Training Program
DX: E78.00 Pure hypercholesterolemia, unspecified (principal)
CPT/HCPCS: 36415; 80048; 80061; 80076

== ENCOUNTER 2025-04-22 08:33 | Outpatient (REF) | payer OTHER, SELFPAY ==
--- NOTE | ~2025-04-22 | MM_ITS ---
EXAMINATION: MM SCREENING DIGITAL BREAST TOMOSYNTHESIS, BILATERAL CLINICAL INFORMATION: Screening. Asymptomatic. History of left breast cancer in 2019 post lumpectomy. COMPARISON: Mammography: Comparison is made with available priors TECHNIQUE: Digital breast mammography with tomosynthesis is performed in both the craniocaudal and mediolateral oblique views along with computer-aided detection (CAD). FINDINGS: There are scattered areas of fibroglandular density (ACR BI-RADS breast composition Category b). Left lumpectomy changes are stable. There are no significant masses, abnormal calcifications, or other abnormalities. MM/MM tomosynthesis screening BI IMPRESSION: No mammographic evidence of malignancy. ASSESSMENT: BI-RADS BI-RADS 2 - Benign Findings RECOMMENDATION: Routine annual mammography screening. 1 year F/U This examination should not preclude the clinical evaluation of a suspicious palpable abnormality. This patient's information was entered into a reminder system with a target due date for their next mammogram. Electronically signed by: Parris Varghese DO 04/22/2025 09:31 AM EDT
--- OUTSIDE RECORDS SUMMARY | 2025-04-22 08:48 | XMS_ITS | Clinical Summary ---
Author Organization [employer] [facility] ity Address [address] [place] [address] Care Team Providers Care Mitten Sewer Name Role Phone Unavailable Primary Care Provider [...]
== END 2025-04-22 08:34 | disposition home or self-care (01) ==
LOC: HO.MAMMO 08:33
PROVIDERS: PCP Student in an Organized Health Care Education/Training Program; Visit Provider Student in an Organized Health Care Education/Training Program
DX: Z12.31 Encounter for screening mammogram for malignant neoplasm of breast (principal)
CPT/HCPCS: 77063; 77067

== ENCOUNTER → 2025-04-22 09:00 | Outpatient (BNV) | payer OTHER, SELFPAY | PROVIDERS: PCP Student in an Organized Health Care Education/Training Program; Visit Provider Internal Medicine | DX: Z12.31 Encounter for screening mammogram for malignant neoplasm of breast (principal) | CPT/HCPCS: 77063; 77067 ==

== ENCOUNTER 2025-05-01 09:48 | Outpatient (AMB) | payer OTHER, SELFPAY ==
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
--- OUTSIDE RECORDS SUMMARY | 2025-05-01 10:00 | XMS_ITS | Clinical Summary ---
Author Organization [employer] [employer] [facility] ity Address [address] [place] [address] Care Team Providers Care Clinical Services Manager Name Role Phone Unavailable Primary Care Provider [...]
[2025-05-01 10:05] VITALS: BP 132/63; PULSE 73; BMI 31.2
== END 2025-05-01 10:14 | disposition home or self-care (01) ==
LOC: HO.HGS 09:49
PROVIDERS: PCP Student in an Organized Health Care Education/Training Program; Visit Provider Surgery
DX: D05.12 Intraductal carcinoma in situ of left breast (principal)
CPT/HCPCS: 99213; G2211

== ENCOUNTER → 2025-05-01 09:48 | Outpatient (BNVA) | payer OTHER, SELFPAY | PROVIDERS: PCP Student in an Organized Health Care Education/Training Program; Visit Provider Surgery | DX: D05.12 Intraductal carcinoma in situ of left breast (principal); Z17.0 Estrogen receptor positive status [ER+] | CPT/HCPCS: 99212 ==

== ENCOUNTER 2025-05-25 09:07 | Outpatient (REF) | payer OTHER, SELFPAY ==
--- OUTSIDE RECORDS SUMMARY | 2025-05-26 09:28 | XMS_ITS | Encounter Summary ---
Author Organization [employer] Address [address] [facility] [address] [place] [address] Care Team Providers Care Power Electronics Research Engineer Name Role Phone Teri Owens MD Primary Care Provider [phone] Reason for Visit * Reason Onset Date Comments PT1 01/17/2023 Encounter Details Date Type Department Care Team ([facility] st Contact Info) Description 01/17/2023 Telephone [facility] [address] [place] [address] Teri Owens MD [address] [place] [address] PT1 Social History Tobacco Use Types Packs/Day [...] - 01/17/2023 12:46 PM EST Tc from [facility] with [facility] requesting a PT1 for pt PT1 Name of facility: [facility]. Life Insurance Actuary Specialty: Feet or foot Location: [address] [place] [address] Date: 01/24/2023 Time: 9:30 am fax: n/a Phone: n/a wheelchair: n/a Joinery Machinist: n/a documented in this encounter Plan of Treatment Not on file documented as of this encounter Visit Diagnoses Diagnosis Constipation, unspecified constipation type documented in this encounter Care Teams Power Electronics Research Engineer Relationship Specialty Start Date End Date Teri Owens MD [address] [place] [address] PCP - General Family Medicine 10/21/18 Dolores Danielle Wage AdjusterPrepared Foods Supervisor 09/27/23 documented as of this encounter
--- OUTSIDE RECORDS SUMMARY | 2025-05-26 09:28 | XMS_ITS | Data Portability ---
Author Organization [place] - [facility], [facility] Address [address] [address] Care Team Providers Care Cut Order Hand Name Role Phone HANSA MILLER Primary Care [...] cholesteatoma . She may follow-up as needed. Not available 12/22/2024 10:56:28 Plan of Treatment [...] Recorded Time Disorder of left external ear 02678608438 99636 Active 2021 Other specifie d disorder s of left external ear; Note: Date Diagnose d: 2 1:15 PM (H61.892 ) Not Available [facility] 4 03:13:57 Mixed conducti ve and sensorin eural hearing loss, bilatera l 334893686 Active 2022 Mixed conducti ve and sensorin eural hearing loss, bilatera l; Note: Date Diagnose d: 3 9:30 AM (H90.6) Not Available [facility] 4 03:13:56 Pain of left temporom andibula r joint 17464603120 205596 Active 2022 Arthralg ia of left temporom andibula r joint; Note: Date Diagnose d: 3 8:42 AM (M26.622 ) Not Available [facility] 4 03:13:57 Follow-u p visit Active 2021 Medical surveill ance followin g complete d treatmen t; Note: Date Diagnose d: 2 3:00 PM (Z09) Not Available [facility] 4 03:13:56 Mixed conducti ve and sensorin eural hearing loss of left ear 98132742010 107 Active 2021 Mixed conducti ve and sensorin eural hearing loss, unilater al, left ear with restrict ed hearing on the contrala teral side; Note: Date Diagnose d: 2 11:27 AM (H90.A32 ) Not Available [facility] 4 03:13:56 Otalgia of left ear 9872779122 Active 2022 Otalgia, left ear; Note: Date Diagnose d: 3 8:42 AM (H92.02) Not Available [facility] 4 03:13:57 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 37071705207 80286 Completed 202106/13/2024 Choleste atoma of attic, left ear; Note: Date Diagnose d: 2 1:15 PM (H71.02) Not Available [facility] 4 03:13:57 Sensorin eural hearing loss in right ear 48619356181 100 Active 2021 Sensorin eural hearing loss, unilater al, right ear, with restrict ed hearing on the contrala teral side; Note: Date Diagnose d: 2 11:27 AM (H90.A21 ) Not Available [facility] 4 03:13:58 Partial loss of ear ossicles 19083313 Active 2021 Partial loss of ear ossicles , left ear; Note: Date Diagnose d: 2 1:15 PM (H74.322 ) Not Available [facility] 4 03:13:57 Referred otalgia of left ear 91808947325 64132 Active 2024 CHEYENNE COTA MD [address] [place] [address], [place], [address] , [facility] 5 10:00:21 Problem Notes None recorded. Procedures Surgical History Date Name Laterality Status Provider Name and Address Organization Details Recorded Time 12/22/2024 Comp Audio with Tymps - 12767 & 45807 completed MYRIAM BATES [address] [place] [address],[place] [address], [place], [address], [facility] 12/22/2024 10:21:25 Imaging Results None recorded. Procedure Notes None recorded. Medical Equipment None Reported. Allergies Allergen ID Allergen Name Allergen Category Reaction Reaction Severity Criticality Documentation Date Start Date Code Code System Note Provider Name and Address Organization Details Recorded Time 02000 latex environme nt,medica tion other Not available Not available 03/25/2024 74226 91 RxNorm React ion: other react ion, Unkno wn; Not Available [facility] 4 00:48:24 Medications Name Sig Start [...] 1 gram tablet active Medicatio n ID: [id number] Br and Name: sucralfat e Send Method: [...] eye drops 2021 active Medicatio n ID: [id number] Du ration Value: 14 Prescrib ed By [...] a day 2022 active Medicatio n ID: [id number] Du ration Value: 14 Brand Name: ofloxacin [...] 10 mg tablet active Medicatio n ID: [id number] Br and Name: loratadin e Send Method: E-Prescri bed Subs Allowed: subs OK Specia l Instructi on: TAKE 1 TABLET BY MOUTH EVERY DAY Medic ationGene ricName: loratadin e Not Available Not Available Not Available naproxen 500 mg tablet active Not Available Not Available Not Available amoxicilli n 875 mg-potassi um clavulanat e 125 mg tablet by mouth 2021 active Medicatio n ID: [id number] Du ration Value: 10 Prescrib ed By [...] Available Not Available No t Available FreeStyle [place] Lite kit TEST BLOOD SUGAR TWICE DAILY [...] Address Organization Details Last Updated DateTime 12/22/2024 23443.81 g 28.3 kg/m2 182.88 cm Kasey Izaguirre [place] - [facility] 12/22/2024 09:50:32 Social History None recorded. Functional Status None recorded. Mental Status None recorded. Family History Nothing Reported. Medical History No medical history recorded. Gynecological HistoryNo gynecological history recorded. Obstetrics History GPAL:G 0 P 0 0 0 0 Past Encounters Encounter ID Performer Location Encounter Start Date Encounter Closed Date Diagnosis/Indication Diagnosis SNOMED-CT Code Diagnosis ICD10 Code Diagnosis Note [id number] CHEYENNE COTA MD [facility] [address] [address] 12/22/2024 08:38:39 12/22/2024 10:59:12 Disorder of left external ear 2886003058 113253 H61.892 Partial lo ss of ear ossicles 67578933 H74.322 Referred o talgia of left ear 1329200764 953810 H92.02 M26.622 M79.11 The patient complains of intermitte nt left-sided periauricu lar discomfort . Physical exam reveals no identifiab le source of these symptoms involving the auricle, external auditory canal, or tympanic membrane. Audiometri c testing and tympanomet ry are similarly unrevealin g. Furthermor e, examinatio n was positive for crepitus and tenderness of the left jaw joint and chris-TMJ musculatur e. The patient's periauricu lar pressure sensation is most likely consistent with intermitte nt inflammati on of the jaw joint or spasm of the surroundin g musculatur e. This is likely exacerbate d by the missing teeth. I recommende d the patient use light [...] therapist who specialize s in TMJ disorders could also be considered . Mixed cond uctive and sensorineural hearing loss, bilateral 974307252 H90.6 Audiologic al evaluation results:Ri ght ear:Modera te to moderately -severe mixed hearing loss with excellent word recognitio n.Left ear:Mild to severe mixed hearing loss with excellent word recognitio n.Tympanom etry:Right Ear:Type C, shallow & roundedLef t Ear:Type B Audiometri c testing reviewed with patient. She remains an excellent candidate for binaural amplificat ion. I have given her a copy of her audiogram and medical clearance to return to her audiologis t at [facility] audiology to ensure that her hearing aids are adjusted to match her current level of hearing loss. Health Concerns Section Related Observation LastModified by Organization Detai ls LastModified Time None Recorded Concern Status LastModified by Organization Details LastModified Time None Recorded Advance Directives Directive None Recorded Payers Insurance Date Sequence Insurance Name Policy Number Policy Almaraz Covered Member ID Almaraz Member ID Guarantor Name 12/22/2024 1 [place] [facility] Mary Johnston [id number] Mary Johnston Notes Date Note Type Note [...] Patient has bilateral hearing aids dispensed from [facility] audiology, but has not been using them lately because she has not been able to get batteries. Patient noticing some left periauricular discomfort which refers down into her left jawline. CHEYENNE COTA MD [address] [place] [address], [place], [address], [place] - [facility] 12/22/2024 10:57:03 OBGyn Episode No OBEpisode recorded.
--- OUTSIDE RECORDS SUMMARY | 2025-05-26 09:28 | XMS_ITS | Clinical Summary ---
Author Organization [address] [facility] ity Address [address] [place] [address] Care Team Providers Care Server Engineer Name Role Phone Unavailable Primary Care Provider [...] 2023-2 5 season) 2024 Influenza Vaccine (#1) 2025 RSV Immunization Adult Patie nts (1 [...] 5 Years) and At-Risk Patients (6 to 49 Years) Aged Out No longer eligible b ased on patient's age to complete this topic RSV Immunization Patients Un carina 20 months Aged Out No longer eligible b ased on patient's age to complete this topic Varicella Vaccines Aged Out No longer eligible based on patient's age to complete this topic
== END 2025-05-25 09:08 | disposition home or self-care (01) ==
LOC: HO.HOSX 09:07
PROVIDERS: Visit Provider Physician Assistant
DX: Z13.89 Encounter for screening for other disorder (principal)

== ENCOUNTER 2025-06-08 11:23 | Outpatient (REF) | payer OTHER, SELFPAY ==
--- OUTSIDE RECORDS SUMMARY | 2025-06-08 12:39 | XMS_ITS | Data Portability ---
Author Organization [place] - [facility], [facility] Address [address] [address] Care Team Providers Care Smt Technician Name Role Phone HANSA MILLER Primary Care [...] cholesteatoma . She may follow-up as needed. [email or web address] Not available 12/22/2024 10:56:28 Plan of Treatment [...] Flag Note LastModifiedBy Organization Detail LastModifiedTime 12/22/19 audio gram No observ ation record ed. BARCODE Not Available 2024 18:19:21 Result Notes None recorded. Problems Name Problem SNOMED Code Status Onset Date Resolution Date Notes Provider Name and Address Organization Details Recorded Time Mixed conducti ve and sensorin eural hearing loss of left ear 38432080518 107 Active 2021 Mixed conducti ve and sensorin eural hearing loss, unilater al, left ear with restrict ed hearing on the contrala teral side; Note: Date Diagnose d: 2 11:27 AM (H90.A32 ) Not Available [facility] 4 03:13:56 Sensorin eural hearing loss in right ear 03917916939 100 Active 2021 Sensorin eural hearing loss, unilater al, right ear, with restrict ed hearing on the contrala teral side; Note: Date Diagnose d: 2 11:27 AM (H90.A21 ) Not Available [facility] 4 03:13:58 Disorder of left external ear 46885889741 86519 Active 2021 Other specifie d disorder s of left external ear; Note: Date Diagnose d: 2 1:15 PM (H61.892 ) Not Available [facility] 4 03:13:57 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 95165558982 10158 Completed 202106/13/2024 Choleste atoma of attic, left ear; Note: Date Diagnose d: 2 1:15 PM (H71.02) Not Available [facility] 4 03:13:57 Partial loss of ear ossicles 87636134 Active 2021 Partial loss of ear ossicles , left ear; Note: Date Diagnose d: 2 1:15 PM (H74.322 ) Not Available [facility] 4 03:13:57 Follow-u p visit Active 2021 Medical surveill ance followin g complete d treatmen t; Note: Date Diagnose d: 2 3:00 PM (Z09) Not Available [facility] 4 03:13:56 Mixed conducti ve and sensorin eural hearing loss, bilatera l 806056595 Active 2022 Mixed conducti ve and sensorin eural hearing loss, bilatera l; Note: Date Diagnose d: 3 9:30 AM (H90.6) Not Available [facility] 4 03:13:56 Pain of left temporom andibula r joint 44396580596 634162 Active 2022 Arthralg ia of left temporom andibula r joint; Note: Date Diagnose d: 3 8:42 AM (M26.622 ) Not Available [facility] 4 03:13:57 Otalgia of left ear 7114959466 Active 2022 Otalgia, left ear; Note: Date Diagnose d: 3 8:42 AM (H92.02) Not Available [facility] 4 03:13:57 Referred otalgia of left ear 26440631147 92524 Active 2024 CHEYENNE COTA MD [address] [place] [address], [place], [address] , [facility] 5 10:00:21 Problem Notes None recorded. Procedures Surgical History Date Name Laterality Status Provider Name and Address Organization Details Recorded Time 12/22/2024 Comp Audio with Tymps - 07351 & 01565 completed MYRIAM BATES [address] [place] [address], [place], [address], [facility] 12/22/2024 10:21:25 Imaging Results None recorded. Procedure Notes None recorded. Medical Equipment None Reported. Allergies Allergen ID Allergen Name Allergen Category Reaction Reaction Severity Criticality Documentation Date Start Date Code Code System Note Provider Name and Address Organization Details Recorded Time 87885 latex environme nt,medica tion other Not available Not available 03/25/2024 12790 91 RxNorm React ion: other react ion, Unkno wn; Not Available [facility] 4 00:48:24 Medications Name Sig Start Date [...] 1 gram tablet active Medicatio n ID: [id number] Br and Name: sucralfat e Send Method: [...] eye drops 2021 active Medicatio n ID: [id number] Du ration Value: 14 Prescrib ed By [...] a day 2022 active Medicatio n ID: [id number] Du ration Value: 14 Brand Name: ofloxacin [...] 10 mg tablet active Medicatio n ID: [id number] Br and Name: loratadin e Send Method: E-Prescri bed Subs Allowed: subs OK Specia l Instructi on: TAKE 1 TABLET BY MOUTH EVERY DAY Medic ationGene ricName: loratadin e Not Available Not Available Not Available naproxen 500 mg tablet active Not Available Not Available Not Available amoxicilli n 875 mg-potassi um clavulanat e 125 mg tablet by mouth 2021 active Medicatio n ID: [id number] Du ration Value: 10 Prescrib ed By [...] Available Not Available No t Available FreeStyle [place] Lite kit TEST BLOOD SUGAR TWICE DAILY [...] Address Organization Details Last Updated DateTime 12/22/2024 07882.81 g 28.3 kg/m2 182.88 cm Kasey Izaguirre [place] - [facility] 12/22/2024 09:50:32 Social History None recorded. Functional Status None recorded. Mental Status None recorded. Family History Nothing Reported. Medical History No medical history recorded. Gynecological HistoryNo gynecological history recorded. Obstetrics History GPAL:G 0 P 0 0 0 0 Past Encounters Encounter ID Performer Location Encounter Start Date Encounter Closed Date Diagnosis/Indication Diagnosis SNOMED-CT Code Diagnosis ICD10 Code Diagnosis Note [id number] CHEYENNE COTA MD [facility] [address] [address] 12/22/2024 08:38:39 12/22/2024 10:59:12 Disorder of left external ear 2024682022 651439 H61.892 Partial lo ss of ear ossicles 22173809 H74.322 Referred o talgia of left ear 9354626220 700691 H92.02 M26.622 M79.11 The patient complains of [...] cond uctive and sensorineural hearing loss, bilateral 430825086 H90.6 Audiologic al evaluation results:Ri ght ear:Modera [...] to return to her audiologis t at [facility] audiology to ensure that her [...] Almaraz Member ID Guarantor Name 12/22/2024 1 [place] [facility] Mary Johnston [id number] Mary Johnston OBGyn Episode No OBEpisode recorded.
--- OUTSIDE RECORDS SUMMARY | 2025-06-08 12:39 | XMS_ITS | Encounter Summary ---
Author Organization [employer] Address [address] [place] [address] Care Team Providers Care Shove Up Name Role Phone Teri Owens MD Primary Care Provider [phone] Encounter Details Date Type Department Care Team (Latest Contact Info) Description 06/05/2025 Travel Social History Tobacco Use Types Packs/Day [...] as of this encounter Plan of Treatment Not on file documented as of this encounter Visit Diagnoses Not on filedocumented in this encounter Additional Health Concerns Assessment Noted Time PHQ-9 Depression Total Score: 0 01/06/20 25 9:22 AM EST documented as of this encounter Care Teams Shove Up Relationship Specialty Start Date End Date Teri Owens MD [address] [place] [address] PCP - General Family Medicine 10/21/18 Doolres Danielle Bargain Table ClerkSealing Machine Operator 09/27/23 documented as of this encounter
--- OUTSIDE RECORDS SUMMARY | 2025-06-08 12:39 | XMS_ITS | Clinical Summary ---
Author Organization [facility] Address [address] [place] [address] Care Team Providers Care Medical Coding Manager Name Role Phone Unavailable Primary Care [...] Vaccine ( - 2023-2 5 season) 2024 Depression Screening 11/12/2024 Influenza Vaccine (#1) 2025 RSV Immunization Adult [...]
== END 2025-06-08 11:24 | disposition home or self-care (01) ==
LOC: HO.CHCLDS 11:23
PROVIDERS: Visit Provider Student in an Organized Health Care Education/Training Program
DX: M12.9 Arthropathy, unspecified (principal)
CPT/HCPCS: 36415; 86431

== ENCOUNTER 2025-07-01 14:09 | Outpatient (AMB) | payer OTHER, SELFPAY ==
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
[2025-07-01 14:21] VITALS: BP 124/68; PULSE 68; O2SAT 98; BMI 31.9
--- OUTSIDE RECORDS SUMMARY | 2025-07-01 15:05 | XMS_ITS | Clinical Summary ---
Author Organization [address] [place] [address] Address [address] [place] [address] Phone Care Team Providers Care Account Review Specialist Name Role Phone Teri Owens MD Primary Care Provider [phone] Social History Tobacco Use Types Packs/Day Years [...] Vaccines (1 of 2) 01/30/2010 COVID-19 Vaccine (2023-2 5 season) 2024 Depression Screening 11/12/2024 Colorectal Cancer Screening: Colonoscopy 06/10/2025 Falls Risk Assessment 06/10/2025 Hepatitis C Screening 06/10/2025 Medicare Annual Wellness Visit 06/10/2025 Osteoporosis Screening (Bone Density Screening) 06/10/2025 Social Influencers of Health Screening 06/10/2025 Influenza Vaccine (#1) 2025 RSV Immunization Adult [...] on patient's age to complete this topic Insurance [employer] MEDICARE Member Subscriber Plan / Payer (Ef fective 2025-Present) Name:Mary June Relation to Subscriber:Self Name:Mary Garcia Payer ID:[id number] Group ID:[id number] Type:Not on file Address: [place] [address] [address] [address] Care Teams Account Review Specialist Relationship Specialty Start Date End Date Teri Owens MD [address] [place] [address] [place] [address] PCP - General Family Medicine 06/10/25
--- OUTSIDE RECORDS SUMMARY | 2025-07-01 15:05 | XMS_ITS | Encounter Summary ---
Author Organization [employer] Address [address] [place] [address] Care Team Providers Care Rail Switch Operator Name Role Phone Teri Owens MD Primary Care Provider [phone] Reason for Visit * Reason Comments Med Refill Encounter Details Date Type Department Care Team ([facility] Contact Info) Description 06/05/2025 Refill [facility] CH[facility] MED & PEDS [address] [place] [address] Teri Owens MD [address] [place] [address] Social History Tobacco Use Types Packs/Day Years [...] documented as of this encounter Care Teams Rail Switch Operator Relationship Specialty Start Date End Date Teri Owens MD [address] [place] [address] PCP - General Family Medicine 10/21/18 Dolores Danielle Automatic Spinning Lathe SetterFood Porter 09/27/23 documented as of this encounter
== END 2025-07-01 15:17 | disposition home or self-care (01) ==
LOC: HO.HGI 14:09
PROVIDERS: PCP Student in an Organized Health Care Education/Training Program; Visit Provider Nurse Practitioner Family
DX: R74.01 Elevation of levels of liver transaminase levels (principal); K59.01 Slow transit constipation; K21.9 Gastro-esophageal reflux disease without esophagitis; R10.13 Epigastric pain
CPT/HCPCS: 99213

== ENCOUNTER → 2025-07-01 14:09 | Outpatient (BNVA) | payer OTHER, SELFPAY | PROVIDERS: PCP Student in an Organized Health Care Education/Training Program; Visit Provider Nurse Practitioner Family | DX: Z01.818 Encounter for other preprocedural examination (principal); K59.01 Slow transit constipation; K21.9 Gastro-esophageal reflux disease without esophagitis; R10.13 Epigastric pain | CPT/HCPCS: 99212 ==

== ENCOUNTER 2025-08-27 15:54 | Outpatient (REF) | payer OTHER, SELFPAY ==
--- NOTE | ~2025-08-27 | XR_ITS ---
EXAMINATION: XR CERVICAL SPINE CLINICAL INFORMATION: PAIN COMPARISON: X-ray 03/14/2022 TECHNIQUE: 4 views FINDINGS: Cervical spine is visualized from C1-C7 level. No prevertebral soft tissue swelling. Predens space is maintained. No evidence of acute fracture or spondylolisthesis. Vertebral body heights are maintained. Disc spaces are maintained. Mild degenerative changes in the articulation of the dens the anterior arch of C1. Multilevel facet degeneration.. No suspicious bony lesions. XR/XR cervical spine 3V IMPRESSION: No acute osseous findings. Cervical spondylosis as above. Electronically signed by: Luc Prakash MD 08/27/2025 04:31 PM EDT
--- NOTE | ~2025-08-27 | XR_ITS ---
EXAMINATION: XR SHOULDER, LEFT CLINICAL INFORMATION: neck pain radiating to L shoulder and down arm COMPARISON: X-ray 03/14/2022 TECHNIQUE: 5 views of the left shoulder. FINDINGS: Mild acromioclavicular arthritis. Mild glenohumeral arthritis. No visible acute fracture, dislocation or suspicious bony lesions. Degenerative-appearing cysts in the humeral head. No abnormal soft tissue calcifications. XR/XR shoulder LT min 2V IMPRESSION: Mild acromioclavicular arthritis. Mild glenohumeral arthritis. Electronically signed by: Luc Prakash MD 08/27/2025 04:27 PM EDT
--- OUTSIDE RECORDS SUMMARY | 2025-08-27 15:20 | XMS_ITS | Encounter Summary ---
Author Organization [employer] Address [address] [place] [address] Care Team Providers Care Induction Heating Equipment Setter Name Role Phone Teri Owens MD Primary Care Provider [phone] Encounter Details Date Type Department Care Team (Late st Contact Info) Description 08/27/2025 3:20 PM EDT Office Visit [facility] [address] [place] [address] Neck pain (Primary Dx); Acute pain of left shoulder Social History Tobacco Use Types Packs/Day Years [...] Sign Reading Time Taken Comments Blood Pressure 151/85 08/27/2025 3:21 PM EDT Pulse 69 08/27/2025 3:21 PM EDT Temperature 36.9 C (98.4 F) 08/27/2025 3:21 PM EDT Respiratory Rate 21 08/27/2025 3:21 PM EDT Oxygen Saturation 96% 08/27/2025 3:21 PM EDT Inhaled Oxygen Concentration - - Weight 106 kg (233 lb) 08/27/2025 3:21 PM EDT Height 182.9 cm (6') 08/27/2025 3:21 PM EDT Body Mass Index 31.6 08/27/2025 3:21 PM EDT documented in this encounter Plan of Treatment Upcoming Encounters Date Type Department Care Team (Late st Contact Info) Description 09/30/2025 10:00 AM EST Office Visit [facility] CH[facility] MED & PEDS [address] [place] [address] Earnest Mishra MD [address] [place] [address] 12/04/2025 2:30 PM EST Office Visit [facility] [address] [place] [address] Edna Stevenson, OD [address] [place] [address] Scheduled Orders Name Type Priority Associated Diagnoses Orde r Schedule XR Cervical Spine 2-3 Views Imaging STAT Neck pain Acute pain of left shoulder Expected: 08/27/2025, Expires: 08/27/2026 documented as of this encounter Procedures Procedure Name Priority Date/Time Associated Diagnosis Comments XR SHOULDER 2+ VIEWS LEFT STAT 08/27/2025 4:15 PM EDT Neck pain Acute pain of left shoulder documented in this encounter Results * XR Shoulder 2+ Views Left (08/27/2025 4:15 PM EDT) Anatomical Region Laterality Modality Upper Extremities, Shoulder Left Radi ographic Imaging 08/27/2025 4:15 PM EDT Narrative 08/27/2025 4:30 PM EDT [address] [address] XRay Report Signed Patient: Mary June MR#: [id number] : 1960 Acct:[id number] Age/Sex: 65 / F ADM Date: 08/27/25 Loc: .HHCX Attending Dr: Lili Ferreira DO Ordering Physician: Lili Ferreira DO Date of Service: 08/27/25 Procedure(s): XR shoulder LT min 2V Accession Number(s): [id number] cc: Lili Ferreira DO Reason for Exam: neck pain radiating to L shoulder and down arm EXAMINATION: XR SHOULDER, LEFT CLINICAL INFORMATION: neck pain radiating to L shoulder and down arm COMPARISON: X-ray 03/14/2022 TECHNIQUE: 5 views of the left shoulder. FINDINGS: Mild acromioclavicular arthritis. Mild glenohumeral arthritis. No visible acute fracture, dislocation or suspicious bony lesions. Degenerative-appearing cysts in the humeral head. No abnormal soft tissue calcifications. XR/XR shoulder LT min 2V IMPRESSION: Mild acromioclavicular arthritis. Mild glenohumeral arthritis. Electronically signed by: Luc Prakash MD 08/27/2025 04:27 PM EDT Dictated By: Luc Prakash MD Signed By: <Electronically signed by Luc Prakash MD in OV> 08/27/251626 DD/ 14 TD/TT: 08/27/251615 Carpet Mechanic: SAMANTHA Procedure Note Donotestefanyinterpreter, Image - 08/27/[address] [address] XRay Report Signed Patient: Chandler June#: [id number] : 1960Acct:[id number] Age/Sex: 65 / FADM Date: 08/27/25 Loc: [facility].HHCX Attending Dr: Lili Ferreira DO Ordering Physician: Lili Ferreira DO Date of Service: 08/27/25 Procedure(s): XR shoulder LT min 2V Accession Number(s): [id number] cc: Lili Ferreira DO Reason for Exam: neck pain radiating to L shoulder and down arm EXAMINATION: XR SHOULDER, LEFT CLINICAL INFORMATION: neck pain radiating to L shoulder and down arm COMPARISON: X-ray 03/14/2022 TECHNIQUE: 5 views of the left shoulder. FINDINGS: Mild acromioclavicular arthritis. Mild glenohumeral arthritis. No visible acute fracture, dislocation or suspicious bony lesions. Degenerative-appearing cysts in the humeral head. No abnormal soft tissue calcifications. XR/XR shoulder LT min 2V IMPRESSION: Mild acromioclavicular arthritis. Mild glenohumeral arthritis. Electronically signed by: Luc Prakash MD 08/27/2025 04:27 PM EDT Dictated By: Luc Prakash MD Signed By: <Electronically signed by Luc Prakash MD in OV> 08/27/251626 DD/ 14 TD/TT: 08/27/251615 Carpet Mechanic: SAMANTHA Lili Ferreira DO IMG XR PROCEDURES Final Resu lt documented in this encounter Visit Diagnoses Diagnosis Neck pain- Primary Cervicalgia Acute pain of left shoulder documented in this encounter Additional Health Concerns Assessment Noted Time PHQ-9 Depression Total Score: 0 01/06/20 25 9:22 AM EST documented as of this encounter Care Teams Induction Heating Equipment Setter Relationship Specialty Start Date End Date Teri Owens MD [address] [place] [address] PCP - General Family Medicine 10/21/18 Dolores Danielle Machine SorterEvp And Chief Operating Officer 09/27/23 documented as of this encounter
--- OUTSIDE RECORDS SUMMARY | 2025-08-27 19:33 | XMS_ITS | Encounter Summary ---
Author Organization [employer] Address [address] [place] [address] [address]t [place] [address] Care Team Providers Care Mid Level Provider Name Role Phone Teri Owens MD Primary Care Provider [phone] Encounter Details Date Type Department Care Team ([facility] Contact Info) Description 06/23/2024 Orders Only [facility] CH[facility] MED & PEDS [address] [place], [place] [phone] Provider, MD Porsche Social History Tobacco Use [...] Department Care Team (Late Contact Info) Description 09/30/2025 10:00 AM EST Office Visit [facility] MED & PEDS [address] [place], [place] [phone] Earnest Mishra MD [address] [place], [place] [phone] 12/04/2025 2:30 PM EST Office Visit [facility] OPTOMETRY [address] [place], [place] [phone] Edna Stevenson, OD [address] [place], [place] [phone] documented as of this encounter Procedures Procedure Name Priority Date/Time Associated Diagnosis Comments ECG 12-LEAD Routine 06/18/2024 10:23 AM EDT documented in this encounter Results * ECG 12 lead (06/18/2024 10:23 AM EDT) us Historical Provider ECG ORDERABLES Final Res ult documented in this encounter Visit Diagnoses Not on filedocumented in this encounter Care Teams Mid Level Provider Relationship Specialty Start Date End Date Teri Owens MD [address] [place] [address] PCP - General Family Medicine 10/21/18 Dolores Danielle Timber EstimatorDraw Operator 09/27/23 documented as of this encounter
--- OUTSIDE RECORDS SUMMARY | 2025-08-27 19:33 | XMS_ITS | Encounter Summary ---
Author Organization [employer] Address [address] [place] [address] Care Team Providers Care Cardiovascular Surgeon Name Role Phone Teri Owens MD Primary Care Provider [phone] Reason for Visit * Reason Comments Med Refill Encounter Details Date Type Department Care Team (Late st Contact Info) Description 04/11/2024 Refill [facility] CH[facility] MED & PEDS [address] [place] [address] Teri Owens MD [address] [place] [address] GERD without esophagitis Social History Tobacco Use [...] Description 09/30/2025 10:00 AM EST Office Visit [facility] MED & PEDS [address] [place] [address] Earnest Mishra MD [address] [place] [address] 12/04/2025 2:30 PM EST Office Visit [facility] [address] [place], [place] [phone] Clayton Stevensonssica, OD [address] [place], [place] [phone] documented as of this encounter Visit Diagnoses Diagnosis GERD without esophagitis Esophageal reflux documented in this encounter Care Teams Cardiovascular Surgeon Relationship Specialty Start Date End Date Teri Owens MD [address] [place] [id number] PCP - General Family Medicine 10/21/18 Dolores Danielle Spa Assistant ManagerQualitative Researcher 09/27/23 documented as of this encounter
--- OUTSIDE RECORDS SUMMARY | 2025-08-27 19:33 | XMS_ITS | Encounter Summary ---
Author Organization [employer] Address [address] [place] [address] Care Team Providers Care Anthropological Linguist Name Role Phone Teri Owens MD Primary Care Provider [phone] Reason for Visit * Reason Comments Med Refill Encounter Details Date Type Department Care Team ([facility] st Contact Info) Description 12/24/2024 Refill [facility] MEDICINE [address] [place] [address] Teri Owens MD [address] [place], [place] [phone] Social History Tobacco Use Types Packs/Day Years [...] Description 09/30/2025 10:00 AM EST Office Visit [facility] CH[facility] MED & PEDS [address] [place], [place] [phone] Earnest Mishra MD [address] [place] [address] 12/04/2025 2:30 PM EST Office Visit [facility] OPTOMETRY [address] [place] [address] TarkaEdna, OD [address] [place] [address] documented as of this encounter Visit Diagnoses Not on filedocumented in this encounter Care Teams Anthropological Linguist Relationship Specialty Start Date End Date Teri Owens MD [address] [place] [address] PCP - General Family Medicine 10/21/18 Dolores Danielle Electronics Research EngineerRelationship Counselor 09/27/23 documented as of this encounter
--- OUTSIDE RECORDS SUMMARY | 2025-08-27 19:33 | XMS_ITS | Encounter Summary ---
Author Organization [employer] Address [address] [place] [address] Care Team Providers Care Separations Scientist Name Role Phone Teri Owens MD Primary Care Provider [phone] Encounter Details Date Type Department Care Team (Late Contact Info) Description 03/12/2024 Orders Only [facility] CHC MED & PEDS [address] [place], [place] [phone] Teri Owens MD [address] [place], [place] [phone] Social History Tobacco Use Types Packs/Day Years [...] Description 09/30/2025 10:00 AM EST Office Visit [facility] CH[facility] MED [facility] PEDS [address] [place], [place] [phone] Earnest Mishra MD [address] [place], [place] [phone] 12/04/2025 2:30 PM EST Office Visit [facility] OPT[facility] [address] [place] [address] Edna Stevenson, OD [address] [place] [address] documented as of this encounter Visit Diagnoses Not on filedocumented in this encounter Care Teams Separations Scientist Relationship Specialty Start Date End Date Teri Owens MD [address] [place] [address] PCP - General Family Medicine 10/21/18 Dolores Danielle Global Marketing Operations ManagerHealthcare Social Worker 09/27/23 documented as of this encounter
--- OUTSIDE RECORDS SUMMARY | 2025-08-27 19:33 | XMS_ITS | Encounter Summary ---
Author Organization [employer] Address [address] [place] [address] Care Team Providers Care Party Plan Sales Director Name Role Phone Teri Owens MD Primary Care Provider [phone] Reason for Visit * Reason Onset Date Comments Pre-op Visit 06/18/2024 Encounter Details Date Type Department Care Team ([facility] st Contact Info) Description 06/18/2024 Telephone [facility] MEDICINE [address] [place] [address] Teri Owens MD [address] [place] [address] Pre-op Visit Social History Tobacco Use Types [...] Surgeon's name: Dr Laz Hauser Facility name: [facility] Surgeon's office number: [phone] Surgeon's office fax number: [phone] Contact name; Micky Last office note from surgeon requested: Yes documented in this encounter Plan of Treatment Upcoming Encounters Date Type Department Care Team (Late st Contact Info) Description 09/30/2025 10:00 AM EST Office Visit [facility] CHC MED & PEDS [address] [place], [place] [phone] Earnest Mishra MD [address] [place] [address] 12/04/2025 2:30 PM EST Office Visit [facility] OPTOMETRY [address] [place] [address] Edna Stevenson, OD [address] [place] [address] documented as of this encounter Visit Diagnoses Not on filedocumented in this encounter Care Teams Party Plan Sales Director Relationship Specialty Start Date End Date Teri Owens MD [address] [place] [address] PCP - General Family Medicine 10/21/18 Dolores Danielle Technical Support AssistantThermite Welder 09/27/23 documented as of this encounter
--- OUTSIDE RECORDS SUMMARY | 2025-08-27 19:33 | XMS_ITS | Clinical Summary ---
Author Organization [address] [place] [address] Address [address] [place] [address] Phone Care Team Providers Care Deputy United [place] Marshal Name Role Phone Teri Owens MD Primary Care Provider [phone] Social History Tobacco Use Types Packs/Day Years Used Date Smoking Tobacco: Never Assessed Comments Unknown Sex and Gender Information Value Date Recorded Sex Assigned at Not on file Legal Sex Female 5:02 AM EST Gender Identity Not on file Sexual Orientation Not on file Plan of Treatment Health Maintenance Due Date Last Done Comments Breast Cancer Screening 1960 Colorectal Cancer Screening: Colonoscopy 1960 DTaP,Tdap,and Td Vaccines (1 - Tdap) 01/30/1979 Cervical Cancer Screening: P ap Smear 01/30/1981 Pneumococcal Vaccine: 50+ Ye ars (1 of 1 - PCV) 01/30/2010 Zoster Vaccines (1 of 2) 01/30/2010 Depression Screening 11/12/2024 Falls Risk Assessment 06/10/2025 Hepatitis C Screening 06/10/2025 Medicare Annual Wellness Visit 06/10/2025 Osteoporosis Screening (Bone Density Screening) 06/10/2025 Social Influencers of Health Screening 06/10/2025 COVID-19 Vaccine ( - 2023-2 5 season) 2025 Influenza Vaccine (#1) 2025 RSV Immunization Adult [...] ID:[id number] Group ID:[id number] Type:Not on file Address: [place] [address] [address] [id number] Care Teams Deputy United [place] Marshal Relationship Specialty Start Date End Date Teri Owens MD [address] [place] [address] [place] [address] PCP - General Family Medicine 06/10/25
--- OUTSIDE RECORDS SUMMARY | 2025-08-27 19:33 | XMS_ITS | Encounter Summary ---
Author Organization [employer] Address [address] [place] [address] Care Team Providers Care Pad Cutter Name Role Phone Teri Owens MD Primary Care Provider [phone] Encounter Details Date Type Department Care Team (Late st Contact Info) Description 04/23/2025 Orders Only [facility] CHC MED & PEDS [address] [place] [address] Provider, MD Porsche Social History Tobacco Use [...] Description 09/30/2025 10:00 AM EST Office Visit [facility] CHC MED & PEDS [address] [place], [place] [phone] Earnest Mishra MD [address] [place] [address] 12/04/2025 2:30 PM EST Office Visit [facility] OPTOMETRY [address] [place] [address] Edna Stevenson, OD [address] [place] [address] documented as of this encounter Procedures Procedure Name Priority Date/Time Associated Diagnosis Comments DIABETES EYE EXAM Routine 04/23/2025 2:49 PM EDT documented in this encounter Results * Diabetes Eye Exam (04/23/2025 2:49 PM EDT) us Historical Provider HEALTH MAINTENANCE Final Result documented in this encounter Visit Diagnoses Not on filedocumented in this encounter Additional Health Concerns Assessment Noted Time PHQ-9 Depression Total Score: 0 01/06/20 25 9:22 AM EST documented as of this encounter Care Teams Pad Cutter Relationship Specialty Start Date End Date Teri Owens MD [address] [place] [address] PCP - General Family Medicine 10/21/18 Dolores Danielle Intervention SpecialistBasting Marker 09/27/23 documented as of this encounter
--- OUTSIDE RECORDS SUMMARY | 2025-08-27 19:33 | XMS_ITS | Encounter Summary ---
Author Organization [employer] Address [address] [place] [address] Care Team Providers Care Spring Manufacturing Set Up Technician Name Role Phone Teri Owens MD Primary Care Provider [phone] Reason for Visit * Reason Onset Date Comments Durable Medical Equipment 03/07/2024 Encounter Details Date Type Department Care Team ([facility] st Contact Info) Description 03/07/2024 Telephone C [facility]S [address] [place] [address] Teri Owens MD [address] [place] [address] Durable Medical Equipment Social History Tobacco Use [...] a knee brace. Please contact pt at [phone] (Thai) documented in this encounter Plan of Treatment Upcoming Encounters Date Type Department Care Team ([facility] st Contact Info) Description 09/30/2025 10:00 AM EST Office Visit [facility] CHC MED & PEDS [address] [place], [place] [phone] Earnest Mishra MD [address] [place], [place] [phone] 12/04/2025 2:30 PM EST Office Visit [facility] OPTOMETRY [address] [place], [place] [address] Edna Stevenson, OD [address] [place] [address] documented as of this encounter Visit Diagnoses Not on filedocumented in this encounter Care Teams [employer] Manufacturing Set Up Technician Relationship Specialty Start Date End Date Teri Owens MD [address] [place] [address] PCP - General Family Medicine 10/21/18 Dolores Danielle Patient Registration RepOperations Research Scientist 09/27/23 documented as of this encounter
--- OUTSIDE RECORDS SUMMARY | 2025-08-27 19:34 | XMS_ITS | Data Portability ---
Author Organization [place] [facility], All[facility] Address [address] [address] Care Team Providers Care Torpedo Man Name Role Phone HANSA MILLER Primary Care Provider [phone] Assessment Encounter Date Assessment Date Assessment LastModified by Organization Details LastModified Time 12/22/2024 12/22/2024 Left ear remains well-healed following two-stage surgery of cholesteatoma . No signs of recurrent or persistent disease. No sign of tympanic membrane retraction. At this point, there is very low likelihood that she will develop recurrent cholesteatoma . She may follow-up as needed. [email or web address] Not available 12/22/2024 10:56:28 Plan of Treatment [...] sensorin eural hearing loss of left ear 64426377052 107 Active 2021 Mixed conducti ve and sensorin eural hearing loss, unilater al, left ear with restrict ed hearing on the contrala teral side; Note: Date Diagnose d: 2 11:27 AM (H90.A32 ) Not Available [facility] 4 03:13:56 Sensorin eural hearing loss in right ear 14879704444 100 Active 2021 Sensorin eural hearing loss, unilater al, right ear, with restrict ed hearing on the contrala teral side; Note: Date Diagnose d: 2 11:27 AM (H90.A21 ) Not Available [facility] 4 03:13:58 Disorder of left external ear 91365068970 26337 Active 2021 Other specifie d disorder s of left external ear; Note: Date Diagnose d: 2 1:15 PM (H61.892 ) Not Available [facility] 4 03:13:57 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 80816504710 76400 Completed 202106/13/2024 Choleste atoma of attic, left ear; Note: Date Diagnose d: 2 1:15 PM (H71.02) Not Available [facility] 4 03:13:57 Partial loss of ear ossicles 81382225 Active 2021 Partial loss of ear ossicles , left ear; Note: Date Diagnose d: 2 1:15 PM (H74.322 ) Not Available [facility] 4 03:13:57 Follow-u p visit Active 2021 Medical surveill ance followin g complete d treatmen t; Note: Date Diagnose d: 2 3:00 PM (Z09) Not Available [facility] 4 03:13:56 Mixed conducti ve and sensorin eural hearing loss, bilatera l 579852929 Active 2022 Mixed conducti ve and sensorin eural hearing loss, bilatera l; Note: Date Diagnose d: 3 9:30 AM (H90.6) Not Available [facility] 4 03:13:56 Pain of left temporom andibula r joint 14043584724 275657 Active 2022 Arthralg ia of left temporom andibula r joint; Note: Date Diagnose d: 3 8:42 AM (M26.622 ) Not Available [facility] 4 03:13:57 Otalgia of left ear 0496117198 Active 2022 Otalgia, left ear; Note: Date Diagnose d: 3 8:42 AM (H92.02) Not Available [facility] 4 03:13:57 Referred otalgia of left ear 55034990047 24834 Active 2024 CHEYENNE COTA MD [address] [place] [address], [place], [address] , [facility] 5 10:00:21 Problem Notes None recorded. Procedures Surgical History Date Name Laterality Status Provider Name and Address Organization Details Recorded Time 12/22/2024 Comp Audio with Tymps - 17938 & 82083 completed MYRIAM BATES [address] [place] [address], [place], [address], [facility] 12/22/2024 10:21:25 Imaging Results None recorded. Procedure Notes None recorded. Medical Equipment None Reported. Allergies Allergen ID Allergen Name Allergen Category Reaction Reaction Severity Criticality Documentation Date Start Date Code Code System Note Provider Name and Address Organization Details Recorded Time 24301 latex environme nt,medica tion other Not available Not available 03/25/2024 16934 91 RxNorm React ion: other react ion, Unkno wn; Not Available [facility] 4 00:48:24 Medications Name Sig Start Date [...] 1 gram tablet active Medicatio n ID: [id number] Br and Name: sucralfat e Send Method: [...] eye drops 2021 active Medicatio n ID: [id number] Du ration Value: 14 Prescrib ed By [...] a day 2022 active Medicatio n ID: [id number] Du ration Value: 14 Brand Name: ofloxacin [...] 10 mg tablet active Medicatio n ID: [id number] Br and Name: loratadin e Send Method: E-Prescri bed Subs Allowed: subs OK Specia l Instructi on: TAKE 1 TABLET BY MOUTH EVERY DAY Medic ationGene ricName: loratadin e Not Available Not Available Not Available naproxen 500 mg tablet active Not Available Not Available Not Available amoxicilli n 875 mg-potassi um clavulanat e 125 mg tablet by mouth 2021 active Medicatio n ID: [id number] Du ration Value: 10 Prescrib ed By [...] Available Not Available No t Available [employer] [place] Lite kit TEST BLOOD SUGAR TWICE DAILY [...] Address Organization Details Last Updated DateTime 12/22/2024 99599.81 g 28.3 kg/m2 182.88 cm Kasey Izaguirre [place] [facility] 12/22/2024 09:50:32 Social History None recorded. Functional Status None recorded. Mental Status None recorded. Family History Nothing Reported. Medical History No medical history recorded. Gynecological HistoryNo gynecological history recorded. Obstetrics History GPAL:G 0 P 0 0 0 0 Past Encounters Encounter ID Performer Location Encounter Start Date Encounter Closed Date Diagnosis/Indication Diagnosis SNOMED-CT Code Diagnosis ICD10 Code Diagnosis IMO Codes Diagnosis Note [id number] CHEYENNE COTA MD [facility] [address] [address] 12/22/2024 08:38:39 12/22/2024 10:59:12 Disorder of left external ear 5058401322 405815 H61.892 Partial lo ss of ear ossicles 50669236 H74.322 Referred o talgia of left ear 3777722141 646439 H92.02 M26.622 M79.11 The patient complains of [...] cond uctive and sensorineural hearing loss, bilateral 356514185 H90.6 Audiologic al evaluation results:Ri ght ear:Modera [...] to return to her audiologis t at [facility] audiology to ensure that her hearing [...] Almaraz Member ID Guarantor Name 12/22/2024 1 [place] [facility] Mary Johnston [id number] Mary Johnston Notes Date Note Type Note [...] Patient has bilateral hearing aids dispensed from [facility] audiology, but has not been using them lately because she has not been able to get batteries. Patient noticing some left periauricular discomfort which refers down into her left jawline. CHEYENNE COTA MD [address] [place] [address], [place], [address], [place] [facility] 12/22/2024 10:57:03 OBGyn Episode No OBEpisode recorded.
--- OUTSIDE RECORDS SUMMARY | 2025-08-27 19:34 | XMS_ITS | Encounter Summary ---
Author Organization [employer] Address [address] [place] [address] Care Team Providers Care Environmental Programs Specialist Name Role Phone Teri Owens MD Primary Care Provider [phone] Reason for Visit * Reason Comments Med Refill Encounter Details Date Type Department Care Team ([facility] Contact Info) Description 06/05/2025 Refill [facility] CHC MED & PEDS [address] [place] [address] Teri Owens MD [address] [place] [address] Social History Tobacco Use Types Packs/Day Years [...] 09/30/2025 10:00 AM EST Office Visit [facility] CHC MED & PEDS [address] [place] [address] MetzEarnest Garcia MD [address] [place] [address] 12/04/2025 2:30 PM EST Office Visit [facility] OPTOMETRY [address] [place] [address] Tarka, Edna, OD [address] [place] [address] documented as of this encounter Visit Diagnoses Not on filedocumented in this encounter Additional Health Concerns Assessment Noted Time PHQ-9 Depression Total Score: 0 01/06/20 25 9:22 AM EST documented as of this encounter Care Teams Environmental Programs Specialist Relationship Specialty Start Date End Date Teri Owens MD [address] [place] [address] PCP - General Family Medicine 10/21/18 Dolores Danielle Molder Machine TenderSupervisor Customer Records Division 09/27/23 documented as of this encounter
--- OUTSIDE RECORDS SUMMARY | 2025-08-27 19:34 | XMS_ITS | Encounter Summary ---
Author Organization [employer] Address [address] [place] [address] Care Team Providers Care Pelletizer Name Role Phone Teri Owens MD Primary Care Provider [phone] Reason for Visit * Reason Onset Date Comments Referral 12/11/2023 Encounter Details Date Type Department Care Team ([facility] st Contact Info) Description 12/11/2023 Telephone [facility] MEDICINE [address] [place] [address] Teri Owens MD [address] [place] [address] Referral Social History Tobacco Use Types Packs/Day [...] pt requesting status on referral for podiatry, Yarn Spooler sees current status shows pending. Please contact at [phone] Palestinian * Telephone Encounter - Leslie Alonzo RN - 12/11/2023 11:51 AM EST Call to Mary Johnston, reports having pain and itching of right great bit toe. Per pt has been seen by dispute resolution specialist in past for fungus on toe nails. Per pt denies any redness of skin or pus under nail or cuticle. Pt looking for referral to Dr. Jhony Patten at [address] [place] [address] Will send to team nurses to follow [...] outcome Pt is requesting a referral for dispute resolution specialist. Palestinian speaker documented in this encounter Plan of Treatment Upcoming Encounters Date Type Department Care Team (Late st Contact Info) Description 09/30/2025 10:00 AM EST Office Visit [facility] CHC MED & PEDS [address] [place] [address] Earnest Mishra MD [address] [place] [address] 12/04/2025 2:30 PM EST Office Visit [facility] OPTOMETRY [address] [place] [address] Edna Stevenson, OD [address] [place] [address] documented as of this encounter Visit Diagnoses Not on filedocumented in this encounter Care Teams Pelletizer Relationship Specialty Start Date End Date Teri Owens MD [address] [place] [address] PCP - General Family Medicine 10/21/18 Dolores Danielle Salvage SupervisorLine Haul Owner Operator 09/27/23 documented as of this encounter
--- OUTSIDE RECORDS SUMMARY | 2025-08-27 19:34 | XMS_ITS | Encounter Summary ---
Author Organization [employer] Address [address] [place] [address] Care Team Providers Care Labor Operator Name Role Phone Teri Owens MD Primary Care Provider [phone] Reason for Visit * Reason Comments Med Refill Encounter Details Date Type Department Care Team ([facility] st Contact Info) Description 07/03/2025 Refill [facility] CHC MED & PEDS [address] [place] [address] Teri Owens MD [address] [place] [address] Social History Tobacco Use Types Packs/Day Years [...] Description 09/30/2025 10:00 AM EST Office Visit [facility] CHC MED & PEDS [address] [place] [address] MetzEarnest Garcia MD [address] [place] [address] 12/04/2025 2:30 PM EST Office Visit [facility] OPTOMETRY [address] [place] [address] Tarka, Edna, OD [address] [place] [address] documented as of this encounter Visit Diagnoses Not on filedocumented in this encounter Additional Health Concerns Assessment Noted Time PHQ-9 Depression Total Score: 0 01/06/20 25 9:22 AM EST documented as of this encounter Care Teams Labor Operator Relationship Specialty Start Date End Date Teri Owens MD [address] [place] [address] PCP - General Family Medicine 10/21/18 Dolores Danielle Cultured [employer] MakerFumigator And Sterilizer 09/27/23 documented as of this encounter
--- OUTSIDE RECORDS SUMMARY | 2025-08-27 19:34 | XMS_ITS | Clinical Summary ---
Author Organization [employer] Address [address] [place] [address] Care Team Providers Care Screed Person Name Role Phone Teri Owens MD Primary Care Provider [phone] Allergies Active Allergy Reactions Criticality Noted Date Comments Latex 09/14/2021 Medications * This document contains information received from the source organization and may not represent a complete record from that organization. traZODone (Desyrel) 100 MG tablet TAKE 1 TABLET(100 MG) BY MOUTH AT BEDTIME 90 tablet 3 024 Active zolpidem (Ambien) 5 MG tablet Take [...] crush, chew, or split. 30 tablet 11 025 2025 Active tamoxifen (Nolvadex) 20 MG chemo tablet Take 1 tablet by mouth Once per day. 019 Active docusate sodium (Colace) 100 MG capsuleIndicati ons:Constipatio n, unspecified constipation type Take 1 capsule (100 mg) by mouth 2 times daily. 180 capsule 1 025 Active miconazole (Micotin) 2 % cream APPLY 1 APPILICATION VAGINALLY AT BEDTIME 45 g 1 03/10/2 025 Active fluticasone (Flonase) 50 MCG/ACT nasal sprayIndication s:Type 2 diabetes mellitus without complication, without long-term current use of insulin ([facility]) SHAKE LIQUID AND USE 2 SPRAYS IN EACH NOSTRIL TWICE DAILY 48 g Active cetirizine (ZyrTEC) 10 MG tablet Take 1 tablet (10 mg) by mouth Once per day. 30 tablet Active clotrimazole (Lotrimin) 1 % cream Apply twice daily x 14 days, continue for a total of 28 d if improved but not resolved. 30 g 1 Active nystatin (Mycostatin) 391659 UNIT/GM powder Apply topically 2 times daily. 60 g 3 025 2025 Active ibuprofen 800 MG tablet TAKE 1 TABLET BY MOUTH THREE TIMES DAILY 90 tablet Active tiZANidine (Zanaflex) 2 MG tabletIndicatio ns:Muscle spasm Take 1 tablet (2 mg) by mouth 3 times daily for 10 days. 15 tablet Active celecoxib (CeleBREX) 50 MG capsule TAKE 1 CAPSULE(50 MG) BY MOUTH TWICE DAILY 60 capsule Active cholecalciferol (Vitamin D-3) 50 MCG (2000 UT) tabletIndicatio ns:Type 2 diabetes mellitus without complication, without long-term current use of insulin ([facility]) TAKE 1 TABLET BY MOUTH IN THE MORNING 90 tablet 3 Active methylPREDNISol one (Medrol Dospak) 4 MG tablets Follow schedule on package instructions 21 tablet 2024 Active traMADol (Ultram) 50 MG tabletIndicatio ns:Neck pain,Acute pain of left shoulder Take 1 tablet (50 mg) by mouth every 8 (eight) hours if needed for severe pain for up to 5 days. 15 tablet 025 2024 Active acetaminophen (Tylenol 8 Hour) 650 MG ER tablet Take 1 tablet (650 mg) by mouth every 8 (eight) hours if needed for mild pain. Do not crush, chew, or split. 40 tablet 1 025 2024 Active Diclofenac Sodium 1 % gel Apply 2 g topically if needed in the morning, at noon, in the evening, and at bedtime (pain). 150 g 1 Active baclofen (Lioresal) 10 MG tablet Take 1 tablet (10 mg) by mouth if needed in the morning, at noon, and at bedtime for muscle spasms. 40 tablet 1 025 2024 Active cholecalciferol (Vitamin D-3) 50 MCG (1999 UT) tabletIndicatio ns:Type 2 diabetes mellitus without complication, without long-term current use of insulin ([facility]) TAKE 1 TABLET BY MOUTH IN THE MORNING 90 tablet 3 024 2024 Discontinued(R eorder (will not trigger notification to Pharmacy)) Acetaminophen Extra Strength 500 MG tablet 1-2 tab po tid prn ADEN, fever, pain 60 tablet 025 2024 Discontinued(R eorder (will not trigger notification to Pharmacy)) Diclofenac Sodium 1 % gelIndications: Muscle spasms of neck APPLY 2 GRAMS TOPICALLY TO THE AFFECTED AREA IN THE MORNING AND AT BEDTIME NEEDED FOR MUSCLE PAIN 100 g 3 025 2024 Discontinued celecoxib (CeleBREX) 50 MG capsule TAKE 1 CAPSULE(50 MG) BY MOUTH TWICE DAILY 60 capsule 2024 Discontinued Nirmatrelvir&Ri tonavir 300/100 (Paxlovid, 300/100,) 20 x 150 MG & 10 x 100MG tablet therapy packIndications :COVID-19 Take 1 Dose by mouth 2 times daily. 10 each 025 2024 Discontinued(T herapy completed) Acetaminophen Extra Strength 500 MG tablet TAKE 1 TO 2 TABLETS BY MOUTH THREE TIMES A DAY NEEDED FOR HEADACHE, FEVER OR PAIN. 60 tablet 2024 Discontinued Active Problems Problem Noted Date Diagnosed Date Muscle spasm 07/28/2025 Assessment & Plan (07/28/2025 2:44 PM EDT): Apply heat to the affected area She may take acetaminophen as needed for her today tizanidine 2 mg nightly as needed COVID-19 07/28/2025 Assessment & Plan (07/28/2025 2:44 PM EDT): Drink plenty of water and rest I prescribed for patient Sindi she tells me she is only taking Tylenol so there is no medication interactions Mixed incontinence urge and stress 04/07/2025 Overview (04/07/2025): pt will benefit from XL pads to avoid wetting herself and UTI Viral upper respiratory tract infection 03/09/20 Assessment & Plan (03/09/2025 3:10 PM EDT): Rapid viral testing negative today. She has sinusitis, start Augmentin x 7 days. Advised to take sucralfate for the first few days of taking antibiotics, she can also take probiotics if his diarrhea gets worse. Rest (sleep at least 8 hours a night). Hydrate with plenty of water (avoid caffeine and alcohol). Advance to BRAT then soft diet as tolerated and hold on solid foods until diarrhea resolves Use saline nose drops to loosen mucus + Flonase + Zyrtec x 2 weeks Take Acetaminophen (Tylenol )/Ibuprofen as needed to reduce fever, headache, body aches or discomfort Gargle with salt water and use throat sprays/lozenges for throat pain. Use heated, humidified air. If you do not have a humidifier, take hot showers. Cover coughs and sneezes using the crook of your elbow. If you have a fever, stay home and away from others (self isolation) until fever-free for 72 hours (temperature should be less than 100 F without medication). RTC as needed if symptoms do not resolve Stress bladder incontinence, female 03/09/2025 Persistent depressive disorder 01/06/2025 Ductal carcinoma in situ (DCIS) of left breast 0 06/20/2024 Chronic pain of both knees 10/27/2022 Encounters Date Type Department Care Team Description 08/27/2025 3:20 PM EDT Office Visit [facility] [address] [place] [phone] Neck pain (Primary Dx); Acute pain of left shoulder 08/27/2025 Orders Only [facility] [address] [place] [address] Lili Ferreira DO 08/27/2025 Travel 08/10/2025 Telephone [facility] [address] [place] [address] Teri Owens MD Med Refill 08/10/2025 Refill [facility] [address] [place] [address] Teri Owens MD Type 2 diabetes mellitus without complication, without long-term current use of insulin ([facility]) 07/30/2025 Refill [facility] [address] [place] [phone] Teri Owens MD 07/28/2025 2:00 PM EDT Office Visit [facility] [address] [place] [phone] Marta Ludwig MD COVID-19; Muscle spasm 07/28/2025 Travel 07/15/2025 Refill [facility] [address] [place] [phone] Nette Ann MD 07/03/2025 Refill [facility] [address] [place] [address] Teri Owens MD 07/02/2025 Refill [facility] [address] [place] [address] Teri Owens MD 06/10/2025 Refill [facility] [address] [place] [phone] Teri Owens MD 06/05/2025 2:45 PM EDT Office Visit [facility] [address] [place] [address] Teri Owens MD Arthropathy (Primary Dx); Onychomycosis 06/05/2025 Refill [facility] [address] [place] [address] Teri Owens MD 06/05/2025 Travel 06/02/2025 Telephone [facility] [address] [place] [phone] Teri Owens MD Med Refill 06/02/2025 Refill [facility] [address] [place] [address] Teri Owens MD from Last 3 Months Immunizations Immunization Administration Dates Next Due Influenza injectable quadriv [...] Mass Index 31.6 08/27/2025 3:21 PM EDT Plan of Treatment Upcoming Encounters Date Type Department Care Team (Late st Contact Info) Description 09/30/2025 10:00 AM EST Office Visit [facility] [address] [place] [address] Earnest Mishra MD [address] [place] [address] 12/04/2025 2:30 PM EST Office Visit [facility] [address] [place] [address] TarkaEdna, OD [address] [place] [address] Health Maintenance Due Date Last Done Comments CT Colonography 1960 Colonoscopy 1960 Colorectal Cancer Screening 1960 FIT DNA/Cologuard 1960 FIT 1960 FOBT 1960 Sigmoidoscopy 1960 Hepatitis C Screening 01/30/1978 Diabetes: Urine Protein [...] exists Dental X-Ray: Bitewings 09/15/2022 09/14/2021, 04/29 Diabetes: Hemoglobin A1C 06/09/2025 025, 01/02/2023, 04/04/2022 COVID-19 Vaccine ( season) 2025 10/24/2022, 04/21/2022, 05/02/2021, Additional history exists Influenza Vaccine (#1) 2025 , 08/09/2023, 09/01/2021, Additional history exists SDOH Screening 10/02/2025 10/02/2024 Alcohol/Substance Use Screening 01/06/2026 01/06/2025 Depression Screening 01/06/2026 01/06/2025, 01/06/20 Diabetes: Foot Exam 04/07/2026 04/07/2025, 04/07/2025, 04/07/2025, Additional history exists Lipid Panel 04/08/2026 04/08/2025, 11/13, 04/04/2022 Mammogram 04/22/2026 04/22/2025, 06/0 03/2024, 04/11/2023, Additional history exists Tobacco Screening 08/27/2026 08/27/2025 Eye Exam 04/23/2027 04/23/2025 DTaP/Tdap/Td Vaccines (2 - Td or Tdap) 07/18/2029 07/18/2019 Cervical Cancer Screening 01/13/2030 HPV/Cotest 01/13/2030 01/13/2025 Pap Smear 01/13/2030 01/13/2025 RSV Patients and Patients Aged 60 years or older (1 - 1-dose 75+ series) 01/30/2035 Zoster Vaccines Completed 05/23/2022, 03/13/2022 HIB Vaccines Aged Out No longer eligi [...] Name Priority Date/Time Associated Diagnosis Comments XR CERVICAL SPINE 3V Routine 08/27/2025 4:15 PM EDT XR SHOULDER 2+ VIEWS LEFT STAT 08/27/2025 4:15 PM EDT Neck pain Acute pain of left shoulder POCT INFLUENZA B (ID NOW RAPID MOLECULAR) Routine 07/28/2025 1:53 PM EDT COVID-19 POCT INFLUENZA A (ID NOW RAPID MOLECULAR) Routine 07/28/2025 1:53 PM EDT COVID-19 POCT RAPID COVID ANTIGEN Routine 07/28/2025 1:53 PM EDT COVID-19 RHEUMATOID FACTOR Routine 06/08/2025 11: 29 AM EDT Arthropathy HM DIABETES EYE EXAM Routine 04/23/2025 2:49 PM EDT BI MAMMOGRAM SCREENING TOMOSYNTHESIS BILATERAL Routine 04/22/2025 8:55 AM EDT Encounter for screening mammogram for breast cancer LIPID PANEL, STANDARD Routine 04/08/2025 9:47 AM EDT Hypercholesteremia HPV DNA, LOW/HIGH RISK Routine 11:19 AM EST PAP SMEAR Routine 01/13/2025 11:19 AM EST Cervical cancer screening HEMOGLOBIN A1C Routine 12/10/2024 11:52 AM EST Type 2 diabetes mellitus without complication, without long-term current use of insulin ([facility]) PROPHYLAXIS - ADULT Routine 02/24/2022 1 2:00 AM EDT BITEWINGS - 4 RADIOGRAPHIC IMAGES Routine 09/14/2021 12:00 AM EDT PERIODIC ORAL EVALUATION - ESTABLISHED PATIENT Routine 09/14/2021 12:00 AM EDT INTRAORAL - COMPLETE SERIES OF RADIOGRAPHIC IMAGES Routine 04/29/2019 12:00 AM EDT from Last 3 Months or Most Recently Relevant to Health Maintenance Results * XR CERVICAL SPINE 3V (08/27/2025 4:15 PM EDT) Anatomical Region Laterality Modality Abdomen Radiographic Tia ging 08/27/2025 4:15 PM EDT Narrative 08/27/2025 4:34 PM EDT [address] [address] XRay Report Signed Patient: Mary June MR#: [id number] : 1960 Acct:[id number] Age/Sex: 65 / F ADM Date: 08/27/25 Loc: HO.HHCX Attending Dr: Lili Ferreira DO Ordering Physician: Lili Ferreira DO Date of Service: 08/27/25 Procedure(s): XR cervical spine 3V Accession Number(s): [id number] cc: Lili Ferreira DO Reason for Exam: PAIN EXAMINATION: XR CERVICAL SPINE CLINICAL INFORMATION: PAIN COMPARISON: X-ray 03/14/2022 TECHNIQUE: 4 views FINDINGS: Cervical spine is visualized from C1-C7 level. No prevertebral soft tissue swelling. Predens space is maintained. No evidence of acute fracture or spondylolisthesis. Vertebral body heights are maintained. Disc spaces are maintained. Mild degenerative changes in the articulation of the dens the anterior arch of C1. Multilevel facet degeneration.. No suspicious bony lesions. XR/XR cervical spine 3V IMPRESSION: No acute osseous findings. Cervical spondylosis as above. Electronically signed by: Luc Prakash MD 08/27/2025 04:31 PM EDT RP Dictated By: Luc Prakash MD Signed By: <Electronically signed by Luc Prakash MD in OV> 08/27/25 1631 DD/ 1615 TD/TT: 08/27/25 1616 Planting Machine Crewman: Procedure Note Donotuseinterpreter, Image - 08/27/[address] [address] XRay Report Signed Patient: Chandler June#: [id number] : 1960Acct:[id number] Age/Sex: 65 / FADM Date: 08/27/25 Loc: .HHX Attending Dr: Lili Ferreira DO Ordering Physician: Lili Ferreira DO Date of Service: 08/27/25 Procedure(s): XR cervical spine 3V Accession Number(s): [id number] cc: Lili Ferreira DO Reason for Exam: PAIN EXAMINATION: XR CERVICAL SPINE CLINICAL INFORMATION: PAIN COMPARISON: X-ray 03/14/2022 TECHNIQUE: 4 views FINDINGS: Cervical spine is visualized from C1-C7 level. No prevertebral soft tissue swelling. Predens space is maintained. No evidence of acute fracture or spondylolisthesis. Vertebral body heights are maintained. Disc spaces are maintained. Mild degenerative changes in the articulation of the dens the anterior arch of C1. Multilevel facet degeneration.. No suspicious bony lesions. XR/XR cervical spine 3V IMPRESSION: No acute osseous findings. Cervical spondylosis as above. Electronically signed by: Luc Prakash MD 08/27/2025 04:31 PM EDT RP Dictated By: Luc Prakash MD Signed By: <Electronically signed by Luc Prakash MD in OV> 08/27/25 1631 DD/ 1615 TD/TT: 08/27/251615 Planting Machine Crewman: SAMANTHA Lili Ferreira DO IMG XR PROCEDURES Final Resu lt * XR Shoulder 2+ Views Left (08/27/2025 4:15 PM EDT) Anatomical Region Laterality Modality Upper Extremities, Shoulder Left Radi ographic Imaging 08/27/2025 4:15 PM EDT Narrative 08/27/2025 4:30 PM EDT [address] [address] XRay Report Signed Patient: Mary June MR#: [id number] : 1960 Acct:[id number] Age/Sex: 65 / F ADM Date: 08/27/25 Loc: HO.HHCX Attending Dr: Lili Ferreira DO Ordering Physician: Lili Ferreria DO Date of Service: 08/27/25 Procedure(s): XR shoulder LT min 2V Accession Number(s): [id number] cc: Lili Ferreira DO Reason for Exam: [...] signed by Luc Prakash MD in OV> 08/27/257 DD/ 14 TD/TT: 08/27/251615 Planting Machine Crewman: SAMANTAH Procedure Note Donotuseinterpreter, Image - 08/27/2025 [facility] [address] [place] [address] XRay Report Signed Patient: Chandler June#: [id number] : 1960Acct:[id number] Age/Sex: 65 / FADM Date: 08/27/25 Loc: HO.HHCX Attending Dr: Lili Ferreira DO Ordering Physician: Lili Ferreira DO Date of Service: 08/27/25 Procedure(s): XR shoulder LT min 2V Accession Number(s): [id number] cc: Lili Ferreira DO Reason for Exam: [...] signed by Luc Prakash MD in OV> 08/27/25 1627 DD/ 1615 TD/TT: 08/27/25 1616 Planting Machine Crewman: SAMANTHA us Lili Ferreira DO IMG XR PROCEDURES Final Resu lt * Influenza B (ID NOW Rapid Molecular) (07/28/2025 1:53 PM EDT) Influenza B Negative Negative, Indeterminate [facility] Swab 07/28/2025 1:53 PM EDT us Marta Rey MD POINT OF CARE TEST EN TER/EDIT ORDERABLES Final Result Performing Organization Address [facility]/ZIP Co de Phone Number [facility] [address] [place] [phone] * Influenza A (ID NOW Rapid Molecular) (07/28/2025 1:53 PM EDT) Influenza A Negative Negative, Indeterminate [facility] Swab 07/28/2025 1:53 PM EDT us Marta Rey MD POINT OF CARE TEST EN TER/EDIT ORDERABLES Final Result Performing Organization Address [facility] Phone Number [facility] [address] [place] [phone] * (ABNORMAL) POCT Rapid COVID Ag (07/28/2025 1:53 PM EDT) Rapid COVID Ag Positive [facility] Swab 07/28/2025 1:53 PM EDT us Marta Rey MD POINT OF CARE TEST EN TER/EDIT ORDERABLES Final Result Performing Organization Address [facility] de Phone Number [facility] [address] [place] [phone] * Rheumatoid Factor (06/08/2025 11:29 AM EDT) Pathologist [facility] Rheumatoid Factor <13.0 <15.0 IU/mL [facility] Blood Venous blood specimen / Unknown 06/08/2025 11:29 AM EDT 06/08/2025 2:45 PM EDT us Teri Owens MD LAB BLOOD ORDERABLES Final Resul t Performing Organization Address [facility] Co de Phone Number [facility] [address] [place] [phone] * Hm Diabetes Eye Exam (04/23/2025 2:49 PM EDT) us Historical Provider MD HEALTH MAINTENANCE Final Result * BI Mammogram Screening Tomosynthesis Bilateral (04/22/2025 8:55 AM EDT) Anatomical Region Laterality Modality Breast Bilateral Mammography 04/22/2025 8:55 AM EDT Narrative 04/22/2025 9:34 AM EDT [place] [address] [place] [address] Mammography Report Signed Patient: Mary June MR#: [id number] : 1960 Acct:[id number] Age/Sex: 65 / F ADM Date: 04/22/25 Loc: HO.MAMMO Attending Dr: Teri Owens MD Ordering Physician: Teri Owens MD Results: 2Benign Findings Date of Service: 04/22/25 Follow Up: 1 Year From [facility] Mammogram Procedure(s): MM tomosynthesis screening BI Accession Number(s): [id number] cc: Teri Owens MD EXAMINATION: MM SCREENING DIGITAL BREAST TOMOSYNTHESIS, BILATERAL CLINICAL INFORMATION: Screening. Asymptomatic. History of left breast cancer in 2019 post lumpectomy. COMPARISON: Mammography: Comparison is made with available priors TECHNIQUE: Digital breast mammography with tomosynthesis is performed in both the craniocaudal and mediolateral oblique views along with computer-aided detection (CAD). FINDINGS: There are scattered areas of fibroglandular density (ACR BI-RADS breast composition Category b). Left lumpectomy changes are stable. There are no significant masses, abnormal calcifications, or other abnormalities. MM/MM tomosynthesis screening BI IMPRESSION: No mammographic evidence of malignancy. ASSESSMENT: BI-RADS BI-RADS 2 - Benign Findings RECOMMENDATION: Routine annual mammography screening. 1 year F/U This examination should not preclude the clinical evaluation of a suspicious palpable abnormality. This patient's information was entered into a reminder system with a target due date for their next mammogram. Electronically signed by: Parris Varghese DO 04/22/2025 09:31 AM EDT Dictated By: Parris Varghese DO Signed By: <Electronically signed by Parris Varghese DO in OV> 04/22/2531 DD/ TD/TT: 04/22/25 0918 Planting Machine Crewman: Procedure Note Donotuseinterpreter, Image - [facility] [address] [place] [address] Mammography Report Signed Patient: Calderon JuneR#: [id number] : 1960Acct:[id number] Age/Sex: 65 / FADM Date: 04/22/25 Loc: HO.MAMMO Attending Dr: Teri Owens MD Ordering Physician: Teri Owens MDResults: 2Benign Findings Date of Service: 04/22/25Follow Up: 1 Year From Orig in[facility] Mammogram Procedure(s): MM tomosynthesis screening BI Accession Number(s): [id number] cc: Teri Owens MD EXAMINATION: MM SCREENING DIGITAL BREAST TOMOSYNTHESIS, BILATERAL CLINICAL INFORMATION: Screening. Asymptomatic. History of left breast cancer in 2019 post lumpectomy. COMPARISON: Mammography: Comparison is made with available priors TECHNIQUE: Digital breast mammography with tomosynthesis is performed in both the craniocaudal and mediolateral oblique views along with computer-aided detection (CAD). FINDINGS: There are scattered areas of fibroglandular density (ACR BI-RADS breast composition Category b). Left lumpectomy changes are stable. There are no significant masses, abnormal calcifications, or other abnormalities. MM/MM tomosynthesis screening BI IMPRESSION: No mammographic evidence of malignancy. ASSESSMENT: BI-RADS BI-RADS 2 - Benign Findings RECOMMENDATION: Routine annual mammography screening. 1 year F/U This examination should not preclude the clinical evaluation of a suspicious palpable abnormality. This patient's information was entered into a reminder system with a target due date for their next mammogram. Electronically signed by: Parris Varghese DO 04/22/2025 09:31 AM EDT RP Dictated By: Parris Varghese DO Signed By: <Electronically signed by Parris Varghese DO in OV> 04/22/25930 DD/ 4 TD/TT: 04/22/25917 Planting Machine Crewman: Teri Owens MD IMG BI PROCEDURES Final Result * (ABNORMAL) Lipid Panel, Standard (04/08/2025 9:47 AM EDT) Triglycerides 106 <150 mg/dL [facility] Comment:Desirable Triglyceri de: less than 150 mg/dLBorderline High Triglyceride 150-199 mg/dLHigh Triglyceride: 200-499 mg/dLVery High Triglyceride: greater than or equal to 5OO mg/dL Cholesterol 227(H) <200 mg/dL [facility] Comment:Desirable Cholestero l: less than 200 mg/dLBorderline High Cholesterol: 200-239 mg/dLHigh Cholesterol: greater than 239 mg/dL LDL Cholesterol Calculated 149(H) <100 mg/dL [facility] Comment:Desirable LDL: less than 100 mg/dLNear Optimal/Above Optimal LDL: 110- 129 mg/dLBorderline High LDL: 130-159 mg/dLHigh LDL: 160-189 mg/dLVery High LDL: greater than or equal to 190 mg/dL HDL Cholesterol 57 >40 mg/dL [facility] Comment:Desirable HDL: great er than 40 mg/dL Note: This HDL assay may give artificially low results in patients with liver disease. Blood Venous blood specimen / Unknown 04/08/2025 9:47 AM EDT 04/08/2025 2:14 PM EDT Teri Owens MD LAB BLOOD ORDERABLES Final Resul t [facility] [address] [place] [phone] * HPV DNA, Low/High Risk (01/13/2025 11:19 AM EST) HPV High Risk Negative Negative [facility] HPV Genotype 16 Negative Negative [facility] HPV Genotype 18 Negative Negative [facility] Comment:HPV testing performe d at [facility] (CLIA#[id number]), [address] [place] [phone].Testing for HPV was performed using the Kyler [...] 01/14/2025 6:50 AM EST us Jigna Dorsey [facility] LAB BLOOD ORDERABLES Yoselin gallego Result [facility] [address] [place] [phone] * Pap Smear (01/13/2025 11:19 AM EST) Swab Cervix uteri structure / Unknown 01/13/2025 11:19 AM EST 01/14/2025 6:50 AM EST Claudette [facility] - 01/16/2025 8:18 AM EST ----- ------- Name: Mary June Age/Sex: 64/F : 1960 Unit#: [id number] Attend Dr: JIGNA DORSEY [facility] Re01/13/25 Status: KADE REF Location: [facility] Disch: ----- ------- SPEC : [id number] RECD: 01/14/25 STATUS: KIESHA NEGRETE NUM: [id number] PURA: 01/13/25-[address] [facility] [address]: JIGNA DORSEY [facility] ENTERED: 01/14/25 SP TYPE: Pap Smr OTHR DR: ORDERED: Pap Smear Interpretation Satisfactory for evaluation. Negative for intraepithelial lesion or malignancy. No endocervical cells seen. HPV High Risk: Negative HPV Genotyping 16: Negative HPV Genotyping 18: Negative Clinical Information LMP: Post menopausal Previous PAP test: Unknown date/findings Material Received Cervix ----- ------- Signed (signature on file) BETI Queen (ASCP) 01/16/25 0818 ----- ------- END OF REPORT us Jigna ZAVALA LAB CYTOLOGY ORDERABLES F inal Result Performing Organization Address [facility] Co de Phone Number [facility] [address] [place] [phone] * Hemoglobin A1c (12/10/2024 11:52 AM EST) Hemoglobin A1c 5.4 <6.0 % [facility] Comment:Hemoglobin A1C Refer ence Range Adults: 4.8 - 6.0 % Non diabetic: < 6.0 % Goal: < 7.0 %Additional Action Suggested: > 8.0 %Note: Hemoglobin A1c results are invalid for patients with abnormal amounts of HbF. Blood transfusions may impact the HbA1c concentration in the patient sample. Estimated Average Glucose 108 mg/dL [facility] Comment:eAG = Estimated ave rage glucose which is %A1C expressed asaverage glucose, using the formula of the D4S-MvsikzeYklffsg Glucose study (ADAG), Diabetes Care, Vol.31,#8,Jun. 2007 Blood Venous blood specimen / Unknown 12/10/2024 11:52 AM EST 12/10/2024 2:48 PM EST Teri Owens MD LAB BLOOD ORDERABLES Final Resul t Performing Organization Address [facility] Co de Phone Number [facility] [address] [place] [phone] from Last 3 Months or Most Recently Relevant to Health Maintenance Insurance [facility] LONG-TERM OPTIONS (HMO D-SNP) [facility] STAND ADULT Care Teams Screed Person Relationship Specialty Start Date End Date Teri Owens MD [address] [place] [address] PCP - General Family Medicine 10/21/18 Dolores Danielle Golf Ball TrimmerDrop Hammer Setter Up 09/27/23
--- OUTSIDE RECORDS SUMMARY | 2025-08-27 19:34 | XMS_ITS | Encounter Summary ---
Author Organization [employer] Address [address] [facility] 7t [place] [address] Care Team Providers Care Shank Tapper Name Role Phone Teri Owens MD Primary Care Provider [phone] Reason for Visit * Reason Comments Med Refill Encounter Details Date Type Department Care Team ([facility] st Contact Info) Description 05/11/[address] [facility] MEDICINE [address] [place] [address] Teri Owens MD [address] [place], [place] [phone] GERD without esophagitis Social History Tobacco Use [...] Description 09/30/2025 10:00 AM EST Office Visit [facility] CHC MED & PEDS [address] [place] [address] Earnest Mishra MD 505 [place] [address] 12/04/2025 2:30 PM EST Office Visit [facility] OPTOMETRY [address] [place] [address] Tarka, Edna, OD [address] [place] [address] documented as of this encounter Visit Diagnoses Diagnosis GERD without esophagitis Esophageal reflux documented in this encounter Additional Health Concerns Assessment Noted Time PHQ-9 Depression Total Score: 0 01/06/20 25 9:22 AM EST documented as of this encounter Care Teams Shank Tapper Relationship Specialty Start Date End Date Teri Owens MD [address] [place] [address] PCP - General Family Medicine 10/21/18 Dolores Danielle Pharmaceutical Laboratory TechnicianBumper Straightener 09/27/23 documented as of this encounter
--- OUTSIDE RECORDS SUMMARY | 2025-08-27 19:34 | XMS_ITS | Encounter Summary ---
Author Organization [facility] [facility] Address [address] [place] [address] 7t [place] [address] Care Team Providers Care Buttonhole Marker Name Role Phone Teri Owens MD Primary Care Provider [phone] Encounter Details Date Type Department Care Team (Latest Contact Info) Description 06/10/2019 Abstract [facility] CONVERSIONS Dental, Provider, DDS Social [...] 10:00 AM EST Office Visit [facility] CHC MED & PEDS [address] [place] [address] Earnest Mishra MD 505 [place] [address] 12/04/2025 2:30 PM EST Office Visit [facility] OPTOMETRY [address] [place] [address] Edna Stevenson, OD [address] [place] [address] documented as of this encounter Visit Diagnoses Not on filedocumented in this encounter Care Teams Buttonhole Marker Relationship Specialty Start Date End Date Teri Owens MD [address] [place] [address] PCP - General Family Medicine 10/21/18 Dolores Danielle Interlocking And Signal MechanicPanel Installer 09/27/23 documented as of this encounter
--- OUTSIDE RECORDS SUMMARY | 2025-08-27 19:34 | XMS_ITS | Encounter Summary ---
Author Organization [employer] Address [address] [address] 7t [place] [address] Care Team Providers Care Affirmative Action Specialist Name Role Phone Teri Owens MD Primary Care Provider [phone] Encounter Details Date Type Department Care Team (Latest Contact Info) Description 08/27/2025 Travel Social History Tobacco Use Types Packs/Day [...] Description 09/30/2025 10:00 AM EST Office Visit [facility] CHC MED & PEDS [address] [place], [place] [phone] Earnest Mishra MD 505 [place] [address] 12/04/2025 2:30 PM EST Office Visit [facility] OPTOMETRY 267 [place] [address] Tarka, Edna, OD 267 [place] [address] documented as of this encounter Visit Diagnoses Not on filedocumented in this encounter Additional Health Concerns Assessment Noted Time PHQ-9 Depression Total Score: 0 01/06/20 25 9:22 AM EST documented as of this encounter Care Teams Affirmative Action Specialist Relationship Specialty Start Date End Date Teri Owens MD [address] [place] [address] PCP - General Family Medicine 10/21/18 Dolores Danielle Internal Control ConsultantStudent Development Dean 09/27/23 documented as of this encounter
--- OUTSIDE RECORDS SUMMARY | 2025-08-27 19:34 | XMS_ITS | Encounter Summary ---
Author Organization [employer] Address [address] [facility] [address] [place] [address] Care Team Providers Care 5Th Grade Teacher Name Role Phone Teri Owens MD Primary Care Provider [phone] Encounter Details Date Type Department Care Team (Late st Contact Info) Description 08/27/2025 Orders Only [facility] MEDICINE 230 [place], [place] [phone] Lili Ferreira DO 230 [place], [place] [phone] Social History Tobacco Use Types Packs/Day Years [...] Description 09/30/2025 10:00 AM EST Office Visit [facility] CHC MED & PEDS 505 [place], [place] [phone] Earnset Mishra MD 505 [place] [address] 12/04/2025 2:30 PM EST Office Visit [facility] OPTOMETRY [address] [place], [place] [phone] Edna Stevenson, OD 267 [place] [address] documented as of this encounter Procedures Procedure Name Priority Date/Time Associated Diagnosis Comments XR CERVICAL SPINE 3V Routine 08/27/2025 4:15 PM EDT documented in this encounter Results * XR CERVICAL SPINE 3V (08/27/2025 4:15 PM EDT) Anatomical Region Laterality Modality Abdomen Radiographic Tia ging 08/27/2025 4:15 PM EDT Narrative 08/27/2025 4:34 PM EDT [facility] [address] [place] [address] XRay Report Signed Patient: Mary June MR#: [id number] : 1960 Acct:[id number] Age/Sex: 65 / F ADM Date: 08/27/25 Loc: [facility] Attending Dr: Lili Ferreira DO Ordering Physician: Lili Ferreira DO Date of Service: 08/27/25 Procedure(s): XR cervical spine 3V Accession Number(s): [id number] cc: Lili Ferreira DO Reason for Exam: [...] 08/27/25 1631 DD/ 1615 TD/TT: 08/27/25 1616 Snuff Box Finisher: Procedure Note Donotuseinterpreter, Image - 08/27/[address] [address] XRay Report Signed Patient: Calderon JuneR#: [id number] : 1960Acct:[id number] Age/Sex: 65 / FADM Date: 08/27/25 Loc: [facility] Attending Dr: Lili Ferreira DO Ordering Physician: Lili Ferreira DO Date of Service: 08/27/25 Procedure(s): XR cervical spine 3V Accession Number(s): [id number] cc: Lili Ferreira DO Reason for Exam: [...] 08/27/25 1631 DD/ 1615 TD/TT: 08/27/25 1616 Snuff Box Finisher: SAMANTHA Lili Ferreira DO IMG XR PROCEDURES Final Resu lt documented in this encounter Visit Diagnoses Not on filedocumented in this encounter Additional Health Concerns Assessment Noted Time PHQ-9 Depression Total Score: 0 01/06/20 25 9:22 AM EST documented as of this encounter Care Teams 5Th Grade Teacher Relationship Specialty Start Date End Date Teri Owens MD [address] [place] [address] PCP - General Family Medicine 10/21/18 Dolores Danielle Manager Of DrillingDelivery Lead 09/27/23 documented as of this encounter
--- OUTSIDE RECORDS SUMMARY | 2025-08-27 19:34 | XMS_ITS | Encounter Summary ---
Author Organization [employer] Address [address] [facility] [address] 7t [place] [address] Care Team Providers Care Emergency Communications Dispatcher Name Role Phone Teri Owens MD Primary Care Provider [phone] Reason for Visit * Reason Onset Date Comments PT1 01/17/2023 Encounter Details Date Type Department Care Team ([facility] st Contact Info) Description 01/17/2023 Telephone [facility] CHC MED & PEDS 505 [place] [address] Teri Owens MD 505 [place] [address] PT1 Social History Tobacco Use Types Packs/Day [...] to send PT1 * Telephone Encounter - Luistio Holliday - 01/17/2023 12:46 PM EST Tc from [facility] with [facility] requesting a PT1 for pt PT1 Name of facility: [facility] Signals Intelligence Analyst Specialty: Feet or foot Location: [address] [place] [address] Date: 01/24/2023 Time: 9:30 am fax: n/a Phone: n/a wheelchair: n/a Clinical Lab Clerk: n/a documented in this encounter Plan of Treatment Upcoming Encounters Date Type Department Care Team (Late st Contact Info) Description 09/30/2025 10:00 AM EST Office Visit [facility] CHC MED & PEDS [address] [place] [address] Earnest Mishra MD 505 [place] [address] 12/04/2025 2:30 PM EST Office Visit [facility] OPTOMETRY [address] [place] [address] TarEdna carpenter, OD [address] [place] [address] documented as of this encounter Visit Diagnoses Diagnosis Constipation, unspecified constipation type documented in this encounter Care Teams Emergency Communications Dispatcher Relationship Specialty Start Date End Date Teri Owens MD 230 [place] [address] PCP - General Family Medicine 10/21/18 Dolores Danielle Pencil MakerTransverse Abdominal Muscle Surgeon 09/27/23 documented as of this encounter
--- OUTSIDE RECORDS SUMMARY | 2025-08-27 19:34 | XMS_ITS | Encounter Summary ---
Author Organization [employer] Address [address] [facility] [address] 7t [place] [address] Care Team Providers Care Manager Nicu Name Role Phone Teri Owens MD Primary Care Provider [phone] Reason for Visit * Reason Onset Date Comments Med Refill 08/10/2025 Encounter Details Date Type Department Care Team ([facility] st Contact Info) Description 08/10/2025 Telephone [facility] CHC MED & PEDS [address] [place] [address] Teri Owens MD 505 [place] [address] Med Refill Social History Tobacco Use Types [...] encounter Miscellaneous Notes * Telephone Encounter - Lili Dasilva LPN - 08/10/2025 12:42 PM EDT Pended to PCP. * Telephone Encounter - Karla Zavaleta - 08/10/2025 12:37 PM EDT TC from pt requesting medication refill. Medications needing refill : naproxen (Naprosyn) 500 MG tablet cholecalciferol (Vitamin D-3) 50 MCG (1999) tablet To be sent to: [id number] - [place], [place] - [address] [facility] [address] A [address] ARMORY documented in this encounter Plan of Treatment Upcoming Encounters Date Type Department Care Team (Late st Contact Info) Description 09/30/2025 10:00 AM EST Office Visit [facility] CHC MED & PEDS [address] [place], [place] [phone] Earnest Mishra MD 505 [place], [place] [phone] 12/04/2025 2:30 PM EST Office Visit [facility] OPTOMETRY [address] [place], [place] [phone] Edna Stevenson, OD [address] [place] [address] documented as of this encounter Visit Diagnoses Not on filedocumented in this encounter Additional Health Concerns Assessment Noted Time PHQ-9 Depression Total Score: 0 01/06/20 25 9:22 AM EST documented as of this encounter Care Teams Manager Nicu Relationship Specialty Start Date End Date Teri Owens MD [address] [place] [address] PCP - General Family Medicine 10/21/18 Dolores Danielle Senior OfficerDirector Of User Experience 09/27/23 documented as of this encounter
--- OUTSIDE RECORDS SUMMARY | 2025-08-27 19:34 | XMS_ITS | Encounter Summary ---
Author Organization [employer] Address [address] [facility] [address] [facility] [address] 7t [place] [address] Care Team Providers Care Tile Mechanic Helper Name Role Phone Teri Owens MD Primary Care Provider [phone] Encounter Details Date Type Department Care Team (Late Contact Info) Description 08/23/2023 Orders Only [facility] CHC MED & PEDS 505 [place], [place] [phone] Teri Owens MD 505 [place], [place] [phone] Social History Tobacco Use Types Packs/Day Years [...] Description 09/30/2025 10:00 AM EST Office Visit [facility] CHC MED & PEDS 505 [place], [place] [phone] Earnest Mishra MD 505 [place], [place] [phone] 12/04/2025 2:30 PM EST Office Visit [facility] OPTOMETRY [address] [place] [address] Edna Stevenson, OD [address] [place] [address] documented as of this encounter Visit Diagnoses Not on filedocumented in this encounter Care Teams Tile Mechanic Helper Relationship Specialty Start Date End Date Teri Owens MD 230 [place] [address] PCP - General Family Medicine 10/21/18 Dolores Danielle Manager Data CenterFlute Grinder 09/27/23 documented as of this encounter
--- OUTSIDE RECORDS SUMMARY | 2025-08-27 19:34 | XMS_ITS | Encounter Summary ---
Author Organization [facility] Address [address] [place] [address] 7 [place] [address] Care Team Providers Care Medication Specialist Name Role Phone Teri Owens MD Primary Care Provider [phone] Encounter Details Date Type Department Care Team (Latest Contact Info) Description 09/14/2021 Abstract [facility] CONVERSIONS Dental, Provider, DDS Social [...] Description 09/30/2025 10:00 AM EST Office Visit [facility] CHC MED & PEDS 505 [place] [address] Earnest Mishra MD 505 [place] [address] 12/04/2025 2:30 PM EST Office Visit [facility] OPTOMETRY 267 [place] [address] Edna Stevenson, OD [address] [place] [address] documented as of this encounter Visit Diagnoses Not on filedocumented in this encounter Care Teams Medication Specialist Relationship Specialty Start Date End Date Teri Owens MD [address] [place] [address] PCP - General Family Medicine 10/21/18 Dolores Danielle Director Industrial RelationsSmall Wind Energy Installer 09/27/23 documented as of this encounter
--- OUTSIDE RECORDS SUMMARY | 2025-08-27 19:34 | XMS_ITS | Encounter Summary ---
Author Organization [employer] Address [address] [facility] [address] 7t [place] [address] Care Team Providers Care Small Engine Trainer Name Role Phone Teri Owens MD Primary Care Provider [phone] Reason for Visit * Reason Onset Date Comments Med Refill 01/17/2023 Encounter Details Date Type Department Care Team (Late st Contact Info) Description 01/17/2023 Telephone [facility] MEDICINE [address] [place] [address] Teri Owens MD [address] [place] [address] Med Refill Social History Tobacco Use Types [...] Description 09/30/2025 10:00 AM EST Office Visit [facility] CHC MED & PEDS 505 [place], [place] [phone] Earnest Mishra MD 505 [place], [place] [phone] 12/04/2025 2:30 PM EST Office Visit [facility] OPTOMETRY [address] [place], [place] [phone] Edna Stevenson, OD [address] [place], [place] [phone] documented as of this encounter Visit Diagnoses Not on filedocumented in this encounter Care Teams Small Engine Trainer Relationship Specialty Start Date End Date Teri Owens MD [address] [place] [address] PCP - General Family Medicine 10/21/18 Dolores Danielle Medical Records CoderCert Pharmacy Tech 09/27/23 documented as of this encounter
--- OUTSIDE RECORDS SUMMARY | 2025-08-27 19:34 | XMS_ITS | Encounter Summary ---
Author Organization [employer] Address [address] [facility] [address] [facility] [address] 7[address] [place] [address] Care Team Providers Care Principal Software Engineer Name Role Phone Teri Owens MD Primary Care Provider [phone] Encounter Details Date Type Department Care Team ([facility] Contact Info) Description 10/27/2022 Orders Only [facility] MEDICINE [address] [place] [address] Teri Owens MD [address] [place], [place] [phone] GERD without esophagitis (Primary Dx) Social History [...] Upcoming Encounters Date Type Department Care Team ([facility] Contact Info) Description 09/30/2025 10:00 AM EST Office Visit [facility] CHC MED & PEDS [address] [place], [place] [phone] Earnest Mishra MD [address] [place] [address] 12/04/2025 2:30 PM EST Office Visit [facility] OPTOMETRY [address] [place], [place] [phone] Navarrojayden Edna, OD [address] [place] [address] documented as of this encounter Visit Diagnoses Diagnosis GERD without esophagitis- Primary Esophageal reflux documented in this encounter Care Teams Principal Software Engineer Relationship Specialty Start Date End Date Teri Owens MD [address] [place] [phone] PCP - General Family Medicine 10/21/18 Dolores Danielle Fleet DirectorTruck Supervisor 09/27/23 documented as of this encounter
== END 2025-08-27 15:55 | disposition home or self-care (01) ==
LOC: HO.HHCX 15:54
PROVIDERS: Visit Provider Family Medicine
DX: M54.2 Cervicalgia (principal); M25.512 Pain in left shoulder
CPT/HCPCS: 72040; 73030

== ENCOUNTER → 2025-08-27 15:54 | Outpatient (BNV) | payer OTHER, SELFPAY | PROVIDERS: Visit Provider Radiology Diagnostic Ultrasound | DX: M50.322 Other cervical disc degeneration at C5-C6 level (principal); M19.012 Primary osteoarthritis, left shoulder | CPT/HCPCS: 72040; 73030 ==

== ENCOUNTER 2025-09-30 10:20 | Outpatient (REF) | payer OTHER, SELFPAY ==
--- OUTSIDE RECORDS SUMMARY | 2025-09-30 10:00 | XMS_ITS | Encounter Summary ---
Author Organization [employer] Address [address] [place] [address] 7[address] [place] [address] Care Team Providers Care Sheriff'S Detective Name Role Phone Earnest Mishra MD Primary Care Prov ider Reason for Referral * Consultation (Routine) - Closed Specialty Diagnoses / Procedures Referred By Contac t Referred To Contact Audiology Diagnoses Mixed conductive and sensorineural hearing loss of both ears Earnest Mishra MD [address] [place] [address] Phone: tel: fax: Referral ID Status Reason Start Date Expiration Date V isits Requested Visits Authorized [id number] Closed Specialty Services Required 09/30/2025 09/30/2026 1 1 Encounter Details Date Type Department Care Team (Latest Contact Info) Description 09/30/2025 10:00 AM EST Office Visit [facility] CHC MED & PEDS [address] [place] [address] Earnest Mishra MD [address] [place] [address] Mixed conductive and sensorineural hearing loss of both ears (Primary Dx); Type 2 diabetes mellitus without complication, without long-term current use of insulin (HCC); Ductal carcinoma in situ (DCIS) of left breast Social History Tobacco Use Types Packs/Day Years [...] Sign Reading Time Taken Comments Blood Pressure 156/89 09/30/2025 9:50 AM EST Pulse 72 09/30/2025 9:50 AM EST Temperature 37.1 C (98.7 F) 09/30/2025 9:50 AM EST Respiratory Rate 20 09/30/2025 9:50 AM EST Oxygen Saturation - - Inhaled Oxygen Concentration - - Weight 101 kg (223 lb) 09/30/2025 9:50 AM EST Height 182.9 cm (6') 09/30/2025 9:50 AM EST Body Mass Index 30.24 09/30/2025 9:50 AM EST documented in this encounter Progress Notes * Earnest Watters MD - 09/30/2025 10:00 AM EST Subjective Patient ID: Mary Johnston is a 65 y.o. adult who presents for No chief complaint on file.. HPI Patient was seen on office for transfer of care. Review of Systems Constitutional: Negative for chills, fatigue and fever. Respiratory: Negative for cough and shortness of breath. Cardiovascular: Negative for chest pain and palpitations. Objective Physical Exam Constitutional: Appearance: Normal appearance. Cardiovascular: Rate and Rhythm: Normal rate. Heart sounds: No murmur heard. Pulmonary: Effort: Pulmonary effort is normal. No respiratory distress. Breath sounds: No stridor. No wheezing or rhonchi. Neurological: General: No focal deficit present. Mental Status: Mary is alert and oriented to person, place, and time. Psychiatric: Mood and Affect: Mood normal. Behavior: Behavior normal. Assessment/Plan Problem List Items Addressed This Visit Ductal carcinoma in situ (DCIS) of left breast On tamoxifen, followed by oncology Relevant Medications ibuprofen 800 MG tablet Type 2 diabetes mellitus without complication, without long-term current use of insulin (HCC) New labs ordered, she has been managing it with diet, no changes will be made Relevant Orders POCT Glucose (Completed) POCT Hgb A1c (Completed) CBC auto differential Comprehensive Metabolic Panel Lipid Panel, Standard TSH W/Reflex to FT4 Albumin, Random Urine W/Creatinine Hepatitis C Antibody with Reflex to HCV, RNA, Quantitative, Real-Time PCR Mixed conductive and sensorineural hearing loss of both ears - Primary Will refer to audiology for evaluation Relevant Orders Referral to Audiology documented in this encounter Miscellaneous Notes * Assessment & Plan Note - Earnest Watters MD - 09/30/2025 1:56 PM ESTAssociated Problem(s): Ductal carcinoma in situ (DCIS) of left breast On tamoxifen, followed by oncology * Assessment & Plan Note - Earnest Watters MD - 09/30/2025 1:55 PM ESTAssociated Problem(s): Mixed conductive and sensorineural hearing loss of both ears Will refer to audiology for evaluation * Assessment & Plan Note - Earnest Watters MD - 09/30/2025 1:55 PM ESTAssociated Problem(s): Type 2 diabetes mellitus without complication, without long-term current useof insulin (HCC) New labs ordered, she has been managing it with diet, no changes will be made documented in this encounter Plan of Treatment Upcoming Encounters Date Type Department Care Team (Late st Contact Info) Description 12/04/2025 2:30 PM EST Office Visit [facility] OPTOMETRY [address] [place], [place] [phone] TarEdna carpenter, OD [address] [place] [address] Scheduled Orders Name Type Priority Associated Diagnoses Orde r Schedule Hepatitis C Antibody with Reflex to HCV, RNA, Quantitative, Real-Time PCR Lab Routine Type 2 diabetes mellitus without complication, without long-term current use of insulin (HCC) Expected: 09/30/2025, Expires: 09/30/2026 Scheduled Referrals Name Type Priority Associated Diagnoses Orde r Schedule Referral to Audiology Outpatient Referral Routine Mixed conductive and sensorineural hearing loss of both ears Expected: 09/30/2025 (Approximate), Expires: 09/30/2026 documented as of this encounter Procedures Procedure Name Priority Date/Time Associated Diagnosis Comments ALBUMIN, RANDOM URINE W/CREATININE Routine 09/30/2025 10:30 AM EST Type 2 diabetes mellitus without complication, without long-term current use of insulin (HCC) TSH W/REFLEX TO FT4 Routine 09/30/2025 1 0:22 AM EST Type 2 diabetes mellitus without complication, without long-term current use of insulin (HCC) LIPID PANEL, STANDARD Routine 09/30/2025 10:22 AM EST Type 2 diabetes mellitus without complication, without long-term current use of insulin (HCC) COMPREHENSIVE METABOLIC PANEL Routine 09/30/2025 10:22 AM EST Type 2 diabetes mellitus without complication, without long-term current use of insulin (HCC) CBC WITH AUTO DIFFERENTIAL Routine 09/30/2025 10:02 AM EST Type 2 diabetes mellitus without complication, without long-term current use of insulin (HCC) POCT GLYCATED HEMOGLOBIN, TOTAL Routine 09/30/2025 9:53 AM EST Type 2 diabetes mellitus without complication, without long-term current use of insulin ([facility]) POCT GLUCOSE Routine 09/30/2025 9:52 AM EST Type 2 diabetes mellitus without complication, without long-term current use of insulin ([facility]) documented in this encounter Results * Albumin, Random Urine W/Creatinine (09/30/2025 10:30 AM EST) Creatinine, Urine 152.59 mg/dL [facility] Microalbumin Urine 9.0 mg/L [facility] Microalbum Creatinine Ratio Ur 5.8 <30 ug/mg cr [facility] Comment:Albumin/Creatinine R atio Reference Ranges: Normal: < 30 ug/mg creatinine Microalbuminuria: 30 - 300 ug/mg creatinineClinical Albuminuria: > 300 ug/mg creatinine Urine (Urine, Random) 09/30/2025 10:30 AM EST 09/30/2025 2:05 PM EST us Earnest Watters MD LAB URINE ORDERABL ES Final Result [facility] [address] [place] [phone] * TSH W/Reflex to FT4 (09/30/2025 10:22 AM EST) TSH reflex Free T4 0.63 0.32 - 4.0 uIU/mL [facility] Blood Venous blood specimen / Unknown 09/30/2025 10:22 AM EST 09/30/2025 2:06 PM EST Earnest Watters MD LAB BLOOD ORDERABL ES Final Result Performing Organization Address City/[facility] Co de Phone Number [facility] [address] [place] [phone] * (ABNORMAL) Lipid Panel, Standard (09/30/2025 10:22 AM EST) Triglycerides 164(H) <150 mg/dL [facility] Comment:Desirable Triglyceri de: less than 150 mg/dLBorderline High Triglyceride 150-199 mg/dLHigh Triglyceride: 200-499 mg/dLVery High Triglyceride: greater than or equal to 5OO mg/dL Cholesterol 236(H) <200 mg/dL [facility] Comment:Desirable Cholestero l: less than 200 mg/dLBorderline High Cholesterol: 200-239 mg/dLHigh Cholesterol: greater than 239 mg/dL LDL Cholesterol Calculated 153(H) <100 mg/dL [facility] Comment:Desirable LDL: less than 100 mg/dLNear Optimal/Above Optimal LDL: 110- 129 mg/dLBorderline High LDL: 130-159 mg/dLHigh LDL: 160-189 mg/dLVery High LDL: greater than or equal to 190 mg/dL HDL Cholesterol 51 >40 mg/dL [facility] Comment:Desirable HDL: great er than 40 mg/dL Note: This HDL assay may give artificially low results in patients with liver disease. Blood Venous blood specimen / Unknown 09/30/2025 10:22 AM EST 09/30/2025 2:06 PM EST Earnest Watters MD LAB BLOOD ORDERABL ES Final Result [facility] [address] [place] [address] [phone] * (ABNORMAL) Comprehensive Metabolic Panel (09/30/2025 10:22 AM EST) Sodium 140 135 - 145 mmol/L [facility] Potassium 4.2 3.3 - 5.1 mmol/L [facility] Chloride 107 96 - 108 mmol/L [facility] Carbon Dioxide 28 22 - 29 mmol/L [facility] Anion Gap 9(L) 12 - 20 [facility] Urea Nitrogen (BUN) 13 9 - 16 mg/dL [facility] Creatinine, Serum 0.72 0.5 - 1.4 mg/dL [facility] Estimated Glomerular Filt Rate >60 [facility] Comment:Chronic Kidney Disea se: Estimated GFR < 60 mL/min/1.11x9Ultmdo Kidney Disease: Estimated GFR < 15 mL/min/1.73m2 Glucose 76 60 - 115 mg/dL [facility] Calcium 9.3 8.4 - 10.2 mg/dL [facility] Bilirubin, Total 0.5 0.0 - 1.0 mg/dL [facility] Aspartate Amino Transferase 25 5 - 31 U/L [facility] Alanine Aminotransferase 20 0 - 31 U/L [facility] Total Protein 7.7 6.5 - 8.0 g/dL [facility] Albumin Level 4.3 3.5 - 5.0 g/dL [facility] Alkaline Phosphatase 105 39 - 117 U/L [facility] Blood Venous blood specimen / Unknown 09/30/2025 10:22 AM EST 09/30/2025 2:06 PM EST us Earnest Watters MD LAB BLOOD ORDERABL ES Final Result Performing Organization Address City/[facility]/ZIP Co de Phone Number [facility] [address] [place] [address] [phone] * (ABNORMAL) CBC auto differential (09/30/2025 10:02 AM EST) White Blood Count 6.4 4.8 - 10.8 X10*3/uL [facility] Red Blood Count 4.69 4.20 - 5.50 X10*6/uL [facility] Hemoglobin 12.5 12.0 - 16.0 g/dl [facility] Hematocrit 40.3 37.0 - 47.0 % [facility] Mean Corpuscular Volume 85.9 80.0 - 98.0 fL [facility] Mean Corpuscular Hemoglobin 26.7(L) 27.0 - 33.0 pg [facility] Mean Corpuscular HGB Conc 31.0 31.0 - 35.0 g/dl [facility] Red Cell Distribution Width 14.0 11.0 - 16.0 % [facility] Platelet Count 216 160 - 400 X10*3/uL [facility] Mean Platelet Volume 12.8(H) 9.4 - 12.3 fL [facility] Neutrophils Percent Auto 69.9 45 - 73 % [facility] Imm Gran Pct Auto 0.3 0.0 - 0.4 % [facility] Lymphocytes Percent Auto 20.6 20 - 40 % [facility] Monocytes Percent Auto 6.4 2 - 11 % [facility] Eosinophils Percent Auto 1.7 0 - 4 % [facility] Basophils Percent Auto 1.1 0 - 2 % [facility] NRBC Pct Auto 0.0 0.0 - 0.2 /100WBC [facility] Neutrophils Absolute Auto 4.4 2.0 - 8.3 x10*3/uL [facility] Imm Gran Abs Auto 0.02 0.00 - 0.03 X10*3/uL [facility] Lymphocytes Absolute Auto 1.3 1.2 - 4.9 X10*3/uL [facility] Monocytes Absolute Auto 0.4 0.1 - 1.2 X10*3/uL [facility] Eosinophils Absolute Auto 0.1 0.0 - 0.4 X10*3/uL [facility] Basophils Absolute Auto 0.1 0.0 - 0.2 X10*3/uL [facility] NRBC Abs Auto 0.000 0.0 - 0.012 X10*3/uL [facility] Blood Venous blood specimen / Unknown 09/30/2025 10:02 AM EST 09/30/2025 2:06 PM EST Earnest Watters MD LAB BLOOD ORDERABL ES Final Result [facility] [address] [place] [phone] * POCT Hgb A1c (09/30/2025 9:53 AM EST) Hemoglobin A1C 5.7 4.0 - 5.7 % [employer] Lot # [id number] Lot# Expiration Date 5,027 Blood 09/30/2025 9:53 AM EST Earnest Watters MD POINT OF CARE TEST ENTER/EDIT ORDERABLES Final Result * POCT Glucose (09/30/2025 9:52 AM EST) Glucose Blood, POC 87 60 - 200 mg/dL [employer] Lot # [id number] Lot# Expiration Date 08,026 Blood Capillary blood specimen / Unknown 09/30/2025 9:52 AM EST Earnest Watters MD POINT OF CARE TEST ENTER/EDIT ORDERABLES Final Result documented in this encounter Visit Diagnoses Diagnosis Mixed conductive and sensorineural hearing loss of both ears- Primary Type 2 diabetes mellitus without complication, without long-term current use of insulin (HCC) Ductal carcinoma in situ (DCIS) of left breast documented in this encounter Additional Health Concerns Assessment Noted Time PHQ-9 Depression Total Score: 0 01/06/20 9:22 AM EST documented as of this encounter Care Teams Sheriff'S Detective Relationship Specialty Start Date End Date Earnest Mishra MD [address] [place] [address] PCP - General Internal Medicine 09/10/25 Dolores Danielle Heading And Priming OperatorDepilatory Painter 09/27/23 documented as of this encounter
[2025-09-30 14:11] LABS: MANUAL DIFF FLAG NO
[2025-09-30 14:15] LABS: Hematocrit 40.3 % (37.0-47.0); Hemoglobin 12.5 g/dl (12.0-16.0); Imm Gran Abs Auto 0.02 X10*3/uL (0.00-0.03); Imm Gran Pct Auto 0.3 % (0.0-0.4); Lymphocytes Absolute Auto 1.3 X10*3/uL (1.2-4.9); Mean Corpuscular HGB Conc 31.0 g/dl (31.0-35.0); Mean Corpuscular Hemoglobin 26.7 pg (27.0-33.0); Mean Corpuscular Volume 85.9 fL (80.0-98.0); NRBC Abs Auto 0.000 X10*3/uL (0.0-0.012); NRBC Pct Auto 0.0 /100WBC (0.0-0.2); Platelet Count 216 X10*3/uL (160-400); Red Blood Count 4.69 X10*6/uL (4.20-5.50); White Blood Count 6.4 X10*3/uL (4.8-10.8)
[2025-09-30 14:52] LABS: Microalbum/Creatinine Ratio Ur 5.8 ug/mg cr (<30)
[2025-09-30 15:55] LABS: Alanine Aminotransferase 20 U/L (0-31); Albumin Level 4.3 g/dL (3.5-5.0); Alkaline Phosphatase 105 U/L (39-117); Anion Gap 9 (12-20); Aspartate Amino Transferase 25 U/L (5-31); Blood Urea Nitrogen 13 mg/dL (9-16); Calcium 9.3 mg/dL (8.4-10.2); Carbon Dioxide 28 mmol/L (22-29); Chloride 107 mmol/L (96-108); Cholesterol 236 mg/dL (<200); Estimated Glomerular Filt Rate > 60; HDL Cholesterol 51 mg/dL (>40); Potassium 4.2 mmol/L (3.3-5.1); Sodium 140 mmol/L (135-145); Total Protein 7.7 g/dL (6.5-8.0); Triglycerides 164 mg/dL (<150)
--- OUTSIDE RECORDS SUMMARY | 2025-09-30 19:53 | XMS_ITS | Data Portability ---
Author Organization [place] [facility] Address [address] [address] Care Team Providers Care Biomed Tech Name Role Phone HANSA MILLER Primary Care [...] sensorin eural hearing loss of left ear [id number] 107 Active 2021 Mixed conducti ve and sensorin eural hearing loss, unilater al, left ear with restrict ed hearing on the contrala teral side; Note: Date Diagnose d: 2 11:27 AM (H90.A32 ) Not Available [facility] 4 03:13:56 Sensorin eural hearing loss in right ear 67823622124 100 Active 2021 Sensorin eural hearing loss, unilater al, right ear, with restrict ed hearing on the contrala teral side; Note: Date Diagnose d: 2 11:27 AM (H90.A21 ) Not Available [facility] 4 03:13:58 Disorder of left external ear 17496211014 47502 Active 2021 Other specifie d disorder s of left external ear; Note: Date Diagnose d: 2 1:15 PM (H61.892 ) Not Available [facility] 4 03:13:57 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 [id number] 66752 Completed 202106/13/2024 Choleste atoma of attic, left ear; Note: Date Diagnose d: 2 1:15 PM (H71.02) Not Available [facility] 4 03:13:57 Partial loss of ear ossicles 90570825 Active 2021 Partial loss of ear ossicles , left ear; Note: Date Diagnose d: 2 1:15 PM (H74.322 ) Not Available [facility] 4 03:13:57 Follow-u p visit Active 2021 Medical surveill ance followin g complete d treatmen t; Note: Date Diagnose d: 2 3:00 PM (Z09) Not Available [facility] 4 03:13:56 Mixed conducti ve and sensorin eural hearing loss, bilatera l 576109619 Active 2022 Mixed conducti ve and sensorin eural hearing loss, bilatera l; Note: Date Diagnose d: 3 9:30 AM (H90.6) Not Available [facility] 4 03:13:56 Pain of left temporom andibula r joint 37334262591 450358 Active 2022 Arthralg ia of left temporom andibula r joint; Note: Date Diagnose d: 3 8:42 AM (M26.622 ) Not Available [facility] 4 03:13:57 Otalgia of left ear 4365499310 Active 2022 Otalgia, left ear; Note: Date Diagnose d: 3 8:42 AM (H92.02) Not Available [facility] 4 03:13:57 Referred otalgia of left ear 09060581189 96174 Active 2024 CHEYENNE COTA MD [address] [place] [address], [place], [address] , [facility] 5 10:00:21 Problem Notes None recorded. Procedures Surgical History Date Name Laterality Status Provider Name and Address Organization Details Recorded Time 12/22/2024 Comp Audio with Tymps - 39060 & 55855 completed MYRIAM BATES [address] [place] [address], [place], [address], [facility] 12/22/2024 10:21:25 Imaging Results None recorded. Procedure Notes None recorded. Medical Equipment None Reported. Allergies Allergen ID Allergen Name Allergen Category Reaction Reaction Severity Criticality Documentation Date Start Date Code Code System Note Provider Name and Address Organization Details Recorded Time 30289 latex environme nt,medica tion other Not available Not available 03/25/2024 20475 91 RxNorm React ion: other react ion, Unkno wn; Not Available [facility] 4 00:48:24 Medications Name Sig Start Date [...] 1 gram tablet active Medicatio n ID: [id number] Br and Name: sucralfat e Send Method: [...] eye drops 2021 active Medicatio n ID: [id number] Du ration Value: 14 Prescrib ed By [...] a day 2022 active Medicatio n ID: [id number] Du ration Value: 14 Brand Name: ofloxacin [...] 10 mg tablet active Medicatio n ID: [id number] Br and Name: loratadin e Send Method: E-Prescri bed Subs Allowed: subs OK Specia l Instructi on: TAKE 1 TABLET BY MOUTH EVERY DAY Medic ationGene ricName: loratadin e Not Available Not Available Not Available naproxen 500 mg tablet active Not Available Not Available Not Available amoxicilli n 875 mg-potassi um clavulanat e 125 mg tablet by mouth 2021 active Medicatio n ID: [id number] Du ration Value: 10 Prescrib ed By [...] Available Not Available No t Available [employer]Style S[employer]en Lite kit TEST BLOOD SUGAR TWICE DAILY [...] Address Organization Details Last Updated DateTime 12/22/2024 44671.81 g 28.3 kg/m2 182.88 cm Kasey Izaguirre [place] [facility] 12/22/2024 09:50:32 Social History None recorded. Functional Status None recorded. Mental Status None recorded. Family History Nothing Reported. Medical History No medical history recorded. Gynecological HistoryNo gynecological history recorded. Obstetrics History GPAL:G 0 P 0 0 0 0 Past Encounters Encounter ID Performer Location Encounter Start Date Encounter Closed Date Diagnosis/Indication Diagnosis SNOMED-CT Code Diagnosis ICD10 Code Diagnosis IMO Codes Diagnosis Note [id number] CHEYENNE COTA MD [facility] [address] [address] 12/22/2024 08:38:39 12/22/2024 10:59:12 Disorder of left external ear 2864423529 368468 H61.892 Partial lo ss of ear ossicles 33936227 H74.322 Referred o talgia of left ear 1641195350 885886 H92.02 M26.622 M79.11 The patient complains of [...] cond uctive and sensorineural hearing loss, bilateral 431071803 H90.6 Audiologic al evaluation results:Ri ght ear:Modera [...] to return to her audiologis t at [facility] audiology to ensure that her hearing [...] Almaraz Member ID Guarantor Name 12/22/2024 1 [place]: [facility] Mary Johnston [id number] Mary Johnston Notes Date Note Type Note [...] Patient has bilateral hearing aids dispensed from [facility] audiology, but has not been using them lately because she has not been able to get batteries. Patient noticing some left periauricular discomfort which refers down into her left jawline. CHEYENNE COTA MD [address] [place] [address], [place], [address], [place] [facility] 12/22/2024 10:57:03 OBGyn Episode No OBEpisode recorded.
--- OUTSIDE RECORDS SUMMARY | 2025-09-30 19:53 | XMS_ITS | Clinical Summary ---
Author Organization [address] [facility] Address [address] [place] [address] Phone Care Team Providers Care Crime Scene Specialist Name Role Phone Teri Owens MD Primary Care Provider [phone] Social History Tobacco Use Types Packs/Day Years [...] Health Screening 06/10/2025 COVID-19 Vaccine ( - 2024-2 6 season) 2025 Influenza Vaccine (#1) 2025 RSV [...] ID:[id number] Group ID:[id number] Type:Not on file Address: [place] [address] [place] [address] Care Teams Crime Scene Specialist Relationship Specialty Start Date End Date Teri Owens MD [address] [place] [address] [place] [address] PCP - General Family Medicine 06/10/25
--- OUTSIDE RECORDS SUMMARY | 2025-09-30 19:53 | XMS_ITS | Encounter Summary ---
Author Organization [employer] Address [address] [place] [address] Care Team Providers Care Dupligraph Operator Name Role Phone Teri Owens MD Primary Care Provider [phone] Earnest Mishra MD Primary Care Prov ider Reason for Visit * Reason Onset Date Comments Durable Medical Equipment 03/07/2024 Encounter Details Date Type Department Care Team ([facility] st Contact Info) Description 03/07/2024 Telephone [facility] CHC MED & PEDS [address] [place] [address] Teri Owens MD [address] [place] [address] Durable Medical Equipment Social History Tobacco Use [...] a knee brace. Please contact pt at [phone] (Guatemalan) documented in this encounter Plan of Treatment Upcoming Encounters Date Type Department Care Team (Late st Contact Info) Description 12/04/2025 2:30 PM EST Office Visit [facility] OPTOMETRY [address] [place] [address] TarEdna carpenter, OD [address] [place] [address] documented as of this encounter Visit Diagnoses Not on filedocumented in this encounter Care Teams Dupligraph Operator Relationship Specialty Start Date End Date Teri Owens MD [address] [place] [address] PCP - General Family Medicine 10/21/18 09/09/25 Earnest Mishra MD [address] [place] [address] PCP - General Internal Medicine 09/10/25 Dolores Danielle Photo Studio AssistantCreative Services Coordinator 09/27/23 documented as of this encounter
--- OUTSIDE RECORDS SUMMARY | 2025-09-30 19:53 | XMS_ITS | Encounter Summary ---
Author Organization [employer] Address [address] [place] [address] Care Team Providers Care Utility Sales And Service Manager Name Role Phone Teri Owens MD Primary Care Provider [phone] Earnest Mishra MD Primary Care Prov ider Encounter Details Date Type Department Care Team (Late st Contact Info) Description 06/23/2024 Orders Only [facility] CHC MED & PEDS [address] [place], [place] [phone] Provider, MD Porsche Social History Tobacco Use [...] Description 12/04/2025 2:30 PM EST Office Visit [facility] OPTOMETRY [address] [place], [place] [phone] Edna Stevenson, OD [address] [place], [place] [phone] documented as of this encounter Procedures Procedure Name Priority Date/Time Associated Diagnosis Comments ECG 12-LEAD Routine 06/18/2024 10:23 AM EDT documented in this encounter Results * ECG 12 lead (06/18/2024 10:23 AM EDT) us Historical Provider ECG ORDERABLES Final Res ult documented in this encounter Visit Diagnoses Not on filedocumented in this encounter Care Teams Utility Sales And Service Manager Relationship Specialty Start Date End Date Teri Owens MD [address] [place] [address] PCP - General Family Medicine 10/21/18 09/09/25 Earnest Mishra MD [address] [place] [address] PCP - General Internal Medicine 09/10/25 Dolores Danielle Office Machines WirerMake Up Editor 09/27/23 documented as of this encounter
--- OUTSIDE RECORDS SUMMARY | 2025-09-30 19:53 | XMS_ITS | Encounter Summary ---
Author Organization [employer] Address [address] [place] [address] Care Team Providers Care Service Center Representative Name Role Phone Teri Owens MD Primary Care Provider [phone] Earnest Mishra MD Primary Care Prov ider Reason for Visit * Reason Comments Med Refill Encounter Details Date Type Department Care Team ([facility] st Contact Info) Description 12/24/2024 Refill [facility] [address] [place] [address] Teri Owens MD [address] [place], [place] [phone] Social History Tobacco Use Types Packs/Day Years [...] PM EST Office Visit C OPTOMETRY [address] [place], [place] [phone] Edna Stevenson, OD [address] [place] [address] documented as of this encounter Visit Diagnoses Not on filedocumented in this encounter Care Teams Service Center Representative Relationship Specialty Start Date End Date Teri Owens MD [address] [place] [address] PCP - General Family Medicine 10/21/18 09/09/25 Earnest Mishra MD [address] [place] [address] PCP - General Internal Medicine 09/10/25 Dolores Danielle Grease And Tallow PumperSupervisor Sound Technician 09/27/23 documented as of this encounter
--- OUTSIDE RECORDS SUMMARY | 2025-09-30 19:53 | XMS_ITS | Encounter Summary ---
Author Organization [employer] Address [facility] [address] [address]t [place] [address] Care Team Providers Care Face Cleaner Name Role Phone Teri Owens MD Primary Care Provider [phone] Earnest Mishra MD Primary Care Prov ider Reason for Visit * Reason Onset Date Comments Pre-op Visit 06/18/2024 Encounter Details Date Type Department Care Team (Late st Contact Info) Description 06/18/2024 Telephone [facility] MEDICINE [address] [place] [address] Teri Owens MD [address] [place], [place] [phone] Pre-op Visit Social History Tobacco Use Types [...] Surgeon's name: Dr Laz Hauser Facility name: [facility] Surgeon's office number: [phone] Surgeon's office fax number: [phone] Contact name; Micky Last office note from surgeon requested: Yes documented in this encounter Plan of Treatment Upcoming Encounters Date Type Department Care Team ([facility] st Contact Info) Description 12/04/2025 2:30 PM EST Office Visit [facility] OPTOMETRY [address] [place], [place] [phone] Edna Stevenson, OD [address] [place], [place] [phone] documented as of this encounter Visit Diagnoses Not on filedocumented in this encounter Care Teams Face Cleaner Relationship Specialty Start Date End Date Teri Owens MD [address] [place] [address] PCP - General Family Medicine 10/21/18 09/09/25 Earnest Mishra MD 505 [place] [address] PCP - General Internal Medicine 09/10/25 Dolores Danielle Feed GrinderAssociate Marketing Manager 09/27/23 documented as of this encounter
--- OUTSIDE RECORDS SUMMARY | 2025-09-30 19:53 | XMS_ITS | Encounter Summary ---
Author Organization [employer] Address [address] [facility] [address] [place] [address] Care Team Providers Care Infant Toddler Lead Teacher Name Role Phone Teri Owens MD Primary Care Provider [phone] Earnest Mishra MD Primary Care Prov ider Reason for Visit * Reason Comments Med Refill Encounter Details Date Type Department Care Team (Late Contact Info) Description 04/11/2024 Refill [facility] CHC MED & PEDS [address] [place], [place] [phone] Teri Owens MD [address] [place] [address] GERD without esophagitis Social History Tobacco Use [...] Department Care Team (Late Contact Info) Description 12/04/2025 2:30 PM EST Office Visit [facility] OPTOMETRY 267 [place], [place] [phone] Edna Stevenson, OD [address] [place], [place] [phone] documented as of this encounter Visit Diagnoses Diagnosis GERD without esophagitis Esophageal reflux documented in this encounter Care Teams Infant Toddler Lead Teacher Relationship Specialty Start Date End Date Teri Owens MD [address] [place] [address] PCP - General Family Medicine 10/21/18 09/09/25 Earnest Mishra MD [address] [place] [address] PCP - General Internal Medicine 09/10/25 Dolores Danielle Surface Ship Usw SupervisorObserver Helper 09/27/23 documented as of this encounter
--- OUTSIDE RECORDS SUMMARY | 2025-09-30 19:53 | XMS_ITS | Encounter Summary ---
Author Organization [employer] Address [address] [facility] [address] 7t [place] [address] Care Team Providers Care Lens Blank Gauger Name Role Phone Teri Owens MD Primary Care Provider [phone] Earnest Mishra MD Primary Care Prov ider Encounter Details Date Type Department Care Team (Late Contact Info) Description 03/12/2024 Orders Only [facility] CHC MED & PEDS 505 [place], [place] [phone] Teri Owens MD 505 [place] [address] Social History Tobacco Use Types Packs/Day Years [...] Description 12/04/2025 2:30 PM EST Office Visit [facility] OPTOMETRY 267 [place], [place] [phone] TarEdna carpenter, OD 267 [place] [address] documented as of this encounter Visit Diagnoses Not on filedocumented in this encounter Care Teams Lens Blank Gauger Relationship Specialty Start Date End Date Teri Owens MD [address] [place] [address] PCP - General Family Medicine 10/21/18 09/09/25 Earnest Mishra MD [address] [place] [address] PCP - General Internal Medicine 09/10/25 Dolores Danielle Pulp Grinder FeederAircraft Inspector 09/27/23 documented as of this encounter
--- OUTSIDE RECORDS SUMMARY | 2025-09-30 19:54 | XMS_ITS | Encounter Summary ---
Author Organization [employer] Address [address] [facility] [address] [place] [address] Care Team Providers Care Marine Steam Fitter Helper Name Role Phone Earnest Mishra MD Primary Care Prov ider Encounter Details Date Type Department Care Team (Latest Contact Info) Description 09/30/2025 Travel Social History Tobacco Use Types Packs/Day [...] Description 12/04/2025 2:30 PM EST Office Visit [facility] OPTOMETRY 267 [place], [place] [phone] TarkaEdna, OD 267 [place] [address] documented as of this encounter Visit Diagnoses Not on filedocumented in this encounter Additional Health Concerns Assessment Noted Time PHQ-9 Depression Total Score: 0 01/06/20 25 9:22 AM EST documented as of this encounter Care Teams Marine Steam Fitter Helper Relationship Specialty Start Date End Date Earnest Mishra MD [address] [place] [address] PCP - General Internal Medicine 09/10/25 Dolores Danielle Tool Trouble ShooterCardroom Manager 09/27/23 documented as of this encounter
--- OUTSIDE RECORDS SUMMARY | 2025-09-30 19:54 | XMS_ITS | Encounter Summary ---
Author Organization [employer] Address [address] [facility] [address] 7[address] [place] [address] Care Team Providers Care Salt Machine Operator Name Role Phone Teri wOens MD Primary Care Provider [phone] Earnest Mishra MD Primary Care Prov ider Reason for Visit * Reason Onset Date Comments PT1 01/17/2023 Encounter Details Date Type Department Care Team ([facility] st Contact Info) Description 01/17/2023 Telephone [facility] CHC MED & PEDS 505 [place] [address] Teri Owens MD 505 [place] [address] PT1 Social History Tobacco Use Types Packs/Day [...] - 01/17/2023 12:46 PM EST Tc from [facility] with [facility] requesting a PT1 for pt PT1 Name of facility: [facility]. Willow Worker Specialty: Feet or foot Location: [address] [place] [address] Date: 01/24/2023 Time: 9:30 am fax: n/a Phone: n/a wheelchair: n/a Pole Framer Machine: n/a documented in this encounter Plan of Treatment Upcoming Encounters Date Type Department Care Team (Late st Contact Info) Description 12/04/2025 2:30 PM EST Office Visit [facility] OPTOMETRY [address] [place] [address] Edna Stevenson, OD 267 [place] [address] documented as of this encounter Visit Diagnoses Diagnosis Constipation, unspecified constipation type documented in this encounter Care Teams Salt Machine Operator Relationship Specialty Start Date End Date Teri Owens MD 230 [place] [address] PCP - General Family Medicine 10/21/18 09/09/25 Earnest Mishra MD [address] [place] [address] PCP - General Internal Medicine 09/10/25 Dolores Danielle Body CovererFiber Product Cutting Machine Operator 09/27/23 documented as of this encounter
--- OUTSIDE RECORDS SUMMARY | 2025-09-30 19:54 | XMS_ITS | Encounter Summary ---
Author Organization [employer] Address [address] [facility] [address] 7[address] [place] [address] Care Team Providers Care Vacuum Cleaner Repairer Name Role Phone Teri Owens MD Primary Care Provider [phone] Earnest Mishra MD Primary Care Prov ider Reason for Visit * Reason Onset Date Comments Referral 12/11/2023 Encounter Details Date Type Department Care Team (Late st Contact Info) Description 12/11/2023 Telephone [facility] MEDICINE 230 [place] [address] Teri Owens MD [address] [place], [place] [phone] Referral Social History Tobacco Use Types Packs/Day [...] pt requesting status on referral for podiatry, Automatic Paint Sprayer Operator sees current status shows pending. Please contact at [phone] [place] * Telephone Encounter - Leslie Alonzo RN - 12/11/2023 11:51 AM EST Call to Mary Johnston, reports having pain and itching of right great bit toe. 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 Per pt denies any redness of skin or pus under nail or cuticle. Pt looking for referral to Dr. Jhony Patten at [address] [place] [address] Will send to team nurses to follow [...] outcome Pt is requesting a referral for options trader. [place] speaker documented in this encounter Plan of Treatment Upcoming Encounters Date Type Department Care Team (Late st Contact Info) Description 12/04/2025 2:30 PM EST Office Visit [facility] OPTOMETRY [address] [place], [place] [phone] Edna Stevenson, ELIUD 267 [place] [address] documented as of this encounter Visit Diagnoses Not on filedocumented in this encounter Care Teams Vacuum Cleaner Repairer Relationship Specialty Start Date End Date Teri Owens MD [address] [place] [address] PCP - General Family Medicine 10/21/18 09/09/25 Earnest Mishra MD [address] [place] [address] PCP - General Internal Medicine 09/10/25 Dolores Danielle Melting SupervisorWildlife Management Professor 09/27/23 documented as of this encounter
--- OUTSIDE RECORDS SUMMARY | 2025-09-30 19:54 | XMS_ITS | Encounter Summary ---
Author Organization [employer] Address [address] [facility] [address]t [place] [address] Care Team Providers Care Second Hand Name Role Phone Teri Owens MD Primary Care Provider [phone] Earnest Mishra MD Primary Care Prov ider Encounter Details Date Type Department Care Team (Late Contact Info) Description 08/23/2023 Orders Only [facility] CHC MED & PEDS 505 [place], [place] [phone] Teri Owens MD 505 [place] [address] Social History Tobacco Use Types Packs/Day Years [...] Description 12/04/2025 2:30 PM EST Office Visit [facility] OPTOMETRY 267 [place], [place] [phone] TarEdna carpenter, OD 267 [place] [address] documented as of this encounter Visit Diagnoses Not on filedocumented in this encounter Care Teams Second Hand Relationship Specialty Start Date End Date Teri Owens MD [address] [place] [address] PCP - General Family Medicine 10/21/18 09/09/25 Earnest Mishra MD [address] [place] [address] PCP - General Internal Medicine 09/10/25 Dolores Danielle Mold Yarn SupervisorPostbed Stitcher 09/27/23 documented as of this encounter
--- OUTSIDE RECORDS SUMMARY | 2025-09-30 19:54 | XMS_ITS | Encounter Summary ---
Author Organization [employer] [facility] Address [address] [facility] [address] 7t [place] [address] Care Team Providers Care Java Application Engineer Name Role Phone Teri Owens MD Primary Care Provider [phone] Earnest Mishra MD Primary Care Prov ider Encounter Details Date Type Department Care Team (Latest Contact Info) Description 09/14/2021 Abstract [facility] CONVERSIONS Dental, Provider, DDS Social [...] Office Visit [facility] OPTOMETRY 267 [place] [address] Edna Stevenson, OD 267 [place] [address] documented as of this encounter Visit Diagnoses Not on filedocumented in this encounter Care Teams Java Application Engineer Relationship Specialty Start Date End Date Teri Owens MD 230 [place] [address] PCP - General Family Medicine 10/21/18 09/09/25 Earnest Mishra MD [address] [place] [address] PCP - General Internal Medicine 09/10/25 Dolores Danielle Load Dispatcher LocalUpper Tier 09/27/23 documented as of this encounter
--- OUTSIDE RECORDS SUMMARY | 2025-09-30 19:54 | XMS_ITS | Encounter Summary ---
Author Organization [employer] Address [address] [facility] [address] 7[address] [place] [address] Care Team Providers Care Commissioning Editor Name Role Phone Teri Owens MD Primary Care Provider Earnest Mishra MD Primary Care Prov ider Reason for Visit * Reason Comments Med Refill Encounter Details Date Type Department Care Team ([facility] st Contact Info) Description 06/05/2025 Refill [facility] CHC MED & PEDS 505 [place] [address] Teri Owens MD 505 [place] [address] Social History Tobacco Use Types Packs/Day Years [...] your housing situation today? I have mundo tiago 10/02/[address] you li [...] Description 12/04/2025 2:30 PM EST Office Visit [facility] OPTOMETRY [address] [place], [place] [phone] TarEdna carpenter, OD 267 [place] [address] documented as of this encounter Visit Diagnoses Not on filedocumented in this encounter Additional Health Concerns Assessment Noted Time PHQ-9 Depression Total Score: 0 01/06/20 25 9:22 AM EST documented as of this encounter Care Teams Commissioning Editor Relationship Specialty Start Date End Date Teri Owens MD [address] [place] [address] PCP - General Family Medicine 10/21/18 09/09/25 Earnest Mishra MD [address] [place] [address] PCP - General Internal Medicine 09/10/25 Dolores Danielle Tobacco Feeder CatcherResident Services Director 09/27/23 documented as of this encounter
--- OUTSIDE RECORDS SUMMARY | 2025-09-30 19:54 | XMS_ITS | Encounter Summary ---
Author Organization [employer] [facility] Address [address] [facility] [address] 7t [place] [address] Care Team Providers Care Director Power Name Role Phone Teri Owens MD Primary Care Provider [phone] Earnest Mishra MD Primary Care Prov ider Encounter Details Date Type Department Care Team (Latest Contact Info) Description 06/10/2019 Abstract [facility] CONVERSIONS Dental, Provider, DDS Social History Tobacco [...] Office Visit [facility] OPTOMETRY 267 [place] [address] Edna Stevenson, OD 267 [place] [address] documented as of this encounter Visit Diagnoses Not on filedocumented in this encounter Care Teams Director Power Relationship Specialty Start Date End Date Teri Owens MD 230 [place] [address] PCP - General Family Medicine 10/21/18 09/09/25 Earnest Mishra MD [address] [place] [address] PCP - General Internal Medicine 09/10/25 Dolores Danielle Fluorescent Lamp ReplacerSoap Mixer 09/27/23 documented as of this encounter
--- OUTSIDE RECORDS SUMMARY | 2025-09-30 19:54 | XMS_ITS | Encounter Summary ---
Author Organization [employer] Address [address] [facility] [address] [place] [address] Care Team Providers Care Telecommunication Lines Repairer Name Role Phone Teri Owens MD Primary Care Provider [phone] Earnest Mishra MD Primary Care Prov ider Encounter Details Date Type Department Care Team (Late st Contact Info) Description 04/23/2025 Orders Only [facility] CHC MED & PEDS [address] [place] [address] Provider, MD Porsche Social History Tobacco Use [...] 2:30 PM EST Office Visit [facility] OPTOMETRY 267 [place], [place] [phone] Edna Stevenson, OD 267 [place] [address] documented as of this encounter Procedures Procedure [...] documented as of this encounter Care Teams Telecommunication Lines Repairer Relationship Specialty Start Date End Date Teri Owens MD [address] [place] [address] PCP - General Family Medicine 10/21/18 09/09/25 Earnest Mishra MD [address] [place] [address] PCP - General Internal Medicine 09/10/25 Dolores Danielle Roll ExaminerTrend Investigator 09/27/23 documented as of this encounter
--- OUTSIDE RECORDS SUMMARY | 2025-09-30 19:54 | XMS_ITS | Encounter Summary ---
Author Organization [employer] Address [address] [facility] [address] 7[address] [place] [address] Care Team Providers Care Labor Utilization Superintendent Name Role Phone Teri Owens MD Primary Care Provider [phone] Earnest Mishra MD Primary Care Prov ider Encounter Details Date Type Department Care Team ([facility] Contact Info) Description 10/27/2022 Orders Only [facility] MEDICINE [address] [place] [address] Teri Owens MD [address] [place], [place] [phone] GERD without esophagitis (Primary Dx) Social History [...] Upcoming Encounters Date Type Department Care Team ([facility] Contact Info) Description 12/04/2025 2:30 PM EST Office Visit [facility] OPTOMETRY 267 [place], [place] [phone] Edna Stevenson, OD [address] [place], [place] [phone] documented as of this encounter Visit Diagnoses Diagnosis GERD without esophagitis- Primary Esophageal reflux documented in this encounter Care Teams Labor Utilization Superintendent Relationship Specialty Start Date End Date Teri Owens MD 230 [place], [place] [phone] PCP - General Family Medicine 10/21/18 09/09/25 Earnest Mishra MD [address] [place] [address] PCP - General Internal Medicine 09/10/25 Dolores Danielle Locomotive OperatorMixer Blender 09/27/23 documented as of this encounter
--- OUTSIDE RECORDS SUMMARY | 2025-09-30 19:54 | XMS_ITS | Encounter Summary ---
Author Organization [employer] Address [address] [facility] [address]t [place] [address] Care Team Providers Care Care Center Manager Name Role Phone Teri Owens MD Primary Care Provider [phone] Earnest Mishra MD Primary Care Prov ider Reason for Visit * Reason Comments Med Refill Encounter Details Date Type Department Care Team ([facility] st Contact Info) Description 07/03/[address] [facility] MED & PEDS 505 [place] [address] Teri Owens MD 505 [place] [address] Social History Tobacco Use Types Packs/Day Years [...] [facility] OPTOMETRY 267 [place], [place] [phone] TarEdna carpenter, OD 267 [place] [address] documented as of this encounter Visit Diagnoses Not on filedocumented in this encounter Additional Health Concerns Assessment Noted Time PHQ-9 Depression Total Score: 0 01/06/20 25 9:22 AM EST documented as of this encounter Care Teams Care Center Manager Relationship Specialty Start Date End Date Teri Owens MD [address] [place] [address] PCP - General Family Medicine 10/21/18 09/09/25 Earnest Mishra MD [address] [place] [address] PCP - General Internal Medicine 09/10/25 Dolores Danielle Facility Manager HistologyNatural Developer 09/27/23 documented as of this encounter
--- OUTSIDE RECORDS SUMMARY | 2025-09-30 19:54 | XMS_ITS | Clinical Summary ---
Author Organization [employer] Address [address] [place] [address] Care Team Providers Care Clam Treader Name Role Phone Earnest Mishra MD Primary Care Prov ider Allergies Active Allergy Reactions Criticality Noted Date Comments Latex 09/14/2021 Medications * This document contains information received from the source organization and may not represent a complete record from that organization. zolpidem (Ambien) 5 MG tablet Take 5 [...] crush, chew, or split. 30 tablet 11 12/11/19 25 2025 Active tamoxifen (Nolvadex) 20 MG chemo tablet Take 1 tablet by mouth Once per day. 06/17/20 19 Active docusate sodium (Colace) 100 MG capsuleIndicati ons:Constipatio n, unspecified constipation type Take 1 capsule (100 mg) by mouth 2 times daily. 180 capsule 1 01/20/20 25 Active fluticasone (Flonase) 50 MCG/ACT nasal sprayIndication s:Type 2 diabetes mellitus without complication, without long-term current use of insulin (HCC) SHAKE LIQUID AND USE 2 SPRAYS IN EACH NOSTRIL TWICE DAILY 48 g 02/18/20 25 Active cetirizine (ZyrTEC) 10 MG tablet Take 1 tablet (10 mg) by mouth Once per day. 30 tablet 03/09/20 25 Active clotrimazole (Lotrimin) 1 % cream Apply twice daily x 14 days, continue for a total of 28 d if improved but not resolved. 30 g 1 06/02/20 25 Active cholecalciferol (Vitamin D-3) 50 MCG (2000 UT) tabletIndicatio ns:Type 2 diabetes mellitus without complication, without long-term current use of insulin (HCC) TAKE 1 TABLET BY MOUTH IN THE MORNING 90 tablet 3 08/10/20 25 Active Diclofenac Sodium 1 % gel Apply 2 g topically if needed in the morning, at noon, in the evening, and at bedtime (pain). 150 g 1 08/27/20 25 Active baclofen (Lioresal) 10 MG tablet Take 1 tablet (10 mg) by mouth if needed in the morning, at noon, and at bedtime for muscle spasms. 40 tablet 1 08/27/20 25 2024 Active ibuprofen 800 MG tablet Take 1 tablet (800 mg) by mouth every 6 (six) hours during the day. 90 tablet 09/30/20 25 Active Blood Pressure kit 1 kit Once per day. 1 kit 09/30/20 Active traZODone (Desyrel) 100 MG tablet TAKE 1 TABLET(100 MG) BY MOUTH AT BEDTIME 90 tablet 3 03/23/20 24 2024 Discontinued miconazole (Micotin) 2 % cream APPLY 1 APPILICATION VAGINALLY AT BEDTIME 45 g 1 01/20/20 25 2024 Discontinued nystatin (Mycostatin) 530589 UNIT/GM powder Apply topically 2 times daily. 60 g 3 06/05/20 25 2024 Discontinued ibuprofen 800 MG tablet TAKE 1 TABLET BY MOUTH THREE TIMES DAILY 90 tablet 07/16/20 25 2024 Discontinued tiZANidine (Zanaflex) 2 MG tabletIndicatio ns:Muscle spasm Take 1 tablet (2 mg) by mouth 3 times daily for 10 days. 15 tablet 07/28/20 25 2024 Discontinued celecoxib (CeleBREX) 50 MG capsule TAKE 1 CAPSULE(50 MG) BY MOUTH TWICE DAILY 60 capsule 08/10/20 25 2024 Discontinued methylPREDNISol one (Medrol Dospak) 4 MG tablets Follow schedule on package instructions 21 tablet 08/27/20 25 2024 traMADol (Ultram) 50 MG tabletIndicatio ns:Neck pain,Acute pain of left shoulder Take 1 tablet (50 mg) by mouth every 8 (eight) hours if needed for severe pain for up to 5 days. 15 tablet 08/27/20 25 2024 acetaminophen (Tylenol 8 Hour) 650 MG ER tablet Take 1 tablet (650 mg) by mouth every 8 (eight) hours if needed for mild pain. Do not crush, chew, or split. 40 tablet 1 08/27/20 25 2024 celecoxib (CeleBREX) 50 MG capsule TAKE 1 CAPSULE(50 MG) BY MOUTH TWICE DAILY 180 capsule 09/08/20 25 2024 Discontinued Active Problems Problem Noted Date Diagnosed Date Type 2 diabetes mellitus wit hout complication, without long-term current use of insulin 09/30/2025 Assessment & Plan (09/30/2025 1:55 PM EST): New labs ordered, she has been managing it with diet, no changes will be made Mixed conductive and sensori neural hearing loss of both ears 09/30/2025 Assessment & Plan (09/30/2025 1:55 PM EST): Will refer to audiology for evaluation Muscle spasm 07/28/2025 Assessment & Plan (07/28/2025 2:44 PM EDT): Apply heat to the affected area She may take acetaminophen as needed for her today tizanidine 2 mg nightly as needed History of COVID-19 07/28/2025 Assessment & Plan (07/28/2025 2:44 PM EDT): Drink plenty of water and rest I prescribed for patient Sindi she tells me she is only taking Tylenol so there is no medication interactions Mixed incontinence urge and stress 04/07/2025 Overview (04/07/2025): pt will benefit from XL pads to avoid wetting herself and UTI Stress bladder incontinence, female 03/09/2025 Persistent depressive disorder 01/06/2025 Ductal carcinoma in situ (DCIS) of left breast 0 06/20/2024 Assessment & Plan (09/30/2025 1:56 PM EST): On tamoxifen, followed by oncology Chronic pain of both knees 10/27/2022 Resolved Problems Problem Noted Date Diagnosed Date Resolved Date Viral upper respiratory tract infection 03/09/2025 09/20/2025 Assessment & Plan (03/09/2025 3:10 PM EDT): [...] as needed if symptoms do not resolve Encounters Date Type Department Care Team Description 09/30/2025 10:00 AM EST Office Visit [facility] [address] [place] [address] Earnest Mishra MD Mixed conductive and sensorineural hearing loss of both ears (Primary Dx); Type 2 diabetes mellitus without complication, without long-term current use of insulin (HCC); Ductal carcinoma in situ (DCIS) of left breast 09/30/2025 Travel 09/29/2025 Telephone [facility] [address] [place] [address] Earnest Mishra MD chart prep 09/23/2025 Patient Outreach [facility] [address] [place] [phone] Earnest Mishra MD Pre-visit Planning (Pre visit planning unable to LVM ) 09/22/2025 Orders Only [facility] [address] [place] [phone] Lili Ferreira DO Neck pain (Primary Dx) 09/20/2025 Telephone [facility] [address] [place] [phone] Lili Ferreira DO 09/07/2025 Refill [facility] [address] [place] [address] Teri Owens MD 08/27/2025 3:20 PM EDT Office Visit [facility] [address] [place] [phone] Lili Ferreira DO Neck pain (Primary Dx); Acute pain of left shoulder; Elevated BP without diagnosis of hypertension 08/27/2025 Orders Only [facility] [address] [place] [phone] Lili Ferreira DO 08/27/2025 Travel 08/10/2025 Telephone [facility] [address] [place] [address] Teri Owens MD Med Refill 08/10/2025 Refill [facility] [address] [place] [address] Teri Owens MD Type 2 diabetes mellitus without complication, without long-term current use of insulin ([facility]) 07/30/2025 Refill [facility] [address] [place] [phone] Teri Owens MD 07/28/2025 2:00 PM EDT Office Visit [facility] [address] [place] [phone] Marta Ludwig MD COVID-19; Muscle spasm 07/28/2025 Travel 07/15/2025 Refill [facility] [address] [place] [address] Nette Ann MD 07/03/2025 Refill [facility] [address] [place] [address] Teri Owens MD 07/02/2025 Refill [facility] [address] [place] [address] Teri Owens MD from Last 3 Months Immunizations Immunization Administration Dates Next Due Influenza injectable quadriv alent preservative free 08/09/2023,09/01/2021,10/21/2018 Influenza, seasonal, injecta ble, preservative free 12/05/2024 Moderna Covid-19 Vaccine 12+ 04/21/2022,05/02/20 21,04/06/2021 Moderna Covid-19 Vaccine 6+ Bivalent 10/24/2022 Tdap 07/18/2019 Zoster, Recombinant 05/23/2022,03/13/2022 Family History Medical History Relation Name Comments Diabetes Father Hypertension Father Cervical cancer Mother Relation Name Status Comments Father Mother Social History Tobacco Use Types Packs/Day Years [...] 20 09/30/2025 9:50 AM EST Oxygen Saturation 96% 08/27/2025 3:21 PM EDT Inhaled Oxygen Concentration - - Weight 101 kg (223 lb) 09/30/2025 9:50 AM EST Height 182.9 cm (6') 09/30/2025 9:50 AM EST Body Mass Index 30.24 09/30/2025 9:50 AM EST Plan of Treatment Upcoming Encounters Date Type Department Care Team (Late st Contact Info) Description 12/04/2025 2:30 PM EST Office Visit [facility] [address] [place] [address] Edna Stevenson, OD [address] [place] [address] Health Maintenance Due Date Last Done Comments CT Colonography 1960 Colonoscopy 1960 Colorectal Cancer Screening 1960 FIT DNA/Cologuard 1960 FIT 1960 FOBT 1960 Sigmoidoscopy 1960 Hepatitis C Screening 01/30/1978 Hepatitis A Vaccines (1 of 2 - Risk 2-dose series) 01/30/1979 Pneumococcal Vaccine: 50+ Years (1 of 2 - PCV) 01/30/1979 Hepatitis B Vaccines (1 of 3 - Risk 3-dose series) 2020 Dental Oral Exam 03/15/2022 09/14/2021, 04/29/2019 Dental X-Ray: Full Mouth 04/30/2022 04/17/2022, 04/12 Dental Prophylaxis 08/27/2022 02/24/2022, 1 11/14/2020, 12/08/2019, Additional history exists Dental X-Ray: Bitewings 09/15/2022 09/14/2021, 04/29 COVID-19 Vaccine ( season) 2025 10/24/2022, 04/21/2022, 05/02/2021, Additional history exists Influenza Vaccine (#1) 2025 , 08/09/2023, 09/01/2021, Additional history exists SDOH Screening 10/02/2025 10/02/2024 Alcohol/Substance Use Screening 01/06/2026 01/06/2025 Depression Screening 01/06/2026 01/06/2025, 01/06/20 Diabetes: Hemoglobin A1C 03/30/2026 025, 12/10/2024, 01/02/2023, Additional history exists Diabetes: Foot Exam 04/07/2026 04/07/2025, 04/07/2025, 04/07/2025, Additional history exists Mammogram 04/22/2026 04/22/2025, 06/03/2024, 04/11/2023, Additional history exists Diabetes: Urine Protein Screening 09/30/2026 09/30/2025 Lipid Panel 09/30/2026 09/30/2025, 03/13, 12/10/2024, Additional history exists Tobacco Screening 09/30/2026 09/30/2025 Eye Exam 04/23/2027 04/23/2025 DTaP/Tdap/Td Vaccines (2 [...] long-term current use of insulin (HCC) POCT GLUCOSE Routine 09/30/2025 9:52 AM EST Type 2 diabetes mellitus without complication, without long-term current use of insulin (HCC) XR CERVICAL SPINE 3V Routine 08/27/2025 4:15 PM EDT XR SHOULDER 2+ VIEWS LEFT STAT 08/27/2025 4:15 PM EDT Neck pain Acute pain of left shoulder POCT INFLUENZA B (ID NOW RAPID MOLECULAR) Routine 07/28/2025 1:53 PM EDT COVID-19 POCT INFLUENZA A (ID NOW RAPID MOLECULAR) Routine 07/28/2025 1:53 PM EDT COVID-19 POCT RAPID COVID ANTIGEN Routine 07/28/2025 1:53 PM EDT COVID-19 HM DIABETES EYE EXAM Routine 04/23/2025 2:49 PM EDT BI MAMMOGRAM SCREENING TOMOSYNTHESIS BILATERAL Routine 04/22/2025 8:55 AM EDT Encounter for screening mammogram for breast cancer HPV DNA, LOW/HIGH RISK Routine 11:19 AM EST PAP SMEAR Routine 01/13/2025 11:19 AM EST Cervical cancer screening PROPHYLAXIS - ADULT Routine 02/24/2022 1 2:00 AM EDT BITEWINGS - 4 RADIOGRAPHIC IMAGES Routine 09/14/2021 12:00 AM EDT PERIODIC ORAL EVALUATION - ESTABLISHED PATIENT Routine 09/14/2021 12:00 AM EDT INTRAORAL - COMPLETE SERIES OF RADIOGRAPHIC IMAGES Routine 04/29/2019 12:00 AM EDT from Last 3 Months or Most Recently Relevant to Health Maintenance Results * Albumin, Random Urine W/Creatinine (09/30/2025 10:30 AM EST) Creatinine, Urine 152.59 mg/dL [facility] Microalbumin Urine 9.0 mg/L [facility] Microalbum Creatinine Ratio Ur 5.8 <30 ug/mg cr [facility] Comment:Albumin/Creatinine R atio Reference Ranges: Normal: < 30 ug/mg creatinine Microalbuminuria: 30 - 300 ug/mg creatinineClinical Albuminuria: > 300 ug/mg creatinine Urine (Urine, Random) 09/30/2025 10:30 AM EST 09/30/2025 2:05 PM EST Earnest Watters MD LAB URINE ORDERABL ES Final Result Performing Organization Address [facility] Co de Phone Number [facility] [address] [place] [phone] * TSH W/Reflex to FT4 (09/30/2025 10:22 AM EST) TSH reflex Free T4 0.63 0.32 - 4.0 uIU/mL [facility] Blood Venous blood specimen / Unknown 09/30/2025 10:22 AM EST 09/30/2025 2:06 PM EST Earnest Watters MD LAB BLOOD ORDERABL ES Final Result Performing Organization Address [facility] Co mt Phone Number [facility] [address] [place] [phone] * (ABNORMAL) Lipid Panel, Standard (09/30/2025 10:22 AM EST) Triglycerides 164(H) <150 mg/dL [facility] Comment:Desirable Triglyceri de: less than 150 mg/dLBorderline High Triglyceride 150-199 mg/dLHigh Triglyceride: 200-499 mg/dLVery High Triglyceride: greater than or equal to 5OO mg/dL Cholesterol 236(H) <200 mg/dL [facility] Comment:Desirable Cholestero l: less than 200 mg/dLBorderline High Cholesterol: 200-239 mg/dLHigh Cholesterol: greater than 239 mg/dL LDL Cholesterol Calculated 153(H) <100 mg/dL [facility] Comment:Desirable LDL: less than 100 mg/dLNear Optimal/Above Optimal LDL: 110- 129 mg/dLBorderline High LDL: 130-159 mg/dLHigh LDL: 160-189 mg/dLVery High LDL: greater than or equal to 190 mg/dL HDL Cholesterol 51 >40 mg/dL [facility] Comment:Desirable HDL: great er than 40 mg/dL Note: This HDL assay may give artificially low results in patients with liver disease. Blood Venous blood specimen / Unknown 09/30/2025 10:22 AM EST 09/30/2025 2:06 PM EST us Earnest Watters MD LAB BLOOD ORDERABL ES Final Result [facility] [address] [place] [phone] * (ABNORMAL) Comprehensive Metabolic Panel (09/30/2025 10:22 AM EST) Sodium 140 135 - 145 mmol/L [facility] Potassium 4.2 3.3 - 5.1 mmol/L [facility] Chloride 107 96 - 108 mmol/L [facility] Carbon Dioxide 28 22 - 29 mmol/L [facility] Anion Gap 9(L) 12 - 20 [facility] Urea Nitrogen (BUN) 13 9 - 16 mg/dL [facility] Creatinine, Serum 0.72 0.5 - 1.4 mg/dL [facility] Estimated Glomerular Filt Rate >60 [facility] Comment:Chronic Kidney Disea se: Estimated GFR < 60 mL/min/1.64s2Xmuwzn Kidney Disease: Estimated GFR < 15 mL/min/1.73m2 Glucose 76 60 - 115 mg/dL [facility] Calcium 9.3 8.4 - 10.2 mg/dL [facility] Bilirubin, Total 0.5 0.0 - 1.0 mg/dL [facility] Aspartate Amino Transferase 25 5 - 31 U/L [facility] Alanine Aminotransferase 20 0 - 31 U/L [facility] Total Protein 7.7 6.5 - 8.0 g/dL [facility] Albumin Level 4.3 3.5 - 5.0 g/dL [facility] Alkaline Phosphatase 105 39 - 117 U/L [facility] Blood Venous blood specimen / Unknown 09/30/2025 10:22 AM EST 09/30/2025 2:06 PM EST us Earnest Watters MD LAB BLOOD ORDERABL ES Final Result [facility] [address] [place] [phone] * (ABNORMAL) CBC auto differential (09/30/2025 10:02 AM EST) White Blood Count 6.4 4.8 - 10.8 X10*3/uL [facility] Red Blood Count 4.69 4.20 - 5.50 X10*6/uL [facility] Hemoglobin 12.5 12.0 - 16.0 g/dl [facility] Hematocrit 40.3 37.0 - 47.0 % [facility] Mean Corpuscular Volume 85.9 80.0 - 98.0 fL [facility] Mean Corpuscular Hemoglobin 26.7(L) 27.0 - 33.0 pg [facility] Mean Corpuscular HGB Conc 31.0 31.0 - 35.0 g/dl [facility] Red Cell Distribution Width 14.0 11.0 - 16.0 % [facility] Platelet Count 216 160 - 400 X10*3/uL [facility] Mean Platelet Volume 12.8(H) 9.4 - 12.3 fL [facility] Neutrophils Percent Auto 69.9 45 - 73 % [facility] Imm Gran Pct Auto 0.3 0.0 - 0.4 % [facility] Lymphocytes Percent Auto 20.6 20 - 40 % [facility] Monocytes Percent Auto 6.4 2 - 11 % [facility] Eosinophils Percent Auto 1.7 0 - 4 % [facility] Basophils Percent Auto 1.1 0 - 2 % [facility] NRBC Pct Auto 0.0 0.0 - 0.2 /100WBC [facility] Neutrophils Absolute Auto 4.4 2.0 - 8.3 x10*3/uL [facility] Imm Gran Abs Auto 0.02 0.00 - 0.03 X10*3/uL [facility] Lymphocytes Absolute Auto 1.3 1.2 - 4.9 X10*3/uL [facility] Monocytes Absolute Auto 0.4 0.1 - 1.2 X10*3/uL [facility] Eosinophils Absolute Auto 0.1 0.0 - 0.4 X10*3/uL [facility] Basophils Absolute Auto 0.1 0.0 - 0.2 X10*3/uL [facility] NRBC Abs Auto 0.000 0.0 - 0.012 X10*3/uL [facility] Blood Venous blood specimen / Unknown 09/30/2025 10:02 AM EST 09/30/2025 2:06 PM EST Earnest Watters MD LAB BLOOD ORDERABL ES Final Result Performing Organization Address City/State/[facility] Co de Phone Number [facility] [address] [place] [phone] * POCT Hgb A1c (09/30/2025 9:53 AM EST) Hemoglobin A1C 5.7 4.0 - 5.7 % QC Media Lot # [id number] Lot# Expiration Date [id number] Blood 09/30/2025 9:53 AM EST Earnest Watters MD POINT OF CARE TEST ENTER/EDIT ORDERABLES Final Result * POCT Glucose (09/30/2025 9:52 AM EST) Glucose Blood, POC 87 60 - 200 mg/dL [employer] Lot # [id number] Lot# Expiration Date [id number] Blood Capillary blood specimen / Unknown 09/30/2025 9:52 AM EST Earnest Watters MD POINT OF CARE TEST ENTER/EDIT ORDERABLES Final Result * XR CERVICAL SPINE 3V (08/27/2025 4:15 PM EDT) Anatomical Region Laterality Modality Abdomen Radiographic Tia ging 08/27/2025 4:15 PM EDT Narrative 08/27/2025 4:34 PM EDT [facility] [address] [place] [address] XRay Report Signed Patient: Mary June MR#: [id number] : 1960 Acct:[id number] Age/Sex: 65 / F ADM Date: 08/27/25 Loc: HO.HHX Attending Dr: Lili Ferreira DO Ordering Physician: Lili Ferreira DO Date of Service: 08/27/25 Procedure(s): XR cervical spine 3V Accession Number(s): [id number] cc: Lili Ferreira DO Reason for Exam: [...] Luc Prakash MD 08/27/2025 04:31 PM EDT Dictated By: Luc Prakash MD Signed By: <Electronically signed by Luc Prakash MD in OV> 08/27/25 1631 DD/ 1615 TD/TT: 08/27/25 1616 Proposal Lead Writer: SAMANTHA Procedure Note Donotuseinterpreter, Image - 08/27/[address] [address] XRay Report Signed Patient: Chandler June#: [id number] : 1960Acct:[id number] Age/Sex: 65 / FADM Date: 08/27/25 Loc: HO.HHCX Attending Dr: Lili Ferreira DO Ordering Physician: Lili Ferreira DO Date of Service: 08/27/25 Procedure(s): XR cervical spine 3V Accession Number(s): [id number] cc: Lili Ferreira DO Reason for Exam: [...] Luc Prakash MD 08/27/2025 04:31 PM EDT Dictated By: Luc Prakash MD Signed By: <Electronically signed by Luc Prakash MD in OV> 08/27/25 1631 DD/ 1615 TD/TT: 08/27/25 1616 Proposal Lead Writer: SAMANTHA Lili Ferreira DO IMG XR PROCEDURES Final Resu lt * XR Shoulder 2+ Views Left (08/27/2025 4:15 PM EDT) Anatomical Region Laterality Modality Upper Extremities, Shoulder Left Radi ographic Imaging 08/27/2025 4:15 PM EDT Narrative 08/27/2025 4:30 PM EDT [facility] [address] [place] [address] XRay Report Signed Patient: Mary June MR#: [id number] : 1960 Acct:[id number] Age/Sex: 65 / F ADM Date: 08/27/25 Loc: MIAHX Attending Dr: Lili Ferreira DO Ordering Physician: Lili Ferreira DO Date of Service: 08/27/25 Procedure(s): XR shoulder LT min 2V Accession Number(s): [id number] cc: Lili Ferreira DO Reason for Exam: [...] 08/27/25 1627 DD/ 1615 TD/TT: 08/27/25 1616 Proposal Lead Writer: SAMANTHA Procedure Note Donotuseinterpreter, Image - 08/27/2025 [facility] [address] [place] [address] XRay Report Signed Patient: Calderon JuneR#: [id number] : 1960Acct:[id number] Age/Sex: 65 / FADM Date: 08/27/25 Loc: [facility] Attending Dr: Lili Ferreira DO Ordering Physician: Lili Ferreira DO Date of Service: 08/27/25 Procedure(s): XR shoulder LT min 2V Accession Number(s): [id number] cc: Lili Ferreira DO Reason for Exam: [...] Luc Prakash MD 08/27/2025 04:27 PM EDT RP Dictated By: Luc Prakash MD Signed By: <Electronically signed by Luc Prakash MD in OV> 08/27/25 1627 DD/ 1615 TD/TT: 08/27/25 1616 Proposal Lead Writer: SAMANTHA us Lili Ferreira DO IMG XR PROCEDURES Final Resu lt * Influenza B (ID NOW Rapid Molecular) (07/28/2025 1:53 PM EDT) [facility] Influenza B Negative Negative, Indeterminate [facility] Swab 07/28/2025 1:53 PM EDT us Marta Rey MD POINT OF CARE TEST EN TER/EDIT ORDERABLES Final Result [facility] [address] [place] [phone] * Influenza A (ID NOW Rapid Molecular) (07/28/2025 1:53 PM EDT) [facility] Influenza A Negative Negative, Indeterminate [facility] Swab 07/28/2025 1:53 PM EDT Marta Rey MD POINT OF CARE TEST EN TER/EDIT ORDERABLES Final Result Performing Organization Address [facility] Co de Phone Number [facility] [address] [place] [phone] * (ABNORMAL) POCT Rapid COVID Ag (07/28/2025 1:53 PM EDT) Rapid COVID Ag Positive [facility] Swab 07/28/2025 1:53 PM EDT us Marta Rey MD POINT OF CARE TEST EN TER/EDIT ORDERABLES Final Result Performing Organization Address [facility] Co de Phone Number [facility] [address] [place] [address] [phone] * Diabetes Eye Exam (04/23/2025 2:49 PM EDT) Historical Provider HEALTH MAINTENANCE Final Result * BI Mammogram Screening Tomosynthesis Bilateral (04/22/2025 8:55 AM EDT) Anatomical Region Laterality Modality Breast Bilateral Mammography 04/22/2025 8:55 AM EDT Narrative 04/22/2025 9:34 AM EDT [facility] [address] [place] [address] Mammography Report Signed Patient: Mary June MR#: [id number] : 1960 Acct:[id number] Age/Sex: 65 / F ADM Date: 04/22/25 Loc: HO.MAMMO Attending Dr: Teri Owens MD Ordering Physician: Teri Owens MD Results: 2Benign Findings Date of Service: 04/22/25 Follow Up: 1 Year From Orig inal Mammogram Procedure(s): MM tomosynthesis screening BI Accession Number(s): [id number] cc: Teri Owens MD EXAMINATION: MM SCREENING [...] Parris Varghese DO in OV> 04/22/2531 DD/ 0855 TD/TT: 04/22/25 0918 Proposal Lead Writer: Procedure Note Donotuseinterpreter, Image - 04/22/2025 [facility] [address] [place] [address] Mammography Report Signed Patient: Calderon JuneR#: [id number] : 1960Acct:[id number] Age/Sex: 65 / FADM Date: 04/22/25 Loc: MAMMO Attending Dr: Teri Owens MD Ordering Physician: Teri Owens MDResults: 2Benign Findings Date of Service: 04/22/25Follow Up: 1 Year From Orig inal Mammogram Procedure(s): MM tomosynthesis screening BI Accession Number(s): [id number] cc: Teri Owens MD EXAMINATION: MM SCREENING [...] signed by Parris Varghese DO in OV> 04/22/25 0931 DD/ 0855 TD/TT: 04/22/25 0918 Proposal Lead Writer: Teri Owens MD IM BI PROCEDURES Final Result * HPV DNA, Low/High Risk (01/13/2025 11:19 AM EST) HPV High Risk Negative Negative [facility] HPV Genotype 16 Negative Negative [facility] HPV Genotype 18 Negative Negative [facility] Comment:HPV testing performe d at [facility] (CLIA#[id number]), [address] [place] [address].Testing for HPV was performed using the [employer]system. The presence of HPV in the female [...] 01/14/2025 6:50 AM EST us Jigna Dorsey [facility] LAB BLOOD ORDERABLES Yoselin lashonda Result [facility] [address] [place] [phone] * Pap Smear (01/13/2025 11:19 AM EST) Swab Cervix uteri structure / Unknown 01/13/2025 11:19 AM EST 01/14/2025 6:50 AM EST Narrative [facility] - 01/16/2025 8:18 AM EST ----- ------- Name: Mary June Age/Sex: 64/F : 1960 Unit#: [id number] Attend Dr: JIGNA DORSEY [facility] Re01/13/25 Status: DEP [facility] ----- ------- SPEC : [id number] RECD: 01/14/25 STATUS: KIESHA NEGRETE NUM: [id number] PURA: 01/13/25-[address] [facility] [address]: JIGNA DORSEY CNM ENTERED: 01/14/25 SP TYPE: Pap Smr OTHR [...] 01/16/25 0818 ----- ------- END OF REPORT Jigna Dorsey CNM LAB CYTOLOGY ORDERABLES F inal Result [facility] [address] [place] [phone] from Last 3 Months or Most Recently Relevant to Health Maintenance Insurance #[id number] [place] [id number] [facility] RESIDENTIAL OPTIONS (HMO D-SNP) Care Teams Clam Treader Relationship Specialty Start Date End Date Earnest Mishra MD [address] [place] [address] [place] [address] PCP - General Internal Medicine 09/10/25 Dolores Danielle Specialty MolderHeel Attacher 09/27/23
--- OUTSIDE RECORDS SUMMARY | 2025-09-30 19:54 | XMS_ITS | Encounter Summary ---
Author Organization [employer] Address [address] [place] [address] Care Team Providers Care Knife Changer Name Role Phone Teri Owens MD Primary Care Provider [phone] Earnest Mishra MD Primary Care Prov ider Reason for Visit * Reason Comments Med Refill Encounter Details Date Type Department Care Team (Late st Contact Info) Description 05/11/[address] [facility] MEDICINE [address] [place] [address] Teri Owens MD [address] [place], [place] [phone] GERD without esophagitis Social History Tobacco Use [...] Description 12/04/2025 2:30 PM EST Office Visit [facility] OPTOMETRY [address] [place], [place] [phone] TarEdna carpenter, OD [address] [place] [address] documented as of this encounter Visit Diagnoses Diagnosis GERD without esophagitis Esophageal reflux documented in this encounter Additional Health Concerns Assessment Noted Time PHQ-9 Depression Total Score: 0 01/06/20 25 9:22 AM EST documented as of this encounter Care Teams Knife Changer Relationship Specialty Start Date End Date Teri Owens MD [address] [place] [address] PCP - General Family Medicine 10/21/18 09/09/25 Earnest Mishra MD [address] [place] [id number] PCP - General Internal Medicine 09/10/25 Dolores Danielle Training And Development CoordinatorMuseum Preparator 09/27/23 documented as of this encounter
--- OUTSIDE RECORDS SUMMARY | 2025-09-30 19:54 | XMS_ITS | Encounter Summary ---
Author Organization [employer] Address [address] [place] [address] Care Team Providers Care Security Officers And Guards Name Role Phone Teri Owens MD Primary Care Provider [phone] Earnest Mishra MD Primary Care Prov ider Reason for Visit * Reason Onset Date Comments Med Refill 01/17/2023 Encounter Details Date Type Department Care Team (Late st Contact Info) Description 01/17/2023 Telephone [facility] MEDICINE [address] [place] [address] Teri Owens MD [address] [place], [place] [phone] Med Refill Social History Tobacco Use Types [...] Miscellaneous Notes * Telephone Encounter - Epifanio Lee - 01/17/2023 12:45 PM EST Tc from pt requesting med refill Docusate sodium Diclofenac gel Lidoderm 5 % patch documented in this encounter Plan of Treatment Upcoming Encounters Date Type Department Care Team (Late st Contact Info) Description 12/04/2025 2:30 PM EST Office Visit [facility] OPTOMETRY [address] [place], [place] [phone] Edna Stevenson, OD [address] [place] [address] documented as of this encounter Visit Diagnoses Not on filedocumented in this encounter Care Teams Security Officers And Guards Relationship Specialty Start Date End Date Teri Owens MD [address] [place] [phone] PCP - General Family Medicine 10/21/18 09/09/25 Earnest Mishra MD [address] [place] [address] PCP - General Internal Medicine 09/10/25 Dolores Danielle Instructor LoopingStereo Equipment Salesperson 09/27/23 documented as of this encounter
--- OUTSIDE RECORDS SUMMARY | 2025-09-30 19:54 | XMS_ITS | Encounter Summary ---
Author Organization [employer] Address [address] [facility] 7t [place] [address] Care Team Providers Care Linux Systems Analyst Name Role Phone Earnest Mishra MD Primary Care Prov ider Reason for Visit * Reason Onset Date Comments chart prep 09/29/2025 Encounter Details Date Type Department Care Team ([facility] Contact Info) Description 09/29/[address] [facility] MED & PEDS [address] [place] [address] Earnest Mishra MD [address] [place] [address] chart prep Social History Tobacco Use Types Packs/Day Years [...] encounter Miscellaneous Notes * Telephone Encounter - Sheba Saenz MA - 09/29/2025 1:37 PM EST Chart Prep Labs: done Images: done Referrals: appointment pending Vaccines due: Covid, Flu, PCV20, Hep B, and Hep A Screenings: colonoscopy Overdue care gaps: A1c and Glucose documented in this encounter Plan of Treatment Upcoming Encounters Date Type Department Care Team (Late st Contact Info) Description 12/04/2025 2:30 PM EST Office Visit [facility] OPTOMETRY [address] [place] [address] Edna Stevenson, OD [address] [place] [address] documented as of this encounter Visit Diagnoses Not on filedocumented in this encounter Additional Health Concerns Assessment Noted Time PHQ-9 Depression Total Score: 0 01/06/20 25 9:22 AM EST documented as of this encounter Care Teams Linux Systems Analyst Relationship Specialty Start Date End Date Earnest Mishra MD [address] [place] [address] PCP - General Internal Medicine 09/10/25 Dolores Danielle Air DrierHospice Clinical Manager 09/27/23 documented as of this encounter
--- OUTSIDE RECORDS SUMMARY | 2025-09-30 19:54 | XMS_ITS | Encounter Summary ---
Author Organization [employer] Address [address] [place] [address] Care Team Providers Care Mechanic Senior Name Role Phone Teri Owens MD Primary Care Provider [phone] Earnest Mishra MD Primary Care Prov ider Reason for Visit * Reason Onset Date Comments Med Refill 08/10/2025 Encounter Details Date Type Department Care Team ([facility] st Contact Info) Description 08/10/2025 Telephone [facility] MED & PEDS [address] [place] [address] Teri Owens MD [address] [place] [address] Med Refill Social History Tobacco Use Types [...] MCG (1999) tablet To be sent to: [id number] - [place], [place] - [address] [facility] [address] documented in this encounter Plan of Treatment Upcoming Encounters Date Type Department Care Team (Late st Contact Info) Description 12/04/2025 2:30 PM EST Office Visit [facility] OPTOMETRY [address] [place], [place] [phone] Edna Stevenson, OD [address] [place] [address] documented as of this encounter Visit Diagnoses Not on filedocumented in this encounter Additional Health Concerns Assessment Noted Time PHQ-9 Depression Total Score: 0 01/06/20 25 9:22 AM EST documented as of this encounter Care Teams Mechanic Senior Relationship Specialty Start Date End Date Teri Owens MD [address] [place] [id number] PCP - General Family Medicine 10/21/18 09/09/25 Earnest Mishra MD [address] [place] [phone] PCP - General Internal Medicine 09/10/25 Dolores Danielle Voice And Data TechnicianContract Lead 09/27/23 documented as of this encounter
[2025-10-01 09:20] LABS: ~HepC Num1 0.07 S/CO (0.00-0.79); ~Hepatitis C Antibody Nonreactive (Nonreactive)
== END 2025-09-30 10:21 | disposition home or self-care (01) ==
LOC: HO.CHCLDS 10:20
PROVIDERS: Visit Provider Internal Medicine
DX: Z11.59 Encounter for screening for other viral diseases (principal); Z13.29 Encounter for screening for other suspected endocrine disorder; E11.9 Type 2 diabetes mellitus without complications
CPT/HCPCS: 36415; 80053; 80061; 82043; 82570; 84443; 85025; 86803